=== PATIENT | female | born 1970 | race Caucasian/White ===

== ENCOUNTER → 2016-12-22 | Outpatient (CLI) | payer BC ==
[~2016-12-22] MED LIST: ATV/1 PO; BUPR-79 PO; BUSP15TA70 PO; CYAN100T6 PO; DOCU1TAB6 PO; FOLI1TAB7 PO; LAMO100T16 PO; MAGN250T3 PO; MULT-506 PO; NORE-37 PO; POTASSIUM PO; ZOLP10TA PO
== END | disposition home or self-care (01) ==
LOC: C.PATHSPEC 14:01
PROVIDERS: ATTEND Dermatology
DX: D23.5 Other benign neoplasm of skin of trunk (principal); D22.39 Melanocytic nevi of other parts of face; L72.9 Follicular cyst of the skin and subcutaneous tissue, unspecified

== ENCOUNTER → 2017-03-06 | Outpatient (CLI) | payer BC ==
--- NOTE | 2017-03-06 16:28 | MAMMOGRAPHY REPORT ---
BILATERAL DIGITAL SCREENING MAMMOGRAM TOMOSYNTHESIS WITH CAD: 03/06/2017 CLINICAL HISTORY: Routine screening. Patient has no complaints. TECHNIQUE: Breast tomosynthesis in addition to standard 2D mammography was performed. Current study was also evaluated with a Computer Aided Detection (CAD) system. COMPARISON: Comparison is made to exams dated: 12/16/2015 mammogram, 11/07/2014 mammogram, 06/13/2013 m ammogram, 06/13/2013 ultrasound, and 06/07/2013 mammogram - [facility]. BREAST COMPOSITION: There are scattered areas of fibroglandular density in both breasts. FINDINGS: No new suspicious mass, architectural distortion or cluster of microcalcifications is see n. IMPRESSION: ACR BI-RADS CATEGORY 1: NEGATIVE There is no mammographic evidence of malignancy. A 1 year screening mammogram is recommended. The p atient will receive written notification of the results. Approximately 10% of breast cancers are not detected with mammography. A negative mammographic repor t should not delay biopsy if a clinically suggestive mass is present. Vickie Chang M.D. ay/:03/06/2017 16:06:29 Molder Operator: Kamilah MCDONOUGHR, M, [facility] letter sent: Normal 1/2 BI-RADS Code: ACR BI-RADS Category 1: Negative
== END | disposition home or self-care (01) ==
LOC: C.MAMM 13:24
PROVIDERS: ATTEND Obstetrics & Gynecology
DX: Z12.31 Encounter for screening mammogram for malignant neoplasm of breast (principal)

== ENCOUNTER → 2017-04-27 | Outpatient (CLI) | payer BC | END | disposition home or self-care (01) | LOC: C.PAPS 10:00 | PROVIDERS: ATTEND Obstetrics & Gynecology | DX: Z01.419 Encounter for gynecological examination (general) (routine) without abnormal findings (principal) ==

== ENCOUNTER → 2017-06-01 | Outpatient (CLI) | payer BC ==
[2017-06-01 17:14] LABS: URINE APPEARANCE CLEAR (CLEAR); URINE BILIRUBIN NEG (NEG); URINE COLOR YELLOW; URINE NITRITE NEG (NEG); URINE PH 6.5 (4.5-7.5); URINE SPECIFIC GRAVITY 1.022 (1.000-1.030); UROBILINOGEN NEG (NEG); ZZUR CULT IF INDIC CLEAN CATCH NO
[2017-06-01 17:16] LABS: MANUAL MICROSCOPIC REQUIRED? NO; REVIEW REQ? NO
== END | disposition home or self-care (01) ==
LOC: C.LAB1850 15:30
PROVIDERS: ATTEND Internal Medicine
DX: R31.9 Hematuria, unspecified (principal)

== ENCOUNTER → 2017-08-21 | Outpatient (CLI) | payer BC ==
[2017-08-21 12:42] LABS: THYROID STIMULATING HORMONE 1.7 uIu/ml (0.300-4.500)
== END | disposition home or self-care (01) ==
LOC: C.LAB1850 10:26
PROVIDERS: ATTEND Internal Medicine
DX: E04.2 Nontoxic multinodular goiter (principal)

== ENCOUNTER → 2017-09-25 | Outpatient (CLI) | payer BC ==
--- NOTE | 2017-09-25 13:58 | DIAGNOSTIC IMAGING REPORT ---
CHEST 2 VIEWS ROUTINE CLINICAL HISTORY: ACUTE UPPER RESPIRATORY INFECTION dyspnea COMPARISON STUDY: No previous studies for comparison. FINDINGS: The bones soft tissues and hemidiaphragms are normal. The cardiomediastinal silhouette is normal. The lungs are clear. The pulmonary vasculature is normal. IMPRESSION: Negative chest. The above report was generated using voice recognition software. It may contain grammatical, syntax or spelling errors. Electronically signed by: Vivek Zendejas M.D. 09/25/2017 1:57 PM Dictated Date/Time: 09/25/2017 1:56 PM
== END | disposition home or self-care (01) ==
LOC: C.RAD1850 13:43
PROVIDERS: ATTEND Internal Medicine
DX: J06.9 Acute upper respiratory infection, unspecified (principal)

== ENCOUNTER 2022-07-15 19:11 | Inpatient (IN) ==
[2022-07-15 19:52] LABS: Basophils # (auto) 0.06 K/uL (0-0.2); Basophils % (auto) 0.4 %; Eosinophils # (auto) 0.03 K/uL (0-0.50); Eosinophils % (auto) 0.2 %; Hematocrit (blood only) 30.7 % (34.1-44.9); Hemoglobin 9.2 g/dl (12.0-16.0); Immature Granulocytes # (auto) 0.15 K/uL (0.00-0.02); Lymphocytes # (auto) 0.88 K/uL (1.2-3.4); Lymphocytes % (auto) 5.7 %; Mean Corpuscular Hemoglobin 24.5 pg (25.0-34.0); Mean Corpuscular Volume 81.6 fL (80.0-100.0); Monocytes # (auto) 0.62 K/uL (0.24-0.82); Neutrophils # (auto) 13.74 K/uL (1.4-6.5); Neutrophils % (auto) 88.7 %; Platelet Count 780 K/uL (130-400); RDW Coefficient of Variation 14.6 % (11.5-14.5); RDW Standard Deviation 42.7 fL (36.4-46.3); Red Blood Count 3.76 M/uL (3.93-5.22); White Blood Count 15.48 K/ul (4.8-10.8)
[2022-07-15] MEDS ORDERED: ONDANSETRON INJ 2 MG/ML 2 ML VIAL IV STA (19:55)
[2022-07-15] MEDS ORDERED: MoRPHine SULFATE 10 MG/ML CARP/VIAL IV STA (19:55)
--- NOTE | 2022-07-15 20:01 | Emergency Department Note ---
Impression & Plan Left sided abdominal pain, Anemia, Liver hematoma, Colon cancer metastasized to liver, Abdominal distension, S/P colonoscopy, S/P endoscopy ED Provider Note NAME: PRIYA MNOZON AGE: 51 SEX: F : 1970 ARRIVES VIA: Walk-In INFORMANT: [Patient] ED PROVIDER(S): [Brayden Rojas MD] CHIEF COMPLAINT: Abdominal pain HISTORY OF PRESENT ILLNESS: The patient is a 51-year-old female who presents to the ER with left upper quadrant abdominal pain. The patient had an endoscopy and colonoscopy today by Dr. Oquendo. They were looking for cancer. They did find a suspicious area in the colon. The patient's left upper quadrant abdominal pain has markedly increased since the procedure and she is rating the pain as severe. She was told to come here for pain control if necessary. There has been no fever, no vomiting, no diarrhea, she is passing gas since the colonoscopy. Her abdomen is distended but she states that has been the case because of her liver disease. REVIEW OF SYSTEMS: See HPI for pertinent positives and negatives. A total of ten systems were reviewed and were otherwise negative. PMHx/PSHx: See Below SOCIAL HISTORY: See Below. PHYSICAL EXAM: GENERAL: Patient is in significant distress from pain. HEENT: No acute trauma, normocephalic atraumatic, mucous membranes moist, no nasal congestion, no scleral icterus. NECK: No stridor, no adenopathy, no meningismus, trachea is midline. LUNGS: Clear to auscultation bilaterally, no wheeze, no rhonchi, breath sounds equal. HEART: Mildly tachycardic, regular rhythm, no murmurs. ABDOMEN: Firm, distended, markedly tender in the left upper quadrant and left midabdomen. EXTREMITIES: No cyanosis, full range of motion of all the joints without pain or difficulty, no signs for acute trauma. NEUROLOGIC: Oriented x 3, no acute motor or sensory deficits, no focal weakness. SKIN: No rash, no jaundice, no diaphoresis. Pale. DIFFERENTIAL DIAGNOSIS: Appendicitis, ovarian cyst, bowel perforation, ovarian torsion, ectopic , TOA, PID, diverticulitis, UTI, obstruction, mesenteric ischemia, aortic pathology, inflammatory bowel disease, renal colic, PUD, pancreatitis, biliary pathology, hernia, volvulus, constipation, as well as other pathologies. EMERGENCY DEPARTMENT COURSE/PROCEDURES: Critical Care Note: I have personally spent 52 minutes of critical care time in the direct management of this patient. This includes bedside care, interpretation of diagnostic studies, and testing, discussion with consultants, patient, and family members, and other required patient management activities. This 52 minutes is in excess of all separately billable procedures. MEDICAL DECISION MAKING: There is a moderate leukocytosis, this could be consistent with infection or just her pain. Hemoglobin returned low at around 9, this was about a one-point drop for her. A repeat hemoglobin performed a few hours later showed a drop of another point to around 8. Platelet count was high at 780. Creatinine was mildly elevated at 1.37, no electrolyte abnormality in need of emergent correction. Alk phos was elevated, the remaining liver enzymes were unremarkable. Lipase was not elevated making pancreatitis unlikely. Chest film did not show free air or pneumonia. Abdominal and pelvis CT showed a liver hematoma with extension into the mesentery. No active extravasation was noted. No bowel obstruction. The patient received IV morphine for pain, IV Zofran for nausea. The findings on CT explain the patient's discomfort. I did speak with GI, Dr. Sanchez. There was no GI intervention warranted but he did suggest potential transfer for IR intervention and cauterization/coiling. I spoke with surgery here at our hospital, they felt the patient could stay at this facility, they did not feel the need for emergent transfer or for IR intervention this evening. The patient was much more comfortable after being medicated. She has an adequate blood pressure, she sitting up in bed and doing well. The patient was consented for blood, the paperwork was completed and signed. A type and cross was ordered. The patient is aware of her findings, she understands the reason for the hospital stay, she understands she may require transfer if she were to worsen. She understands that she will require blood if she worsens. The on-call hospitalist has been consulted and did accept the patient. Past Med/Surg History Medical History Abdominal pain Anemia reason for upcoming EGD Bipolar disorder Borderline high cholesterol Cervical radiculopathy Dysmenorrhea Dysplastic nevus Ectopic hx GERD (gastroesophageal reflux disease) History of COVID-19 March 22, 2022 > home test and at [place] test site in parking gargage. > tired, cough, fever > all resolved IBS (irritable bowel syndrome) Liver masses Palpitations resolved per pt Surgical History H/O laparoscopy Ovarian pregnacy H/O oral surgery tooth extraction- wisdom History of colonoscopy History of dilatation and curettage S/P abdominoplasty S/P fine needle aspiration pt unaware S/P LASIK surgery S/P skin biopsy Nevus- Benign Family History Grandmother (Maternal) Alzheimer disease Stroke Mother Hypothyroidism Obesity Diabetes S/P removal of parathyroid gland Grandmother (Paternal) Diabetes Family/Other Breast cancer Sister Diabetes Pre-diabetes Uncle Stroke Myocardial infarction Dementia Denies family history of Ovarian cancer Colorectal cancer Social History Smoking Status: Never smoker Tobacco Type: Cigarettes Age Started Using Tobacco: 14; Age Quit Using Tobacco: 44; packs per day: 1; Years Smoked: 15; Second Hand Exposure: No; Hx Alcohol Use: Yes Alcohol type: wine Alcohol Intake Frequency: 4 or More x per/Week Alcohol Intake Frequency Comment: Socially Hx Substance Use: No Preferred Language: Peruvian Communication Ability: Effective Visual Impairment: No Limitations Hearing Ability: Normal Form Worker Required: No Beliefs That Will Affect Care: None marital status: Current Living Situation: Spouse Current Living Situation Comment: home current occupational status: employed Feels Safe at Home: Yes Childhood Exposure to Second-Hand Smoke: Yes Dental Care, Regularly: Yes Physical Activity Frequency: 3-4 Times per Week Seatbelt Use: always Sunscreen Use: Yes Assistive Devices: None Allergies Allergies Allergy/AdvReac Type Severity Reaction Status Date / Time Sulfa (Sulfonamide Allergy Severe BREATHING Verified 07/15/22 11:22 Antibiotics) DIFFICULTIES adhesive Allergy Unknown SKIN RASH Verified 07/15/22 11:22 Home Meds Home Medications Medication Instructions Recorded Confirmed multivitamin 1 tab PO QAM 08/28/19 07/15/22 drospirenone 3 mg-ethinyl 1 tab PO QAM 07/07/22 07/15/22 estradiol 0.02 mg tablet (KELVIN (28)) fluticasone propionate 50 1 sprays intranasal BID PRN 07/07/22 07/15/22 mcg/actuation nasal Congestion spray,suspension lamotrigine 150 mg tablet 150 mg PO QAM 07/07/22 07/15/22 lorazepam 0.5 mg tablet 0.5 mg PO HS 07/07/22 07/15/22 bupropion HCl 200 mg tablet,12 hr 200 mg PO QAM 07/15/22 07/15/22 sustained-release Previous Rx's Medication Instructions Recorded buspirone 15 mg tablet 15 mg PO BID #180 tabs 11/11/20 zolpidem 5 mg tablet 5 mg PO HS PRN sleep #20 tabs 09/20/21 ondansetron 4 mg disintegrating 4 mg PO Q8H PRN nausea and 06/29/22 tablet vomiting #30 tabs dicyclomine 10 mg capsule 10 mg PO TID PRN abdominal pain 07/05/22 #90 caps Results & Data (ED) Vital Signs Vital Signs - 24 hr 07/15/22 19:22 07/15/22 19:58 07/15/22 19:58 Temperature 36 C L Temperature Source Temporal Artery Scan Pulse Rate 98 H 89 Pulse Rate [Apical] 92 H Pulse Rhythm Regular Pulse Rhythm [Apical] Regular Pulse Strength [Apical] Normal Respiratory Rate 18 24 24 Respiratory Effort / Characteristics Non-Labored Spontaneous Non-Labored Spontaneous Respiratory Depth Normal Normal Respiratory Pattern Regular Blood Pressure 114/81 Blood Pressure [Right Arm] 132/80 Blood Pressure Mean 92 Blood Pressure Mean [Right Arm] 97 Blood Pressure Position [Right Arm] Sitting Pulse Oximetry 97 97 97 Oxygen Delivery Method Room Air Room Air Room Air Sepsis Recent Fever Within 48 Hours No Sepsis New/Unexplained Change in Mental Status No Sepsis Action Taken by Nursing No Action Required 07/15/22 22:00 Temperature Temperature Source Pulse Rate Pulse Rate [Apical] 80 Pulse Rhythm Pulse Rhythm [Apical] Pulse Strength [Apical] Respiratory Rate 29 H Respiratory Effort / Characteristics Non-Labored Spontaneous Respiratory Depth Normal Respiratory Pattern Blood Pressure Blood Pressure [Right Arm] 125/88 Blood Pressure Mean Blood Pressure Mean [Right Arm] 100 Blood Pressure Position [Right Arm] Pulse Oximetry 96 Oxygen Delivery Method Room Air Sepsis Recent Fever Within 48 Hours Sepsis New/Unexplained Change in Mental Status Sepsis Action Taken by Fdc Medications Current Medication List: was personally reviewed by me Laboratory Data Attestation: I reviewed the patient's lab results. Result diagrams: 07/15/22 21:47 07/15/22 19:40 Lab Results 07/15/22 07/15/22 07/15/22 Range/Units 19:40 19:40 19:40 WBC 15.48 H (4.8-10.8) K/ul RBC 3.76 L (3.93-5.22) M/uL Hgb 9.2 L (12.0-16.0) g/dl Hct 30.7 L (34.1-44.9) % MCV 81.6 (80.0-100.0) fL MCH 24.5 L (25.0-34.0) pg MCHC 30.0 L (32.0-36.0) g/dL RDW Std Deviation 42.7 (36.4-46.3) fL RDW Coeff of Kenyon 14.6 H (11.5-14.5) % Plt Count 780 H (130-400) K/uL MPV 9.0 L (9.4-12.3) fL Immature Gran % (Auto) 1.0 % Neut % (Auto) 88.7 % Lymph % (Auto) 5.7 % Barnwell % (Auto) 4.0 % Eos % (Auto) 0.2 % Baso % (Auto) 0.4 % Neut # (Auto) 13.74 H (1.4-6.5) K/uL Lymph # (Auto) 0.88 L (1.2-3.4) K/uL Barnwell # (Auto) 0.62 (0.24-0.82) K/uL Eos # (Auto) 0.03 (0-0.50) K/uL Baso # (Auto) 0.06 (0-0.2) K/uL Immature Gran # (Auto) 0.15 H (0.00-0.02) K/uL Sodium 135 L (136-145) mmol/L Potassium 4.5 (3.5-5.1) mmol/L Chloride 102 (98-107) mmol/L Carbon Dioxide 21 (21-32) mmol/L Anion Gap 12 H (3-11) BUN 11 (6-23) mg/dl Creatinine 1.37 H (0.6-1.2) mg/dl Est Cr Clr Drug Dosing Not Reportable Est GFR ( Amer) 52.4 ml/min Est GFR (Non-Af Amer) 45.2 ml/min BUN/Creatinine Ratio 8.0 L (10-20) Glucose 127 H (70-99(Fasting)) mg/dl Calcium 9.7 (8.5-10.1) mg/dl Magnesium 1.8 (1.7-2.4) mg/dl Total Bilirubin 0.5 (0.2-1.0) mg/dl AST 21 (13-39) U/L ALT 23 (7-52) U/L Alkaline Phosphatase 542 H (34-104) U/L Total Protein 7.6 (6.0-8.3) gm/dl Albumin 3.8 (3.4-5.0) gm/dl Globulin 3.8 (2.5-4.0) gm/dl Albumin/Globulin Ratio 1.0 (0.9-2) Lipase 4 L (11-82) U/L Crossmatch 07/15/22 07/15/22 Range/Units 21:47 21:47 WBC (4.8-10.8) K/ul RBC (3.93-5.22) M/uL Hgb 8.4 L (12.0-16.0) g/dl Hct (34.1-44.9) % MCV (80.0-100.0) fL MCH (25.0-34.0) pg MCHC (32.0-36.0) g/dL RDW Std Deviation (36.4-46.3) fL RDW Coeff of Kenyon (11.5-14.5) % Plt Count (130-400) K/uL MPV (9.4-12.3) fL Immature Gran % (Auto) % Neut % (Auto) % Lymph % (Auto) % Barnwell % (Auto) % Eos % (Auto) % Baso % (Auto) % Neut # (Auto) (1.4-6.5) K/uL Lymph # (Auto) (1.2-3.4) K/uL Barnwell # (Auto) (0.24-0.82) K/uL Eos # (Auto) (0-0.50) K/uL Baso # (Auto) (0-0.2) K/uL Immature Gran # (Auto) (0.00-0.02) K/uL Sodium (136-145) mmol/L Potassium (3.5-5.1) mmol/L Chloride (98-107) mmol/L Carbon Dioxide (21-32) mmol/L Anion Gap (3-11) BUN (6-23) mg/dl Creatinine (0.6-1.2) mg/dl Est Cr Clr Drug Dosing Est GFR ( Amer) ml/min Est GFR (Non-Af Amer) ml/min BUN/Creatinine Ratio (10-20) Glucose (70-99(Fasting)) mg/dl Calcium (8.5-10.1) mg/dl Magnesium (1.7-2.4) mg/dl Total Bilirubin (0.2-1.0) mg/dl AST (13-39) U/L ALT (7-52) U/L Alkaline Phosphatase (34-104) U/L Total Protein (6.0-8.3) gm/dl Albumin (3.4-5.0) gm/dl Globulin (2.5-4.0) gm/dl Albumin/Globulin Ratio (0.9-2) Lipase (11-82) U/L Crossmatch See Detail Administered Medications Morphine Sulfate (Morphine Sulfate 4 Mg/Ml 1 Ml Carp\Vial) 4 mg IV Q30M PRN PRN Reason: Pain Stop: 07/29/22 19:54 Last Admin: 07/15/22 21:52 Dose: 4 mg Documented By: GILDA Discontinued Medications Ioversol (Optiray 300 100ml) 91 ml IV ONCE ONE Stop: 07/15/22 20:35 Last Admin: 07/15/22 20:35 Dose: 91 ml Documented By: MIHIR Morphine Sulfate (Morphine Sulfate 10 Mg/Ml Carp/Vial) 6 mg IV NOW STA Stop: 07/15/22 19:56 Last Admin: 07/15/22 20:17 Dose: 6 mg Documented By: GILDA Ondansetron HCl (Ondansetron Inj 2 Mg/Ml 2 Ml Vial) 4 mg IV NOW STA Stop: 07/15/22 19:56 Last Admin: 07/15/22 20:17 Dose: 4 mg Documented By: GILDA Imaging Data Radiologist's Impression: Abdomen/Pelvis CT 07/15/22 19:[address] WITH IV CONTRAST CT DOSE: 488.56 mGy.cm HISTORY: Acute upper abdominal pain in a patient with metastatic disease. Cecal mass described on the colonoscopy study of same day tumor/abdominal pain/colonoscopy today TECHNIQUE: Multiaxial CT images of the abdomen and pelvis were performed following the IV administration of 91 cc of Optiray, A dose lowering technique was utilized adhering to the principles of ALARA. COMPARISON STUDY: CT abdomen and pelvis 07/01/2022 FINDINGS: Multifocal pulmonary metastasis redemonstrated measuring up to 2.4 cm within the left lower lobe. Mild subsegmental bibasilar atelectasis. No pneumatosis or pneumoperitoneum. Unremarkable spleen, pancreas and adrenal glands. Contracted gallbladder. Numerous masses of the liver redemonstrated with largest mass/conglomerate masses of the left hepatic lobe measuring up to approximately 16.6 cm. The left hepatic lobe mass was recently biopsied on 07/12/2022. There is acute subcapsular hemorrhage measuring up to 8.3 cm on image 227 which extends into the extracapsular space with hematoma inferior to the left hepatic lobe measuring up to 6.3 cm on image 255. Hemorrhage is also noted layering along the stomach with small to moderate amount of hemorrhage extending into the pelvis. No definite active extravasation identified. There is narrowing of the portal, splenic and superior mesenteric veins without thrombus identified. Unremarkable kidneys. No hydronephrosis. Unremarkable urinary bladder, uterus and adnexa. Aorta and IVC are unremarkable. Bones of the right lower quadrant mesentery redemonstrated measuring up to 2.8 x 1.9 cm. Colonic diverticulosis. No CT evidence of acute appendicitis. No small bowel obstruction. Heterogeneous mucosal mass of the cecum measures up to approximately 3 cm. Unremarkable soft tissues. There is no acute fracture or destructive bone lesion identified. Indeterminate ill-defined subcentimeter sclerotic focus of the right iliac bone on image 296. Mild lumbar levoscoliosis. IMPRESSION: 1. 3.0 cm focus of soft tissue thickening involving the cecum likely correlates with the mucosal mass seen and biopsied on colonoscopy of same day. 2. Hepatic and pulmonary metastatic disease are again noted. 3. The dominant left hepatic lobe mass was recently biopsied on 07/12/2022. There is acute subcapsular hematoma involving the left hepatic lobe measuring up to approximately 8 cm with hemorrhage extension into the mesentery and pelvis with small to moderate amount of hemoperitoneum. 4. Mesenteric lymphadenopathy of the right lower quadrant mesentery redemonstra angel. 5. Additional findings as above. ACT 112: Negative or not required by law. The above report was generated using voice recognition software. It may contain grammatical, syntax or spelling errors. Electronically signed by: Min Ledbetter M.D. 07/15/2022 9:08 PM Chest X-Ray 07/15/22 19:55 XR chest 1V portable HISTORY: 51 years-old Female abd pain . Acute chest and abdominal pain COMPARISON: Chest CT 07/12/2002 TECHNIQUE: Portable AP view of the chest FINDINGS: Cardiomediastinal and hilar silhouettes are unchanged. No pneumothorax, pleural effusion or overt pulmonary edema. Numerous bilateral pulmonary nodules are redemonstrated measuring up to 2.5 cm within the left lower lobe. Degenerative changes of the shoulders and spine with sigmoidal thoracolumbar scoliosis. IMPRESSION: 1. No acute process. 2. Multifocal pulmonary metastatic disease redemonstrated. ACT 112: Negative or not required by law. The above report was generated using voice recognition software. It may contain grammatical, syntax or spelling errors. Electronically signed by: Min Ledbetter M.D. 07/15/2022 8:23 PM Discharge Plan Visit Data Chief Complaint: Abdominal Pain Stated Complaint: ABDOMINAL PAIN ED Provider: Brayden Rojas Discharge Problem: Left sided abdominal pain, Anemia, Liver hematoma, Colon cancer metastasized to liver, Abdominal distension, S/P colonoscopy, S/P endoscopy Patient Disposition: Admitted As Inpatient Condition: Serious Forms Stand Alone Forms: [facility] [employer] Prescriptions Prescriptions: No Action zolpidem 5 mg tablet 5 mg PO HS PRN (Reason: sleep) Qty: 20 0RF Rx Instructions: max 20 tablets per month ondansetron 4 mg tablet,disintegrating 4 mg PO Q8H PRN (Reason: nausea and vomiting) Qty: 30 0RF dicyclomine 10 mg capsule 10 mg PO TID PRN (Reason: abdominal pain) Qty: 90 2RF multivitamin tablet 1 tab PO QAM buspirone 15 mg tablet 15 mg PO BID Qty: 180 3RF Rx Instructions: may take an additional tablet in afternoon if needed lamotrigine 150 mg tablet 150 mg PO QAM lorazepam 0.5 mg tablet 0.5 mg PO HS fluticasone propionate 50 mcg/actuation spray,suspension 1 sprays INTNAS BID PRN (Reason: Congestion) drospirenone-ethinyl estradiol [KELVIN (28)] 3-0.02 mg tablet 1 tab PO QAM bupropion HCl 200 mg tablet sustained-release 12 hr 200 mg PO QAM Referrals Referrals: Gloria Molina MD [Primary Care Provider] -
[2022-07-15 20:12] LABS: Alanine Aminotransferase 23 U/L (7-52); Albumin Level 3.8 gm/dl (3.4-5.0); Alkaline Phosphatase 542 U/L (34-104); Anion Gap 12 (3-11); Aspartate Aminotransferase 21 U/L (13-39); Bilirubin,Total 0.5 mg/dl (0.2-1.0); Blood Urea Nitrogen 11 mg/dl (6-23); Calcium 9.7 mg/dl (8.5-10.1); Carbon Dioxide 21 mmol/L (21-32); Chloride 102 mmol/L (98-107); Est GFR (African American) 52.4 ml/min; Est GFR (Non-African American) 45.2 ml/min; Globulin 3.8 gm/dl (2.5-4.0); Glucose 127 mg/dl (70-99(Fasting)); Lipase 4 U/L (11-82); Potassium 4.5 mmol/L (3.5-5.1); Sodium 135 mmol/L (136-145); Total Protein 7.6 gm/dl (6.0-8.3)
--- NOTE | 2022-07-15 20:24 | XRay Report ---
XR chest 1V portable HISTORY: 51 years-old Female abd pain . Acute chest and abdominal pain COMPARISON: Chest CT 07/12/2002 TECHNIQUE: Portable AP view of the chest FINDINGS: Cardiomediastinal and hilar silhouettes are unchanged. No pneumothorax, pleural effusion or overt pul monary edema. Numerous bilateral pulmonary nodules are redemonstrated measuring up to 2.5 cm within t he left lower lobe. Degenerative changes of the shoulders and spine with sigmoidal thoracolumbar scol iosis. IMPRESSION: 1. No acute process. 2. Multifocal pulmonary metastatic disease redemonstrated. ACT 112: Negative or not required by law. The above report was generated using voice recognition software. It may contain grammatical, syntax o r spelling errors. Electronically signed by: Min Ledbetter M.D. 07/15/2022 8:23 PM
[2022-07-15] MEDS ORDERED: OPTIRAY 300 100mL IV ONE (20:34)
--- NOTE | 2022-07-15 21:10 | CT Scan Report ---
ABDOMEN AND PELVIS CT WITH IV CONTRAST CT DOSE: 488.56 mGy.cm HISTORY: Acute upper abdominal pain in a patient with metastatic disease. Cecal mass described on the colonoscopy study of same day tumor/abdominal pain/colonoscopy today TECHNIQUE: Multiaxial CT images of the abdomen and pelvis were performed following the IV administrat ion of 91 cc of Optiray, A dose lowering technique was utilized adhering to the principles of ALARA. COMPARISON STUDY: CT abdomen and pelvis 07/01/2022 FINDINGS: Multifocal pulmonary metastasis redemonstrated measuring up to 2.4 cm within the left lower lobe. Mild subsegmental bibasilar atelectasis. No pneumatosis or pneumoperitoneum. Unremarkable sple en, pancreas and adrenal glands. Contracted gallbladder. Numerous masses of the liver redemonstrated with largest mass/conglomerate masses of the left hepatic lobe measuring up to approximately 16.6 cm. The left hepatic lobe mass was recently biopsied on 07/12/2022. There is acute subcapsular hemorrhage measuring up to 8.3 cm on image 227 which extends into the extracapsular space with hematoma inferio r to the left hepatic lobe measuring up to 6.3 cm on image 255. Hemorrhage is also noted layering luis miguel ng the stomach with small to moderate amount of hemorrhage extending into the pelvis. No definite act tresa extravasation identified. There is narrowing of the portal, splenic and superior mesenteric veins without thrombus identified. Unremarkable kidneys. No hydronephrosis. Unremarkable urinary bladder, uterus and adnexa. Aorta and I VC are unremarkable. Bones of the right lower quadrant mesentery redemonstrated measuring up to 2.8 x 1.9 cm. Colonic diverticulosis. No CT evidence of acute appendicitis. No small bowel obstruction. He terogeneous mucosal mass of the cecum measures up to approximately 3 cm. Unremarkable soft tissues. T here is no acute fracture or destructive bone lesion identified. Indeterminate ill-defined subcentime ter sclerotic focus of the right iliac bone on image 296. Mild lumbar levoscoliosis. IMPRESSION: 1. 3.0 cm focus of soft tissue thickening involving the cecum likely correlates with the mucosal mass seen and biopsied on colonoscopy of same day. 2. Hepatic and pulmonary metastatic disease are again noted. 3. The dominant left hepatic lobe mass was recently biopsied on 07/12/2022. There is acute subcapsular hematoma involving the left hepatic lobe measuring up to approximately 8 cm with hemorrhage extensio n into the mesentery and pelvis with small to moderate amount of hemoperitoneum. 4. Mesenteric lymphadenopathy of the right lower quadrant mesentery redemonstrated. 5. Additional findings as above. ACT 112: Negative or not required by law. The above report was generated using voice recognition software. It may contain grammatical, syntax o r spelling errors. Electronically signed by: Min Ledbetter M.D. 07/15/2022 9:08 PM
[2022-07-15] MEDS ORDERED: SODIUM CHLORIDE 0.9% 250 ML IV PRN (21:39)
--- NOTE | 2022-07-15 21:48 | Surgery Consultation ---
Date of Consultation July 15, 2022 Assessment & Plan (1) Subcapsular hematoma of liver: I discussed with the treating emergency room physician. I suspect the patient's abdominal pain is likely due to peritoneal irritation from her subcapsular hematoma of her liver. We therefore recommend the following: At the present time the patient is noted to be normotensive without tachycardia. She is only had a 1 g drop of her hemoglobin from her most recent one taken approximately 2 weeks ago. Recommend following hemoglobin and hematocrits every 4-6 hours Recommend obtaining a type and cross for 2 units of packed red blood cells in the event her transfusion is required Provide analgesics Provide antiemetics Clinical deterioration is noted reimaging of her abdomen can be entertained or the patient can be transferred to a tertiary facility where interventional radiology and the capability to embolize any bleeding areas can be performed I discussed the above with my attending physician Dr. Sal who is in agreement with these recommendations Supervising Physician Co-Signing Physician Notes Unlikely this is ongoing bleeding watch the patient for 24 hours or so to see if hemoglobin stabilizes History of Present Illness Reason for Consultation: Subcapsular hematoma of the liver History of Present Illness This is a 51-year-old female with an underlying history of metastatic colon cancer. Patient notes that 3 days ago the patient underwent an ultrasound- guided biopsy of her liver. She noted that she did have some abdominal pain following this procedure but it was initially tolerable. She further reports that she underwent an EGD as well as a colonoscopy earlier today. These records were reviewed and her EGD showed no significant abnormalities. She was noted to have a nonobstructive mass of her cecum noted on the colonoscopy. Upon return home from this procedure the patient noted worsening abdominal pain. She notes the pain is greatest in the left upper quadrant with some radiation to her left shoulder. She denies any nausea or vomiting. She does not report any fevers, shakes, chills. No lightheadedness or dizziness is noted. Patient notes that she does not take any anticoagulants or antiplatelet medications. Patient notes that she has had abdominal surgeries in the form of a abdominoplasty as well as a evacuation of an ectopic . Concerning the patient's history of colon cancer she says she is scheduled to see an oncologist at [facility] next week. Since arrival to the hospital the patient has had labs and imaging which I independent reviewed. Patient has had a chest x-ray that showed no acute process. Multiple pulmonary nodules suspicious for metastatic disease were noted. Patient did have a CT scan of her abdomen and pelvis. Patient was noted to have a 3 cm focus in the cecum correlating to mass noted on colonoscopy today. Hepatic and pulmonary metastatic disease was noted. Patient was noted to have a subcapsular hematoma involving the left hepatic lobe which measured approximately 8 cm. There is hemorrhage that extended into the mesentery and pelvis with a small to moderate amount of hemoperitoneum. There is no definite active extravasation noted on the study. Labs include a CBC her white blood cell count was 15.8. Hemoglobin and hematocrit were 9.2 and 30.7. It is noteworthy to mention the patient had a most recent hemoglobin on 07/01/2022 which was 10.2. Patient's platelet count was 780,000. Chemistry profile showed sodium was 135 with a potassium of 4.5. BUN and creatinine were 11 and 1.3. At the time of my interview the patient was resting in bed. She did note some pain greatest in the left upper quadrant of her abdomen but she was in no distress. Allergies Allergy/AdvReac Type Severity Reaction Status Date / Time Sulfa (Sulfonamide Allergy Severe BREATHING Verified 07/15/22 11:22 Antibiotics) DIFFICULTIES adhesive Allergy Unknown SKIN RASH Verified 07/15/22 11:22 Home Medications Medication Instructions Recorded Confirmed Type multivitamin 1 tab PO QAM 08/28/19 07/15/22 History buspirone 15 mg tablet 15 mg PO BID #180 tabs 11/11/20 07/15/22 Rx zolpidem 5 mg tablet 5 mg PO HS PRN sleep #20 tabs 09/20/21 07/15/22 Rx ondansetron 4 mg disintegrating 4 mg PO Q8H PRN nausea and 06/29/22 07/15/22 Rx tablet vomiting #30 tabs dicyclomine 10 mg capsule 10 mg PO TID PRN abdominal pain 07/05/22 07/15/22 Rx #90 caps drospirenone 3 mg-ethinyl 1 tab PO QAM 07/07/22 07/15/22 History estradiol 0.02 mg tablet (KELVIN (28)) fluticasone propionate 50 1 sprays intranasal BID PRN 07/07/22 07/15/22 History mcg/actuation nasal Congestion spray,suspension lamotrigine 150 mg tablet 150 mg PO QAM 07/07/22 07/15/22 History lorazepam 0.5 mg tablet 0.5 mg PO HS 07/07/22 07/15/22 History bupropion HCl 200 mg tablet,12 hr 200 mg PO QAM 07/15/22 07/15/22 History sustained-release Patient History Medical History Abdominal pain Anemia reason for upcoming EGD Bipolar disorder Borderline high cholesterol Cervical radiculopathy Dysmenorrhea Dysplastic nevus Ectopic hx GERD (gastroesophageal reflux disease) History of COVID-March 22, 2022 > home test and at [place] test site in parking gargage. > tired, cough, fever > all resolved IBS (irritable bowel syndrome) Liver masses Palpitations resolved per pt Surgical History H/O laparoscopy Ovarian pregnacy H/O oral surgery tooth extraction- wisdom History of colonoscopy History of dilatation and curettage S/P abdominoplasty S/P fine needle aspiration pt unaware S/P LASIK surgery S/P skin biopsy Nevus- Benign Family History Grandmother (Maternal) Alzheimer disease Stroke Mother Hypothyroidism Obesity Diabetes S/P removal of parathyroid gland Grandmother (Paternal) Diabetes Family/Other Breast cancer Sister Diabetes Pre-diabetes Uncle Stroke Myocardial infarction Dementia Denies family history of Ovarian cancer Colorectal cancer Social History (Updated 07/15/22 @ 23:09 by Marcus Mi MD) Smoking Status: Former smoker Tobacco Type: Cigarettes Age Started Using Tobacco: 14; Age Quit Using Tobacco: 44; packs per day: 1; Years Smoked: 15; Cigarettes Per Day: 1 pack; Smoking End Date: age 44; Second Hand Exposure: Yes; Do You Dip or Chew Tobacco: No; Hx Alcohol Use: Yes Alcohol type: wine Alcohol Intake Frequency: 4 or More x per/Week Alcohol Intake Frequency Comment: Socially Hx Substance Use: No Preferred Language: Maltese Communication Ability: Effective Visual Impairment: No Limitations Hearing Ability: Normal Make Up Operator Helper Required: No Beliefs That Will Affect Care: None marital status: Current Living Situation: Spouse Current Living Situation Comment: home current occupational status: employed Other Information That Helps Us Care for You: No Feels Safe at Home: Yes Safety Concerns: Feels Safe At This Time Childhood Exposure to Second-Hand Smoke: Yes Dental Care, Regularly: Yes Physical Activity Frequency: 3-4 Times per Week Seatbelt Use: always Sunscreen Use: Yes Assistive Devices: None Review of Systems Constitutional: no fever and no chills Eyes: no eye pain Ear, Nose, Mouth, Throat: no ear pain Respiratory: no cough and no dyspnea Cardiovascular: no chest pain Gastrointestinal: + abdominal pain; no nausea and no vomiting Genitourinary: no dysuria Musculoskeletal: no back pain Integumentary: no rash Neurologic: no localized weakness Physical Exam Constitutional: WD/WN, vitals as above Eyes: no conjunctival abnormality ENMT: Ears: no external ear abnormality Mouth: no oropharynx abnormality Neck: trachea midline Respiratory: normal respiratory effort; no respiratory distress and no labored breathing Cardiovascular: Rate/Rhythm: regular rate and regular rhythm Vessels: dorsalis pedis pulses present and radial pulses present Gastrointestinal (Abdomen): Abdomen is nonrigid. There is minimal distention noted. The patient was not noted to have significant pain with palpation in the left upper quadrant of her abdomen with even light palpation. No ecchymosis of the abdominal wall was noted Musculoskeletal: No calf tenderness Skin: no rashes Neurologic: moves all extremities Psychiatric: A+Ox3, euthymic affect Results & Data ([facility]) Vital Signs (Past 12 Hours) Vital Signs Temp Pulse Pulse Resp BP BP Pulse Ox 07/15/22 19:58 89 24 97 07/15/22 19:58 92 H 24 132/80 97 07/15/22 19:22 36 C L 98 H 18 114/81 97 O2 Del Method 07/15/22 19:58 Room Air 07/15/22 19:58 Room Air 07/15/22 19:22 Room Air PG Care Time/CCT Total # of Minutes Spent Total Time Spent with Patient: Total time spent is greater than 50% in coordination of care (as documented) at patient's floor/unit and/or counseling patient: Coding Level of Care Code 67150 Inpt Consult Level 5 Diagnoses Subcapsular hematoma of liver K76.89
[2022-07-15] MEDS: MoRPHine SULFATE 4 MG/ML 1 ML CARP\\VIAL IV PRN ×2 (21:52→23:09)
--- NOTE | 2022-07-15 22:55 | History & Physical Report ---
Date of Service July 15, 2022 Assessment & Plan (1) Subcapsular hematoma of liver: Plan: 51-year-old female with past medical history of bipolar 2, anxiety and possible metastatic cecalcancer. - gen surg following; recommends trend H/H q4h - maintenance fluids - leukocytosis to 15.48 and elevated procal 3.97 w/o known source. procal may be partly from mets, but would this would not fully explain the degree of elevation - CT abd w/o obvious infectious source. cxr w/o acute process. UA deferred w/ absence of urinary symptoms - subcapsular hematoma itself could be risk of infection: monitor labs, vitals, and clinical status closely; if worsening, consider IV Zosyn. (2) Cecal neoplasm: Plan: - liver and lung lesions on ct abd 07/01/22 suggestive of mets. 07/15/22 colonoscopy w/ cecal mass. biopsies pending (3) Bipolar 2 disorder: Plan: - continue home regimen Plan NPO. maintenance fluids SCDs med surg full code History of Present Illness Chief Complaint: left upper quadrant abdominal pain Primary Care Provider: Gloria Molina MD 51-year-old female with past medical history of bipolar 2, anxiety and possible metastatic cecal cancer. She had outpatient egd and colonoscopy today performed for abnormal CT abd. She was found to have subcapsular hematoma. She reports LUQ cramp/tightness, intermittent. Exacerbated by movement. Bowel movements have been regular. Current LUQ pain is 7/10 LUQ, after the morphine. + left shoulder pain. ED course: IV morphine and zofran. RR 29x1. Temp 36.0C HR was 90s. Other VSS. WBC 15.48. Hb 9.2, 8.4 this admission. was 10.2 two weeks ago. Cr 1.37, baseline 1.0. cxr: Multifocal pulmonary metastatic disease redemonstrated. Allergies Allergy/AdvReac Type Severity Reaction Status Date / Time Sulfa (Sulfonamide Allergy Severe BREATHING Verified 07/15/22 11:22 Antibiotics) DIFFICULTIES adhesive Allergy Unknown SKIN RASH Verified 07/15/22 11:22 Home Medications Medication Instructions Recorded Confirmed Type multivitamin 1 tab PO QAM 08/28/19 07/15/22 History buspirone 15 mg tablet 15 mg PO BID #180 tabs 11/11/20 07/15/22 Rx zolpidem 5 mg tablet 5 mg PO HS PRN sleep #20 tabs 09/20/21 07/15/22 Rx ondansetron 4 mg disintegrating 4 mg PO Q8H PRN nausea and 06/29/22 07/15/22 Rx tablet vomiting #30 tabs dicyclomine 10 mg capsule 10 mg PO TID PRN abdominal pain 07/05/22 07/15/22 Rx #90 caps drospirenone 3 mg-ethinyl 1 tab PO QAM 07/07/22 07/15/22 History estradiol 0.02 mg tablet (KELVIN (28)) fluticasone propionate 50 1 sprays intranasal BID PRN 07/07/22 07/15/22 History mcg/actuation nasal Congestion spray,suspension lamotrigine 150 mg tablet 150 mg PO QAM 07/07/22 07/15/22 History lorazepam 0.5 mg tablet 0.5 mg PO HS 07/07/22 07/15/22 History bupropion HCl 200 mg tablet,12 hr 200 mg PO QAM 07/15/22 07/15/22 History sustained-release Past Med/Surg History Medical History Abdominal pain Anemia reason for upcoming EGD Bipolar disorder Borderline high cholesterol Cervical radiculopathy Dysmenorrhea Dysplastic nevus Ectopic hx GERD (gastroesophageal reflux disease) History of COVID-March 22, 2022 > home test and at [place] test site in parking gargage. > tired, cough, fever > all resolved IBS (irritable bowel syndrome) Liver masses Palpitations resolved per pt Surgical History H/O laparoscopy Ovarian pregnacy H/O oral surgery tooth extraction- wisdom History of colonoscopy History of dilatation and curettage S/P abdominoplasty S/P fine needle aspiration pt unaware S/P LASIK surgery S/P skin biopsy Nevus- Benign Family History Grandmother (Maternal) Alzheimer disease Stroke Mother Hypothyroidism Obesity Diabetes S/P removal of parathyroid gland Grandmother (Paternal) Diabetes Family/Other Breast cancer Sister Diabetes Pre-diabetes Uncle Stroke Myocardial infarction Dementia Denies family history of Ovarian cancer Colorectal cancer Social History (Updated 07/15/22 @ 23:09 by Marcus Mi MD) Smoking Status: Former smoker Tobacco Type: Cigarettes Age Started Using Tobacco: 14; Age Quit Using Tobacco: 44; packs per day: 1; Years Smoked: 15; Cigarettes Per Day: 1 pack; Smoking End Date: age 44; Second Hand Exposure: Yes; Do You Dip or Chew Tobacco: No; Hx Alcohol Use: Yes Alcohol type: wine Alcohol Intake Frequency: 4 or More x per/Week Alcohol Intake Frequency Comment: Socially Hx Substance Use: No Preferred Language: Pashto Communication Ability: Effective Visual Impairment: No Limitations Hearing Ability: Normal Catering Sales Manager Required: No Beliefs That Will Affect Care: None marital status: Current Living Situation: Spouse Current Living Situation Comment: home current occupational status: employed Other Information That Helps Us Care for You: No Feels Safe at Home: Yes Safety Concerns: Feels Safe At This Time Childhood Exposure to Second-Hand Smoke: Yes Dental Care, Regularly: Yes Physical Activity Frequency: 3-4 Times per Week Seatbelt Use: always Sunscreen Use: Yes Assistive Devices: None Review of Systems Review of Systems: All systems reviewed & are unremarkable except as noted in HPI & below Physical Exam Physical Exam: General: Grossly A&O. NAD. Cooperative. HEENT: Atraumatic, normocephalic. EOMI. Oropharynx normal. Pulm: CTAB. -wheezes, -rales, -rhonchi. No respiratory distress. Cardiac: RRR, -mrg. Radial pulses intact and symmetrical. Abdominal: TTP to light palpation at LUQ, less at other areas of abd nondistended, soft. Integ: Warm, dry, intact. Msk: Moving all extrem. Results & Data Results & Data ([facility]) Vital Signs (Past 12 Hours) Vital Signs Temp Pulse Pulse Resp BP BP Pulse Ox 07/15/22 22:00 80 29 H 125/88 96 07/15/22 19:58 89 24 97 07/15/22 19:58 92 H 24 132/80 97 07/15/22 19:22 36 C L 98 H 18 114/81 97 O2 Del Method 07/15/22 22:00 Room Air 07/15/22 19:58 Room Air 07/15/22 19:58 Room Air 07/15/22 19:22 Room Air Laboratory Results Cardiac Enzymes 07/15/22 Range/Units 19:40 AST 21 (13-39) U/L CBC 07/15/22 07/15/22 Range/Units 19:40 21:47 WBC 15.48 H (4.8-10.8) K/ul RBC 3.76 L (3.93-5.22) M/uL Hgb 9.2 L 8.4 L (12.0-16.0) g/dl Hct 30.7 L (34.1-44.9) % Plt Count 780 H (130-400) K/uL Neut # (Auto) 13.74 H (1.4-6.5) K/uL Lymph # (Auto) 0.88 L (1.2-3.4) K/uL [place] # (Auto) 0.62 (0.24-0.82) K/uL Eos # (Auto) 0.03 (0-0.50) K/uL Baso # (Auto) 0.06 (0-0.2) K/uL Comprehensive Metabolic Panel 07/15/22 Range/Units 19:40 Sodium 135 L (136-145) mmol/L Potassium 4.5 (3.5-5.1) mmol/L Chloride 102 (98-107) mmol/L Carbon Dioxide 21 (21-32) mmol/L BUN 11 (6-23) mg/dl Creatinine 1.37 H (0.6-1.2) mg/dl Glucose 127 H (70-99(Fasting)) mg/dl Calcium 9.7 (8.5-10.1) mg/dl AST 21 (13-39) U/L ALT 23 (7-52) U/L Alkaline Phosphatase 542 H (34-104) U/L Total Protein 7.6 (6.0-8.3) gm/dl Albumin 3.8 (3.4-5.0) gm/dl Intake and Output 07/15/22 07/15/22 07/15/22 06:59 14:59 22:59 Other: Weight 74.843 kg Weight Measurement Method Built in [facility] Patient Weight 07/16/22 06:59 Weight 74.843 kg Diagnostic Findings Abdomen/Pelvis CT 07/15/22 19:[address] WITH IV CONTRAST CT DOSE: 488.56 mGy.cm HISTORY: Acute upper abdominal pain in a patient with metastatic disease. Cecal mass described on the colonoscopy study of same day tumor/abdominal pain/colonoscopy today TECHNIQUE: Multiaxial CT images of the abdomen and pelvis were performed following the IV administration of 91 cc of Optiray, A dose lowering technique was utilized adhering to the principles of ALARA. COMPARISON STUDY: CT abdomen and pelvis 07/01/2022 FINDINGS: Multifocal pulmonary metastasis redemonstrated measuring up to 2.4 cm within the left lower lobe. Mild subsegmental bibasilar atelectasis. No pneumatosis or pneumoperitoneum. Unremarkable spleen, pancreas and adrenal glands. Contracted gallbladder. Numerous masses of the liver redemonstrated with largest mass/conglomerate masses of the left hepatic lobe measuring up to approximately 16.6 cm. The left hepatic lobe mass was recently biopsied on 07/12/2022. There is acute subcapsular hemorrhage measuring up to 8.3 cm on image 227 which extends into the extracapsular space with hematoma inferior to the left hepatic lobe measuring up to 6.3 cm on image 255. Hemorrhage is also noted layering along the stomach with small to moderate amount of hemorrhage extending into the pelvis. No definite active extravasation identified. There is narrowing of the portal, splenic and superior mesenteric veins without thrombus identifi ed. Unremarkable kidneys. No hydronephrosis. Unremarkable urinary bladder, uterus and adnexa. Aorta and IVC are unremarkable. Bones of the right lower quadrant mesentery redemonstrated measuring up to 2.8 x 1.9 cm. Colonic diverticulosis. No CT evidence of acute appendicitis. No small bowel obstruction. Heterogeneous mucosal mass of the cecum measures up to approximately 3 cm. Unremarkable soft tissues. There is no acute fracture or destructive bone lesion identified. Indeterminate ill-defined subcentimeter sclerotic focus of the right iliac bone on image 296. Mild lumbar levoscoliosis. IMPRESSION: 1. 3.0 cm focus of soft tissue thickening involving the cecum likely correlates with the mucosal mass seen and biopsied on colonoscopy of same day. 2. Hepatic and pulmonary metastatic disease are again noted. 3. The dominant left hepatic lobe mass was recently biopsied on 07/12/2022. There is acute subcapsular hematoma involving the left hepatic lobe measuring up to approximately 8 cm with hemorrhage extension into the mesentery and pelvis with small to moderate amount of hemoperitoneum. 4. Mesenteric lymphadenopathy of the right lower quadrant mesentery redemonstrated. 5. Additional findings as above. ACT 112: Negative or not required by law. The above report was generated using voice recognition software. It may contain grammatical, syntax or spelling errors. Electronically signed by: Min Ledbetter M.D. 07/15/2022 9:08 PM Chest X-Ray 07/15/22 19:55 XR chest 1V portable HISTORY: 51 years-old Female abd pain . Acute chest and abdominal pain COMPARISON: Chest CT 07/12/2002 TECHNIQUE: Portable AP view of the chest FINDINGS: Cardiomediastinal and hilar silhouettes are unchanged. No pneumothorax, pleural effusion or overt pulmonary edema. Numerous bilateral pulmonary nodules are redemonstrated measuring up to 2.5 cm within the left lower lobe. Degenerative changes of the shoulders and spine with sigmoidal thoracolumbar scoliosis. IMPRESSION: 1. No acute process. 2. Multifocal pulmonary metastatic disease redemonstrated. ACT 112: Negative or not required by law. The above report was generated using voice recognition software. It may contain grammatical, syntax or spelling errors. Electronically signed by: Min Ledbetter M.D. 07/15/2022 8:23 PM Code Status & VTE Plan Code Status full VTE Prophylaxis Plan VTE Prophylaxis will be ordered: Yes Supervising Physician Co-Signing Physician Notes Attending addendum: I have physically seen this patient, have supervised the medical residents activities, and agree with the H&P unless as otherwise noted. Assessment and Plan: Subcapsular hematoma of liver- Noted to be a plus centimeters in size Admit to monitored bed to monitor for any hemodynamic compromise Low threshold to begin antibiotics H&H every 4 hours Maintenance IV fluids General surgery aware and to follow No active signs of bleeding at this time Cecal neoplasm-undergoing work-up at this time Metastatic liver and lung lesions on CT Biopsies pending from recent colonoscopy on 07/15/2022 CT without signs of perforation Remaining orders and notations as noted Resident Activity Tracking Resident Involvement: Resident Care Provided Care Provided: Adult [facility] Medicine
[2022-07-16] MEDS ORDERED: busPIRone 15 MG TAB PO STA (00:23)
[2022-07-16 00:52] LABS: Hematocrit (blood only) 27.9 % (34.1-44.9); Hemoglobin 8.5 g/dl (12.0-16.0)
[2022-07-16] MEDS ORDERED: ACETAMINOPHEN 1000 MG/100 ML IV IV PRN (01:26)
[2022-07-16] MEDS: HYDROmorphone INJ 0.5 MG/0.5 ML SYR IV PRN ×5 (01:52→13:20)
--- NOTE | 2022-07-16 05:25 | Surgery Progress Note ---
Date of Service July 16, 2022 Assessment & Plan (1) Liver hematoma: Plan: The patient has been admitted on the hospitalist service: CT scan of the abdomen at time of mission showed a subcapsular hematoma of her liver drain about 8 cm. This is the suspected cause of patient's abdominal pain. There is no active extravasation of contrast noted on patient's CT scan Patient has remained hemodynamically stable (normotensive, no tachycardia noted) Continue to follow serial hemoglobin and hematocrits: The patient has had approximately 1 g drop in her hemoglobin since admission we will continue to follow this Continue analgesics Additional recommendations be forthcoming based on serial labs and her clinical status Admission and Anticipated Discharge Date Admission Date: July 15, 2022 Supervising Physician Co-Signing Physician Notes Hemoglobin last 24 hours is within fairly stable at this point the patient can be restarted on some liquids and I would recommend that the patient be kept in the hospital another 24 hours to ensure the stability of her hemoglobin Subjective Patient is currently resting comfortably in bed. She notes that her abdominal pain is slightly improved but is still present particularly with any movement or palpation of her abdomen. She denies any chest pain. No lightheadedness or dizziness. Physical Exam Gastrointestinal (Abdomen): Patient's abdomen is noted to be slightly distended but nonrigid. There is no ecchymosis on the abdominal wall. The patient continues to have pain with palpation in her upper abdomen in the epigastric area and left upper quadrant. Results & Data ([facility]) Vital Signs (Past 12 Hours) Vital Signs Temp Pulse Pulse Pulse Resp BP BP 07/16/22 01:15 07/16/22 01:15 37.1 C 85 16 137/84 07/16/22 00:10 83 18 145/95 H 07/15/22 22:00 80 29 H 125/88 07/15/22 19:58 89 24 07/15/22 19:58 92 H 24 132/80 07/15/22 19:22 36 C L 98 H 18 114/81 Pulse Ox O2 Del Method 07/16/22 01:15 Room Air 07/16/22 01:15 94 Room Air 07/16/22 00:10 94 Room Air 07/15/22 22:00 96 Room Air 07/15/22 19:58 97 Room Air 07/15/22 19:58 97 Room Air 07/15/22 19:22 97 Room Air PG Care Time/CCT Total # of Minutes Spent Total Time Spent with Patient: Total time spent is greater than 50% in coordination of care (as documented) at patient's floor/unit and/or counseling patient: Coding Level of Care Code 78225 Subseq Hosp Care Lvl 1 Diagnoses Liver hematoma S36.112A Encounter type: initial encounter (1) Liver hematoma Encounter type: initial encounter Qualified Code(s): S36.112A - Contusion of liver, initial encounter
[2022-07-16 07:00] LABS: Appearance Urine Clear (Clear); Bacteria Urine Automated 1+ (Negative); Bilirubin Urine Negative (Negative); Blood Urine Trace (Negative); Color Urine Yellow; Epithelial Cell Urine Auto >30 /lpf (0-5); Glucose Urine UA Negative (Negative); Ketones Urine Trace (Negative); Leukocyte Esterase Urine Negative (Negative); Nitrite Urine Negative (Negative); Protein Urine 2+ (Negative); Specific Gravity Urine > 1.045 (1.000-1.030); Urobilinogen Urine Negative (Negative); pH Urine 5.5 (4.5-7.5)
[2022-07-16 07:31] LABS: RBC Urine Automated 0-4 /hpf (0-4)
[2022-07-16 08:09] LABS: Basophils # (auto) 0.04 K/uL (0-0.2); Basophils % (auto) 0.3 %; Eosinophils # (auto) 0.14 K/uL (0-0.50); Eosinophils % (auto) 1.1 %; Hemoglobin 8.3 g/dl (12.0-16.0); Immature Granulocytes # (auto) 0.09 K/uL (0.00-0.02); Immature Granulocytes % (auto) 0.7 %; Lymphocytes # (auto) 1.63 K/uL (1.2-3.4); Lymphocytes % (auto) 12.3 %; Mean Corpuscular Hemoglobin 24.9 pg (25.0-34.0); Mean Corpuscular Hgb Conc 30.7 g/dL (32.0-36.0); Mean Corpuscular Volume 80.8 fL (80.0-100.0); Mean Platelet Volume 8.9 fL (9.4-12.3); Monocytes # (auto) 1.31 K/uL (0.24-0.82); Monocytes % (auto) 9.9 %; Neutrophils # (auto) 10.07 K/uL (1.4-6.5); Neutrophils % (auto) 75.7 %; Platelet Count 620 K/uL (130-400); RDW Coefficient of Variation 14.6 % (11.5-14.5); RDW Standard Deviation 42.5 fL (36.4-46.3); Red Blood Count 3.34 M/uL (3.93-5.22); White Blood Count 13.28 K/ul (4.8-10.8)
[2022-07-16] MEDS: lamoTRIgine 25 MG TAB PO SCH (08:09)
[2022-07-16] MEDS: busPIRone 15 MG TAB PO SCH ×2 (08:09→20:38)
[2022-07-16] MEDS: lamoTRIgine 100 MG TAB PO SCH (08:09)
[2022-07-16] MEDS: buPROPion SR 100 MG TABCR PO SCH (08:09)
[2022-07-16 08:34] LABS: Albumin Level 3.4 gm/dl (3.4-5.0); BUN Creatinine Ratio 10.1 (10-20); Bilirubin,Total 0.4 mg/dl (0.2-1.0); Calcium 9.4 mg/dl (8.5-10.1); Creatinine Clr Calc Pharmacy 55.9 ml/min; Est GFR (African American) 55.9 ml/min; Est GFR (Non-African American) 48.2 ml/min; Globulin 3.5 gm/dl (2.5-4.0); Magnesium 1.9 mg/dl (1.7-2.4); Potassium 4.3 mmol/L (3.5-5.1); Total Protein 6.9 gm/dl (6.0-8.3)
[2022-07-16] MEDS: LACTATED RINGER'S 1,000 ML IV SCH ×2 (10:13→22:15)
[2022-07-16] MEDS: KETOROLAC TROMETHAMINE 15 MG/ML VIAL IV PRN ×3 (11:12→23:02)
[2022-07-16] MEDS: ACETAMINOPHEN 325 MG TAB PO SCH ×2 (13:19→20:38)
--- NOTE | 2022-07-16 15:57 | Hospitalist Progress Note ---
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 -Hemodynamically stable. Does have a mild degree of acute blood loss anemia from the hematoma, but no indications for transfusion. Mild leukocytosisbut suspect this is reactive, she has no other signs or symptoms of infection. Increased pain control, serial exams, serial hemoglobin. Home once pain is controlled, presuming ongoing hemodynamic stability from the hematoma. (2) Cecal neoplasm: Plan: - liver and lung lesions on ct abd 07/01/22 suggestive of mets. 07/15/22 colonoscopy w/ cecal mass. biopsy of liver shows adenocarcinoma, cecal biopsy pending. Outpatient oncology follow-up. (3) Bipolar 2 disorder: Plan: - continue home regimen Plan NPO. maintenance fluids SCDs med surg, anticipation of home full code Admission and Anticipated Discharge Date Admission Date: July 15, 2022 Subjective pain still not adequately controlled. notes that when she's sitting/not at all moving she's doing OK - but really any movement causes pain. L upper abdomen - notes near biopsy site. otherwise no complaints no new complaints ROS otherwise negative except for as above Review of Systems Review of Systems: All systems reviewed & are unremarkable except as noted in HPI & below Physical Exam Physical Exam: gen aaox3 pleasant fatigued appearing nad heent nc at mmm breathing unlabored no accessory muscles good effort abd soft mild distention fairly significant epigastric LUQ tenderness but no guarding no rebound Results & Data Results & Data ([facility]) Vital Signs (Past 12 Hours) Vital Signs Temp Pulse Resp BP Pulse Ox O2 Del Method 07/16/22 07:35 98.6 F 91 H 18 122/80 95 Room Air PG Care Time/CCT Total # of Minutes Spent Total Time Spent with Patient: Total time spent is greater than 50% in coordination of care (as documented) at patient's floor/unit and/or counseling patient: Coding Level of Care Code 36798 Subseq Hosp Care Lvl 3 Diagnoses Liver hematoma S36.112A Encounter type: initial encounter (1) Liver hematoma Encounter type: initial encounter Qualified Code(s): S36.112A - Contusion of liver, initial encounter
[2022-07-16] MEDS: oxyCODONE HCL IR 5 MG TAB (IMMEDIATE RELEASE) PO PRN (18:54)
--- NOTE | 2022-07-17 00:17 | Billing Data ---
Date of Service July 17, 2022 Coding Level of Care Code 87595 Initial Inpt Care Lvl 3
[2022-07-17] MEDS: oxyCODONE HCL IR 5 MG TAB (IMMEDIATE RELEASE) PO PRN ×2 (05:04→08:54)
--- NOTE | 2022-07-17 05:21 | Surgery Progress Note ---
Date of Service July 17, 2022 Assessment & Plan (1) Liver hematoma: Plan: The patient has been admitted on the hospitalist service: CT scan of the abdomen at time of admission showed a subcapsular hematoma of her liver drain about 8 cm without active contrast extravasation this is the suspected cause of patient's abdominal pain. 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 She notes her abdominal pain has improved since admission. She denies any nausea or vomiting. No lightheadedne ss or dizziness is noted. Physical Exam Gastrointestinal (Abdomen): Abdomen appears more soft and slightly less distended than what was noted on previous exams. Patient continues to have pain with palpation in the epigastric and left upper quadrants but has appeared to decrease since prior exams. Results & Data ([facility]) Vital Signs (Past 12 Hours) Vital Signs Temp Pulse Resp BP Pulse Ox O2 Del Method 07/16/22 23:22 37.3 C 87 17 122/80 93 Room Air PG Care Time/CCT Total # of Minutes Spent Total Time Spent with Patient: Total time spent is greater than 50% in coordination of care (as documented) at patient's floor/unit and/or counseling patient: Coding Level of Care Code 40209 Subseq Hosp Care Lvl 1 Diagnoses Liver hematoma S36.112A Encounter type: initial encounter (1) Liver hematoma Encounter type: initial encounter Qualified Code(s): S36.112A - Contusion of liver, initial encounter
[2022-07-17] MEDS: KETOROLAC TROMETHAMINE 15 MG/ML VIAL IV PRN ×2 (07:29→13:02)
[2022-07-17 07:47] LABS: Basophils # (auto) 0.05 K/uL (0-0.2); Basophils % (auto) 0.4 %; Eosinophils # (auto) 0.29 K/uL (0-0.50); Eosinophils % (auto) 2.1 %; Hematocrit (blood only) 25.9 % (34.1-44.9); Hemoglobin 8.1 g/dl (12.0-16.0); Immature Granulocytes # (auto) 0.12 K/uL (0.00-0.02); Immature Granulocytes % (auto) 0.9 %; Lymphocytes # (auto) 1.39 K/uL (1.2-3.4); Lymphocytes % (auto) 10.1 %; Mean Corpuscular Hemoglobin 24.6 pg (25.0-34.0); Mean Corpuscular Hgb Conc 31.3 g/dL (32.0-36.0); Mean Corpuscular Volume 78.7 fL (80.0-100.0); Monocytes # (auto) 1.32 K/uL (0.24-0.82); Monocytes % (auto) 9.6 %; Neutrophils # (auto) 10.55 K/uL (1.4-6.5); Neutrophils % (auto) 76.9 %; Platelet Count 692 K/uL (130-400); RDW Coefficient of Variation 14.6 % (11.5-14.5); RDW Standard Deviation 41.9 fL (36.4-46.3); Red Blood Count 3.29 M/uL (3.93-5.22); White Blood Count 13.72 K/ul (4.8-10.8)
[2022-07-17 08:14] LABS: BUN Creatinine Ratio 9.6 (10-20); Calcium 9.2 mg/dl (8.5-10.1); Creatinine Clr Calc Pharmacy 69.3 ml/min; Est GFR (African American) 72.6 ml/min; Est GFR (Non-African American) 62.6 ml/min
[2022-07-17] MEDS: lamoTRIgine 25 MG TAB PO SCH (08:49)
[2022-07-17] MEDS: busPIRone 15 MG TAB PO SCH (08:50)
[2022-07-17] MEDS: buPROPion SR 100 MG TABCR PO SCH (08:50)
[2022-07-17] MEDS: lamoTRIgine 100 MG TAB PO SCH (08:50)
[2022-07-17] MEDS: ACETAMINOPHEN 325 MG TAB PO SCH ×2 (08:53→13:03)
--- NOTE | 2022-07-17 19:12 | Discharge Summary ---
Date of Service July 17, 2022 Admission HPI Per Admitting Provider 51-year-old female with past medical history of bipolar 2, anxiety and possible metastatic cecal cancer. She had outpatient egd and colonoscopy today performed for abnormal CT abd. She was found to have subcapsular hematoma. She reports LUQ cramp/tightness, intermittent. Exacerbated by movement. Bowel movements have been regular. Current LUQ pain is 7/10 LUQ, after the morphine. + left shoulder pain. ED course: IV morphine and zofran. RR 29x1. Temp 36.0C HR was 90s. Other VSS. WBC 15.48. Hb 9.2, 8.4 this admission. was 10.2 two weeks ago. Cr 1.37, baseline 1.0. cxr: Multifocal pulmonary metastatic disease redemonstrated. Principal Diagnosis Abdominal pain due to liver capsule hematoma, as well as likely due to a degree to diffuse metastatic deposits Discharge Exam In general she is awake alert oriented pleasant no distress. HEENT normocephalic atraumatic mucous membranes moist. Breathing unlabored no accessory muscle use good effort. Skin shows no rashes no pallor or icterus. Abdomen is soft she has mild to maybe moderate epigastric and left upper abdominal tendernesssimilar to may be slightly better than yesterday no guarding rebound rigidity. No peritoneal signs. Neuro no focal deficits. Discharge Data Allergies Allergy/AdvReac Type Severity Reaction Status Date / Time Sulfa (Sulfonamide Allergy Severe BREATHING Verified 07/15/22 11:22 Antibiotics) DIFFICULTIES adhesive Allergy Unknown SKIN RASH Verified 07/15/22 11:22 Consultations 07/15/22 21:47 ED Decision to Admit Stat 07/16/22 03:19 Consult General Surgery Routine Ordered Studies 07/15/22 19:26 CT abd pelvis IV con only Stat Hospital Course (1) Subcapsular hematoma of liver: 51-year-old female with past medical history of bipolar 2, anxiety and possible metastatic cecal cancer. -Overall has been very stable. Did have a degree of acute blood loss anemiabut now has leveled out. No indications for transfusion. Pain is under better control. Safe/stable for home. See discharge instructions, CBC Monday. (2) Cecal neoplasm: - liver and lung lesions on ct abd 07/01/22 suggestive of mets. 07/15/22 colonoscopy w/ cecal mass. Adenocarcinoma on liver biopsy, cecal pendinghas oncology follow-up Monday. (3) Bipolar 2 disorder: - continue home regimen Plan Stable for home. Sees pain management tomorrow, oncology Monday. CBC Monday. Total Time Total Time Spent Total Time Spent (In Minutes): Less than 30 Discharge Plan Discharge Items Patient Disposition: Home - Self-Care Reason For Visit: SUBCAPSULAR HEMATOMA Discharge Diagnosis: Liver hematomastable Condition on Discharge: Serious Activity: Resume your previous activity Non-emergency contact: Primary Care Provider and Oncologist Call non-emergency contact if: you have any medication questions, your symptoms worsen and your temperature is above 101 Follow-up/Referrals: Gloria Molina MD [Primary Care Provider] - Diet: Regular Addtl Attending Provider Instructions: Liver hematoma -Fortunately this is now a stable issue. Occasionally after liver biopsy, someone can have bleeding around the biopsy sitethis is what happened. While your blood counts are a little bit lower than they were, things have stabilized in a very safe range. Given that there is no sign of ongoing/active bleeding, really everything appears safe to get you home. I would expect the pain from the hematoma to slowly improve over the next few days to a week, and I would ask that you have lab work checked (CBC) when you follow-up with oncology on Monday -Certainly if there is any worsening of pain or anything new/"out of left field" such as fevers or nausea/vomitingI would definitely want you seen right away. Those are all exceedingly unlikely to happen, though. Metastatic cancer -As we discussed, the spots in your liver probably will continue to cause some degree of ongoing discomfortwhich is why the plan for pain control really should be more ongoing. -Definitely keep to follow-up with pain management tomorrow, in the meantime we will utilize the following: Tylenol 650 mg 3 times a dayon a routine/schedule (take a dose in the morning, dose midday, dose at bedtime.) This will allow for a good baseline of pain control. If you reach a point where you are really not having any pain, then obviously you can stop; but this will be our foundation Ibuprofen 400 mg up to every 6 hours as needed for "breakthrough pain"given that he responded nicely to 10 mg of Toradol, 400 mg of ibuprofen will be reasonably similar. As we discussed, anti-inflammatories do carry more side effect riskmost especially stomach ulcers, but also impact on blood vessels particularly if somebody is dehydrated. To that end, while it is perfectly okay to take the ibuprofen for the short but foreseeable future, I would definitely try to have days where you do not take any anti-inflammatories, and if you get to a point where you have any struggles with nausea/vomiting/dehydration, I would definitely not be taking ibuprofen that Oxycodone 5 mg up to every 8 hours as needed for pain that does not respond to either of the above. Narcotics can cause constipation, and grogginess. When taken on a regular basis they can also cause a degree of physical dependencyto that and definitely use these sparingly (as we discussedthe main role for this would be if you are having a good bit of pain but no other worrisome symptoms and are trying to see if you can just get the pain under control to avoid needing to come to the ER, or for pain that happens at bedtimegiven that your brain will not be distracted by other things) You have the oncology follow-up on Mondayas noted above, have them repeat lab work on Monday. Also as we discussed, when someone is going through a cancer journey it is often better to continue to see your family doc about once a month in addition to the oncologist. That is because while the oncologist will be the "quarterback" of all things cancer, seeing your family doc routinely will help in making sure that you are doing okay with pain, nausea, nutrition, depressionall the common things people go through when they are going through cancer journey. As we discussed nutritionally, one of the most common reasons I see people get into trouble when they are going through cancer treatment is getting malnourished. It is fairly common because the side effect of a lot of cancer treatments does include nausea, vomiting, etc. I would definitely recommend starting to track your nutritional intake. The easiest way to do this would be to download an jaime (such as lose it, [employer] fitness pal, virocyt Eddie, etc.) but use it "backwards"the jaime is designed to help you track calories to come in at lower than what your target would be, but the point would be to use the jaime to make sure you never go to bed at night without having met or exceeded your goal of calories. As we discussed, definitely in a perfect world eating a plant- based diet with lean sources of protein such as fish also seems to be fairly helpful as somebody is going through cancer/treatment, but what I have seen is its more important to meet the calorie goals at allwhat I mean by that is if you are calorie target is about [id number] christiano/day, it is going to be better to get to 1800 with boost and ice cream then it is to get to 800 with fish and broccoli. Pending Studies at Discharge: No Stand-Alone Forms: My [facility] [employer], Opioid Pain Management, Smoking Cessation Medications and DC Order Prescriptions: New acetaminophen 650 mg tablet extended release 650 mg PO TID Qty: 90 0RF ibuprofen 400 mg tablet 400 mg PO Q6H PRN (Reason: pain) Qty: 30 0RF oxycodone 5 mg tablet 5 mg PO Q8H PRN (Reason: pain, severe) Qty: 10 0RF Continued zolpidem 5 mg tablet 5 mg PO HS PRN (Reason: sleep) Qty: 20 0RF Rx Instructions: max 20 tablets per month ondansetron 4 mg tablet,disintegrating 4 mg PO Q8H PRN (Reason: nausea and vomiting) Qty: 30 0RF dicyclomine 10 mg capsule 10 mg PO TID PRN (Reason: abdominal pain) Qty: 90 2RF multivitamin tablet 1 tab PO QAM buspirone 15 mg tablet 15 mg PO BID Qty: 180 3RF Rx Instructions: may take an additional tablet in afternoon if needed lamotrigine 150 mg tablet 150 mg PO QAM lorazepam 0.5 mg tablet 0.5 mg PO HS fluticasone propionate 50 mcg/actuation spray,suspension 1 sprays INTNAS BID PRN (Reason: Congestion) drospirenone-ethinyl estradiol [KELVIN (28)] 3-0.02 mg tablet 1 tab PO QAM bupropion HCl 200 mg tablet sustained-release 12 hr 200 mg PO QAM Discharge Orders: Discharge Order (Routine); Ordered 07/17/22 Ordered By: Austin Woods Admission Data Admit Date/Time: 07/15/22 23:42 Attending Provider: Austin Woods Admit Provider: Marcus Mi Primary Care Provider: Gloria Molina Other Providers: Lee Hernandez ; Rich Sal Other Interventions: Discharge Summary Assessment (RN) Last Done: 07/17/22 11:54 Coding Level of Care Code D/C DAY MANAGEMENT <30 MINS Diagnoses Subcapsular hematoma of liver K76.89 Cecal neoplasm D49.0 Bipolar 2 disorder F31.81
--- NOTE | 2022-07-26 05:35 | Coding Query ---
CODING QUERY To promote full compliance with coding requirements relating to patient care, provider participation is requested in all cases of salon stylist uncertainty. Please assist us with the question(s) below: Coding Question(s): Pt admitted with Liver hematoma . Please document, if known or suspected, the etiology of the hematoma. Pt with suspected cecal cancer and metastasis to liver. Thanks for your help! Sidney Moore [facility] Physician's Response(s): post procedural related to biopsy - a not unexpected potential complication of the necessary biopsy procedure. thanks Principal Diagnosis: "that condition established after study, to be chiefly responsible for occasioning the admission of the patient to the hospital for care." Co-Existing Principal Diagnosis: "when two or more diagnoses equally meet the criteria for principal diagnosis as determined by the circumstances of admission, diagnostic work up, and/or therapy provided, and the Alphabetic Index, Tabular List, or another coding guideline does not provide sequencing direction, any one of the diagnoses may be sequenced first." "When the physician has documented what appears to be a current diagnosis in the body of the record, but has not included the diagnosis in the final diagnostic statement, the physician should be asked whether the diagnosis should be added." (Source Coding [facility] 2 QTR90. p3-4) SIRISHA
== END 2022-07-17 13:33 | disposition home or self-care (01) | DRG 920 ==
LOC: ED 19:11 → SUATTDRO 23:42 → 3N 23:42
DX: C18.0 Malignant neoplasm of cecum; F31.9 Bipolar disorder, unspecified; K21.9 Gastro-esophageal reflux disease without esophagitis; Z88.2 Allergy status to sulfonamides; Y83.8 Other surgical procedures as the cause of abnormal reaction of the patient, or of later complication, without mention of misadventure at the time of the procedure; C78.7 Secondary malignant neoplasm of liver and intrahepatic bile duct; K76.89 Other specified diseases of liver; K91.870 Postprocedural hematoma of a digestive system organ or structure following a digestive system procedure; D62 Acute posthemorrhagic anemia; Y92.019 Unspecified place in single-family (private) house as the place of occurrence of the external cause; Z83.3 Family history of diabetes mellitus; Z86.16 Personal history of COVID-19; C78.00 Secondary malignant neoplasm of unspecified lung

== ENCOUNTER 2022-07-21 10:18 | Inpatient (IN) ==
[2022-07-21] MEDS ORDERED: HYDROmorphone INJ 1 MG/ML SYRINGE IV STA ×3 (10:50→15:10)
--- NOTE | 2022-07-21 10:56 | Emergency Department Note ---
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 Recently complicated by liver hematoma following liver biopsy. Patient has been hospitalized for several days and then discharged for the last few. Dealing with anemia issues as well and hemoglobin was roughly 7 a few days ago as an outpatient. She arrives due to wo rsening abdominal pain, fevers, severe weakness. On exam patient is severely uncomfortable appearing she is diffuse abdominal tenderness palpation and she is quite ill-appearing. Septic work-up initiated she was given some fluids however not hypotensive nor significantly tachycardic so held off on 30/kg and with a normal further hydration held given good renal function and she is already on the anemic side. Hemoglobin returned at 7-1/2. No indication for emergent transfusion. CT was obtained which reveals no worsening of the subcapsular hematoma nor any clear evidence of abscess formation though of course is difficult to see with the amount of cancer throughout her abdomen. Given the e levated white count, elevated procalcitonin, reported fevers and tachycardia especially with her hospitalizations and known cancer in the abdomen I did give her a dose of Zosyn empirically. That said she is not definitively septic at this time. The hospitalists were called given she is having continued pain requiring 3 rounds of IV Dilaudid while here in the outpatient narcotic prescriptions just are not helping with her pain. Prior Medical Record and Triage/Nursing Notes reviewed by Me Additional history obtained from chart Differentials:Appendicitis,sepsis, perforation, intrabdominal bleed, diverticulitis, UTI, obstruction, mesenteric ischemia, aortic pathology, inflammatory bowel disease, renal colic, PUD, pancreatitis, biliary pathology, hernia, volvulus, constipation, as well as other pathologies. Vital Signs: reviewed and remarkable for no significant abnormalities Interventions: Dilaudid 1 g IV x3, Zofran 4 mg IV, normal saline bolus 1 L IV, Zosyn 4.5 g IV Labs:Reviewed and remarkable for elevated wbc & procalcitonin Imaging:Imaging of the abdomen pelvis with IV contrast reveals diffuse metastatic disease with improvement in per radiologists Consults:Dr Tj LEDEZMA Hospitalist Plan: Disposition:Hospitalization. Condition: Fair History of Present Illness:52-year-old female arrives for evaluation of abdominal pain. 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 She recently was hospitalized for liver hematoma following biopsy. She notes gradually worsening abdominal pain and over the last 24 hours she is now having fevers. She notes no appetite. She is severely short of breath and exhausted with any exertion. She notes known anemia no previous transfusions but had a hemoglobin of 7 just 2 days ago. Falls, trauma, injuries. Denies any chest pain, syncope, headache, neck pain, neck stiffness, back pain, urinary/bowel symptoms, leg swelling, calf pain or other concerning signs or symptoms. She is using Oxy 10 mg 3 times a day with only minimal improvement. Exertion and movement make worse rest and sitting still makes better. ROS: See above HPI for pertinent positives & negatives. A total of 10 systems reviewed and were otherwise negative. Past Medical History:See Below Past Surgical History:See Below Family History:See Below Social History:See Below Home Medications:See Below Allergies:See Below Vitals:Blood Pressure: 139/87, Pulse 105, RR 16, T 36.5C, O2 95% on RA Physical Exam: GENERAL: Patient is ill/unwell/pale appearing and in moderate distress. EYES: No scleral icterus, unremarkable pupils. Pale conjunctiva ENT: Mucous membranes moist, no nasal congestion. NECK: No masses appreciated, nomeningismus, trachea is midline. RESPIRATORY: No dyspnea. Clear to auscultation and equal bilaterally. No wheeze, no rhonchi. CARDIOVASCULAR: Regular rate and rhythm.No murmurs, rubs, gallops appreciated. GASTROINTESTINAL: Abdomen with diffuse upper abdominal tenderness to palpation and mild lower abdominal tenderness palpation. Positive bowel sounds. No bruising noted. BACK: No midline tenderness, no CVA tenderness EXTREMITIES: Normal motion all extremities, no cyanosis, no edema. NEUROLOGIC: Alert and oriented, no acute motor or sensory deficits, no focal weakness, cranial nerves grossly intact. SKIN: No rash, no jaundice, no diaphoresis. Pale mildly jaundiced. PSYCH: Appropriate GCS: 15 ED Course: Times/Reassessments: Waxing & waning pain improves with IV narcotics. Agreeable to hospitalization Kiran Reynolds MD Past Med/Surg History Medical History (Updated 07/21/22 @ 16:27 by Kiran Reynolds MD) Abdominal pain Anemia reason for upcoming EGD Bipolar disorder Borderline high cholesterol Cervical radiculopathy Dysmenorrhea Dysplastic nevus Ectopic hx GERD (gastroesophageal reflux disease) History of COVID-March 22, 2022 > home test and at [place] test site in parking gargage. > tired, cough, fever > all resolved IBS (irritable bowel syndrome) Liver masses Low hemoglobin Palpitations resolved per pt Surgical History H/O laparoscopy Ovarian pregnacy H/O oral surgery tooth extraction- wisdom History of colonoscopy History of dilatation and curettage S/P abdominoplasty S/P fine needle aspiration pt unaware S/P LASIK surgery S/P skin biopsy Nevus- Benign Family History Grandmother (Maternal) Alzheimer disease Stroke Mother Hypothyroidism Obesity Diabetes S/P removal of parathyroid gland Grandmother (Paternal) Diabetes Family/Other Breast cancer Sister Diabetes Pre-diabetes Uncle Stroke Myocardial infarction Dementia Denies family history of Ovarian cancer Colorectal cancer Social History Smoking Status: Former smoker Tobacco Type: Cigarettes Age Started Using Tobacco: 14; Age Quit Using Tobacco: 44; packs per day: 1; Years Smoked: 15; Cigarettes Per Day: 1 pack; Second Hand Exposure: Yes; Hx Alcohol Use: Yes Alcohol type: wine Alcohol Intake Frequency: 4 or More x per/Week Alcohol Intake Frequency Comment: Socially Hx Substance Use: No Preferred Language: Lao Communication Ability: Effective Visual Impairment: No Limitations Hearing Ability: Normal 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 Required: No Beliefs That Will Affect Care: None marital status: Current Living Situation: Spouse Current Living Situation Comment: home current occupational status: employed 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 [employer] Feels Safe at Home: Yes Childhood Exposure to Second-Hand Smoke: Yes Dental Care, Regularly: Yes Physical Activity Frequency: 3-4 Times per Week Seatbelt Use: always Sunscreen Use: Yes Assistive Devices: None Allergies Allergies Allergy/AdvReac Type Severity Reaction Status Date / Time Sulfa (Sulfonamide Allergy Severe BREATHING Verified 07/18/22 13:46 Antibiotics) DIFFICULTIES adhesive Allergy Unknown SKIN RASH Verified 07/18/22 13:46 Home Meds Home Medications Medication Instructions Recorded Confirmed multivitamin 1 tab PO QAM 08/28/19 07/18/22 drospirenone 3 mg-ethinyl 1 tab PO QAM 07/07/22 07/18/22 estradiol 0.02 mg tablet (KELVIN (28)) fluticasone propionate 50 1 sprays intranasal BID PRN 07/07/22 07/18/22 mcg/actuation nasal Congestion spray,suspension lamotrigine 150 mg tablet 150 mg PO QAM 07/07/22 07/18/22 lorazepam 0.5 mg tablet 0.5 mg PO HS 07/07/22 07/18/22 bupropion HCl 200 mg tablet,12 hr 200 mg PO QAM 07/15/22 07/18/22 sustained-release Previous Rx's Medication Instructions Recorded zolpidem 5 mg tablet 5 mg PO HS PRN sleep #20 tabs 09/20/21 ondansetron 4 mg disintegrating 4 mg PO Q8H PRN nausea and 06/29/22 tablet vomiting #30 tabs acetaminophen 650 mg 650 mg PO TID #90 tabs 07/17/22 tablet,extended release ibuprofen 400 mg tablet 400 mg PO Q6H PRN pain #30 tabs 07/17/22 oxycodone 10 mg tablet 10 mg PO Q6H PRN pain #60 tabs 07/18/22 Results & Data (ED) Vital Signs Vital Signs - 24 hr 07/21/22 10:24 07/21/22 11:03 07/21/22 11:37 Temperature 36.5 C Temperature Source Temporal Artery Scan Pulse Rate 105 H 96 H Pulse Rate [Apical] Respiratory Rate 16 20 Respiratory Effort / Characteristics Non-Labored Respiratory Depth Normal Blood Pressure 139/87 Blood Pressure [Right Arm] Blood Pressure Mean 104 Blood Pressure Mean [Right Arm] Blood Pressure Position Sitting Pulse Oximetry 95 95 Oxygen Delivery Method Room Air Room Air Sepsis Recent Fever Within 48 Hours Yes Sepsis New/Unexplained Change in Mental Status No Sepsis Action Taken by Nursing No Action Required 07/21/22 12:00 07/21/22 12:30 07/21/22 13:00 Temperature Temperature Source Pulse Rate 102 H 96 H 95 H Pulse Rate [Apical] Respiratory Rate 25 H 27 H 23 Respiratory Effort / Characteristics Respiratory Depth Blood Pressure Blood Pressure [Right Arm] Blood Pressure Mean Blood Pressure Mean [Right Arm] Blood Pressure Position Pulse Oximetry Oxygen Delivery Method Sepsis Recent Fever Within 48 Hours Sepsis New/Unexplained Change in Mental Status Sepsis Action Taken by Nursing 07/21/22 13:30 07/21/22 13:37 07/21/22 13:37 Temperature Temperature Source Pulse Rate 90 104 H Pulse Rate [Apical] Respiratory Rate 27 H 26 H Respiratory Effort / Characteristics Respiratory Depth Blood Pressure 119/75 Blood Pressure [Right Arm] Blood Pressure Mean 89 Blood Pressure Mean [Right Arm] Blood Pressure Position Pulse Oximetry 98 Oxygen Delivery Method Sepsis Recent Fever Within 48 Hours Sepsis New/Unexplained Change in Mental Status Sepsis Action Taken by Nursing 07/21/22 15:18 07/21/22 16:40 Temperature Temperature Source Pulse Rate Pulse Rate [Apical] 88 101 H Respiratory Rate 18 18 Respiratory Effort / Characteristics Non-Labored Non-Labored Respiratory Depth Normal Normal Blood Pressure Blood Pressure [Right Arm] 133/80 142/87 H Blood Pressure Mean Blood Pressure Mean [Right Arm] 97 105 Blood Pressure Position Pulse Oximetry 97 96 Oxygen Delivery Method Room Air Room Air Sepsis Recent Fever Within 48 Hours Sepsis New/Unexplained Change in Mental Status Sepsis Action Taken by Nursing Laboratory Data Result diagrams: 07/21/22 11:05 07/21/22 11:05 Lab Results 07/21/22 07/21/22 07/21/22 Range/Units 11:05 11:05 11:05 WBC 14.06 H (4.8-10.8) K/ul RBC 3.00 L (3.93-5.22) M/uL Hgb 7.5 L (12.0-16.0) g/dl Hct 23.6 L (34.1-44.9) % MCV 78.7 L (80.0-100.0) fL MCH 25.0 (25.0-34.0) pg MCHC 31.8 L (32.0-36.0) g/dL RDW Std Deviation 41.4 (36.4-46.3) fL RDW Coeff of [place] 14.6 H (11.5-14.5) % Plt Count 724 H (130-400) K/uL MPV 8.8 L (9.4-12.3) fL Immature Gran % (Auto) 0.7 % Neut % (Auto) 78.7 % Lymph % (Auto) 8.5 % [place] % (Auto) 10.1 % Eos % (Auto) 1.6 % Baso % (Auto) 0.4 % Neut # (Auto) 11.06 H (1.4-6.5) K/uL Lymph # (Auto) 1.20 (1.2-3.4) K/uL [place] # (Auto) 1.42 H (0.24-0.82) K/uL Eos # (Auto) 0.23 (0-0.50) K/uL Baso # (Auto) 0.05 (0-0.2) K/uL Immature Gran # (Auto) 0.10 H (0.00-0.02) K/uL RBC Morphology Unremarkable Sodium 134 L (136-145) mmol/L Potassium 3.7 (3.5-5.1) mmol/L Chloride 99 (98-107) mmol/L Carbon Dioxide 25 (21-32) mmol/L Anion Gap 10 (3-11) BUN 10 (6-23) mg/dl Creatinine 0.72 (0.6-1.2) mg/dl Est Cr Clr Drug Dosing Not Reportable Est GFR ( Amer) 113.2 ml/min Est GFR (Non-Af Amer) 97.7 ml/min BUN/Creatinine Ratio 13.9 (10-20) Glucose 97 (70-99(Fasting)) mg/dl Lactate 1.1 (0.4-2.0) mmol/L Calcium 9.4 (8.5-10.1) mg/dl Magnesium 1.5 L (1.7-2.4) mg/dl Total Bilirubin 0.8 (0.2-1.0) mg/dl Direct Bilirubin 0.4 H (0-0.2) mg/dl AST 25 (13-39) U/L ALT 17 (7-52) U/L Alkaline Phosphatase 527 H (34-104) U/L Troponin I High Sens 10.1 (0-14) pg/ml Total Protein 7.0 (6.0-8.3) gm/dl Albumin 3.3 L (3.4-5.0) gm/dl Procalcitonin (0-0.5) ng/ml Urine Color Urine Appearance (Clear) Urine pH (4.5-7.5) Ur Specific [place] (1.000-1.030) Urine Protein (Negative) Urine Glucose (UA) (Negative) Urine Ketones (Negative) Urine Blood (Negative) Urine Nitrite (Negative) Urine Bilirubin (Negative) Urine Urobilinogen (Negative) Ur Leukocyte Esterase (Negative) Urine WBC (Auto) (0-5) /hpf Urine RBC (Auto) (0-4) /hpf U Hyaline Cast (Auto) (0-5) /lpf U Epithel Cells (Auto) (0-5) /lpf Urine Bacteria (Auto) (Negative) SARS-CoV-2, RNA, NAAT (NEGATIVE) 07/21/22 07/21/22 07/21/22 Range/Units 11:05 13:40 15:23 WBC (4.8-10.8) K/ul RBC (3.93-5.22) M/uL Hgb (12.0-16.0) g/dl Hct (34.1-44.9) % MCV (80.0-100.0) fL MCH (25.0-34.0) pg MCHC (32.0-36.0) g/dL RDW Std Deviation (36.4-46.3) fL RDW Coeff of [place] (11.5-14.5) % Plt Count (130-400) K/uL MPV (9.4-12.3) fL Immature Gran % (Auto) % Neut % (Auto) % Lymph % (Auto) % [place] % (Auto) % Eos % (Auto) % Baso % (Auto) % Neut # (Auto) (1.4-6.5) K/uL Lymph # (Auto) (1.2-3.4) K/uL [place] # (Auto) (0.24-0.82) K/uL Eos # (Auto) (0-0.50) K/uL Baso # (Auto) (0-0.2) K/uL Immature Gran # (Auto) (0.00-0.02) K/uL RBC Morphology Sodium (136-145) mmol/L Potassium (3.5-5.1) mmol/L Chloride (98-107) mmol/L Carbon Dioxide (21-32) mmol/L Anion Gap (3-11) BUN (6-23) mg/dl Creatinine (0.6-1.2) mg/dl Est Cr Clr Drug Dosing Est GFR ( Amer) ml/min Est GFR (Non-Af Amer) ml/min BUN/Creatinine Ratio (10-20) Glucose (70-99(Fasting)) mg/dl Lactate (0.4-2.0) mmol/L Calcium (8.5-10.1) mg/dl Magnesium (1.7-2.4) mg/dl Total Bilirubin (0.2-1.0) mg/dl Direct Bilirubin (0-0.2) mg/dl AST (13-39) U/L ALT (7-52) U/L Alkaline Phosphatase (34-104) U/L Troponin I High Sens (0-14) pg/ml Total Protein (6.0-8.3) gm/dl Albumin (3.4-5.0) gm/dl Procalcitonin 1.59 H (0-0.5) ng/ml Urine Color Yellow Urine Appearance Clear (Clear) Urine pH 6.5 (4.5-7.5) Ur Specific [place] > 1.045 H (1.000-1.030) Urine Protein Negative (Negative) Urine Glucose (UA) Negative (Negative) Urine Ketones Negative (Negative) Urine Blood 2+ H (Negative) Urine Nitrite Negative (Negative) Urine Bilirubin Negative (Negative) Urine Urobilinogen Negative (Negative) Ur Leukocyte Esterase Negative (Negative) Urine WBC (Auto) 1-5 (0-5) /hpf Urine RBC (Auto) 10-30 H (0-4) /hpf U Hyaline Cast (Auto) 0 (0-5) /lpf U Epithel Cells (Auto) >30 H (0-5) /lpf Urine Bacteria (Auto) Negative (Negative) SARS-CoV-2, RNA, NAAT NEGATIVE (NEGATIVE) Administered Medications Discontinued Medications Hydromorphone HCl (Hydromorphone Inj 1 Mg/Ml Syringe) 1 mg IV NOW STA Stop: 07/21/22 10:51 Last Admin: 07/21/22 11:22 Dose: 1 mg Documented By: OL Hydromorphone HCl (Hydromorphone Inj 1 Mg/Ml Syringe) 1 mg IV NOW STA Stop: 07/21/22 12:57 Last Admin: 07/21/22 13:02 Dose: 1 mg Documented By: OAM Hydromorphone HCl (Hydromorphone Inj 1 Mg/Ml Syringe) 1 mg IV NOW STA Stop: 07/21/22 15:11 Last Admin: 07/21/22 15:22 Dose: 1 mg Documented By: JUDITH Sodium Chloride (Nss 1000ml) 1,000 mls @ 999 mls/hr IV .Q1H1M STEPHIE Stop: 07/21/22 12:00 Last Infusion: 07/21/22 14:31 Dose: 0 mls/hr Documented By: Admin: 07/21/22 11:22 Dose: 999 mls/hr Documented By: PAU Piperacillin Sod/Tazobactam Sod (Zosyn) 4.5 gm in 120 mls @ 240 mls/hr IV NOW ONE Stop: 07/21/22 12:28 Last Infusion: 07/21/22 14:07 Dose: 0 mls/hr Documented By: Admin: 07/21/22 13:37 Dose: 240 mls/hr Documented By: PRAMOD Ioversol (Optiray 350 100ml) 85 ml IV ONCE ONE Stop: 07/21/22 12:51 Last Admin: 07/21/22 12:50 Dose: 85 ml Documented By: JOVANNY Imaging Data Radiologist's Impression: Chest X-Ray 07/21/22 10:51 XR chest 1V portable CLINICAL HISTORY: Sepsis. COMPARISON STUDY: Chest CT July 12, 2022. Chest radiograph July 15, 2022. FINDINGS: Numerous pulmonary nodules are again noted. There is no pneumothorax or pleural effusion. Linear left basilar opacity favors atelectasis. Linear right suprahilar opacity favors atelectasis. No consolidation to suggest pneumonia. There is no evidence for pulmonary edema. IMPRESSION: 1. No acute cardiopulmonary findings. 2. Redemonstration of pulmonary metastases. 3. Linear left basilar opacity suggestive of atelectasis. ACT 112: Negative or not required by law. Electronically signed by: Randall Da Silva M.D. 07/21/2022 11:22 AM Abdomen/Pelvis CT 07/21/22 11:25 CT OF THE ABDOMEN AND PELVIS WITH CONTRAST CLINICAL HISTORY: Worsening abdominal pain and fever. Known liver hematoma. COMPARISON STUDY: CT of the abdomen and pelvis July 15, 2022. TECHNIQUE: Following IV administration of 85 mL of Optiray, axial images of the abdomen and pelvis were obtained from the lung bases to the proximal femurs. Images were reviewed in the axial, sagittal, and coronal planes. IV contrast was administered without complication. Automated exposure control was utilized for the study. A dose lowering technique was utilized adhering to the principles of ALARA. CT DOSE: 1216.31 mGycm FINDINGS: Multiple metastases within the lower lungs are noted. No pneumatosis, free air or portal venous gas is present. Extensive hepatic metastases are again noted. The previously described subcapsular hematoma along the inferior aspect the lateral segment of the liver is similar in size to CT of July 15, 2022. This measures 8.1 cm in transverse dimension. Associated hemorrhage along the anterior aspect of the stomach is unchanged. A small amount of hemorrhage along the right hepatic lobe has slightly increased. Hemoperitoneum within the pelvis is present. The amount of hemorrhage within the pelvis has slightly decreased although the attenuation has mildly increased. The spleen, adrenal glands, kidneys and pancreas are unremarkable. There is no evidence for a bowel obstruction. The known cecal mass is not well depicted on this exam. Enlarged ileocolic lymph nodes are again noted. Index node measures 2.7 x 1.8 cm. No suspicious osseous lesions are noted. Major vasculature is patent. IMPRESSION: 1. No change in size of the subcapsular hematoma along the lateral segment of the liver since CT of July 15, 2022. Slight decrease in amount of pelvic hemoperitoneum. Overall, no evidence for significant interval bleed. 2. Redemonstration of hepatic, pulmonary and romain metastases. Known cecal mass not well depicted on this exam. 3. No bowel obstruction. ACT 112: Negative or not required by law. Electronically signed by: Randall Da Silva M.D. 07/21/2022 1:38 PM Discharge Plan Visit Data Chief Complaint: Abdominal Pain Stated Complaint: PAIN WHERE BIOPSY WAS TAKEN GETTING WORSE-FEVER ED Provider: Kiran Reynolds Discharge Problem: Cancer related pain, Intractable abdominal pain Discharge Instructions Interventions: ED Discharge Assessment Last Done: 07/21/22 16:41 Forms Stand Alone Forms: My go[employer] Prescriptions Prescriptions: No Action zolpidem 5 mg tablet 5 mg PO HS PRN (Reason: sleep) Qty: 20 0RF Rx Instructions: max 20 tablets per month ondansetron 4 mg tablet,disintegrating 4 mg PO Q8H PRN (Reason: nausea and vomiting) Qty: 30 0RF oxycodone 10 mg tablet 10 mg PO Q6H PRN (Reason: pain) Qty: 60 0RF multivitamin tablet 1 tab PO QAM lamotrigine 150 mg tablet 150 mg PO QAM lorazepam 0.5 mg tablet 0.5 mg PO HS fluticasone propionate 50 mcg/actuation spray,suspension 1 sprays INTNAS BID PRN (Reason: Congestion) drospirenone-ethinyl estradiol [KELVIN (28)] 3-0.02 mg tablet 1 tab PO QAM bupropion HCl 200 mg tablet sustained-release 12 hr 200 mg PO QAM acetaminophen 650 mg tablet extended release 650 mg PO TID Qty: 90 0RF ibuprofen 400 mg tablet 400 mg PO Q6H PRN (Reason: pain) Qty: 30 0RF Referrals Referrals: Gloria Molina MD [Primary Care Provider] -
[2022-07-21] MEDS ORDERED: SODIUM CHLORIDE 0.9% 1000ML 1,000 ML IV SCH (11:00)
[2022-07-21 11:21] LABS: Basophils # (auto) 0.05 K/uL (0-0.2); Basophils % (auto) 0.4 %; Eosinophils # (auto) 0.23 K/uL (0-0.50); Eosinophils % (auto) 1.6 %; Hematocrit (blood only) 23.6 % (34.1-44.9); Hemoglobin 7.5 g/dl (12.0-16.0); Immature Granulocytes % (auto) 0.7 %; Lymphocytes % (auto) 8.5 %; Mean Corpuscular Hgb Conc 31.8 g/dL (32.0-36.0); Mean Corpuscular Volume 78.7 fL (80.0-100.0); Mean Platelet Volume 8.8 fL (9.4-12.3); Monocytes # (auto) 1.42 K/uL (0.24-0.82); Monocytes % (auto) 10.1 %; Neutrophils # (auto) 11.06 K/uL (1.4-6.5); Neutrophils % (auto) 78.7 %; Platelet Count 724 K/uL (130-400); RDW Coefficient of Variation 14.6 % (11.5-14.5); RDW Standard Deviation 41.4 fL (36.4-46.3); White Blood Count 14.06 K/ul (4.8-10.8)
--- NOTE | 2022-07-21 11:24 | XRay Report ---
XR chest 1V portable CLINICAL HISTORY: Sepsis. COMPARISON STUDY: Chest CT July 12, 2022. Chest radiograph July 15, 2022. FINDINGS: Numerous pulmonary nodules are again noted. There is no pneumothorax or pleural effusion. L inear left basilar opacity favors atelectasis. Linear right suprahilar opacity favors atelectasis. No consolidation to suggest pneumonia. There is no evidence for pulmonary edema. IMPRESSION: 1. No acute cardiopulmonary findings. 2. Redemonstration of pulmonary metastases. 3. Linear left basilar opacity suggestive of atelectasis. ACT 112: Negative or not required by law. Electronically signed by: Randall Da Silva M.D. 07/21/2022 11:22 AM
[2022-07-21 11:42] LABS: RBC Morphology Unremarkable
[2022-07-21 11:45] LABS: Troponin I High Sensitivity 10.1 pg/ml (0-14)
[2022-07-21 11:48] LABS: Alanine Aminotransferase 17 U/L (7-52); Albumin Level 3.3 gm/dl (3.4-5.0); Alkaline Phosphatase 527 U/L (34-104); Anion Gap 10 (3-11); Aspartate Aminotransferase 25 U/L (13-39); BUN Creatinine Ratio 13.9 (10-20); Bilirubin Direct 0.4 mg/dl (0-0.2); Bilirubin,Total 0.8 mg/dl (0.2-1.0); Blood Urea Nitrogen 10 mg/dl (6-23); Calcium 9.4 mg/dl (8.5-10.1); Carbon Dioxide 25 mmol/L (21-32); Chloride 99 mmol/L (98-107); Est GFR (African American) 113.2 ml/min; Est GFR (Non-African American) 97.7 ml/min; Glucose 97 mg/dl (70-99(Fasting)); Magnesium 1.5 mg/dl (1.7-2.4); Potassium 3.7 mmol/L (3.5-5.1); Sodium 134 mmol/L (136-145)
[2022-07-21] MEDS ORDERED: PIPERACILLIN/TAZOBACTAM 4.5 GM/120 ML BAG IV ONE (11:59)
[2022-07-21] MEDS ORDERED: OPTIRAY 350 100ml IV ONE (12:50)
--- NOTE | 2022-07-21 13:40 | CT Scan Report ---
CT OF THE ABDOMEN AND PELVIS WITH CONTRAST CLINICAL HISTORY: Worsening abdominal pain and fever. Known liver hematoma. COMPARISON STUDY: CT of the abdomen and pelvis July 15, 2022. TECHNIQUE: Following IV administration of 85 mL of Optiray, axial images of the abdomen and pelvis we re obtained from the lung bases to the proximal femurs. Images were reviewed in the axial, sagittal, and coronal planes. IV contrast was administered without complication. Automated exposure control wa s utilized for the study. A dose lowering technique was utilized adhering to the principles of ALARA . CT DOSE: 1216.31 mGycm FINDINGS: Multiple metastases within the lower lungs are noted. No pneumatosis, free air or portal ve nous gas is present. Extensive hepatic metastases are again noted. The previously described subcapsul ar hematoma along the inferior aspect the lateral segment of the liver is similar in size to CT of Se ptember 2021. This measures 8.1 cm in transverse dimension. Associated hemorrhage along the anter ior aspect of the stomach is unchanged. A small amount of hemorrhage along the right hepatic lobe has slightly increased. Hemoperitoneum within the pelvis is present. The amount of hemorrhage within the pelvis has slightly decreased although the attenuation has mildly increased. The spleen, adrenal gla nds, kidneys and pancreas are unremarkable. There is no evidence for a bowel obstruction. The known c ecal mass is not well depicted on this exam. Enlarged ileocolic lymph nodes are again noted. Index no de measures 2.7 x 1.8 cm. No suspicious osseous lesions are noted. Major vasculature is patent. IMPRESSION: 1. No change in size of the subcapsular hematoma along the lateral segment of the liver [facility]. Slight decrease in amount of pelvic hemoperitoneum. Overall, no evidence for signi ficant interval bleed. 2. Redemonstration of hepatic, pulmonary and romain metastases. Known cecal mass not well depicted on this exam. 3. No bowel obstruction. ACT 112: Negative or not required by law. Electronically signed by: Randall Da Silva M.D. 07/21/2022 1:38 PM
--- NOTE | 2022-07-21 15:02 | History & Physical Report ---
Date of Service July 21, 2022 Assessment & Plan (1) Fever: Plan: -Admit to medicine -Patient is currently afebrile, hemodynamically stable, and stable on room air -At this time the etiology of the patient's fevers is unknown, it could possibly be infectious or related to her current cancer, however, the leukocytosis, left shift, and elevated procalcitonin are suggestive of a possible infectious source -chest xray is without consolidation, UA negative, would think an abdominal source would be most likely at this time, will continue zosyn for now, blood cultures obtained by the ED -Am CBC, CMP, and mag (2) Anemia: Plan: -Hgb noted to be 7.5 today, down from 8.1 on 07/17/22 -Likely the result of acute blood loss anemia from her recent subcapsular hematoma from liver biopsy -Currently hemodynamically stable -CT showing stable subcapsular hematoma with slightly improved hemoperitoneum -Blood consent obtained at time of admission and will order H&H now -Continue to monitor H&H overnight and transfuse as needed for Hgb less than 7 (3) Colon cancer metastasized to liver: Plan: -Diagnosed on last admission -Saw [facility] oncology who recommended she seek care closer to home, patient states that [facility] GI team is working to coordinate care, will consult oncology to try and make the transition smoother -Will consult pain management to reevaluate the patient as they saw her shortly after discharge but the current pain regimen has not been effective (4) Abdominal pain: Plan: -Likely multifactorial at this time due to current cancer, liver mets, subcapsular hematoma and constipation -Will continue with her 10 mg Oxy ER q6h prn and will add IV dilaudid q6h prn for breakthrough pain -Pain management consult placed -Will start patient on clears and advance diet as able (5) Subcapsular hematoma of liver: Plan: -Currently stable on CT today, continue to monitor (6) Hypomagnesemia: Plan: -Likely from poor oral intake, noted to be 1.5 today -Will give 1 g IV now then monitor AM mag levels (7) Depression: Plan: -STACKER Bupropion (8) Bipolar 2 disorder: Plan: -STACKER lamictal (9) Constipation: Plan: -Last bowel movement was prior to her colonoscopy on 07/15 -Likely multifactorial including cecal mass, current narcotic treatment, and poor oral intake -No sign of bowel obstruction on CT today -Tried miralax daily the past two days without resolution -Will start with daily miralax, colace BID, and senna -Monitor for successful bowel movements Plan The patient was discussed with Dr. 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 Per chart review, the patient was recently admitted to [facility] from 07/15/22-07/17/22 for the above mentioned acute blood loss anemia from her liver biopsy on 07/15/22. Previous CT results were concerning for a primary liver mass with mets to the liver and lung, which were confirmed to be adenocarcinoma. She was monitored while admitted and her Hgb remained stable prior to discharge home. She was discharged with referral appointments to both oncology and pain management, of which she attended both. Per the Pain management note, she was prescribed 10 mg Oxycodone q6h prn for pain. In the ED the patient was found to be afebrile, hemodynamically stable, stable on room air, and tachycardic. Labs were remarkable for leukocytosis of 14.06 with a left shift of 11.06, hgb of 7.5 (down from 8.1 as of 07/17/22), procal of 1.59, sodium of 134, mag of 1.5, direct bilil of 0.4, alk phos of 527. Chest xray showed stable lung mets, and no other acute cardiopulmonary findings. CT of the abdomen and pelvis with contrast showed a stable subcapsular hematoma with slight improvement in her previous hemoperitoneum, no bowel obstruction, and stable cecal mass with mets to the liver and lungs. In the ED the patient was given zosyn, and 3 mg IV dilaudid. At the time of the exam the patient was resting comfortably in bed in no acute distress with her sitting bedside. They say that since her discharge on 07/18/22 she continues to have uncontrolled pain/abdominal discomfort, bloating, poor oral intake, and constipation. Her last bowel movement was prior to her colonoscopy on 07/15/22. Her fevers have been daily, happened most frequently at night but have now also started to occur during the day; her highest temp was 101 at home. She has mainly been using tylenol for her fevers as her pain management provider advised her to avoid NSAIDs for now with her recent hematoma. Her abdominal pain is in the same place it has always been, mainly in the LUQ and it is severely exacerbated with movement. She saw [facility] oncology on Monday and they advised her to see treatment closer to home as she is not a candidate for any therapy trials. She was started on oxycodone 10 mg ER q6h prn for pain by pain management but she and her thought it was supposed to be q8h prn and have been taking it q8h without significant pain relief. She is not eating much due to feelings of bloating but has been able to drink liquids consistently. She denies any chest pain, SOB, dysuria, hematuria, diarrhea, melena, and bloody bowel movements. Allergies Allergy/AdvReac Type Severity Reaction Status Date / Time Sulfa (Sulfonamide Allergy Severe BREATHING Verified 07/28/22 10:21 Antibiotics) DIFFICULTIES adhesive Allergy Unknown SKIN RASH Verified 07/28/22 10:21 Home Medications Medication Instructions Recorded Confirmed Type multivitamin 1 tab PO QAM 08/28/19 07/28/22 History zolpidem 5 mg tablet 5 mg PO HS PRN sleep #20 tabs 09/20/21 07/28/22 Rx ondansetron 4 mg disintegrating 4 mg PO Q8H PRN nausea and 06/29/22 07/28/22 Rx tablet vomiting #30 tabs fluticasone propionate 50 1 sprays intranasal BID PRN 07/07/22 07/28/22 History mcg/actuation nasal Congestion spray,suspension lamotrigine 150 mg tablet 150 mg PO QAM 07/07/22 07/28/22 History lorazepam 0.5 mg tablet 0.5 mg PO HS 07/07/22 07/28/22 History bupropion HCl 200 mg tablet,12 hr 200 mg PO QAM 07/15/22 07/28/22 History sustained-release acetaminophen 650 mg 650 mg PO TID PRN pain or temp>38 07/27/22 07/28/22 Rx tablet,extended release degrees #90 tabs cyclobenzaprine 10 mg tablet 10 mg PO TID PRN muscle pain/spasm 07/27/22 07/28/22 Rx #20 tabs doxycycline hyclate 100 mg capsule 100 mg PO BID 7 days #14 caps 07/27/22 07/28/22 Rx furosemide 20 mg tablet (Lasix) 20 mg PO QAM PRN edema of legs #20 07/27/22 07/28/22 Rx tabs oxycodone 10 mg tablet,crush 10 mg PO BID 30 days #60 tabs 07/27/22 07/28/22 Rx resistant,extended release 12 hr (OxyContin) oxycodone 15 mg tablet 15 mg PO Q6H PRN pain #30 tabs 07/27/22 07/28/22 Rx potassium chloride 10 mEq 10 meq PO DAILY PRN for when you 07/27/22 07/28/22 Rx tablet,extended release take furosemide diuretic #20 tabs sodium chloride 1 gram tablet 1 g PO DAILY #30 tabs 07/27/22 07/28/22 Rx Past Med/Surg History Medical History (Updated 07/28/22 @ 19:58 by Gloria Molina MD) Anemia reason for upcoming EGD Bipolar disorder Borderline high cholesterol Cervical radiculopathy Dysmenorrhea Dysplastic nevus Ectopic hx GERD (gastroesophageal reflux disease) History of COVID-March 22, 2022 > home test and at [place] test site in parking gargage. > tired, cough, fever > all resolved IBS (irritable bowel syndrome) Liver masses Low hemoglobin Palpitations resolved per pt Surgical History H/O laparoscopy Ovarian pregnacy H/O oral surgery tooth extraction- wisdom History of colonoscopy History of dilatation and curettage S/P abdominoplasty S/P fine needle aspiration pt unaware S/P LASIK surgery S/P skin biopsy Nevus- Benign Family History Grandmother (Maternal) Alzheimer disease Stroke Mother Hypothyroidism Obesity Diabetes S/P removal of parathyroid gland Grandmother (Paternal) Diabetes Family/Other Breast cancer Sister Diabetes Pre-diabetes Uncle Stroke Myocardial infarction Dementia Denies family history of Ovarian cancer Colorectal cancer Social History Smoking Status: Former smoker Tobacco Type: Cigarettes Age Started Using Tobacco: 14; Age Quit Using Tobacco: 44; packs per day: 1; Years Smoked: 15; Cigarettes Per Day: 1 pack; Second Hand Exposure: Yes; Hx Alcohol Use: Yes Alcohol type: wine Alcohol Intake Frequency: 4 or More x per/Week Alcohol Intake Frequency Comment: Socially Hx Substance Use: No Preferred Language: [place] Communication Ability: Effective Visual Impairment: No Limitations Hearing Ability: Normal Forgeman Helper Required: No Beliefs That Will Affect Care: None marital status: Current Living Situation: Spouse Current Living Situation Comment: home current occupational status: employed 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 All systems have been reviewed and are otherwise negative. Physical Exam Physical Exam: Physical Exam: General: In no acute distress, stated age, non-toxic appearing HEENT: Normocephalic, atraumatic, no scleral icterus, pupils around round, symmetrical, and reactive to light, moist mucus membranes, trachea midline, no t hyromegaly Chest/Pulm: No respiratory distress, symmetrical chest expansion, clear breath sounds throughout Cardiac: tachycardic rate, regular rhythm, no murmurs noted Abdomen: distended, no bruising noted, hypoactive bowel sounds, soft, tender to palpation in the LUQ Musculoskeletal: Symmetrical and without signs of acute trauma, upper and lower extremities with full ROM, no atrophy, spasticity, or flaccidity Extremities: Radial, dorsalis pedis, and posterior tibial pulses are intact and symmetrical, no edema noted in the BL LE's Skin: Warm, dry, no rashes , lesions, or scars noted Neuro: Alert and oriented to person, place, month, year, and president, no focal defects, CN II-XII tested and intact, finger to nose test negative, no tremors noted Psych: No acute distress, calm and cooperative during the exam Results & Data Results & Data ([facility]) Vital Signs (Past 12 Hours) Vital Signs Temp Pulse Resp BP Pulse Ox O2 Del Method 07/21/22 13:37 119/75 98 07/21/22 13:37 104 H 26 H 07/21/22 13:30 90 27 H 07/21/22 13:00 95 H 23 07/21/22 12:30 96 H 27 H 07/21/22 12:00 102 H 25 H 07/21/22 11:37 96 H 20 07/21/22 11:03 95 Room Air 07/21/22 10:24 36.5 C 105 H 16 139/87 95 Room Air Laboratory Results Abnormal lab results 07/21/22 07/21/22 07/21/22 Range/Units 11:05 11:05 11:05 WBC 14.06 H (4.8-10.8) K/ul RBC 3.00 L (3.93-5.22) M/uL Hgb 7.5 L (12.0-16.0) g/dl Hct 23.6 L (34.1-44.9) % MCV 78.7 L (80.0-100.0) fL MCHC 31.8 L (32.0-36.0) g/dL RDW Coeff of [place] 14.6 H (11.5-14.5) % Plt Count 724 H (130-400) K/uL MPV 8.8 L (9.4-12.3) fL Neut # (Auto) 11.06 H (1.4-6.5) K/uL [place] # (Auto) 1.42 H (0.24-0.82) K/uL Immature Gran # (Auto) 0.10 H (0.00-0.02) K/uL Sodium 134 L (136-145) mmol/L Magnesium 1.5 L (1.7-2.4) mg/dl Direct Bilirubin 0.4 H (0-0.2) mg/dl Alkaline Phosphatase 527 H (34-104) U/L Albumin 3.3 L (3.4-5.0) gm/dl Procalcitonin 1.59 H (0-0.5) ng/ml Diagnostic Findings Chest X-Ray 07/21/22 10:51 XR chest 1V portable CLINICAL HISTORY: Sepsis. COMPARISON STUDY: Chest CT July 12, 2022. Chest radiograph July 15, 2022. FINDINGS: Numerous pulmonary nodules are again noted. There is no pneumothorax or pleural effusion. Linear left basilar opacity favors atelectasis. Linear right suprahilar opacity favors atelectasis. No consolidation to suggest pneumonia. There is no evidence for pulmonary edema. IMPRESSION: 1. No acute cardiopulmonary findings. 2. Redemonstration of pulmonary metastases. 3. Linear left basilar opacity suggestive of atelectasis. ACT 112: Negative or not required by law. Electronically signed by: Randall DaS ilva M.D. 07/21/2022 11:22 AM Abdomen/Pelvis CT 07/21/22 11:25 CT OF THE ABDOMEN AND PELVIS WITH CONTRAST CLINICAL HISTORY: Worsening abdominal pain and fever. Known liver hematoma. COMPARISON STUDY: CT of the abdomen and pelvis July 15, 2022. TECHNIQUE: Following IV administration of 85 mL of Optiray, axial images of the abdomen and pelvis were obtained from the lung bases to the proximal femurs. Images were reviewed in the axial, sagittal, and coronal planes. IV contrast was administered without complication. Automated exposure control was utilized for the study. A dose lowering technique was utilized adhering to the principles of ALARA. CT DOSE: 1216.31 mGycm FINDINGS: Multiple metastases within the lower lungs are noted. No pneumatosis, free air or portal venous gas is present. Extensive hepatic metastases are again noted. The previously described subcapsular hematoma along the inferior aspect the lateral segment of the liver is similar in size to CT of July 15, 2022. This measures 8.1 cm in transverse dimension. Associated hemorrhage along the anterior aspect of the stomach is unchanged. A small amount of hemorrhage along the right hepatic lobe has slightly increased. Hemoperitoneum within the pelvis is present. The amount of hemorrhage within the pelvis has slightly decreased although the attenuation has mildly increased. The spleen, adrenal glands, kidneys and pancreas are unremarkable. There is no evidence for a bowel obstruction. The known cecal mass is not well depicted on this exam. Enlarged ileocolic lymph nodes are again noted. Index node measures 2.7 x 1.8 cm. No suspicious osseous lesions are noted. Major vasculature is patent. IMPRESSION: 1. No change in size of the subcapsular hematoma along the lateral segment of the liver since CT of July 15, 2022. Slight decrease in amount of pelvic hemoperitoneum. Overall, no evidence for significant interval bleed. 2. Redemonstration of hepatic, pulmonary and romain metastases. Known cecal mass not well depicted on this exam. 3. No bowel obstruction. ACT 112: Negative or not required by law. Electronically signed by: Randall Da Silva M.D. 07/21/2022 1:38 PM ECG Additional Comments: Poor data quality, interpretation may be adversely affected Sinus tachycardia Otherwise normal ECG When compared with ECG of 01-JUL-2022 11:46, No significant change was found Code Status & VTE Plan Code Status Full code VTE Prophylaxis Plan VTE Prophylaxis will be ordered: Yes Supervising Physician Co-Signing Physician Notes Patient seen and examined at bedside. During face to face encounter obtained a history and physical examination. I reviewed above note and agree with it. Plan of care discussed with patient and APC Peno. admit patient with fever of unknown origin. continue zosyn. PG Care Time/CCT Total # of Minutes Spent Total Time Spent with Patient: Total time spent is greater than 50% in coordination of care (as documented) at patient's floor/unit and/or counseling patient: C[place] [address] Initial Inpt Care Lvl 3 Patient Type Established Medical Decision Making High Complexity Diagnoses Fever R50.9 Anemia D64.9 Anemia type: unspecified type Colon cancer metastasized to liver C18.9; C78.7 Abdominal pain R10.9 Abdominal location: unspecified location Subcapsular hematoma of liver K76.89 Hypomagnesemia E83.42 Depression F32.9 Bipolar 2 disorder F31.81 Constipation K59.00 (1) Anemia Anemia type: unspecified type Qualified Code(s): D64.9 - Anemia, unspecified (2) Abdominal pain Abdominal location: unspecified location Qualified Code(s): R10.9 - Unspecified abdominal pain
[2022-07-21 15:58] LABS: Appearance Urine Clear (Clear); Bacteria Urine Automated Negative (Negative); Bilirubin Urine Negative (Negative); Blood Urine 2+ (Negative); Cast Urine Automated 0 /lpf (0-5); Color Urine Yellow; Epithelial Cell Urine Auto >30 /lpf (0-5); Glucose Urine UA Negative (Negative); Ketones Urine Negative (Negative); Leukocyte Esterase Urine Negative (Negative); Nitrite Urine Negative (Negative); Protein Urine Negative (Negative); Specific Gravity Urine > 1.045 (1.000-1.030); Urobilinogen Urine Negative (Negative); pH Urine 6.5 (4.5-7.5)
--- NOTE | 2022-07-21 16:04 | Electrocardiogram Report ---
Test Reason : Blood Pressure : / mmHG Vent. Rate : 102 BPM Atrial Rate : 102 BPM P-R Int : 134 ms QRS Dur : 082 ms QT Int : 346 ms P-R-T Axes : 045 001 021 degrees QTc Int : 450 ms Poor data quality, interpretation may be adversely affected Sinus tachycardia Otherwise normal ECG When compared with ECG of 01-JUL-2022 11:46, HR has increased by 16 bpm Otherwise no significant change Confirmed by Be Duvall ([id number]) on 07/21/2022 4:03:59 PM Referred By: REFERRED SELF Confirmed By:Be Duvall
[2022-07-21] MEDS ORDERED: MAGNESIUM SULFATE / D5W 1 GM/100 ML BAG IV ONE (17:23)
[2022-07-21] MEDS ORDERED: ZOLPIDEM TARTRATE 5 MG TAB PO PRN (17:23)
[2022-07-21] MEDS ORDERED: FLUTICASONE PROPIONATE NA SPR 16 GM BTL PRN (17:23)
[2022-07-21] MEDS: HYDROmorphone INJ 0.5 MG/0.5 ML SYR IV PRN (17:58)
[2022-07-21 18:05] LABS: Hematocrit (blood only) 24.1 % (34.1-44.9); Hemoglobin 7.6 g/dl (12.0-16.0)
[2022-07-21] MEDS: DOCUSATE SODIUM 100 MG CAP PO SCH ×2 (18:06→19:57)
[2022-07-21] MEDS: POLYETHYLENE (MIRALAX) 17 GM PACK PO SCH (18:06)
[2022-07-21] MEDS: PIPERACILLIN/TAZOBACTAM 3.375 GM in DEXTROSE 5% 100 ML IV SCH (18:17)
[2022-07-21] MEDS: SENNA 8.6 MG TAB PO SCH (18:44)
[2022-07-21] MEDS: oxyCODONE HCL IR 5 MG TAB (IMMEDIATE RELEASE) PO PRN (19:55)
[2022-07-21] MEDS: ACETAMINOPHEN 325 MG TAB PO PRN (19:57)
[2022-07-21 23:00] LABS: Hematocrit (blood only) 21.9 % (34.1-44.9)
[2022-07-22] MEDS: HYDROmorphone INJ 0.5 MG/0.5 ML SYR IV PRN ×4 (00:21→19:59)
[2022-07-22] MEDS: PIPERACILLIN/TAZOBACTAM 3.375 GM in DEXTROSE 5% 100 ML IV SCH ×3 (03:28→19:59)
[2022-07-22] MEDS: oxyCODONE HCL IR 5 MG TAB (IMMEDIATE RELEASE) PO PRN ×4 (03:31→23:34)
[2022-07-22 06:41] LABS: Hematocrit (blood only) 23.1 % (34.1-44.9); Hemoglobin 7.3 g/dl (12.0-16.0); Mean Corpuscular Hemoglobin 24.9 pg (25.0-34.0); Mean Corpuscular Hgb Conc 31.6 g/dL (32.0-36.0); Mean Corpuscular Volume 78.8 fL (80.0-100.0); Platelet Count 752 K/uL (130-400); RDW Coefficient of Variation 14.5 % (11.5-14.5); RDW Standard Deviation 41.8 fL (36.4-46.3); Red Blood Count 2.93 M/uL (3.93-5.22); White Blood Count 13.64 K/ul (4.8-10.8)
[2022-07-22 07:03] LABS: Albumin Globulin Ratio 0.9 (0.9-2); Albumin Level 3.2 gm/dl (3.4-5.0); BUN Creatinine Ratio 10.8 (10-20); Calcium 9.3 mg/dl (8.5-10.1); Creatinine Clr Calc Pharmacy 87.5 ml/min; Est GFR (African American) 95.3 ml/min; Est GFR (Non-African American) 82.2 ml/min; Globulin 3.7 gm/dl (2.5-4.0); Potassium 3.9 mmol/L (3.5-5.1); Total Protein 6.9 gm/dl (6.0-8.3)
[2022-07-22] MEDS: POLYETHYLENE (MIRALAX) 17 GM PACK PO SCH (07:42)
[2022-07-22] MEDS: DOCUSATE SODIUM 100 MG CAP PO SCH ×2 (07:42→20:00)
[2022-07-22] MEDS: lamoTRIgine 100 MG TAB PO SCH (07:43)
[2022-07-22] MEDS: SENNA 8.6 MG TAB PO SCH (07:44)
[2022-07-22] MEDS: buPROPion SR 100 MG TABCR PO SCH (07:44)
[2022-07-22] MEDS: MULTIVITAMIN TAB PO SCH (07:44)
--- NOTE | 2022-07-22 09:09 | Pain Management Consultation ---
Date of Consultation July 22, 2022 Assessment & Plan (1) Cancer related pain: (2) Intractable abdominal pain: Plan 1. I have increased the Oxycodone to 15mg x 4 hours PRN pain. 2. Continue IV Dilaudid PRN breakthrough pain. 3. I have added Flexeril as she does describe an intermittent cramping spasming sensation in the left upper abdomen. 4. Relistor ordered if bowel regimen of Miralax, Colace, and Senna are not effective. 5. If Oxycodone is not effective towards diminishing pain, consider the addition of OxyContin. Thank you for the consultation. Please contact with any questions or concerns. History of Present Illness Attending Physician: Margie Grijalva MD History of Present Illness Mrs. Gonzalez is a 52 year old female with adenocarcinoma and metastasis to the liver, bowel, and lungs. She has been admitted for increased abdominal pain. The pain is the worst in the left upper abdomen. Patient describes a waxing and waning spasming sensation. There has been abdominal bloating the past 2 days. She has not had a bowel movement in 1 week. She was seen in the office on 07/18/22 and placed on Oxycodone 10mg x 6 hours which was effective for about 2 days. When the spasming and bloating started the medication was no longer effective. She was febrile yesterday. Patient has been taking MiraLAX last 3 days. Colace and senna have been added. No bowel movement yet. No nausea, vomiting, flank pain. Case discussed with Dr. Beatrice Garnett Allergies Allergy/AdvReac Type Severity Reaction Status Date / Time Sulfa (Sulfonamide Allergy Severe BREATHING Verified 07/18/22 13:46 Antibiotics) DIFFICULTIES adhesive Allergy Unknown SKIN RASH Verified 07/18/22 13:46 Home Medications Medication Instructions Recorded Confirmed Type multivitamin 1 tab PO QAM 08/28/19 07/18/22 History zolpidem 5 mg tablet 5 mg PO HS PRN sleep #20 tabs 09/20/21 07/18/22 Rx ondansetron 4 mg disintegrating 4 mg PO Q8H PRN nausea and 06/29/22 07/18/22 Rx tablet vomiting #30 tabs drospirenone 3 mg-ethinyl 1 tab PO QAM 07/07/22 07/18/22 History estradiol 0.02 mg tablet (KELVIN (28)) fluticasone propionate 50 1 sprays intranasal BID PRN 07/07/22 07/18/22 History mcg/actuation nasal Congestion spray,suspension lamotrigine 150 mg tablet 150 mg PO QAM 07/07/22 07/18/22 History lorazepam 0.5 mg tablet 0.5 mg PO HS 07/07/22 07/18/22 History bupropion HCl 200 mg tablet,12 hr 200 mg PO QAM 07/15/22 07/18/22 History sustained-release acetaminophen 650 mg 650 mg PO TID #90 tabs 07/17/22 07/18/22 Rx tablet,extended release ibuprofen 400 mg tablet 400 mg PO Q6H PRN pain #30 tabs 07/17/22 07/18/22 Rx oxycodone 10 mg tablet 10 mg PO Q6H PRN pain #60 tabs 07/18/22 07/18/22 Rx Patient History Medical History Abdominal pain Anemia reason for upcoming EGD Bipolar disorder Borderline high cholesterol Cervical radiculopathy Dysmenorrhea Dysplastic nevus Ectopic hx GERD (gastroesophageal reflux disease) History of COVID-March 22, 2022 > home test and at [place] test site in parking gargage. > tired, cough, fever > all resolved IBS (irritable bowel syndrome) Liver masses Low hemoglobin Palpitations resolved per pt Surgical History H/O laparoscopy Ovarian pregnacy H/O oral surgery tooth extraction- wisdom History of colonoscopy History of dilatation and curettage S/P abdominoplasty S/P fine needle aspiration pt unaware S/P LASIK surgery S/P skin biopsy Nevus- Benign Family History Grandmother (Maternal) Alzheimer disease Stroke Mother Hypothyroidism Obesity Diabetes S/P removal of parathyroid gland Grandmother (Paternal) Diabetes Family/Other Breast cancer Sister Diabetes Pre-diabetes Uncle Stroke Myocardial infarction Dementia Denies family history of Ovarian cancer Colorectal cancer Social History Smoking Status: Former smoker Tobacco Type: Cigarettes Age Started Using Tobacco: 14; Age Quit Using Tobacco: 44; packs per day: 1; Years Smoked: 15; Cigarettes Per Day: 1 pack; Second Hand Exposure: Yes; Hx Alcohol Use: Yes Alcohol type: wine Alcohol Intake Frequency: 4 or More x per/Week Alcohol Intake Frequency Comment: Socially Hx Substance Use: No Preferred Language: [place] Citizen Communication Ability: Effective Visual Impairment: No Limitations Hearing Ability: Normal Sweeper Cleaner Industrial Required: No Beliefs That Will Affect Care: None marital status: Current Living Situation: Spouse Current Living Situation Comment: home current occupational status: employed 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 HEAD/FACE: Normocephalic and atraumatic. EYES: No drainage or conjunctival injection. ENT: Nose without bleeding or discharge. Oral mucosa moist. NECK: Full ROM without apparent pain. No swelling or masses noted. RESPIRATORY: Patient with unlabored breathing. No signs of respiratory distress. CHEST/AXILLA: Chest movement symmetrical. No deformities noted. ABDOMEN/GI: Abdomen is distended. Mild tenderness throughout and the worst in the left upper abdomen. No peritoneal signs or guarding. BACK: Moves without difficulty SKIN: [place], warm and dry. No rash noted. MS/EXTREMITY: No swelling, no deformities. Moving extremities appropriately. NEURO: Alert and appears oriented. Speech is fluent. Cranial Nerves are grossly intact. PSYCH: Alert, pleasant, affect is calm
[2022-07-22] MEDS: CYCLOBENZAPRINE HCL 10 MG TAB PO PRN (09:37)
[2022-07-22] MEDS: METHYLNALTREXONE BROMIDE 12 MG/0.6 ML VIAL SQ SCH (10:19)
--- NOTE | 2022-07-22 10:43 | Hospitalist Progress Note ---
Date of Service July 22, 2022 Assessment & Plan (1) Fever: Plan: Patient admitted with fever and pain in the setting of post liver biopsy for concern of metastatic cancer. -Pat TMax overnight 38.2 - Noted with small amount of attenuation in the pelvic region - known hemoperitneum which is likely causing her discomfort as well as liver capsule hematoma - At this time with continued fevers raises suspcion of hidden or brewing abscess/infection likely where her hematoma/blood is - Continue with Zosyn and repeat imaging likely within next 48 hours unless clinically worsens - if continues to have fevers while on abx repeat imaging earlier with surgical consultation - blood cultures remain with NGTD (2) Abdominal pain: Plan: -Likely multifactorial at this time due to current cancer, liver mets, subcapsular hematoma and constipation - as above multifactorial -Will continue with her 10 mg Oxy ER q6h prn and will add IV dilaudid q6h prn for breakthrough pain -Pain management consult placed -Will start patient on clears and advance diet as able - Appreciate pain management consultation - follow effectiveness of increase oxy/flexeril dosing (3) Anemia: Plan: Microcytic with thrombocytosis- likley chronic iron deficiency aggrevated by acute blood loss Hgb noted to be 7.6-7.0- 7.3 currently - Will start Venofer 300mg IV now and send iron studies -Currently hemodynamically stable -CT showing stable subcapsular hematoma with slightly improved hemoperitoneum -Blood consent obtained at time of admission -Continue to monitor H&H overnight and transfuse as needed for Hgb less than 7 (4) Colon cancer metastasized to liver: Plan: -Diagnosed recently -Saw [facility] oncology who recommended she seek care closer to home, patient states that [facility] GI team is working to coordinate care, will consult oncology to try and make the transition smoother -Will consult pain management to reevaluate the patient as they saw her shortly after discharge but the current pain regimen has not been effective (5) Subcapsular hematoma of liver: Plan: -Currently stable on CT today, continue to monitor (6) Hypomagnesemia: Plan: -Likely from poor oral intake, noted to be 1.5 today -Will give 1 g IV now then monitor AM mag levels (7) Depression: 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 (8) Bipolar 2 disorder: 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 She is following with hematology and oncology as outpatient. Patient was also admitted for anemia following biopsy. Her WBC count are downtrending but remain elevated, Tmax over 24 hours was 38.2, cultures are with NGTD. Imaging consistent with previous without worsening of hematoma subcapsular liver, known hemoperitoneum and interpreted as decreasing in size but with increase in the attenuation. She was admitted and placed on abx (zosyn) and pain consult for her pain. Clinically tender on right and lower abdomen. She reports continued fevers at home which, mostly occur at night. Review of Systems Review of Systems: REVIEW OF SYSTEMS: Constitutional: (+) fever, sweats or chills Eyes: No diplopia, no worsening or blurred vision ENT: normal hearing, no trouble swallowing Respiratory: No cough, sputum, dyspnea at rest or on exertion Cardiovascular: No chest pain, tightness or palpitations Abdomen: (+) pain, nausea, vomiting, diarrhea or constipation Musculoskeletal: (+) back pain right and left along paraspinous, No joint pain, calf pain, swelling Neurologic: No weakness, numbness/tingling, or balance problems Psychiatric: No anxiety or depression Skin: No rash or itch Physical Exam Physical Exam: Physical Exam: General: In no acute distress, non-toxic appearing HEENT: Normocephalic, atraumatic, no scleral icterus, symmetrical, and reactive to light, moist mucus membranes, trachea midline, no thyromegaly Chest/Pulm: No respiratory distress, symmetrical chest expansion, clear breath sounds throughout Cardiac: tachycardic rate, regular rhythm, no murmurs noted Abdomen: distended, no bruising noted, hypoactive bowel sounds, soft, tender to palpation in the LUQ and left lower quad Musculoskeletal: Symmetrical and without signs of acute trauma, upper and lower extremities with full ROM, no atrophy, spasticity, or flaccidity Extremities: Radial, dorsalis pedis, and posterior tibial pulses are intact and symmetrical, no edema noted in the BL LE's Skin: Warm, dry, no rashes , lesions, or scars noted Neuro: Alert and oriented to person, place, month, year, and president, no focal defects, CN II-XII tested and intact, finger to nose test negative, no tremors noted Psych: No acute distress, calm and cooperative during the exam Results & Data Results & Data ([facility]) Vital Signs (Past 12 Hours) Vital Signs Temp Pulse Pulse Resp BP Pulse Ox O2 Del Method 07/22/22 08:00 37.3 C 100 H 18 110/73 92 Room Air 07/22/22 07:13 92 H 07/22/22 03:20 37.1 C 96 H 18 109/76 95 Room Air 07/21/22 23:07 37.1 C 91 H 18 113/74 94 Room Air Laboratory Results Abnormal lab results 07/21/22 07/21/22 07/21/22 Range/Units 15:23 17:46 22:24 WBC (4.8-10.8) K/ul RBC (3.93-5.22) M/uL Hgb 7.6 L 7.0 L (12.0-16.0) g/dl Hct 24.1 L 21.9 L (34.1-44.9) % MCV (80.0-100.0) fL MCH (25.0-34.0) pg MCHC (32.0-36.0) g/dL Plt Count (130-400) K/uL MPV (9.4-12.3) fL Sodium (136-145) mmol/L Chloride (98-107) mmol/L Glucose (70-99(Fasting)) mg/dl Alkaline Phosphatase (34-104) U/L Albumin (3.4-5.0) gm/dl Ur Specific [place] > 1.045 H (1.000-1.030) Urine Blood 2+ H (Negative) Urine RBC (Auto) 10-30 H (0-4) /hpf U Epithel Cells (Auto) >30 H (0-5) /lpf 07/22/22 07/22/22 Range/Units 05:44 05:44 WBC 13.64 H (4.8-10.8) K/ul RBC 2.93 L (3.93-5.22) M/uL Hgb 7.3 L (12.0-16.0) g/dl Hct 23.1 L (34.1-44.9) % MCV 78.8 L (80.0-100.0) fL MCH 24.9 L (25.0-34.0) pg MCHC 31.6 L (32.0-36.0) g/dL Plt Count 752 H (130-400) K/uL MPV 9.0 L (9.4-12.3) fL Sodium 132 L (136-145) mmol/L Chloride 97 L (98-107) mmol/L Glucose 101 H (70-99(Fasting)) mg/dl Alkaline Phosphatase 608 H (34-104) U/L Albumin 3.2 L (3.4-5.0) gm/dl Ur Specific [place] (1.000-1.030) Urine Blood (Negative) Urine RBC (Auto) (0-4) /hpf U Epithel Cells (Auto) (0-5) /lpf Diagnostic Findings Chest X-Ray 07/21/22 10:51 XR chest 1V portable CLINICAL HISTORY: Sepsis. COMPARISON STUDY: Chest CT July 12, 2022. Chest radiograph July 15, 2022. FINDINGS: Numerous pulmonary nodules are again noted. There is no pneumothorax or pleural effusion. Linear left basilar opacity favors atelectasis. Linear right suprahilar opacity favors atelectasis. No consolidation to suggest pneumonia. There is no evidence for pulmonary edema. IMPRESSION: 1. No acute cardiopulmonary findings. 2. Redemonstration of pulmonary metastases. 3. Linear left basilar opacity suggestive of atelectasis. ACT 112: Negative or not required by law. Electronically signed by: Randall Da Silva M.D. 07/21/2022 11:22 AM Abdomen/Pelvis CT 07/21/22 11:25 CT OF THE ABDOMEN AND PELVIS WITH CONTRAST CLINICAL HISTORY: Worsening abdominal pain and fever. Known liver hematoma. COMPARISON STUDY: CT of the abdomen and pelvis July 15, 2022. TECHNIQUE: Following IV administration of 85 mL of Optiray, axial images of the abdomen and pelvis were obtained from the lung bases to the proximal femurs. Images were reviewed in the axial, sagittal, and coronal planes. IV contrast was administered without complication. Automated exposure control was utilized for the study. A dose lowering technique was utilized adhering to the principles of ALARA. CT DOSE: 1216.31 mGycm FINDINGS: Multiple metastases within the lower lungs are noted. No pneumatosis, free air or portal venous gas is present. Extensive hepatic metastases are again noted. The previously described subcapsular hematoma along the inferior aspect the lateral segment of the liver is similar in size to CT of July 15, 2022. This measures 8.1 cm in transverse dimension. Associated hemorrhage along the anterior aspect of the stomach is unchanged. A small amount of hemorrhage along the right hepatic lobe has slightly increased. Hemoperitoneum within the pelvis is present. The amount of hemorrhage within the pelvis has slightly decreased although the attenuation has mildly increased. The spleen, adrenal glands, kidneys and pancreas are unremarkable. There is no evidence for a bowel obstruction. The known cecal mass is not well depicted on this exam. Enlarged ileocolic lymph nodes are again noted. Index node measures 2.7 x 1.8 cm. No suspicious osseous lesions are noted. Major vasculature is patent. IMPRESSION: 1. No change in size of the subcapsular hematoma along the lateral segment of the liver since CT of July 15, 2022. Slight decrease in amount of pelvic hemoperitoneum. Overall, no evidence for significant interval bleed. 2. Redemonstration of hepatic, pulmonary and romain metastases. Known cecal mass not well depicted on this exam. 3. No bowel obstruction. ACT 112: Negative or not required by law. Electronically signed by: Randall Da Silva M.D. 07/21/2022 1:38 PM Medications Administered Acetaminophen (Acetaminophen 325 Mg Tab) 650 mg PO Q4H PRN PRN Reason: pain/fever Stop: 08/20/22 17:22 Last Admin: 07/21/22 19:57 Dose: 650 mg Documented By: RAHEEL Bupropion HCl (Bupropion Sr 100 Mg Tabcr) 200 mg PO QAM [facility] Stop: 08/21/22 08:59 Last Admin: 07/22/22 07:44 Dose: 200 mg Documented By: LESA Cyclobenzaprine HCl (Cyclobenzaprine Hcl 10 Mg Tab) 10 mg PO TID PRN PRN Reason: Muscle Spasm Stop: 08/21/22 13:59 Last Admin: 07/22/22 09:37 Dose: 10 mg Documented By: LESA Docusate Sodium (Docusate Sodium 100 Mg Cap) 100 mg PO BID [facility] Stop: 08/20/22 17:22 Last Admin: 07/22/22 07:42 Dose: 100 mg Documented By: Admin: 07/21/22 19:57 Dose: 100 mg Documented By: Admin: 07/21/22 18:06 Dose: 100 mg Documented By: LESA Hydromorphone HCl (Hydromorphone Inj 0.5 Mg/0.5 Ml Syr) 0.5 mg IV Q6H PRN PRN Reason: breakthrough pain Stop: 08/04/22 17:22 Last Admin: 07/22/22 06:46 Dose: 0.5 mg Documented By: Admin: 07/22/22 00:21 Dose: 0.5 mg Documented By: Admin: 07/21/22 17:58 Dose: 0.5 mg Documented By: LESA Piperacillin Sod/Tazobactam (Sod 3.375 gm/ Dextrose) 115 mls @ 28.75 mls/hr IV Q8H [facility]; Protocol Stop: 07/23/22 18:59 Last Admin: 07/22/22 10:19 Dose: 28.8 mls/hr Documented By: Infusion: 07/22/22 07:41 Dose: 0 mls/hr Documented By: Admin: 07/22/22 03:28 Dose: 28.8 mls/hr Documented By: Infusion: 07/21/22 22:25 Dose: 0 mls/hr Documented By: Admin: 07/21/22 18:17 Dose: 28.8 mls/hr Documented By: LESA Lamotrigine (Lamotrigine 100 Mg Tab) 150 [facility] [place] Stop: 08/21/22 08:59 Last Admin: 07/22/22 07:43 Dose: 150 mg Documented By: LESA Methylnaltrexone [place] (Methylnaltrexone [place] 12 Mg/0.6 Ml Vial) 12 mg SQ Q2D@0900 STEPHIE Stop: 08/21/22 09:29 Last Admin: 07/22/22 10:19 Dose: 12 mg Documented By: LESA Multivitamins (Multivitamin Tab) 1 tab PO QAM STEPHIE Stop: 08/21/22 08:59 Last Admin: 07/22/22 07:44 Dose: 1 tab Documented By: LESA Oxycodone HCl (Oxycodone Hcl Ir 5 Mg Tab (Immediate Release)) 15 mg PO Q4 PRN PRN Reason: Pain Stop: 08/04/22 17:54 Last Admin: 07/22/22 09:37 Dose: 15 mg Documented By: LESA Polyethylene Glycol (Polyethylene (Miralax) 17 Gm Pack) 17 gm PO DAILY STEPHIE Stop: 08/20/22 17:22 Last Admin: 07/22/22 07:42 Dose: 17 gm Documented By: Admin: 07/21/22 18:06 Dose: 17 gm Documented By: LESA Sennosides (Senna 8.6 Mg Tab) 8.6 mg PO QAM [facility] Stop: 08/20/22 17:22 Last Admin: 07/22/22 07:44 Dose: 8.6 mg Documented By: Admin: 07/21/22 18:44 Dose: 8.6 mg Documented By: LESA Discontinued Medications Hydromorphone HCl (Hydromorphone Inj 1 Mg/Ml Syringe) 1 mg IV NOW STA Stop: 07/21/22 10:51 Last Admin: 07/21/22 11:22 Dose: 1 mg Documented By: OL Hydromorphone HCl (Hydromorphone Inj 1 Mg/Ml Syringe) 1 mg IV NOW STA Stop: 07/21/22 12:57 Last Admin: 07/21/22 13:02 Dose: 1 mg Documented By: GIUSEPPEM Hydromorphone HCl (Hydromorphone Inj 1 Mg/Ml Syringe) 1 mg IV NOW STA Stop: 07/21/22 15:11 Last Admin: 07/21/22 15:22 Dose: 1 mg Documented By: SM Sodium Chloride (Nss 1000ml) 1,000 mls @ 999 mls/hr IV .Q1H1M STEPHIE Stop: 07/21/22 12:00 Last Infusion: 07/21/22 14:31 Dose: 0 mls/hr Documented By: Admin: 07/21/22 11:22 Dose: 999 mls/hr Documented By: PAU Piperacillin Sod/Tazobactam Sod (Zosyn) 4.5 gm in 120 mls @ 240 mls/hr IV NOW ONE Stop: 07/21/22 12:28 Last Infusion: 07/21/22 14:07 Dose: 0 mls/hr Documented By: Admin: 07/21/22 13:37 Dose: 240 mls/hr Documented By: PRAMOD Magnesium Sulfate/Dextrose (Magnesium Sulfate / D5w) 1 gm in 100 mls @ 50 mls/hr IV ONE ONE Stop: 07/21/22 19:22 Last Infusion: 07/21/22 20:40 Dose: 0 mls/hr Documented By: Admin: 07/21/22 17:59 Dose: 50 mls/hr Documented By: LEAS Ioversol (Optiray 350 100ml) 85 ml IV ONCE ONE Stop: 07/21/22 12:51 Last Admin: 07/21/22 12:50 Dose: 85 ml Documented By: JOVANNY Oxycodone HCl (Oxycodone Hcl Ir 5 Mg Tab (Immediate Release)) 10 mg PO Q6 PRN PRN Reason: Pain Stop: 08/04/22 17:54 Last Admin: 07/22/22 03:31 Dose: 10 mg Documented By: Admin: 07/21/22 19:55 Dose: 10 mg Documented By: RAHEEL PG Care Time/CCT Total # of Minutes Spent Total Time Spent with Patient: Total time spent is greater than 50% in coordination of care (as documented) at patient's floor/unit and/or counseling patient: Coding Level of Care Code 99696 Subseq Hosp Care Lvl 3 Diagnoses Fever R50.9 Abdominal pain R10.9 Abdominal location: unspecified location Anemia D64.9 Anemia type: unspecified type Colon cancer metastasized to liver C18.9; C78.7 Subcapsular hematoma of liver K76.89 Hypomagnesemia E83.42 Depression F32.9 Bipolar 2 disorder F31.81 Constipation K59.00 Thrombocytosis D75.839 (1) Anemia Anemia type: unspecified type Qualified Code(s): D64.9 - Anemia, unspecified (2) Abdominal pain Abdominal location: unspecified location Qualified Code(s): R10.9 - Unspecified abdominal pain
[2022-07-22] MEDS ORDERED: IRON SUCROSE 300 MG in SODIUM CHLORIDE 0.9% 250 ML IV ONE (18:00)
[2022-07-22] MEDS: ACETAMINOPHEN 325 MG TAB PO PRN (19:59)
[2022-07-23] MEDS: PIPERACILLIN/TAZOBACTAM 3.375 GM in DEXTROSE 5% 100 ML IV SCH ×2 (02:53→11:03)
[2022-07-23] MEDS: HYDROmorphone INJ 0.5 MG/0.5 ML SYR IV PRN ×3 (06:15→19:31)
[2022-07-23 07:40] LABS: Hematocrit (blood only) 22.1 % (34.1-44.9); Hemoglobin 7.2 g/dl (12.0-16.0); Mean Corpuscular Hemoglobin 25.3 pg (25.0-34.0); Mean Corpuscular Hgb Conc 32.6 g/dL (32.0-36.0); Mean Corpuscular Volume 77.5 fL (80.0-100.0); Mean Platelet Volume 8.7 fL (9.4-12.3); Nucleated RBC # (auto) 0.03 K/uL (0-0); Nucleated RBC % (auto) 0.2 %; Platelet Count 700 K/uL (130-400); RDW Coefficient of Variation 14.6 % (11.5-14.5); RDW Standard Deviation 41.1 fL (36.4-46.3); Red Blood Count 2.85 M/uL (3.93-5.22); White Blood Count 12.37 K/ul (4.8-10.8)
[2022-07-23] MEDS: buPROPion SR 100 MG TABCR PO SCH (08:01)
[2022-07-23] MEDS: DOCUSATE SODIUM 100 MG CAP PO SCH ×2 (08:01→20:04)
[2022-07-23] MEDS: MULTIVITAMIN TAB PO SCH (08:02)
[2022-07-23] MEDS: lamoTRIgine 100 MG TAB PO SCH (08:02)
[2022-07-23] MEDS: SENNA 8.6 MG TAB PO SCH (08:02)
[2022-07-23 08:04] LABS: Albumin Globulin Ratio 0.9 (0.9-2); Albumin Level 3.1 gm/dl (3.4-5.0); BUN Creatinine Ratio 11.3 (10-20); Bilirubin,Total 0.9 mg/dl (0.2-1.0); Creatinine Clr Calc Pharmacy 90.7 ml/min; Est GFR (African American) 99.6 ml/min; Globulin 3.6 gm/dl (2.5-4.0); Magnesium 1.9 mg/dl (1.7-2.4); Potassium 3.7 mmol/L (3.5-5.1); Total Protein 6.7 gm/dl (6.0-8.3)
[2022-07-23 08:06] LABS: Iron 83 mcg/dl (35-150); Total Iron Binding Cap Calc 216 mcg/dl (250-450); Transferrin (FE) Percent Satur 38 % (15-50); Unsaturated Iron Binding Cap 133 mcg/dl (155-355)
[2022-07-23] MEDS: POLYETHYLENE (MIRALAX) 17 GM PACK PO SCH (08:08)
[2022-07-23] MEDS ORDERED: IRON SUCROSE 300 MG in SODIUM CHLORIDE 0.9% 250 ML IV ONE (08:30)
[2022-07-23 08:56] LABS: Ferritin 413.8 ng/ml (8-388)
[2022-07-23] MEDS: oxyCODONE HCL IR 5 MG TAB (IMMEDIATE RELEASE) PO PRN ×3 (09:16→21:55)
--- NOTE | 2022-07-23 10:48 | Hospitalist Progress Note ---
Date of Service July 23, 2022 Assessment & Plan (1) Fever: Plan: Patient admitted with fever and pain in the setting of post liver biopsy for concern of metastatic cancer. -Pat TMax overnight 38.2 - Noted with small amount of attenuation in the pelvic region - known hemoperitneum which is likely causing her discomfort as well as liver capsule hematoma - At this time with continued fevers raises suspcion of hidden or brewing abscess/infection likely where her hematoma/blood is - Continue with Zosyn and repeat imaging likely within next 48 hours unless clinically worsens - if continues to have fevers while on abx repeat imaging earlier with surgical consultation - blood cultures remain with NGTD 07/23- Tmax 37.7 with downtrending WBC, HR, and NLR. Continue with Zosyn. BC remain with NGTD. Follow up imaging tomorrow to evaluate intrabdominal hemat omas and pelvic fluid. (2) Abdominal pain: Plan: -Likely multifactorial at this time due to current cancer, liver mets, subcapsular hematoma and constipation - as above multifactorial -Will continue with her 10 mg Oxy ER q6h prn and will add IV Dilaudid q6h prn for breakthrough pain -Pain management consult placed -Will start patient on clears and advance diet as able - Appreciate pain management consultation - follow effectiveness of increase oxy/flexeril dosing 07/23 improved following BM. Continue- appreciate pain management consultation (3) Constipation: Plan: -Last bowel movement was prior to her colonoscopy on 07/15 -Likely multifactorial including cecal mass, current narcotic treatment, and poor oral intake -No sign of bowel obstruction on CT today -Tried miralax daily the past two days without resolution -Will start with daily miralax, colace BID, and senna - relistor added follow -Monitor for successful bowel movements 07/23- improved with BM starting- she reports 2 soft stools yesterday (4) Anemia: Plan: Microcytic with thrombocytosis- likley chronic iron deficiency aggrevated by acute blood loss Hgb noted to be 7.6-7.0- 7.3 currently - Will start Venofer 300mg IV now and send iron studies -Currently hemodynamically stable -CT showing stable subcapsular hematoma with slightly improved hemoperitoneum -Blood consent obtained at time of admission -Continue to monitor H&H overnight and transfuse as needed for Hgb less than 7 07/23 - 1 dose venofer given 07/22- dose again today with 300mg IV Platelet count decrease to 700 HGB 7.3 - Iron level 83, TIBC 216, Unsat TIBC 133, Ferritin 413. (5) Thrombocytosis: Plan: Chronic this year marioley in the setting of cancer and associated with iron deficiency anemia - follow with iron supplementation - heme onc to follow as well. 07/23 slight downtrend following as above (6) Colon cancer metastasized to liver: Plan: -Diagnosed recently -Saw [facility] oncology who recommended she seek care closer to home, patient states that [facility] team is working to coordinate care, will consult oncology to try and make the transition smoother -Will consult pain management to reevaluate the patient as they saw her shortly after discharge but the current pain regimen has not been effective (7) Subcapsular hematoma of liver: Plan: -Currently stable on CT today, continue to monitor (8) Hypomagnesemia: Plan: -Likely from poor oral intake, noted to be 1.5 today -Will give 1 g IV now then monitor AM mag levels 07/23- mag 1.9 stable, should continue to increase with dietary intake. 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 She is following with hematology and oncology as outpatient. Patient was also admitted for anemia following biopsy. Her WBC count are downtrending but remain elevated, Tmax over 24 hours was 37.7, cultures are with NGTD, with downtrend in WBC and NLR. Pain controlled and following relistor yesterday bowel movements starting. If continued improvment re-image tomorrow for evaluation of fluid collection/infection eval. Review of Systems Review of Systems: REVIEW OF SYSTEMS: Constitutional: (+) fever, sweats or chills Eyes: No diplopia, no worsening or blurred vision ENT: normal hearing, no trouble swallowing Respiratory: No cough, sputum, dyspnea at rest or on exertion Cardiovascular: No chest pain, tightness or palpitations Abdomen: (+) pain- improved constipation, NO nausea, vomiting, diarrhea Musculoskeletal: (+) back pain right and left along paraspinous- improved, No joint pain, calf pain, swelling Neurologic: No weakness, numbness/tingling, or balance problems Psychiatric: No anxiety or depression Skin: No rash or itch Physical Exam Physical Exam: Physical Exam: General: In no acute distress, non-toxic appearing HEENT: Normocephalic, atraumatic, no scleral icterus, symmetrical, and reactive to light, moist mucus membranes, trachea midline, no thyromegaly Chest/Pulm: No respiratory distress, symmetrical chest expansion, clear breath sounds throughout Cardiac: tachycardic rate, regular rhythm, no murmurs noted Abdomen: distended, no bruising noted, hypoactive bowel sounds, soft, tender to palpation in the LUQ and left lower quad however improved markedly from yesterday Musculoskeletal: Symmetrical and without signs of acute trauma, upper and lower extremities with full ROM, no atrophy, spasticity, or flaccidity Extremities: Radial, dorsalis pedis, and posterior tibial pulses are intact and symmetrical, no edema noted in the BL LE's Skin: Warm, dry, no rashes , lesions, or scars noted Neuro: Alert and oriented to person, place, month, year, and president, no focal defects Psych: No acute distress, calm and cooperative during the exam Results & Data Results & Data ([facility]) Vital Signs (Past 12 Hours) Vital Signs Temp Pulse Pulse Resp BP Pulse Ox O2 Del Method 07/23/22 07:42 99 H 07/23/22 07:38 37.7 C H 83 16 107/71 100 Room Air 07/23/22 03:27 37.2 C 95 H 18 105/70 92 Room Air 07/22/22 23:01 37.1 C 96 H 18 98/67 L 92 Room Air Laboratory Results Abnormal lab results 07/23/22 07/23/22 07/23/22 Range/Units 07:06 07:06 07:06 WBC 12.37 H (4.8-10.8) K/ul RBC 2.85 L (3.93-5.22) M/uL Hgb 7.2 L (12.0-16.0) g/dl Hct 22.1 L (34.1-44.9) % MCV 77.5 L (80.0-100.0) fL RDW Coeff of [place] 14.6 H (11.5-14.5) % Plt Count 700 H (130-400) K/uL MPV 8.7 L (9.4-12.3) fL Absolute Nucleated RBC 0.03 H (0-0) K/uL Sodium 132 L (136-145) mmol/L Chloride 97 L (98-107) mmol/L Glucose 105 H (70-99(Fasting)) mg/dl TIBC 216 L (250-450) mcg/dl Unsaturated IBC 133 L (155-355) mcg/dl Ferritin 413.8 H (8-388) ng/ml Alkaline Phosphatase 556 H (34-104) U/L Albumin 3.1 L (3.4-5.0) gm/dl Medications Administered Acetaminophen (Acetaminophen 325 Mg Tab) 650 mg PO Q4H PRN PRN Reason: pain/fever Stop: 08/20/22 17:22 Last Admin: 07/22/22 19:59 Dose: 650 mg Documented By: Admin: 07/21/22 19:57 Dose: 650 mg Documented By: RAHEEL Bupropion HCl (Bupropion Sr 100 Mg Tabcr) 200 [facility] [place] Stop: 08/21/22 08:59 Last Admin: 07/23/22 08:01 Dose: 200 mg Documented By: Admin: 07/22/22 07:44 Dose: 200 mg Documented By: LESA Cyclobenzaprine HCl (Cyclobenzaprine Hcl 10 Mg Tab) 10 mg PO TID PRN PRN Reason: Muscle Spasm Stop: 08/21/22 13:59 Last Admin: 07/22/22 09:37 Dose: 10 mg Documented By: LESA Docusate Sodium (Docusate Sodium 100 Mg Cap) 100 mg PO BID [facility] Stop: 08/20/22 17:22 Last Admin: 07/23/22 08:01 Dose: 100 mg Documented By: Admin: 07/22/22 20:00 Dose: 100 mg Documented By: Admin: 07/22/22 07:42 Dose: 100 mg Documented By: Admin: 07/21/22 19:57 Dose: 100 mg Documented By: Admin: 07/21/22 18:06 Dose: 100 mg Documented By: LESA Hydromorphone HCl (Hydromorphone Inj 0.5 Mg/0.5 Ml Syr) 0.5 mg IV Q6H PRN PRN Reason: breakthrough pain Stop: 08/04/22 17:22 Last Admin: 07/23/22 06:15 Dose: 0.5 mg Documented By: Admin: 07/22/22 19:59 Dose: 0.5 mg Documented By: Admin: 07/22/22 14:14 Dose: 0.5 mg Documented By: Admin: 07/22/22 06:46 Dose: 0.5 mg Documented By: Admin: 07/22/22 00:21 Dose: 0.5 mg Documented By: Admin: 07/21/22 17:58 Dose: 0.5 mg Documented By: LESA Piperacillin Sod/Tazobactam (Sod 3.375 gm/ Dextrose) 115 mls @ 28.75 mls/hr IV Q8H STEPHIE; Protocol Stop: 07/23/22 18:59 Last Infusion: 07/23/22 08:01 Dose: 0 mls/hr Documented By: Admin: 07/23/22 02:53 Dose: 28.8 mls/hr Documented By: Infusion: 07/22/22 23:59 Dose: 0 mls/hr Documented By: Admin: 07/22/22 19:59 Dose: 28.8 mls/hr Documented By: Infusion: 07/22/22 14:13 Dose: 0 mls/hr Documented By: Admin: 07/22/22 10:19 Dose: 28.8 mls/hr Documented By: Infusion: 07/22/22 07:41 Dose: 0 mls/hr Documented By: Admin: 07/22/22 03:28 Dose: 28.8 mls/hr Documented By: Infusion: 07/21/22 22:25 Dose: 0 mls/hr Documented By: Admin: 07/21/22 18:17 Dose: 28.8 mls/hr Documented By: LESA Lamotrigine (Lamotrigine 100 Mg Tab) 150 mg PO [facility] [place] Stop: 08/21/22 08:59 Last Admin: 07/23/22 08:02 Dose: 150 mg Documented By: Admin: 07/22/22 07:43 Dose: 150 mg Documented By: LESA Methylnaltrexone Arnett (Methylnaltrexone Arnett 12 Mg/0.6 Ml Vial) 12 mg SQ Q2D@0900 STEPHIE Stop: 08/21/22 09:29 Last Admin: 07/22/22 10:19 Dose: 12 mg Documented By: LESA Multivitamins (Multivitamin Tab) 1 tab PO QAM STEPHIE Stop: 08/21/22 08:59 Last Admin: 07/23/22 08:02 Dose: 1 tab Documented By: Admin: 07/22/22 07:44 Dose: 1 tab Documented By: LESA Oxycodone HCl (Oxycodone Hcl Ir 5 Mg Tab (Immediate Release)) 15 mg PO Q4 PRN PRN Reason: Pain Stop: 08/04/22 17:54 Last Admin: 07/23/22 09:16 Dose: 15 mg Documented By: Admin: 07/22/22 23:34 Dose: 15 mg Documented By: Admin: 07/22/22 15:33 Dose: 15 mg Documented By: Admin: 07/22/22 09:37 Dose: 15 mg Documented By: LESA Polyethylene Glycol (Polyethylene (Miralax) 17 Gm Pack) 17 gm PO DAILY STEPHIE Stop: 08/20/22 17:22 Last Admin: 07/23/22 08:08 Dose: 17 gm Documented By: Admin: 07/22/22 07:42 Dose: 17 gm Documented By: Admin: 07/21/22 18:06 Dose: 17 gm Documented By: LESA Sennosides (Senna 8.6 Mg Tab) 8.6 mg PO QAM STEPHIE Stop: 08/20/22 17:22 Last Admin: 07/23/22 08:02 Dose: 8.6 mg Documented By: Admin: 07/22/22 07:44 Dose: 8.6 mg Documented By: Admin: 07/21/22 18:44 Dose: 8.6 mg Documented By: LESA Discontinued Medications Hydromorphone HCl (Hydromorphone Inj 1 Mg/Ml Syringe) 1 mg IV NOW STA Stop: 07/21/22 10:51 Last Admin: 07/21/22 11:22 Dose: 1 mg Documented By: OL Hydromorphone HCl (Hydromorphone Inj 1 Mg/Ml Syringe) 1 mg IV NOW STA Stop: 07/21/22 12:57 Last Admin: 07/21/22 13:02 Dose: 1 mg Documented By: OAJanett Hydromorphone HCl (Hydromorphone Inj 1 Mg/Ml Syringe) 1 mg IV NOW STA Stop: 07/21/22 15:11 Last Admin: 07/21/22 15:22 Dose: 1 mg Documented By: JUDITH Sodium Chloride (Nss 1000ml) 1,000 mls @ 999 mls/hr IV .Q1H1M STEPHIE Stop: 07/21/22 12:00 Last Infusion: 07/21/22 14:31 Dose: 0 mls/hr Documented By: Admin: 07/21/22 11:22 Dose: 999 mls/hr Documented By: PAU Piperacillin Sod/Tazobactam Sod (Zosyn) 4.5 gm in 120 mls @ 240 mls/hr IV NOW ONE Stop: 07/21/22 12:28 Last Infusion: 07/21/22 14:07 Dose: 0 mls/hr Documented By: Admin: 07/21/22 13:37 Dose: 240 mls/hr Documented By: PRAMOD Magnesium Sulfate/Dextrose (Magnesium Sulfate / D5w) 1 gm in 100 mls @ 50 mls/hr IV ONE ONE Stop: 07/21/22 19:22 Last Infusion: 07/21/22 20:40 Dose: 0 mls/hr Documented By: Admin: 07/21/22 17:59 Dose: 50 mls/hr Documented By: LESA Iron Sucrose 300 mg/ Sodium (Chloride) 265 mls @ 176.667 mls/hr IV TODAY@1800 ONE Stop: 07/22/22 19:29 Last Infusion: 07/22/22 19:53 Dose: 0 mls/hr Documented By: Admin: 07/22/22 18:03 Dose: 176.7 mls/hr Documented By: MARK Iron Sucrose 300 mg/ Sodium (Chloride) 265 mls @ 176.667 mls/hr IV 0830 ONE Stop: 07/23/22 09:59 Last Admin: 07/23/22 08:50 Dose: 176.7 mls/hr Documented By: FRANCHESKA Ioversol (Optiray 350 100ml) 85 ml IV ONCE ONE Stop: 07/21/22 12:51 Last Admin: 07/21/22 12:50 Dose: 85 ml Documented By: JOVANNY Oxycodone HCl (Oxycodone Hcl Ir 5 Mg Tab (Immediate Release)) 10 mg PO Q6 PRN PRN Reason: Pain Stop: 08/04/22 17:54 Last Admin: 07/22/22 03:31 Dose: 10 mg Documented By: Admin: 07/21/22 19:55 Dose: 10 mg Documented By: RAHEEL PG Care Time/CCT Total # of Minutes Spent Total Time Spent with Patient: Total time spent is greater than 50% in coordination of care (as documented) at patient's floor/unit and/or counseling patient: Coding Level of Care Code 97859 Subseq Hosp Care Lvl 3 Diagnoses Fever R50.9 Abdominal pain R10.9 Abdominal location: unspecified location Constipation K59.00 Anemia D64.9 Anemia type: unspecified type Thrombocytosis D75.839 Colon cancer metastasized to liver C18.9; C78.7 Subcapsular hematoma of liver K76.89 Hypomagnesemia E83.42 Depression F32.9 Bipolar 2 disorder F31.81 (1) Anemia Anemia type: unspecified type Qualified Code(s): D64.9 - Anemia, unspecified (2) Abdominal pain Abdominal location: unspecified location Qualified Code(s): R10.9 - Unspecified abdominal pain
[2022-07-23] MEDS ORDERED: PANTOprazole 40 MG in SYRINGE 0 ML IV ONE (14:30)
[2022-07-23] MEDS: ACETAMINOPHEN 325 MG TAB PO PRN (20:04)
[2022-07-24] MEDS: oxyCODONE HCL IR 5 MG TAB (IMMEDIATE RELEASE) PO PRN ×4 (04:23→21:40)
[2022-07-24] MEDS: HYDROmorphone INJ 0.5 MG/0.5 ML SYR IV PRN ×3 (06:59→19:15)
[2022-07-24 07:03] LABS: Hemoglobin 7.1 g/dl (12.0-16.0); Mean Corpuscular Hemoglobin 24.1 pg (25.0-34.0); Mean Corpuscular Hgb Conc 30.9 g/dL (32.0-36.0); Mean Corpuscular Volume 78.2 fL (80.0-100.0); Mean Platelet Volume 8.6 fL (9.4-12.3); Nucleated RBC # (auto) 0.03 K/uL (0-0); Nucleated RBC % (auto) 0.2 %; Platelet Count 697 K/uL (130-400); RDW Coefficient of Variation 14.8 % (11.5-14.5); RDW Standard Deviation 41.2 fL (36.4-46.3); Red Blood Count 2.94 M/uL (3.93-5.22); White Blood Count 16.54 K/ul (4.8-10.8)
[2022-07-24] MEDS ORDERED: PIPERACILLIN/TAZOBACTAM 3.375 GM in DEXTROSE 5% 100 ML IV ONE (07:30)
[2022-07-24] MEDS ORDERED: IRON SUCROSE 300 MG in SODIUM CHLORIDE 0.9% 250 ML IV ONE (07:30)
[2022-07-24 07:34] LABS: Albumin Level 3.1 gm/dl (3.4-5.0); Bilirubin,Total 0.8 mg/dl (0.2-1.0); Calcium 9.2 mg/dl (8.5-10.1); Magnesium 1.8 mg/dl (1.7-2.4); Potassium 3.9 mmol/L (3.5-5.1)
[2022-07-24 07:40] LABS: Albumin Globulin Ratio 0.9 (0.9-2); BUN Creatinine Ratio 9.6 (10-20); Creatinine Clr Calc Pharmacy 87.5 ml/min; Est GFR (African American) 95.3 ml/min; Est GFR (Non-African American) 82.2 ml/min; Globulin 3.6 gm/dl (2.5-4.0); Total Protein 6.7 gm/dl (6.0-8.3)
[2022-07-24] MEDS: DOCUSATE SODIUM 100 MG CAP PO SCH ×2 (09:03→20:11)
[2022-07-24] MEDS: lamoTRIgine 100 MG TAB PO SCH (09:03)
[2022-07-24] MEDS: SENNA 8.6 MG TAB PO SCH (09:03)
[2022-07-24] MEDS: buPROPion SR 100 MG TABCR PO SCH (09:03)
[2022-07-24] MEDS ORDERED: VANCOMYCIN CONSULT ACTIVE PRN ×2 (09:04)
[2022-07-24] MEDS: PANTOprazole 40 MG TAB PO SCH (09:05)
[2022-07-24] MEDS: MULTIVITAMIN TAB PO SCH (09:05)
[2022-07-24] MEDS ORDERED: VANCOMYCIN HCL 1,500 MG in SODIUM CHLORIDE 0.9% 500 ML IV ONE (09:30)
[2022-07-24] MEDS ORDERED: OPTIRAY 350 100ml IV ONE (10:14)
[2022-07-24] MEDS: POLYETHYLENE (MIRALAX) 17 GM PACK PO SCH (10:40)
--- NOTE | 2022-07-24 10:45 | Pharmacy Report ---
Pharmacy PK ABX Note - Date of Service July 24, 2022 - Assessment and Plan Assessment 52 year old F receiving Vancomycin and Zosyn for treatment of possible intra- abdominal infection. * H/o recently diagnoses lung adenocarcinoma with liver mets. Present febrile and with leukocytosis and elevated procalcitonin. * Blood cultures are negative. 24 hr Tmax [place] 38.8 [place] [id number] [address]. Procal improved slightly to 1.18. * Has been on Zosyn since 07/21/22 but with continued fevers, vanc added today. Plan Vancomycin * Loading dose: 1500 mg IV x 1 * Maintenance dose: 1000 mg IV every 12 hours * Regimen is predicted to achieve target AUC/ZINA of 400-600 mg/L.hr * Trough level ordered for: 07/26/22 Pharmacy will continue to follow and will adjust dose/frequency as necessary. Thank you. Pharmacy has transitioned to AUC monitoring for vancomycin. AUC/ZINA is the preferred PK/PD target and is associated with decreased risk of nephrotoxicity compared to traditional trough targets.
[2022-07-24] MEDS: METHYLNALTREXONE BROMIDE 12 MG/0.6 ML VIAL SQ SCH (11:03)
[2022-07-24] MEDS ORDERED: POLYETHYLENE (MIRALAX) 17 GM PACK PO PRN (11:54)
[2022-07-24] MEDS ORDERED: SENNA 8.6 MG TAB PO PRN (11:55)
--- NOTE | 2022-07-24 13:51 | Hospitalist Progress Note ---
Date of Service July 24, 2022 Assessment & Plan (1) Fever: Plan: Patient admitted with fever and pain in the setting of post liver biopsy for concern of metastatic cancer. -Pat TMax overnight 38.2 - Noted with small amount of attenuation in the pelvic region with admission CT AP 07/21 - known hemoperitoneum which is likely causing her discomfort as well as liver capsule hematoma - At this time with continued fevers raises suspicion of hidden or brewing absce ss/infection likely where her hematoma/blood is- CT scan imaging performed to re-evaluate following 72 hours on abx therapy - current options are continued abx therapy for longer course and re-image as no abscess currently identified - Drainage of fluid collection which would require transfer to tertiary care center if this is cause of her fevers - - Surgical Consultation following CT AP- she was previously evaluated by [facility] and for consistency will consult in AM unless emergent need- final read on CT A/P pending - Continue to search for other sources - repeat COVID and BioFire test 07/24, not hypoxic or on supplemental oxygen - CXR Pa/Lat- previous with atelectasis - ICS abx as below - Continue with Zosyn (07/21) addition of Vancomycin (07/24); doxycyline (07/24) - blood cultures 07/21 remain with NGTD- - blood cultures sent 07/24 - COVID/BIofire- sent 07/24- all negative - PA and Lateral CXR- 07/24 - UA- 07/24- negative - tick borne labs- and tick peripheral smear as well as parasite smear- Lyme IGG/IGM negative 07/01/; initial anaplasmo and babesia (negative) (2) Abdominal pain: Plan: -Likely multifactorial at this time due to current cancer, liver mets, subcapsular hematoma and constipation - as above multifactorial -Will continue with her 10 mg Oxy ER q6h prn and will add IV Dilaudid q6h prn for breakthrough pain -Pain management consult placed -Will start patient on clears and advance diet as able - Appreciate pain management consultation - follow effectiveness of increase oxy/flexeril dosing- this has improved her pain and discomfort - she did require overnight dose of dialudid which she states may have worked to well as she was doing much more movemnt overnight and may have over did it. (3) Constipation: Plan: -Last bowel movement was prior to her colonoscopy on 07/15 -Likely multifactorial including cecal mass, current narcotic treatment, and poor oral intake -No sign of bowel obstruction on CT today -Tried miralax daily the past two days without resolution -Will start with daily miralax, colace BID, and senna - relistor added follow - these placed to PRN on 07/24 - Large soft BMs on 07/23 in the evening (4) Metastatic adenocarcinoma: Plan: Metastatic Adenocarcinoma with cecum biopsy showing moderately differentiated adenocarcinoma- biopsies 07/12 liver 07/15 colon - She originally seen [facility] oncology and was reportedly not a candidate for any trials so seek oncological care closer to her location - Oncology consultation was placed on admission - awaiting consultation (5) Colon cancer metastasized to liver: Plan: As above (6) Thrombocytosis: Plan: Chronic this year likley in the setting of cancer and associated with iron deficiency anemia - follow with iron supplementation - heme onc to follow as well. - improving following iron infusions (7) Anemia: Plan: Microcytic with thrombocytosis- likely chronic iron deficiency aggravated by acute blood loss Hgb noted to be 7.6-7.0- 7.3 currently - Will start Venofer 300mg IV now and send iron studies -Currently hemodynamically stable -CT showing stable subcapsular hematoma with slightly improved hemoperitoneum -Blood consent obtained at time of admission -Continue to monitor H&H overnight and transfuse as needed for Hgb less than 7 - 3 doses Venofer given from 07/22-07/24 - HGB decrease on 07/24 will provide 1 unit PRBC - Iron level 83, TIBC 216, Unsat TIBC 133, Ferritin 413 (this was obtained following 1 dose of Venofer- so likely effected). - Continue to hold chemoprophylaxis upon re-imaging of abd/pelvis and drop in HGB level She is without elevated bilirubin and her LFTs are normal so very unlikely that she is hemolyzing, workup as above. Transfuse 1unit PRBC and follow (8) Subcapsular hematoma of liver: Plan: -Currently stable on CT today, continue to monitor - continue to hold vte chemoprophy (9) Hypomagnesemia: Plan: -Likely from poor oral intake, noted to be 1.5 today -Will give 1 g IV now then monitor AM mag levels - mag 1.9- 1.8 stable, should continue to increase with dietary intake. 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 She is following with hematology and oncology as outpatient. Patient was also admitted for anemia following biopsy. Patient previously improving on Zosyn with no fevers in 24 hours as well as downtrending WBC/biomarkers. Missed dose of abx secondary to auto-time out for empiric therapy. During that time she had fever with Tmax 38.8, and her WBC increased to 16 as well as CRP. PCT remains downtrending. CT scan repeated this morning as well as re-culture of blood, urine, and will COVID test the patient. Will broaden out coverage with Vancomycin. Await results of CT scan for evaluation of fluid collections and hematomas. She has had improvement in her constipation with 3 bowel movements yesterday and wanted to hold on the relistor today as well as her other stool softener. Awaiting Oncology consultation in regards to her metastatic disease. RBC downtrend this morning, following iron infusions, will provide 1u PRBC overnight for anemia. Review of Systems Review of Systems: REVIEW OF SYSTEMS: Constitutional: (+) fever, sweats or chills Eyes: No diplopia, no worsening or blurred vision ENT: normal hearing, no trouble swallowing Respiratory: (+) upper chest congestion this morning No cough, sputum, dyspnea at rest or on exertion Cardiovascular: No chest pain, tightness or palpitations Abdomen: (+) pain- improved constipation, NO nausea, vomiting, diarrhea Musculoskeletal: (+) back pain right and left along paraspinous- improved, No joint pain, calf pain, swelling Neurologic: No weakness, numbness/tingling, or balance problems Psychiatric: No anxiety or depression Skin: No rash or itch Physical Exam Physical Exam: Physical Exam: General: In no acute distress, non-toxic appearing HEENT: Normocephalic, atraumatic, no scleral icterus, symmetrical, and reactive to light, moist mucus membranes, trachea midline, no thyromegaly Chest/Pulm: No respiratory distress, symmetrical chest expansion, clear breath sounds throughout, decreased in bases- use ICS Cardiac: tachycardic rate, regular rhythm, no murmurs noted Abdomen: distended, no bruising noted, hypoactive bowel sounds, soft, tender to palpation in the LUQ and left lower quad, no suprapubic tenderness or CVA tenderness Musculoskeletal: Symmetrical and without signs of acute trauma, upper and lower extremities with full ROM, no atrophy, spasticity, or flaccidity Extremities: Radial, dorsalis pedis, and posterior tibial pulses are intact and symmetrical, no edema noted in the BL LE's Skin: Warm, dry, no rashes , lesions, or scars noted Neuro: Alert and oriented to person, place, month, year, and president, no focal defects Psych: No acute distress, calm and cooperative during the exam Results & Data Results & Data ([facility]) Vital Signs (Past 12 Hours) Vital Signs Temp Pulse Pulse Resp BP Pulse Ox O2 Del Method 07/24/22 11:24 37.6 C H 95 H 20 111/74 95 Room Air 07/24/22 07:26 37.3 C 99 H 20 108/71 94 Room Air 07/24/22 07:09 101 H 07/24/22 03:02 36.8 C 90 18 111/74 93 Room Air Laboratory Results Abnormal lab results 07/24/22 07/24/22 07/24/22 Range/Units 06:41 06:41 08:14 WBC 16.54 H (4.8-10.8) K/ul RBC 2.94 L (3.93-5.22) M/uL Hgb 7.1 L (12.0-16.0) g/dl Hct 23.0 L (34.1-44.9) % MCV 78.2 L (80.0-100.0) fL MCH 24.1 L (25.0-34.0) pg MCHC 30.9 L (32.0-36.0) g/dL RDW Coeff of Kenyon 14.8 H (11.5-14.5) % Plt Count 697 H (130-400) K/uL MPV 8.6 L (9.4-12.3) fL Absolute Nucleated RBC 0.03 H (0-0) K/uL Sodium 131 L (136-145) mmol/L Chloride 97 L (98-107) mmol/L BUN/Creatinine Ratio 9.6 L (10-20) Glucose 104 H (70-99(Fasting)) mg/dl Alkaline Phosphatase 547 H (34-104) U/L C-Reactive Protein (0-0.5) mg/dl Albumin 3.1 L (3.4-5.0) gm/dl Procalcitonin 1.18 H (0-0.5) ng/ml 07/24/22 Range/Units 08:14 WBC (4.8-10.8) K/ul RBC (3.93-5.22) M/uL Hgb (12.0-16.0) g/dl Hct (34.1-44.9) % MCV (80.0-100.0) fL MCH (25.0-34.0) pg MCHC (32.0-36.0) g/dL RDW Coeff of Kenyon (11.5-14.5) % Plt Count (130-400) K/uL MPV (9.4-12.3) fL Absolute Nucleated RBC (0-0) K/uL Sodium (136-145) mmol/L Chloride (98-107) mmol/L BUN/Creatinine Ratio (10-20) Glucose (70-99(Fasting)) mg/dl Alkaline Phosphatase (34-104) U/L C-Reactive Protein 25.74 H (0-0.5) mg/dl Albumin (3.4-5.0) gm/dl Procalcitonin (0-0.5) ng/ml Diagnostic Findings Abdomen/Pelvis CT 07/24/22 06:00 CT SCAN OF THE ABDOMEN AND PELVIS WITH IV CONTRAST CLINICAL HISTORY: Follow-up pelvic fluid collection. Known liver hematoma. Metastatic disease. COMPARISON STUDY: Prior abdominal CT scans, most recently dated 07/21/2022. TECHNIQUE: Following the IV administration of 86 cc of Optiray 350, CT scan of the abdomen and pelvis is performed from the lung bases to the proximal femora. Images are reviewed in the axial, sagittal, and coronal planes. IV contrast was administered without complication. A dose lowering technique was utilized adhering to the principles of ALARA. CT DOSE: 545.82 mGy.cm FINDINGS: Lung bases: The heart is normal in size and without pericardial effusion. Multifocal pulmonary metastatic disease has not appreciably changed from previous. The largest lesion is seen at the left lung base on image #58 and measures 3 cm. There is dependent segmental atelectasis. No airspace consolidation typical for pneumonia or pleural effusion is identified. Liver: The contrast-enhanced liver is enlarged, measuring 28 cm in length. There is mild biliary ductal dilatation in the right lobe severe to mass lesions or hepatic metastases. The remaining intrahepatic bile ducts are normal in caliber. The hepatic veins and portal veins are patent. A right lobe portal venous branches markedly narrowed by hepatic metastatic disease. Large hepatic metastatic lesions are unchanged. Subcapsular hematoma along the inferior aspect of the left lobe is similar to previous. This measures approximately 8 cm in transverse diameter. There is no evidence of active extravasation. Gallbladder: The gallbladder is contracted and appears mildly thick walled. Spleen: Normal in size and attenuation. Pancreas: Unremarkable. Adrenal glands: Unremarkable. Kidneys: The contrast enhanced kidneys are normal in size and without hydronephrosis. The kidneys enhance symmetrically. Abdominal vasculature: The abdominal aorta is normal in course and caliber. Bowel: There is no bowel obstruction. Moderate fecal retention is seen throughout the colon. The patient's's reported history of a cecal lesion is not well visualized on this examination. The appendix is normal as visualized. Peritoneum: Complex free fluid in the pelvis is consistent with hemoperitoneum. This has modestly decreased in volume as compared to 07/21/2022. No intraperitoneal free air is identified. Trace fluid is seen along the posterior aspect of the right lobe on image 15. Lymphadenopathy: Enlarged mesenteric nodes in the right lower quadrant are similar to previous. A cash application representative node on image #329 measures 2.8 x 1.9 cm. Pelvic viscera: The bladder, uterus, and adnexa are normal as visualized. Skeletal structures: No lytic or blastic lesions are seen. Sclerotic change is noted in the sacroiliac joints. IMPRESSION: 1. A small subcapsular hemorrhage along the left hepatic lobe has not significant changed as compared to 07/21/2022. No active extravasation is seen. 2. A small volume of hemoperitoneum is again seen in the pelvis. This has modestly decreased from 07/21/2022. 3. Again seen is extensive pulmonary and hepatic metastatic disease, as well as metastatic romain disease in the right lower quadrant. 4. The patient's cecal mass is not well visualized. 5. Additional findings as above. ACT 112: Negative or not required by law. Electronically signed by: Brayden Brown M.D. 07/24/2022 5:22 PM Chest X-Ray 07/24/22 14:56 TWO VIEW CHEST CLINICAL HISTORY: Fever. Leukocytosis. FINDINGS: PA and lateral chest radiographs are compared to study dated 07/21/2022 and correlated with chest CT dated 07/12/2022. The cardiomediastinal silhouette is unremarkable. Again seen is evidence of multifocal pulmonary metastatic disease. There is bibasilar atelectasis. No airspace consolidation typical for pneumonia or pleural effusion is identified. There is no pneumothorax. The bony thorax appears intact. IMPRESSION: 1. No acute cardiopulmonary abnormality. 2. Multifocal pulmonary metastatic disease is again noted. ACT 112: Negative or not required by law. Electronically signed by: Brayden Brown M.D. 07/24/2022 5:20 PM Medications Administered Acetaminophen (Acetaminophen 325 Mg Tab) 650 mg PO Q4H PRN PRN Reason: pain/fever Stop: 08/20/22 17:22 Last Admin: 07/23/22 20:04 Dose: 650 mg Documented By: Admin: 07/22/22 19:59 Dose: 650 mg Documented By: Admin: 07/21/22 19:57 Dose: 650 mg Documented By: RAHEEL Bupropion HCl (Bupropion Sr 100 Mg Tabcr) 200 mg PO QAM STEPHIE Stop: 08/21/22 08:59 Last Admin: 07/24/22 09:03 Dose: 200 mg Documented By: Admin: 07/23/22 08:01 Dose: 200 mg Documented By: Admin: 07/22/22 07:44 Dose: 200 mg Documented By: LESA Cyclobenzaprine HCl (Cyclobenzaprine Hcl 10 Mg Tab) 10 mg PO TID PRN PRN Reason: Muscle Spasm Stop: 08/21/22 13:59 Last Admin: 07/22/22 09:37 Dose: 10 mg Documented By: LESA Docusate Sodium (Docusate Sodium 100 Mg Cap) 100 mg PO BID STEPHIE Stop: 08/20/22 17:22 Last Admin: 07/24/22 09:03 Dose: 100 mg Documented By: Admin: 07/23/22 20:04 Dose: 100 mg Documented By: Admin: 07/23/22 08:01 Dose: 100 mg Documented By: Admin: 07/22/22 20:00 Dose: 100 mg Documented By: Admin: 07/22/22 07:42 Dose: 100 mg Documented By: Admin: 07/21/22 19:57 Dose: 100 mg Documented By: Admin: 07/21/22 18:06 Dose: 100 mg Documented By: LESA Hydromorphone HCl (Hydromorphone Inj 0.5 Mg/0.5 Ml Syr) 0.5 mg IV Q6H PRN PRN Reason: breakthrough pain Stop: 08/04/22 17:22 Last Admin: 07/24/22 13:15 Dose: 0.5 mg Documented By: Admin: 07/24/22 06:59 Dose: 0.5 mg Documented By: Admin: 07/23/22 19:31 Dose: 0.5 mg Documented By: Admin: 07/23/22 12:23 Dose: 0.5 mg Documented By: Admin: 07/23/22 06:15 Dose: 0.5 mg Documented By: Admin: 07/22/22 19:59 Dose: 0.5 mg Documented By: Admin: 07/22/22 14:14 Dose: 0.5 mg Documented By: Admin: 07/22/22 06:46 Dose: 0.5 mg Documented By: Admin: 07/22/22 00:21 Dose: 0.5 mg Documented By: Admin: 07/21/22 17:58 Dose: 0.5 mg Documented By: LESA Lamotrigine (Lamotrigine 100 Mg Tab) 150 mg PO QAM STEPHIE Stop: 08/21/22 08:59 Last Admin: 07/24/22 09:03 Dose: 150 mg Documented By: Admin: 07/23/22 08:02 Dose: 150 mg Documented By: Admin: 07/22/22 07:43 Dose: 150 mg Documented By: LESA Methylnaltrexone [place] (Methylnaltrexone [place] 12 Mg/0.6 Ml Vial) 12 mg SQ Q2D@0900 [facility] Stop: 08/21/22 09:29 Last Admin: 07/24/22 11:03 Dose: Not Given Documented By: Admin: 07/22/22 10:19 Dose: 12 mg Documented By: LESA Multivitamins (Multivitamin Tab) [facility] [place] Stop: 08/21/22 08:59 Last Admin: 07/24/22 09:05 Dose: 1 tab Documented By: Admin: 07/23/22 08:02 Dose: 1 tab Documented By: Admin: 07/22/22 07:44 Dose: 1 tab Documented By: LESA Oxycodone HCl (Oxycodone Hcl Ir 5 Mg Tab (Immediate Release)) 15 mg PO Q4 PRN PRN Reason: Pain Stop: 08/04/22 17:54 Last Admin: 07/24/22 11:00 Dose: 15 mg Documented By: Admin: 07/24/22 04:23 Dose: 15 mg Documented By: Admin: 07/23/22 21:55 Dose: 15 mg Documented By: Admin: 07/23/22 14:55 Dose: 15 mg Documented By: Admin: 07/23/22 09:16 Dose: 15 mg Documented By: Admin: 07/22/22 23:34 Dose: 15 mg Documented By: Admin: 07/22/22 15:33 Dose: 15 mg Documented By: Admin: 07/22/22 09:37 Dose: 15 mg Documented By: LESA Pantoprazole Sodium (Pantoprazole 40 Mg Tab) 40 [facility] [place] Stop: 08/23/22 08:59 Last Admin: 07/24/22 09:05 Dose: 40 mg Documented By: DEZ PG Care Time/CCT Total # of Minutes Spent Total Time Spent with Patient: Total time spent is greater than 50% in coordination of care (as documented) at patient's floor/unit and/or counseling patient: Coding Level of Care Code 19359 Subseq Hosp Care Lvl 3 Diagnoses Fever R50.9 Abdominal pain R10.9 Abdominal location: unspecified location Constipation K59.00 Metastatic adenocarcinoma C79.9 Colon cancer metastasized to liver C18.9; C78.7 Thrombocytosis D75.839 Anemia D64.9 Anemia type: unspecified type Subcapsular hematoma of liver K76.89 Hypomagnesemia E83.42 Depression F32.9 Bipolar 2 disorder F31.81 (1) Anemia Anemia type: unspecified type Qualified Code(s): D64.9 - Anemia, unspecified (2) Abdominal pain Abdominal location: unspecified location Qualified Code(s): R10.9 - Unspecified abdominal pain
[2022-07-24] MEDS: PIPERACILLIN/TAZOBACTAM 3.375 GM in DEXTROSE 5% 100 ML IV SCH ×2 (14:49→21:39)
[2022-07-24] MEDS ORDERED: SODIUM CHLORIDE 0.9% 250 ML IV PRN (15:09)
[2022-07-24 16:05] LABS: Appearance Urine Clear (Clear); Bacteria Urine Automated Negative (Negative); Bilirubin Urine Negative (Negative); Blood Urine 2+ (Negative); Cast Urine Automated 0 /lpf (0-5); Color Urine Yellow; Epithelial Cell Urine Auto >30 /lpf (0-5); Glucose Urine UA Negative (Negative); Ketones Urine Negative (Negative); Leukocyte Esterase Urine Negative (Negative); Nitrite Urine Negative (Negative); Protein Urine Trace (Negative); Specific Gravity Urine 1.037 (1.000-1.030); Urobilinogen Urine Negative (Negative); pH Urine 6.5 (4.5-7.5)
[2022-07-24] MEDS: DOXYCYCLINE HYCLATE 100 MG in DEXTROSE 5% 100 ML IV SCH (16:25)
[2022-07-24 16:42] LABS: Lyme Ab IgG w/WB Rflx Negative (Negative); Lyme Ab IgM w/WB Rflx Negative (Negative)
[2022-07-24 16:46] LABS: Adenovirus PCR Not Detected (NotDetected); Bordetella parapertussis PCR Not Detected (NotDetected); Bordetella pertussis PCR Not Detected (NotDetected); Chlamydia pneumoniae PCR Not Detected (NotDetected); Coronavirus 229E PCR Not Detected (NotDetected); Coronavirus CoV-2 (COVID19)PCR Not Detected (NotDetected); Coronavirus HKU1 PCR Not Detected (NotDetected); Coronavirus NL63 PCR Not Detected (NotDetected); Coronavirus OC43PCR Not Detected (NotDetected); Human Metapneumovirus PCR Not Detected (NotDetected); Influenza A PCR Not Detected (NotDetected); Influenza B PCR Not Detected (NotDetected); Mycoplasma pneumoniae PCR Not Detected (NotDetected); Parainfluenza Virus 1 PCR Not Detected (NotDetected); Parainfluenza Virus 2 PCR Not Detected (NotDetected); Parainfluenza Virus 3 PCR Not Detected (NotDetected); Parainfluenza Virus 4 PCR Not Detected (NotDetected); Respiratory Syncytial VirusPCR Not Detected (NotDetected); Rhinovirus/Enterovirus PCR Not Detected (NotDetected)
[2022-07-24] MEDS: ACETAMINOPHEN 325 MG TAB PO PRN (17:10)
--- NOTE | 2022-07-24 17:21 | XRay Report ---
TWO VIEW CHEST CLINICAL HISTORY: Fever. Leukocytosis. FINDINGS: PA and lateral chest radiographs are compared to study dated 07/21/2022 and correlated with chest CT dated 07/12/2022. The cardiomediastinal silhouette is unremarkable. Again seen is evidence of multifocal pulmonary metastatic disease. There is bibasilar atelectasis. No airspace consolidation t ypical for pneumonia or pleural effusion is identified. There is no pneumothorax. The bony thorax jaime ears intact. IMPRESSION: 1. No acute cardiopulmonary abnormality. 2. Multifocal pulmonary metastatic disease is again noted. ACT 112: Negative or not required by law. Electronically signed by: Brayden Brown M.D. 07/24/2022 5:20 PM
--- NOTE | 2022-07-24 17:23 | CT Scan Report ---
CT SCAN OF THE ABDOMEN AND PELVIS WITH IV CONTRAST CLINICAL HISTORY: Follow-up pelvic fluid collection. Known liver hematoma. Metastatic disease. COMPARISON STUDY: Prior abdominal CT scans, most recently dated 07/21/2022. TECHNIQUE: Following the IV administration of 86 cc of Optiray 350, CT scan of the abdomen and pelvi s is performed from the lung bases to the proximal femora. Images are reviewed in the axial, sagittal , and coronal planes. IV contrast was administered without complication. A dose lowering technique wa s utilized adhering to the principles of ALARA. CT DOSE: 545.82 mGy.cm FINDINGS: Lung bases: The heart is normal in size and without pericardial effusion. Multifocal pulmonary metast atic disease has not appreciably changed from previous. The largest lesion is seen at the left lung b ase on image #58 and measures 3 cm. There is dependent segmental atelectasis. No airspace consolidati on typical for pneumonia or pleural effusion is identified. Liver: The contrast-enhanced liver is enlarged, measuring 28 cm in length. There is mild biliary duct al dilatation in the right lobe severe to mass lesions or hepatic metastases. The remaining intrahepa tic bile ducts are normal in caliber. The hepatic veins and portal veins are patent. A right lobe por bryan venous branches markedly narrowed by hepatic metastatic disease. Large hepatic metastatic lesions are unchanged. Subcapsular hematoma along the inferior aspect of the left lobe is similar to previou s. This measures approximately 8 cm in transverse diameter. There is no evidence of active extravasat ion. Gallbladder: The gallbladder is contracted and appears mildly thick walled. Spleen: Normal in size and attenuation. Pancreas: Unremarkable. Adrenal glands: Unremarkable. Kidneys: The contrast enhanced kidneys are normal in size and without hydronephrosis. The kidneys enh ance symmetrically. Abdominal vasculature: The abdominal aorta is normal in course and caliber. Bowel: There is no bowel obstruction. Moderate fecal retention is seen throughout the colon. The joao ent's's reported history of a cecal lesion is not well visualized on this examination. The appendix i s normal as visualized. Peritoneum: Complex free fluid in the pelvis is consistent with hemoperitoneum. This has modestly dec reased in volume as compared to 07/21/2022. No intraperitoneal free air is identified. Trace fluid is seen along the posterior aspect of the right lobe on image 15. Lymphadenopathy: Enlarged mesenteric nodes in the right lower quadrant are similar to previous. A rep resentative node on image #329 measures 2.8 x 1.9 cm. Pelvic viscera: The bladder, uterus, and adnexa are normal as visualized. Skeletal structures: No lytic or blastic lesions are seen. Sclerotic change is noted in the sacroilia c joints. IMPRESSION: 1. A small subcapsular hemorrhage along the left hepatic lobe has not significant changed as compared to 07/21/2022. No active extravasation is seen. 2. A small volume of hemoperitoneum is again seen in the pelvis. This has modestly decreased from 07/01. 3. Again seen is extensive pulmonary and hepatic metastatic disease, as well as metastatic romain dise ase in the right lower quadrant. 4. The patient's cecal mass is not well visualized. 5. Additional findings as above. ACT 112: Negative or not required by law. Electronically signed by: Brayden Brown M.D. 07/24/2022 5:22 PM
[2022-07-24] MEDS ORDERED: IBUPROFEN 600 MG TAB PO STA (17:49)
[2022-07-25] MEDS: VANCOMYCIN HCL 1,000 MG in SODIUM CHLORIDE 0.9% 250 ML IV SCH ×2 (00:06→12:20)
[2022-07-25] MEDS: oxyCODONE HCL IR 5 MG TAB (IMMEDIATE RELEASE) PO PRN ×4 (04:03→23:03)
[2022-07-25] MEDS: DOXYCYCLINE HYCLATE 100 MG in DEXTROSE 5% 100 ML IV SCH ×2 (04:04→15:02)
[2022-07-25] MEDS: PIPERACILLIN/TAZOBACTAM 3.375 GM in DEXTROSE 5% 100 ML IV SCH ×3 (05:02→21:34)
[2022-07-25 06:23] LABS: Basophils # (auto) 0.05 K/uL (0-0.2); Basophils % (auto) 0.4 %; Eosinophils # (auto) 0.49 K/uL (0-0.50); Eosinophils % (auto) 3.8 %; Hematocrit (blood only) 23.6 % (34.1-44.9); Hemoglobin 7.4 g/dl (12.0-16.0); Immature Granulocytes # (auto) 0.54 K/uL (0.00-0.02); Immature Granulocytes % (auto) 4.2 %; Lymphocytes # (auto) 1.15 K/uL (1.2-3.4); Lymphocytes % (auto) 8.9 %; Mean Corpuscular Hemoglobin 25.3 pg (25.0-34.0); Mean Corpuscular Hgb Conc 31.4 g/dL (32.0-36.0); Mean Corpuscular Volume 80.8 fL (80.0-100.0); Mean Platelet Volume 8.7 fL (9.4-12.3); Neutrophils # (auto) 9.45 K/uL (1.4-6.5); Neutrophils % (auto) 72.7 %; Nucleated RBC # (auto) 0.02 K/uL (0-0); Nucleated RBC % (auto) 0.2 %; Platelet Count 620 K/uL (130-400); RDW Coefficient of Variation 15.4 % (11.5-14.5); RDW Standard Deviation 43.8 fL (36.4-46.3); Red Blood Count 2.92 M/uL (3.93-5.22); White Blood Count 12.98 K/ul (4.8-10.8)
[2022-07-25 06:53] LABS: Polychromasia 1+
[2022-07-25] MEDS: HYDROmorphone INJ 0.5 MG/0.5 ML SYR IV PRN ×4 (07:35→21:30)
[2022-07-25] MEDS: DOCUSATE SODIUM 100 MG CAP PO SCH ×2 (07:36→21:40)
[2022-07-25] MEDS: MULTIVITAMIN TAB PO SCH (07:36)
[2022-07-25] MEDS: PANTOprazole 40 MG TAB PO SCH (07:36)
[2022-07-25] MEDS: lamoTRIgine 100 MG TAB PO SCH (07:36)
[2022-07-25] MEDS: buPROPion SR 100 MG TABCR PO SCH (07:37)
[2022-07-25 07:43] LABS: BUN Creatinine Ratio 10.6 (10-20); Calcium 8.9 mg/dl (8.5-10.1); Creatinine Clr Calc Pharmacy 85.4 ml/min; Est GFR (African American) 92.6 ml/min; Est GFR (Non-African American) 79.9 ml/min; Magnesium 1.9 mg/dl (1.7-2.4); Potassium 3.5 mmol/L (3.5-5.1)
[2022-07-25] MEDS ORDERED: SODIUM CHLORIDE 0.9% 250 ML IV PRN (07:47)
[2022-07-25 09:34] LABS: Carcinoembryonic Antigen 471.6 ng/ml (0-2.5)
[2022-07-25] MEDS: ACETAMINOPHEN 325 MG TAB PO PRN ×2 (11:05→18:00)
--- NOTE | 2022-07-25 14:54 | Hospitalist Progress Note ---
Date of Service July 25, 2022 Assessment & Plan (1) Fever: Plan: Patient admitted with fever and pain in the setting of recent liver biopsy and newly diagnosed metastatic adenocarcinoma of the colon with mets to the liver and lungs Was recently admitted for subcapsular liver hematoma and discharged to home on 07/17 CT abdomen/pelvis on 07/21 shows again multiple metastases in lower lungs and liver with no change in size of subcapsular hematoma along the lateral segment of the liver since previous CT on 07/15. There remains pelvic hemoperitoneum but it is decreased in size from previous and no new bleeding. Patient continued to spike fevers daily despite being on IV Zosyn and broad antibiotic coverage was broadened on 07/24 to add on vancomycin and doxycycline Repeat CT abdomen/pelvis on 07/24 again no evidence of infection and hematoma decreased in size, no pelvic abscesses or diverticulitis noted Blood cultures from 07/16, 07/21, and 07/24 all remain no growth to date Urine cultures only with Gardnerella like bacilli which does not need to be treated Parasite smear negative Anaplasmosis and babesiosis smear is negative and respective DNA PCR's are pending Lyme titer negative Initial COVID-19 negative and repeat Tasqe viral respiratory panel on 07/24 is negative Chest x-ray PA/lateral again with atelectasis and pulmonary mets but no evidence of pneumonia No cellulitis Continues to spike fevers despite broad-spectrum coverage for the last 24 hours- continue triple antibiotic therapy but if cultures remain negative and still having fevers, suspect fevers are secondary to hematoma itself from inflammation or from the widely metastatic cancer as per my discussion with oncology. -Continue Zosyn, vancomycin, doxycycline for now, but consider de-escalating if cultures remain negative -Continue to follow cultures -Check acute hepatitis panel as well -Follow CBC, CMP in the morning (2) Abdominal pain: Plan: -Likely multifactorial at this time due to liver mets, subcapsular hematoma and constipation -Constipation is now much improved with addition of laxatives -Still requiring 2-3 doses of IV Dilaudid per day and 5-6 doses of immediate release oxycodone -Appreciate pain management consultation earlier in the stay-they are willing to manage opioids as an outpatient or else unsure oncology could as well -Start OxyContin 10 Mg p.o. twice daily -continue oxycodone IR 10 Mg p.o. every 6 hours as needed breakthrough pain, have IV Dilaudid available for now for severe breakthrough pain not responding to oxycodone -Continue bowel regimen for prevention of opioid-induced constipation -Likely pain will improve with time as hematoma resolves as well as with treatment of cancer and shrinkage of liver mets (3) Constipation: Plan: -At the time of admission, her last bowel movement was prior to her colonoscopy on 07/15 -Likely multifactorial including cecal mass although not noted to be obstructing on colonoscopy, opioid therapy, and poor oral intake -No sign of bowel obstruction on CT abdomen/pelvis -Tried miralax daily the past two days without resolution -Was given 1 dose of Relistor, continued on daily miralax, colace BID, and senna-started having regular bowel movements on 07/23 -Discontinue Relistor -Continue docusate 100 Mg p.o. twice daily, MiraLAX as needed, senna as needed (4) Metastatic adenocarcinoma: Plan: Metastatic Adenocarcinoma of the colon with mets to the lungs and liver CEA elevated at 471 Significantly elevated alkaline phosphatase, but total bilirubin, AST, ALT all normal With cecum biopsy showing moderately differentiated adenocarcinoma- biopsies 07/12 liver 07/15 colon - She originally seen [facility] oncology and was reportedly not a candidate for any trials so seek oncological care closer to her location - Oncology consultation today is appreciated -Consult surgery for port placement later this week after infection ruled out as above-tentatively planned for Friday 07/27 -Plan to start FOLFOX treatment with oncology as soon as possible after discharge -Stage IV, palliative treatment discussed with patient (5) Colon cancer metastasized to liver: Plan: As above (6) Thrombocytosis: Plan: Chronic this year annabel in the setting of cancer and associated with iron deficiency anemia -Improving down to 620 iron supplementation and PRBC transfusion Follow CBC (7) Anemia: Plan: Microcytic with thrombocytosis- likely chronic iron deficiency aggravated by acute on chronic blood loss from subcapsular liver hematoma in the setting of colon cancer Hemoglobin down to 7.0 and received 1 unit PRBCs on 07/24 Hemoglobin up minimally to 7.[address] abdomen/pelvis does not show enlargement of hematoma or pelvic hemoperitoneum -Iron studies were drawn 1 day after receiving IV Venofer not not likely accurate. B12 and folate normal -Give 1 more unit of PRBCs on 07/25 -Completed 3 doses of Venofer 300 Mg IV -She is without elevated bilirubin therefore unlikely to be having hemolysis -Follow CBC in the morning (8) Subcapsular hematoma of liver: Plan: -Currently stable to improved on CT (9) Hypomagnesemia: Plan: -Likely from poor oral intake, now normalized after repletion (10) Depression: Plan: - Continue Bupropion, Lamictal (11) Bipolar 2 disorder: Plan: As above Plan DVT prophylaxis-SCDs, avoid anticoagulation due to recent intra-abdominal bleeding Need to ensure patient has stopped taking her home control pills Dispo-continued stay, hopeful for discharged home in the next couple of days after infection ruled out, Port-A-Cath placement, and pain controlled without the use of IV opioids. Oncology is on board and will expedite outpatient chemotherapy initiation. Admission and Anticipated Discharge Date Admission Date: July 21, 2022 Subjective Pt continues to have significant pain in LUQ of abdomen, worse with eating larger portions and with lying flat. Improved with oxycodone and still requiring 2-3 doses per day of IV dilaudid Is moving bowels regularly and is loose, no blood. No CP, SOB. Has a mild cough that sh thinks is from allergies. Continues to spike fevers daily. Reports was spiking fevers frequently before cancer was even diagnosed. Dr. Smith of Oncology came in the room as I was seeing pt and reviewed her case, prognosis, and treatment plan. Pt feels much relief finally knowing the treatment plan. Tele with NSR, ST rates 80-100s Review of Systems Review of Systems: All systems reviewed & are unremarkable except as noted in HPI & below mild headaches, has mild leg swelling, no calf pain, no trouble with urinating No nausea/vomiting Physical Exam Constitutional: WD/WN, vitals as above Eyes: PERRL, conjunctivae normal, anicteric sclerae ENMT: external ear and nose normal, oropharynx normal Neck: trachea midline, no thyromegaly Respiratory: normal respiratory effort, lungs clear to auscultation Cardiovascular: Rate/Rhythm: regular rate and regular rhythm Heart Sounds: no murmur Extremities: + edema (trace pitting edema) Chest (Breasts): Chest: normal inspection of chest Gastrointestinal (Abdomen): Inspection/Auscultation: abdomen normal to inspection and normal bowel sounds Percussion/Palpation: + abdomen tender (in LUQ and RUQ no guarding or rebound), abdomen soft, + hepatomegaly and + abdominal mass; no hernia Musculoskeletal: Extremities: extremities normal to inspection; no cyanosis and no clubbing Skin: no rashes, warm and dry Neurologic: moves all extremities and awake; no focal motor deficits Psychiatric: A+Ox3, euthymic affect Results & Data Results & Data ([facility]) Vital Signs (Past 12 Hours) Vital Signs Temp Pulse Pulse Resp BP BP Pulse Ox 07/25/22 11:29 37.9 C H 94 H 16 118/77 96 07/25/22 09:32 37.2 C 104 H 18 119/79 94 07/25/22 08:30 07/25/22 09:37 118/78 07/25/22 09:30 36.9 C 96 H 18 97 07/25/22 09:00 37.2 C 93 H 18 120/79 97 07/25/22 08:46 36.9 C 105 H 16 113/73 94 07/25/22 08:28 37 C 91 H 18 109/73 97 07/25/22 08:22 36.9 C 98 H 16 110/69 96 07/25/22 03:33 36.5 C 78 18 99/66 L 92 O2 Del Method 07/25/22 11:29 Room Air 07/25/22 09:32 07/25/22 08:30 Room Air 07/25/22 09:37 07/25/22 09:30 07/25/22 09:00 07/25/22 08:46 07/25/22 08:28 07/25/22 08:22 Room Air 07/25/22 03:33 Room Air Laboratory Results 07/25/22 07/25/22 07/25/22 Range/Units 08:26 05:46 05:46 WBC 12.98 H (4.8-10.8) K/ul RBC 2.92 L (3.93-5.22) M/uL Hgb 7.4 L (12.0-16.0) g/dl Hct 23.6 L (34.1-44.9) % MCV 80.8 (80.0-100.0) fL MCH 25.3 (25.0-34.0) pg MCHC 31.4 L (32.0-36.0) g/dL RDW Std Deviation 43.8 (36.4-46.3) fL RDW Coeff of [place]yon 15.4 H (11.5-14.5) % Plt Count 620 H (130-400) K/uL MPV 8.7 L (9.4-12.3) fL Immature Gran % (Auto) 4.2 % Neut % (Auto) 72.7 % Lymph % (Auto) 8.9 % [place] % (Auto) 10.0 % Eos % (Auto) 3.8 % Baso % (Auto) 0.4 % Neut # (Auto) 9.45 H (1.4-6.5) K/uL Lymph # (Auto) 1.15 L (1.2-3.4) K/uL [place] # (Auto) 1.30 H (0.24-0.82) K/uL Eos # (Auto) 0.49 (0-0.50) K/uL Baso # (Auto) 0.05 (0-0.2) K/uL Immature Gran # (Auto) 0.54 H (0.00-0.02) K/uL Absolute Nucleated RBC 0.02 H (0-0) K/uL Nucleated RBC % (auto) 0.2 % Polychromasia 1+ Sodium (136-145) mmol/L Potassium (3.5-5.1) mmol/L Chloride (98-107) mmol/L Carbon Dioxide (21-32) mmol/L Anion Gap (3-11) BUN (6-23) mg/dl Creatinine (0.6-1.2) mg/dl Est Cr Clr Drug Dosing ml/min Est GFR ( Amer) ml/min Est GFR (Non-Af Amer) ml/min BUN/Creatinine Ratio (10-20) Glucose (70-99(Fasting)) mg/dl Calcium (8.5-10.1) mg/dl Magnesium (1.7-2.4) mg/dl Carcinoembryonic Ag 471.6 H (0-2.5) ng/ml Vitamin B12 598 (180-914) pg/ml Folate 14.00 (>5.38) ng/ml Urine Color Urine Appearance (Clear) Urine pH (4.5-7.5) Ur Specific [place] (1.000-1.030) Urine Protein (Negative) Urine Glucose (UA) (Negative) Urine Ketones (Negative) Urine Blood (Negative) Urine Nitrite (Negative) Urine Bilirubin (Negative) Urine Urobilinogen (Negative) Ur Leukocyte Esterase (Negative) Urine WBC (Auto) (0-5) /hpf Urine RBC (Auto) (0-4) /hpf U Hyaline Cast (Auto) (0-5) /lpf U Epithel Cells (Auto) (0-5) /lpf Urine Bacteria (Auto) (Negative) Nasal Screen MRSA (PCR) (Negative) Adenovirus (PCR) (NotDetected) Anaplasma Smear A. phagocytophilum DNA Babesia Smear Babesia microti DNA PCR B. pertussis DNA (PCR) (NotDetected) B.parapertussis DNA PCR (NotDetected) Lyme Disease IgG Ab (Negative) Lyme Disease IgM Ab (Negative) C. pneumoniae DNA (PCR) (NotDetected) Coronavirus OC43 (PCR) (NotDetected) Coronavirus HKU1 (PCR) (NotDetected) Coronavirus 229E (PCR) (NotDetected) SARS-CoV-2 (PCR) (NotDetected) Coronavirus NL63 (PCR) (NotDetected) Hepatitis A IgM Ab Pending Hep Bs Antigen Pending Hep Bs Ag Confirmation Pending Hep B Core IgM Ab Pending Hepatitis C Ab (EIA) Pending Hep C Ab Signal/Cutoff Pending Human Metapneumovir PCR (NotDetected) Influenza Type A (PCR) (NotDetected) Influenza Type B (PCR) (NotDetected) M. pneumoniae (PCR) (NotDetected) Parainfluenza 1 (PCR) (NotDetected) Parainfluenza 2 (PCR) (NotDetected) Parainfluenza 3 (PCR) (NotDetected) Parainfluenza 4 (PCR) (NotDetected) RSV (PCR) (NotDetected) Entero/Rhino (PCR) (NotDetected) Blood Type Antibody Screen Crossmatch 07/25/22 07/24/22 07/24/22 Range/Units 05:46 15:46 15:45 WBC (4.8-10.8) K/ul RBC (3.93-5.22) M/uL Hgb (12.0-16.0) g/dl Hct (34.1-44.9) % MCV (80.0-100.0) fL MCH (25.0-34.0) pg MCHC (32.0-36.0) g/dL RDW Std Deviation (36.4-46.3) fL RDW Coeff of [place]yon (11.5-14.5) % Plt Count (130-400) K/uL MPV (9.4-12.3) fL Immature Gran % (Auto) % Neut % (Auto) % Lymph % (Auto) % [place] % (Auto) % Eos % (Auto) % Baso % (Auto) % Neut # (Auto) (1.4-6.5) K/uL Lymph # (Auto) (1.2-3.4) K/uL [place] # (Auto) (0.24-0.82) K/uL Eos # (Auto) (0-0.50) K/uL Baso # (Auto) (0-0.2) K/uL Immature Gran # (Auto) (0.00-0.02) K/uL Absolute Nucleated RBC (0-0) K/uL Nucleated RBC % (auto) % Polychromasia Sodium 136 (136-145) mmol/L Potassium 3.5 (3.5-5.1) mmol/L Chloride 101 (98-107) mmol/L Carbon Dioxide 26 (21-32) mmol/L Anion Gap 9 (3-11) BUN 9 (6-23) mg/dl Creatinine 0.85 (0.6-1.2) mg/dl Est Cr Clr Drug Dosing 85.4 ml/min Est GFR ( Amer) 92.6 ml/min Est GFR (Non-Af Amer) 79.9 ml/min BUN/Creatinine Ratio 10.6 (10-20) Glucose 111 H (70-99(Fasting)) mg/dl Calcium 8.9 (8.5-10.1) mg/dl Magnesium 1.9 (1.7-2.4) mg/dl Carcinoembryonic Ag (0-2.5) ng/ml Vitamin B12 (180-914) pg/ml Folate (>5.38) ng/ml Urine Color Yellow Urine Appearance Clear (Clear) Urine pH 6.5 (4.5-7.5) Ur Specific [place] 1.037 H (1.000-1.030) Urine Protein Trace H (Negative) Urine Glucose (UA) Negative (Negative) Urine Ketones Negative (Negative) Urine Blood 2+ H (Negative) Urine Nitrite Negative (Negative) Urine Bilirubin Negative (Negative) Urine Urobilinogen Negative (Negative) Ur Leukocyte Esterase Negative (Negative) Urine WBC (Auto) 1-5 (0-5) /hpf Urine RBC (Auto) 5-10 H (0-4) /hpf U Hyaline Cast (Auto) 0 (0-5) /lpf U Epithel Cells (Auto) >30 H (0-5) /lpf Urine Bacteria (Auto) Negative (Negative) Nasal Screen MRSA (PCR) Negative (Negative) Adenovirus (PCR) (NotDetected) Anaplasma Smear A. phagocytophilum DNA Babesia Smear Babesia microti DNA PCR B. pertussis DNA (PCR) (NotDetected) B.parapertussis DNA PCR (NotDetected) Lyme Disease IgG Ab (Negative) Lyme Disease IgM Ab (Negative) C. pneumoniae DNA (PCR) (NotDetected) Coronavirus OC43 (PCR) (NotDetected) Coronavirus HKU1 (PCR) (NotDetected) Coronavirus 229E (PCR) (NotDetected) SARS-CoV-2 (PCR) (NotDetected) Coronavirus NL63 (PCR) (NotDetected) Hepatitis A IgM Ab Hep Bs Antigen Hep Bs Ag Confirmation Hep B Core IgM Ab Hepatitis C Ab (EIA) Hep C Ab Signal/Cutoff Human Metapneumovir PCR (NotDetected) Influenza Type A (PCR) (NotDetected) Influenza Type B (PCR) (NotDetected) M. pneumoniae (PCR) (NotDetected) Parainfluenza 1 (PCR) (NotDetected) Parainfluenza 2 (PCR) (NotDetected) Parainfluenza 3 (PCR) (NotDetected) Parainfluenza 4 (PCR) (NotDetected) RSV (PCR) (NotDetected) Entero/Rhino (PCR) (NotDetected) Blood Type Antibody Screen Crossmatch 07/24/22 07/24/22 07/24/22 Range/Units 15:31 15:31 15:31 WBC (4.8-10.8) K/ul RBC (3.93-5.22) M/uL Hgb (12.0-16.0) g/dl Hct (34.1-44.9) % MCV (80.0-100.0) fL MCH (25.0-34.0) pg MCHC (32.0-36.0) g/dL RDW Std Deviation (36.4-46.3) fL RDW Coeff of [place] (11.5-14.5) % Plt Count (130-400) K/uL MPV (9.4-12.3) fL Immature Gran % (Auto) % Neut % (Auto) % Lymph % (Auto) % [place] % (Auto) % Eos % (Auto) % Baso % (Auto) % Neut # (Auto) (1.4-6.5) K/uL Lymph # (Auto) (1.2-3.4) K/uL [place] # (Auto) (0.24-0.82) K/uL Eos # (Auto) (0-0.50) K/uL Baso # (Auto) (0-0.2) K/uL Immature Gran # (Auto) (0.00-0.02) K/uL Absolute Nucleated RBC (0-0) K/uL Nucleated RBC % (auto) % Polychromasia Sodium (136-145) mmol/L Potassium (3.5-5.1) mmol/L Chloride (98-107) mmol/L Carbon Dioxide (21-32) mmol/L Anion Gap (3-11) BUN (6-23) mg/dl Creatinine (0.6-1.2) mg/dl Est Cr Clr Drug Dosing ml/min Est GFR ( Amer) ml/min Est GFR (Non-Af Amer) ml/min BUN/Creatinine Ratio (10-20) Glucose (70-99(Fasting)) mg/dl Calcium (8.5-10.1) mg/dl Magnesium (1.7-2.4) mg/dl Carcinoembryonic Ag (0-2.5) ng/ml Vitamin B12 (180-914) pg/ml Folate (>5.38) ng/ml Urine Color Urine Appearance (Clear) Urine pH (4.5-7.5) Ur Specific [place] (1.000-1.030) Urine Protein (Negative) Urine Glucose (UA) (Negative) Urine Ketones (Negative) Urine Blood (Negative) Urine Nitrite (Negative) Urine Bilirubin (Negative) Urine Urobilinogen (Negative) Ur Leukocyte Esterase (Negative) Urine WBC (Auto) (0-5) /hpf Urine RBC (Auto) (0-4) /hpf U Hyaline Cast (Auto) (0-5) /lpf U Epithel Cells (Auto) (0-5) /lpf Urine Bacteria (Auto) (Negative) Nasal Screen MRSA (PCR) (Negative) Adenovirus (PCR) (NotDetected) Anaplasma Smear A. phagocytophilum DNA Pending Babesia Smear Babesia microti DNA PCR Pending B. pertussis DNA (PCR) (NotDetected) B.parapertussis DNA PCR (NotDetected) Lyme Disease IgG Ab Negative (Negative) Lyme Disease IgM Ab Negative (Negative) C. pneumoniae DNA (PCR) (NotDetected) Coronavirus OC43 (PCR) (NotDetected) Coronavirus HKU1 (PCR) (NotDetected) Coronavirus 229E (PCR) (NotDetected) SARS-CoV-2 (PCR) (NotDetected) Coronavirus NL63 (PCR) (NotDetected) Hepatitis A IgM Ab Hep Bs Antigen Hep Bs Ag Confirmation Hep B Core IgM Ab Hepatitis C Ab (EIA) Hep C Ab Signal/Cutoff Human Metapneumovir PCR (NotDetected) Influenza Type A (PCR) (NotDetected) Influenza Type B (PCR) (NotDetected) M. pneumoniae (PCR) (NotDetected) Parainfluenza 1 (PCR) (NotDetected) Parainfluenza 2 (PCR) (NotDetected) Parainfluenza 3 (PCR) (NotDetected) Parainfluenza 4 (PCR) (NotDetected) RSV (PCR) (NotDetected) Entero/Rhino (PCR) (NotDetected) Blood Type Antibody Screen Crossmatch 07/24/22 07/24/22 07/24/22 Range/Units 15:31 15:31 14:35 WBC (4.8-10.8) K/ul RBC (3.93-5.22) M/uL Hgb (12.0-16.0) g/dl Hct (34.1-44.9) % MCV (80.0-100.0) fL MCH (25.0-34.0) pg MCHC (32.0-36.0) g/dL RDW Std Deviation (36.4-46.3) fL RDW Coeff of [place] (11.5-14.5) % Plt Count (130-400) K/uL MPV (9.4-12.3) fL Immature Gran % (Auto) % Neut % (Auto) % Lymph % (Auto) % [place] % (Auto) % Eos % (Auto) % Baso % (Auto) % Neut # (Auto) (1.4-6.5) K/uL Lymph # (Auto) (1.2-3.4) K/uL [place] # (Auto) (0.24-0.82) K/uL Eos # (Auto) (0-0.50) K/uL Baso # (Auto) (0-0.2) K/uL Immature Gran # (Auto) (0.00-0.02) K/uL Absolute Nucleated RBC (0-0) K/uL Nucleated RBC % (auto) % Polychromasia Sodium (136-145) mmol/L Potassium (3.5-5.1) mmol/L Chloride (98-107) mmol/L Carbon Dioxide (21-32) mmol/L Anion Gap (3-11) BUN (6-23) mg/dl Creatinine (0.6-1.2) mg/dl Est Cr Clr Drug Dosing ml/min Est GFR ( Amer) ml/min Est GFR (Non-Af Amer) ml/min BUN/Creatinine Ratio (10-20) Glucose (70-99(Fasting)) mg/dl Calcium (8.5-10.1) mg/dl Magnesium (1.7-2.4) mg/dl Carcinoembryonic Ag (0-2.5) ng/ml Vitamin B12 (180-914) pg/ml Folate (>5.38) ng/ml Urine Color Urine Appearance (Clear) Urine pH (4.5-7.5) Ur Specific [place] (1.000-1.030) Urine Protein (Negative) Urine Glucose (UA) (Negative) Urine Ketones (Negative) Urine Blood (Negative) Urine Nitrite (Negative) Urine Bilirubin (Negative) Urine Urobilinogen (Negative) Ur Leukocyte Esterase (Negative) Urine WBC (Auto) (0-5) /hpf Urine RBC (Auto) (0-4) /hpf U Hyaline Cast (Auto) (0-5) /lpf U Epithel Cells (Auto) (0-5) /lpf Urine Bacteria (Auto) (Negative) Nasal Screen MRSA (PCR) (Negative) Adenovirus (PCR) Not Detected (NotDetected) Anaplasma Smear See Comment A. phagocytophilum DNA Babesia Smear See Comment Babesia microti DNA PCR B. pertussis DNA (PCR) Not Detected (NotDetected) B.parapertussis DNA PCR Not Detected (NotDetected) Lyme Disease IgG Ab (Negative) Lyme Disease IgM Ab (Negative) C. pneumoniae DNA (PCR) Not Detected (NotDetected) Coronavirus OC43 (PCR) Not Detected (NotDetected) Coronavirus HKU1 (PCR) Not Detected (NotDetected) Coronavirus 229E (PCR) Not Detected (NotDetected) SARS-CoV-2 (PCR) Not Detected (NotDetected) Coronavirus NL63 (PCR) Not Detected (NotDetected) Hepatitis A IgM Ab Hep Bs Antigen Hep Bs Ag Confirmation Hep B Core IgM Ab Hepatitis C Ab (EIA) Hep C Ab Signal/Cutoff Human Metapneumovir PCR Not Detected (NotDetected) Influenza Type A (PCR) Not Detected (NotDetected) Influenza Type B (PCR) Not Detected (NotDetected) M. pneumoniae (PCR) Not Detected (NotDetected) Parainfluenza 1 (PCR) Not Detected (NotDetected) Parainfluenza 2 (PCR) Not Detected (NotDetected) Parainfluenza 3 (PCR) Not Detected (NotDetected) Parainfluenza 4 (PCR) Not Detected (NotDetected) RSV (PCR) Not Detected (NotDetected) Entero/Rhino (PCR) Not Detected (NotDetected) Blood Type O Positive Antibody Screen NEGATIVE Crossmatch See Detail PG Care Time/CCT Total # of Minutes Spent Total Time Spent with Patient: Total time spent is greater than 50% in coordination of care (as documented) at patient's floor/unit and/or counseling patient: Coding Level of Care Code 63225 Subseq Hosp Care Lvl 3 Diagnoses Fever R50.9 Abdominal pain R10.9 Abdominal location: unspecified location Constipation K59.00 Metastatic adenocarcinoma C79.9 Colon cancer metastasized to liver C18.9; C78.7 Thrombocytosis D75.839 Anemia D64.9 Anemia type: unspecified type Subcapsular hematoma of liver K76.89 Hypomagnesemia E83.42 Depression F32.9 Bipolar 2 disorder F31.81 (1) Anemia Anemia type: unspecified type Qualified Code(s): D64.9 - Anemia, unspecified (2) Abdominal pain Abdominal location: unspecified location Qualified Code(s): R10.9 - Unspecified abdominal pain
[2022-07-25] MEDS: oxyCODONE HCL 10 MG TABCR (OxyCONTIN) PO SCH (15:02)
[2022-07-26] MEDS: VANCOMYCIN HCL 1,000 MG in SODIUM CHLORIDE 0.9% 250 ML IV SCH ×2 (00:02→12:17)
--- NOTE | 2022-07-26 02:47 | Consultation Report ---
DATE OF SERVICE: 07/25/2022. REASON FOR CONSULTATION: Metastatic colon cancer. HISTORY OF PRESENT ILLNESS: Ms. Gonzalez is a pleasant 52-year-old female who was recently diagnosed with widely metastatic adenocarcinoma of the colon. She indicates that she developed diarrhea after returning from a trip in March 2022. Symptoms however, persisted and she subsequently developed abdominal pain, fever and chills, constipation, and loss of appetite, for which she presented to the ED on 07/01/2022. CT abdomen revealed large hepatic lesions, lower lung predominant pulmonary nodules, right lower mesenteric lymph nodes concerning for malignancy. She was then discharged from the ED to follow up with GI. On 07/12/2022, she underwent FNA of liver mass, which revealed metastatic adenocarcinoma. Colonoscopy on 07/15/2022 revealed infiltrative, large, nonobstructing mass in the cecum, which was biopsied. Pathology from cecal mass revealed metastatic adenocarcinoma. She was readmitted to [facility] on 07/21/2022 with fever and abdominal pain. Imaging studies obtained during admission including CT abdomen and pelvis on 07/21/2022 revealed no change in subcapsular hematoma around the lateral segment of the liver since CT from 07/15/2022, slight decrease in amount of pelvic hemoperitoneum. Since admission, she has undergone infectious workup, which has been negative. Is currently on broad-spectrum antibiotics for possible infection. Has also received 3 doses of IV Venofer for iron deficiency. PAST MEDICAL HISTORY: 1. GERD. 2. IBS. 3. Metastatic adenocarcinoma of the cecum. PAST SURGICAL HISTORY: 1. D and C. 2. LASIK surgery. 3. Laparoscopy for ovarian . 4. Abdominoplasty. HOME MEDICATIONS: 1. Multivitamin daily. 2. Ambien. 3. Zofran as needed. 4. Fluticasone inhaler. 5. Lamotrigine. 6. Lorazepam. 7. Bupropion. 8. Oxycodone. FAMILY HISTORY: Significant for breast cancer/bladder cancer in distant relatives. SOCIAL HISTORY: Former smoker. Quit smoking about 8 years ago. Prior to this, had about [id number] history of smoking. Drinks alcohol occasionally. Denies illicit drug use. REVIEW OF SYSTEMS: Essentially negative except for abdominal discomfort, occasional abdominal pain and fever. PHYSICAL EXAMINATION: VITAL SIGNS: Blood pressure 126/84, heart rate 101, respiratory rate 18, temperature 37.2, oxygen saturation 93% on room air. EYES: Without conjunctival erythema or icterus. RESPIRATORY: Lung sounds clear are bilaterally. CARDIOVASCULAR: Tachycardic. No murmurs or gallops heard. GASTROINTESTINAL: Abdomen was soft with normal bowel sounds. LYMPHATIC SYSTEM: No palpable peripheral lymphadenopathy. EXTREMITIES: Mild pitting edema in left lower extremity. LABORATORY DATA: CBC from 07/25/2022, white cell count of 12.98, hemoglobin 7.4, hematocrit 23.6 with MCV of 80.8 and platelet count of 620,000. Chemistry significant for sodium of 136, potassium 3.5, chloride 101, bicarbonate 26. CEA of 471. B12 of 598 and folate of 14. ASSESSMENT AND PLAN: 1. Metastatic adenocarcinoma of the cecum. 2. Lung metastasis. 3. Extensive liver metastasis. 4. Lymph node metastasis. 5. Persistent fevers, possibly due to malignancy versus hematoma. A very pleasant 52-year-old female recently diagnosed with metastatic colon cancer. She presented with persistent fever, for which she has undergone workup, which has been essentially negative with negative blood cultures and imaging studies. Suspect that her fevers are possibly due to underlying malignancy versus subcapsular hematoma. More likely due to malignancy, as the patient indicates that she has had persistent fever even prior to biopsy. Discussed my thoughts with her. I explained to her that she unfortunately has stage IV colon cancer for which goals of treatment will be to prolong life, improve symptoms and improve quality of life. Given extensive disease, she will need to start treatment as soon as possible. Discussed treatment options with her including FOLFOX with or without monoclonal antibody based on molecular testing. If she cannot have MediPort placed, will treat with CAPOX . Will obtain [facility] molecular testing on tumor sample as soon as possible to assess for JAGDISH/BRAF mutations. I plan to see her in oncology clinic upon discharge from hospital to start systemic therapy as soon as possible. The patient was given the opportunity to ask questions, which she indicated were answered to her satisfaction. Job ID: [id number] [facility]
[2022-07-26] MEDS: oxyCODONE HCL IR 5 MG TAB (IMMEDIATE RELEASE) PO PRN ×5 (02:58→22:02)
[2022-07-26] MEDS: DOXYCYCLINE HYCLATE 100 MG in DEXTROSE 5% 100 ML IV SCH ×2 (03:51→16:10)
[2022-07-26] MEDS: PIPERACILLIN/TAZOBACTAM 3.375 GM in DEXTROSE 5% 100 ML IV SCH ×2 (06:17→13:47)
[2022-07-26] MEDS: HYDROmorphone INJ 0.5 MG/0.5 ML SYR IV PRN ×2 (06:21→15:11)
[2022-07-26 06:50] LABS: Basophils # (auto) 0.06 K/uL (0-0.2); Basophils % (auto) 0.4 %; Eosinophils # (auto) 0.48 K/uL (0-0.50); Eosinophils % (auto) 3.4 %; Hematocrit (blood only) 27.5 % (34.1-44.9); Hemoglobin 8.8 g/dl (12.0-16.0); Immature Granulocytes # (auto) 0.39 K/uL (0.00-0.02); Immature Granulocytes % (auto) 2.8 %; Lymphocytes # (auto) 1.08 K/uL (1.2-3.4); Lymphocytes % (auto) 7.7 %; Mean Corpuscular Hemoglobin 26.1 pg (25.0-34.0); Mean Corpuscular Volume 81.6 fL (80.0-100.0); Mean Platelet Volume 8.5 fL (9.4-12.3); Monocytes # (auto) 1.33 K/uL (0.24-0.82); Monocytes % (auto) 9.5 %; Neutrophils # (auto) 10.65 K/uL (1.4-6.5); Neutrophils % (auto) 76.2 %; Platelet Count 634 K/uL (130-400); RDW Coefficient of Variation 16.1 % (11.5-14.5); RDW Standard Deviation 45.1 fL (36.4-46.3); Red Blood Count 3.37 M/uL (3.93-5.22); White Blood Count 13.99 K/ul (4.8-10.8)
[2022-07-26 07:23] LABS: Albumin Level 3.1 gm/dl (3.4-5.0); BUN Creatinine Ratio 10.7 (10-20); Bilirubin Direct 1.1 mg/dl (0-0.2); Bilirubin,Total 1.7 mg/dl (0.2-1.0); Calcium 8.7 mg/dl (8.5-10.1); Creatinine Clr Calc Pharmacy 97.9 ml/min; Est GFR (African American) 107.7 ml/min; Est GFR (Non-African American) 92.9 ml/min; Magnesium 1.8 mg/dl (1.7-2.4); Potassium 3.5 mmol/L (3.5-5.1); Total Protein 6.5 gm/dl (6.0-8.3)
[2022-07-26] MEDS: oxyCODONE HCL 10 MG TABCR (OxyCONTIN) PO SCH ×2 (08:13→20:19)
[2022-07-26] MEDS: DOCUSATE SODIUM 100 MG CAP PO SCH ×2 (08:14→20:19)
[2022-07-26] MEDS: lamoTRIgine 100 MG TAB PO SCH (08:15)
[2022-07-26] MEDS: MULTIVITAMIN TAB PO SCH (08:15)
[2022-07-26] MEDS: buPROPion SR 100 MG TABCR PO SCH (08:16)
[2022-07-26] MEDS: PANTOprazole 40 MG TAB PO SCH (08:16)
[2022-07-26] MEDS ORDERED: VANCOMYCIN LEVEL ONE (11:30)
--- NOTE | 2022-07-26 11:45 | Ultrasound Report ---
BILATERAL LOWER EXTREMITY VENOUS DOPPLER CLINICAL HISTORY: persistent fever, stage 4 cancer; eval DVT COMPARISON STUDY: No previous studies for comparison. TECHNIQUE: Sonography of the deep venous system of the bilateral lower extremities was performed. Co mpression and augmentation were evaluated. FINDINGS: The bilateral common femoral, superficial femoral and popliteal veins were compressible. A ugmentation was normal. Flow was shown within the deep calf vessels. IMPRESSION: No evidence of deep venous thrombus within the bilateral lower extremities. ACT 112: Negative or not required by law. Electronically signed by: Randall Da Silva M.D. 07/26/2022 11:44 AM
--- NOTE | 2022-07-26 13:27 | Surgery Consultation ---
Date of Consultation July 26, 2022 Assessment & Plan (1) Metastatic adenocarcinoma: Plan 52-year-old woman presents with metastatic colon adenocarcinoma. She requires port placement for chemotherapy administration. She has been having ongoing fevers of unknown origin, however multiple blood cultures and all scans have been negative. I discussed with her the risks and benefits of port placement. All her questions were answered, and she is agreeable to proceed. We will take her to the operating room tomorrow for access port placement. She will be n.p.o. past midnight tonight for surgery tomorrow. History of Present Illness Reason for Consultation: Need for access port placement for chemotherapy administration Requesting Physician: Jose Manuel Sotelo Attending Physician: Jose Manuel Sotelo History of Present Illness 52-year-old woman presents to the hospital with metastatic colon cancer. This was diagnosed within the past month. She developed diarrhea after her trip in April along with fevers and chills. This continued. She was then noted to have anemia. Colonoscopy demonstrated large mass in her cecum. CT scan with liver and lung metastases. She just underwent needle biopsy of her liver lesion which led to a subcapsular hematoma, for which she is admitted to the hospital now. She denies fevers and chills. She denies any other complaints. Prior to this she was healthy. Allergies Allergy/AdvReac Type Severity Reaction Status Date / Time Sulfa (Sulfonamide Allergy Severe BREATHING Verified 07/18/22 13:46 Antibiotics) DIFFICULTIES adhesive Allergy Unknown SKIN RASH Verified 07/18/22 13:46 Home Medications Medication Instructions Recorded Confirmed Type multivitamin 1 tab PO QAM 08/28/19 07/18/22 History zolpidem 5 mg tablet 5 mg PO HS PRN sleep #20 tabs 09/20/21 07/18/22 Rx ondansetron 4 mg disintegrating 4 mg PO Q8H PRN nausea and 06/29/22 07/18/22 Rx tablet vomiting #30 tabs drospirenone 3 mg-ethinyl 1 tab PO QAM 07/07/22 07/18/22 History estradiol 0.02 mg tablet (KELVIN (28)) fluticasone propionate 50 1 sprays intranasal BID PRN 07/07/22 07/18/22 History mcg/actuation nasal Congestion spray,suspension lamotrigine 150 mg tablet 150 mg PO QAM 07/07/22 07/18/22 History lorazepam 0.5 mg tablet 0.5 mg PO HS 07/07/22 07/18/22 History bupropion HCl 200 mg tablet,12 hr 200 mg PO QAM 07/15/22 07/18/22 History sustained-release acetaminophen 650 mg 650 mg PO TID #90 tabs 07/17/22 07/18/22 Rx tablet,extended release ibuprofen 400 mg tablet 400 mg PO Q6H PRN pain #30 tabs 07/17/22 07/18/22 Rx oxycodone 10 mg tablet 10 mg PO Q6H PRN pain #60 tabs 07/18/22 07/18/22 Rx Patient History Medical History Abdominal pain Anemia reason for upcoming EGD Bipolar disorder Borderline high cholesterol Cervical radiculopathy Dysmenorrhea Dysplastic nevus Ectopic hx GERD (gastroesophageal reflux disease) History of COVID-March 22, 2022 > home test and at [place] test site in parking gargage. > tired, cough, fever > all resolved IBS (irritable bowel syndrome) Liver masses Low hemoglobin Palpitations resolved per pt Surgical History H/O laparoscopy Ovarian pregnacy H/O oral surgery tooth extraction- wisdom History of colonoscopy History of dilatation and curettage S/P abdominoplasty S/P fine needle aspiration pt unaware S/P LASIK surgery S/P skin biopsy Nevus- Benign Family History Grandmother (Maternal) Alzheimer disease Stroke Mother Hypothyroidism Obesity Diabetes S/P removal of parathyroid gland Grandmother (Paternal) Diabetes Family/Other Breast cancer Sister Diabetes Pre-diabetes Uncle Stroke Myocardial infarction Dementia Denies family history of Ovarian cancer Colorectal cancer Social History Smoking Status: Former smoker Tobacco Type: Cigarettes Age Started Using Tobacco: 14; Age Quit Using Tobacco: 44; packs per day: 1; Years Smoked: 15; Cigarettes Per Day: 1 pack; Second Hand Exposure: Yes; Hx Alcohol Use: Yes Alcohol type: wine Alcohol Intake Frequency: 4 or More x per/Week Alcohol Intake Frequency Comment: Socially Hx Substance Use: No Preferred Language: Georgian Communication Ability: Effective Visual Impairment: No Limitations Hearing Ability: Normal Business Development Representative Required: No Beliefs That Will Affect Care: None marital status: Current Living Situation: Spouse Current Living Situation Comment: home current occupational status: employed 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 Other Information That Helps Us Care for You: No Feels Safe at Home: Yes Safety Concerns: Feels Safe At This Time Childhood Exposure to Second-Hand Smoke: Yes Dental Care, Regularly: Yes Physical Activity Frequency: 3-4 Times per Week Seatbelt Use: always Sunscreen Use: Yes Assistive Devices: None Review of Systems Review of Systems: All systems reviewed & are unremarkable except as noted in HPI & below Physical Exam Constitutional: WD/WN, vitals as above Neck: trachea midline, no thyromegaly Respiratory: normal respiratory effort, lungs clear to auscultation Cardiovascular: RRR, no murmur, no edema Gastrointestinal (Abdomen): Inspection/Auscultation: abdomen normal to inspection and + abdomen distended (Mild to moderate) Percussion/Palpation: abdomen soft; abdomen nontender Skin: no rashes, warm and dry Psychiatric: A+Ox3, euthymic affect Results & Data ([facility]) Vital Signs (Past 12 Hours) Vital Signs Temp Pulse Resp BP Pulse Ox O2 Del Method 07/26/22 11:19 36.9 C 93 H 18 110/72 97 Room Air 07/26/22 09:39 Room Air 07/26/22 07:29 36.9 C 93 H 16 113/74 96 Room Air 07/26/22 03:19 36.8 C 94 H 16 110/73 91 Room Air Laboratory Results 07/26/22 07/26/22 07/26/22 Range/Units 11:18 10:45 10:45 WBC (4.8-10.8) K/ul RBC (3.93-5.22) M/uL Hgb (12.0-16.0) g/dl Hct (34.1-44.9) % MCV (80.0-100.0) fL MCH (25.0-34.0) pg MCHC (32.0-36.0) g/dL RDW Std Deviation (36.4-46.3) fL RDW Coeff of Kenyon (11.5-14.5) % Plt Count (130-400) K/uL MPV (9.4-12.3) fL Immature Gran % (Auto) % Neut % (Auto) % Lymph % (Auto) % [place] % (Auto) % Eos % (Auto) % Baso % (Auto) % Neut # (Auto) (1.4-6.5) K/uL Lymph # (Auto) (1.2-3.4) K/uL [place] # (Auto) (0.24-0.82) K/uL Eos # (Auto) (0-0.50) K/uL Baso # (Auto) (0-0.2) K/uL Immature Gran # (Auto) (0.00-0.02) K/uL Sodium (136-145) mmol/L Potassium (3.5-5.1) mmol/L Chloride (98-107) mmol/L Carbon Dioxide (21-32) mmol/L Anion Gap (3-11) BUN (6-23) mg/dl Creatinine (0.6-1.2) mg/dl Est Cr Clr Drug Dosing ml/min Est GFR ( Amer) ml/min Est GFR (Non-Af Amer) ml/min BUN/Creatinine Ratio (10-20) Glucose (70-99(Fasting)) mg/dl Calcium (8.5-10.1) mg/dl Magnesium (1.7-2.4) mg/dl Total Bilirubin (0.2-1.0) mg/dl Direct Bilirubin (0-0.2) mg/dl AST (13-39) U/L ALT (7-52) U/L Alkaline Phosphatase (34-104) U/L Total Protein (6.0-8.3) gm/dl Albumin (3.4-5.0) gm/dl Urine Osmolality 430 L (500-800) mOsm/kg Ur Random Sodium 104 mmol/L Vancomycin Trough 6.5 L (10-20) mcg/ml 07/26/22 07/26/22 Range/Units 06:11 06:11 WBC 13.99 H (4.8-10.8) K/ul RBC 3.37 L (3.93-5.22) M/uL Hgb 8.8 L (12.0-16.0) g/dl Hct 27.5 L (34.1-44.9) % MCV 81.6 (80.0-100.0) fL MCH 26.1 (25.0-34.0) pg MCHC 32.0 (32.0-36.0) g/dL RDW Std Deviation 45.1 (36.4-46.3) fL RDW Coeff of [place]yon 16.1 H (11.5-14.5) % Plt Count 634 H (130-400) K/uL MPV 8.5 L (9.4-12.3) fL Immature Gran % (Auto) 2.8 % Neut % (Auto) 76.2 % Lymph % (Auto) 7.7 % [place] % (Auto) 9.5 % Eos % (Auto) 3.4 % Baso % (Auto) 0.4 % Neut # (Auto) 10.65 H (1.4-6.5) K/uL Lymph # (Auto) 1.08 L (1.2-3.4) K/uL [place] # (Auto) 1.33 H (0.24-0.82) K/uL Eos # (Auto) 0.48 (0-0.50) K/uL Baso # (Auto) 0.06 (0-0.2) K/uL Immature Gran # (Auto) 0.39 H (0.00-0.02) K/uL Sodium 132 L (136-145) mmol/L Potassium 3.5 (3.5-5.1) mmol/L Chloride 99 (98-107) mmol/L Carbon Dioxide 24 (21-32) mmol/L Anion Gap 9 (3-11) BUN 8 (6-23) mg/dl Creatinine 0.75 (0.6-1.2) mg/dl Est Cr Clr Drug Dosing 97.9 ml/min Est GFR ( Amer) 107.7 ml/min Est GFR (Non-Af Amer) 92.9 ml/min BUN/Creatinine Ratio 10.7 (10-20) Glucose 110 H (70-99(Fasting)) mg/dl Calcium 8.7 (8.5-10.1) mg/dl Magnesium 1.8 (1.7-2.4) mg/dl Total Bilirubin 1.7 H D (0.2-1.0) mg/dl Direct Bilirubin 1.1 H (0-0.2) mg/dl AST 26 (13-39) U/L ALT 20 (7-52) U/L Alkaline Phosphatase 583 H (34-104) U/L Total Protein 6.5 (6.0-8.3) gm/dl Albumin 3.1 L (3.4-5.0) gm/dl Urine Osmolality (500-800) mOsm/kg Ur Random Sodium mmol/L Vancomycin Trough (10-20) mcg/ml Diagnostic Findings [place] [phone] CT Scan Report Patient:PRIYA MONZON Admit Date:07/21/22 MR#:[id number] Address1:[address] [place] [address] Acct ID:[id number] Address2: Date:1970 [facility] Zip:[place] [address] Age:52 Location: Sex:F Room/Bed:[facility] Att Phy:Margie Grijalva MD Diagnosis:FEVER AND ABDOMINAL PAIN Ashlie Phy:Gloria Molina MD Service Date:07/24/22 Fam Phy: Interpreting Phy:Brayden Brown MDAdmit Phy:Haroldo Spencer M.D. Ordering Phy:Bhaskar Wolfe cc: ~ CT SCAN OF THE ABDOMEN AND PELVIS WITH IV CONTRAST CLINICAL HISTORY: Follow-up pelvic fluid collection. Known liver hematoma. Metastatic disease. COMPARISON STUDY: Prior abdominal CT scans, most recently dated 07/21/2022. TECHNIQUE: Following the IV administration of 86 cc of Optiray 350, CT scan of the abdomen and pelvis is performed from the lung bases to the proximal femora. Images are reviewed in the axial, sagittal, and coronal planes. IV contrast was administered without complication. A dose lowering technique was utilized adhering to the principles of ALARA. CT DOSE: 545.82 mGy.cm FINDINGS: Lung bases: The heart is normal in size and without pericardial effusion. Multifocal pulmonary metastatic disease has not appreciably changed from previous. The largest lesion is seen at the left lung base on image #58 and measures 3 cm. There is dependent segmental atelectasis. No airspace consolidation typical for pneumonia or pleural effusion is identified. Liver: The contrast-enhanced liver is enlarged, measuring 28 cm in length. There is mild biliary ductal dilatation in the right lobe severe to mass lesions or hepatic metastases. The remaining intrahepatic bile ducts are normal in caliber. The hepatic veins and portal veins are patent. A right lobe portal venous branches markedly narrowed by hepatic metastatic disease. Large hepatic metastatic lesions are unchanged. Subcapsular hematoma along the inferior aspect of the left lobe is similar to previous. This measures approximately 8 cm in transverse diameter. There is no evidence of active extravasation. Gallbladder: The gallbladder is contracted and appears mildly thick walled. Spleen: Normal in size and attenuation. Pancreas: Unremarkable. Adrenal glands: Unremarkable. Kidneys: The contrast enhanced kidneys are normal in size and without hydroneph rosis. The kidneys enhance symmetrically. Abdominal vasculature: The abdominal aorta is normal in course and caliber. Bowel: There is no bowel obstruction. Moderate fecal retention is seen throughou t the colon. The patient's's reported history of a cecal lesion is not well visualized on this examination. The appendix is normal as visualized. Peritoneum: Complex free fluid in the pelvis is consistent with hemoperitoneum. This has modestly decreased in volume as compared to 07/21/2022. No intraperitoneal free air is identified. Trace fluid is seen along the posterior aspect of the right lobe on image 15. Lymphadenopathy: Enlarged mesenteric nodes in the right lower quadrant are similar to previous. A membership sales representative node on image #329 measures 2.8 x 1.9 cm. Pelvic viscera: The bladder, uterus, and adnexa are normal as visualized. Skeletal structures: No lytic or blastic lesions are seen. Sclerotic change is noted in the sacroiliac joints. IMPRESSION: 1. A small subcapsular hemorrhage along the left hepatic lobe has not significant changed as compared to 07/21/2022. No active extravasation is seen. 2. A small volume of hemoperitoneum is again seen in the pelvis. This has modes tly decreased from 07/21/2022. 3. Again seen is extensive pulmonary and hepatic metastatic disease, as well as metastatic romain disease in the right lower quadrant. 4. The patient's cecal mass is not well visualized. 5. Additional findings as above
[2022-07-26 15:26] LABS: HBSAG NON-REACTIVE (NON-REACTIVE); Hepatitis A Antibody IgM NON-REACTIVE (NON-REACTIVE); Hepatitis B Core Antibody IgM NON-REACTIVE (NON-REACTIVE)
--- NOTE | 2022-07-26 17:36 | Anesthesiology Consultation ---
Date of Service July 26, 2022 Assessment & Plan Chart Review Chart Review: Acceptable Risk for Surgery and Patient NOT seen in Pre Admission Testing Consults Requested none ASA ASA4 Proposed Anesthesia Anesthesia Type: MAC History Surgery Operation Date: 07/27/22 07:30 Proposed Procedures p Mediport Placement - Larry Soto MD Height/Weight Height: 5 ft 7 in Weight: 80.4 kg Allergies Allergy/AdvReac Type Severity Reaction Status Date / Time Sulfa (Sulfonamide Allergy Severe BREATHING Verified 07/18/22 13:46 Antibiotics) DIFFICULTIES adhesive Allergy Unknown SKIN RASH Verified 07/18/22 13:46 Medications Home Medications Medication Instructions Recorded Confirmed Last Taken multivitamin 1 tab PO QAM 08/28/19 07/18/22 07/08/22 zolpidem 5 mg tablet 5 mg PO HS PRN sleep #20 tabs 09/20/21 07/18/22 07/14/22 ondansetron 4 mg disintegrating 4 mg PO Q8H PRN nausea and 06/29/22 07/18/22 Unknown tablet vomiting #30 tabs drospirenone 3 mg-ethinyl 1 tab PO QAM 07/07/22 07/18/22 07/15/22 07:00 estradiol 0.02 mg tablet (KELVIN (28)) fluticasone propionate 50 1 sprays intranasal BID PRN 07/07/22 07/18/22 Unknown mcg/actuation nasal Congestion spray,suspension lamotrigine 150 mg tablet 150 mg PO QAM 07/07/22 07/18/22 07/15/22 07:00 lorazepam 0.5 mg tablet 0.5 mg PO HS 07/07/22 07/18/22 07/14/22 bupropion HCl 200 mg tablet,12 hr 200 mg PO QAM 07/15/22 07/18/22 Unknown sustained-release acetaminophen 650 mg 650 mg PO TID #90 tabs 07/17/22 07/18/22 Unknown tablet,extended release ibuprofen 400 mg tablet 400 mg PO Q6H PRN pain #30 tabs 07/17/22 07/18/22 Unknown oxycodone 10 mg tablet 10 mg PO Q6H PRN pain #60 tabs 07/18/22 07/18/22 Unknown Active Medications Generic Name Dose Route Start Last Admin Trade Name Freq PRN Reason Stop Dose Admin Acetaminophen 650 mg 07/21/22 17:23 07/25/22 18:00 Acetaminophen 325 Mg Tab PO 08/20/22 17:22 650 mg Q4H PRN Administration pain/fever Bupropion HCl 200 mg 07/22/22 09:00 07/26/22 08:16 Bupropion Sr 100 Mg Tabcr PO 08/21/22 08:59 200 mg QAM STEPHIE Administration Cyclobenzaprine HCl 10 mg 07/22/22 09:10 07/22/22 09:37 Cyclobenzaprine Hcl 10 Mg Tab PO 08/21/22 13:59 10 mg TID PRN Administration Muscle Spasm Docusate Sodium 100 mg 07/21/22 17:23 07/26/22 08:14 Docusate Sodium 100 Mg Cap PO 08/20/22 17:22 100 mg BID STEPHIE Administration Hydromorphone HCl 0.5 mg 07/21/22 17:23 07/26/22 15:11 Hydromorphone Inj 0.5 Mg/0.5 Ml Syr IV 08/04/22 17:22 0.5 mg Q6H PRN Administration breakthrough pain Piperacillin Sod/Tazobactam 115 mls @ 28.75 mls/hr 07/24/22 14:00 07/26/22 13:47 Sod 3.375 gm/ Dextrose IV 08/03/22 07:29 28.8 mls/hr Q8H STEPHIE Administration Protocol Doxycycline Hyclate 100 mg/ 110 mls @ 50 mls/hr 07/24/22 16:00 07/26/22 16:10 Dextrose IV 08/03/22 15:59 50 mls/hr Q12H STEPHIE Administration Lamotrigine 150 mg 07/22/22 09:00 07/26/22 08:15 Lamotrigine 100 Mg Tab PO 08/21/22 08:59 150 mg QAM STEPHIE Administration Multivitamins 1 tab 07/22/22 09:00 07/26/22 08:15 Multivitamin Tab PO 08/21/22 08:59 1 tab QAM STEPHIE Administration Oxycodone HCl 15 mg 07/22/22 09:12 07/26/22 12:16 Oxycodone Hcl Ir 5 Mg Tab (Immediate Release) PO 08/04/22 17:54 15 mg Q4 PRN Administration Pain Oxycodone HCl 10 mg 07/25/22 15:00 07/26/22 08:13 Oxycodone Hcl 10 Mg Tabcr (Oxycontin) PO 08/08/22 14:59 10 mg BID STEPHIE Administration Pantoprazole Sodium 40 mg 07/24/22 09:00 07/26/22 08:16 Pantoprazole 40 Mg Tab PO 08/23/22 08:59 40 mg QAM STEPHIE Administration Polyethylene Glycol 17 gm 07/24/22 11:54 07/26/22 08:13 Polyethylene (Miralax) 17 Gm Pack PO 08/20/22 17:22 17 gm DAILY PRN Administration constipation Sennosides 8.6 mg 07/24/22 11:55 07/26/22 08:14 Senna 8.6 Mg Tab PO 08/20/22 17:22 8.6 mg QAM PRN Administration constipaton Past Medical History Medical History Abdominal pain Anemia reason for upcoming EGD Bipolar disorder Borderline high cholesterol Cervical radiculopathy Dysmenorrhea Dysplastic nevus Ectopic hx GERD (gastroesophageal reflux disease) History of COVID-March 22, 2022 > home test and at [place] test site in parking gargage. > tired, cough, fever > all resolved IBS (irritable bowel syndrome) Liver masses Low hemoglobin Palpitations resolved per pt Exercise / Class Metabolic Activity II 4-5 Yardwork/Stairs/Walk up hill Past Family History Family History Grandmother (Maternal) Alzheimer disease Stroke Mother Hypothyroidism Obesity Diabetes S/P removal of parathyroid gland Grandmother (Paternal) Diabetes Family/Other Breast cancer Sister Diabetes Pre-diabetes Uncle Stroke Myocardial infarction Dementia Denies family history of Ovarian cancer Colorectal cancer Past Surgical History Surgical History H/O laparoscopy Ovarian pregnacy H/O oral surgery tooth extraction- wisdom History of colonoscopy History of dilatation and curettage S/P abdominoplasty S/P fine needle aspiration pt unaware S/P LASIK surgery S/P skin biopsy Nevus- Benign Past Anesthesia History No Hx of Anesthesia Complications and No Family Hx of Anesthesia Complications History of PONV No Hx of PONV and No Hx of Motion Sickness Social History Smoking Status: Former smoker tobacco type: cigarettes Smoking cigarettes per day: 1 pack Hx Alcohol Use: Yes Alcohol type: wine alcohol intake frequency: 0-2 drinks per day Hx Substance Use: No substance use type: does not use Physical Exam Vital Signs Last Vital Signs Temp 36.6 C 07/26/22 15:35 Pulse 93 H 07/26/22 16:19 Resp 20 07/26/22 15:35 BP 116/76 07/26/22 15:35 Pulse Ox 96 07/26/22 15:35 O2 Del Method 07/26/22 15:35 Testing Laboratory Results 07/26/22 06:11 07/26/22 06:11 Urine Color Yellow 07/24/22 15:45 Urine Appearance Clear (Clear) 07/24/22 15:45 Urine pH 6.5 (4.5-7.5) 07/24/22 15:45 Ur Specific [place] 1.037 (1.000-1.030) H 07/24/22 15:45 Urine Protein Trace (Negative) H 07/24/22 15:45 Urine Glucose (UA) Negative (Negative) 07/24/22 15:45 Urine Ketones Negative (Negative) 07/24/22 15:45 Urine Nitrite Negative (Negative) 07/24/22 15:45 Ur Leukocyte Esterase Negative (Negative) 07/24/22 15:45 Urine WBC (Auto) 1-5 /hpf (0-5) 07/24/22 15:45 Urine RBC (Auto) 5-10 /hpf (0-4) H 07/24/22 15:45 U Hyaline Cast (Auto) 0 /lpf (0-5) 07/24/22 15:45 U Epithel Cells (Auto) >30 /lpf (0-5) H 07/24/22 15:45 Urine Bacteria (Auto) Negative (Negative) 07/24/22 15:45 Blood Type O Positive 07/24/22 15:31 Antibody Screen NEGATIVE 07/24/22 15:31 07/21/22 11:26 Aerobic Blood Culture - Final Blood No growth in Aerobic bottle after 5 days. Anaerobic Blood Culture - Final No growth in Anaerobic bottle after 5 days. 07/21/22 11:05 Aerobic Blood Culture - Final Blood No growth in Aerobic bottle after 5 days. Anaerobic Blood Culture - Final No growth in Anaerobic bottle after 5 days. 07/24/22 15:45 Urine Culture - Final Urine,Clean Catch No growth - less than 1,000 colonies/mL. 07/24/22 08:16 Aerobic Blood Culture - Preliminary Blood No growth in Aerobic bottle after 48 hours. Anaerobic Blood Culture - Preliminary No growth in Anaerobic bottle after 48 hours. 07/24/22 08:14 Aerobic Blood Culture - Preliminary Blood No growth in Aerobic bottle after 48 hours. Anaerobic Blood Culture - Preliminary No growth in Anaerobic bottle after 48 hours. 07/24/22 15:31 Blood Parasites Smear - Final Blood Electrocardiogram Date: 07/21/22 Findings: + ST @ (@ 102) Chest X-Ray Date: 07/24/22 Findings: + other multifocal pulmonary metastatic disease Echocardiogram Date: 05/17/21 EF: 55% LV Function: normal RWMA: + none Valvular Disease: + no significant valvular disease
[2022-07-26] MEDS: CYCLOBENZAPRINE HCL 10 MG TAB PO PRN (19:39)
[2022-07-26] MEDS ORDERED: VANCOMYCIN HCL 1,000 MG in SODIUM CHLORIDE 0.9% 250 ML IV SCH (20:00)
--- NOTE | 2022-07-26 20:41 | Hospitalist Progress Note ---
Date of Service July 26, 2022 Assessment & Plan (1) Fever: Plan: 2nd to cancer? Patient admitted with fever and pain in the setting of recent liver biopsy and newly diagnosed metastatic adenocarcinoma of the colon with mets to the liver and lungs. Was recently admitted for subcapsular liver hematoma and discharged to home on 07/17. Since earlier this month has had multiple CT abd/pelvis without infectious findings. Subcapsular liver hematoma (from liver biopsy) slowly improving. Hemoperitoneum - mild - also improving. Blood cultures from 07/16, 07/21, and 07/24 all negative. Urine cultures only with Gardnerella like bacteria only. Parasite smear negative. Anaplasmosis and babesiosis smears negative; DNA testing pending. Lyme titer negative. Initial COVID-19 negative and repeat biofire viral respiratory panel on 07/24 was negative. Acute hepatitis panel negative. I obtained venous duplex studies of legs today - both negative for DVT. Fever likely related to cancer. Stop zosyn. Stop vancomycin. Leave doxycycline until anaplasmosis DNA test returns. Can make doxy po starting in am. (2) Abdominal pain: Plan: 2nd to liver mets, subcapsular hematoma and constipation Cont OxyContin 10 Mg p.o. twice daily Continue oxycodone IR 15 Mg prn (3) Constipation: Plan: Opiate-induced along with the cancer itself of the colon. s/p Relistor, daily miralax, colace BID, and senna - started having regular bowel movements on 07/23. Cont on a bowel regimen. (4) Metastatic adenocarcinoma: Plan: Metastatic Adenocarcinoma of the colon with mets to the lungs and liver. CEA elevated at 471. Significantly elevated alkaline phosphatase and now total bilirubin mildly elevated. Transaminases wnl. She originally saw [facility] oncology in [place] and was reportedly not a candidate for any trials. Now to establish care with Dr Smith at [facility]. Plan to start FOLFOX treatment with oncology MYLA post-d/c. To have mediport placed tomorrow. 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 Admission and Anticipated Discharge Date Admission Date: July 21, 2022 Subjective patient w/o any new complaints abdominal pain is similar to previous still using IV dilaudid about 2x's/day for abd pain no vomiting eating ok no new infectious symptoms tele overnight with NSR Review of Systems Review of Systems: cv - no cp pulm - no dyspnea, no cough neuro - no headache GI - no nausea or emesis Physical Exam Physical Exam: gen - NAD, pleasant skin - pallor mouth - MMM neck - no JVD heart - RRR, s1 s2, no murmur lungs - CTA b/l abd - distended, BS+, tender upper quadrants ext - trace edema b/l, pulses 2+ b/l Results & Data Results & Data ([facility]) Vital Signs (Past 12 Hours) Vital Signs Temp Pulse Pulse Resp BP Pulse Ox O2 Del Method 07/26/22 19:05 37.2 C 101 H 20 124/80 96 Room Air 07/26/22 16:19 93 H 07/26/22 15:35 36.6 C 96 H 20 116/76 96 Room Air 07/26/22 14:50 36.6 C 96 H 18 116/76 96 Room Air 07/26/22 11:19 36.9 C 93 H 18 110/72 97 Room Air 07/26/22 09:39 Room Air Laboratory Results 07/26/22 07/26/22 07/26/22 Range/Units 11:18 10:45 10:45 WBC (4.8-10.8) K/ul RBC (3.93-5.22) M/uL Hgb (12.0-16.0) g/dl Hct (34.1-44.9) % MCV (80.0-100.0) fL MCH (25.0-34.0) pg MCHC (32.0-36.0) g/dL RDW Std Deviation (36.4-46.3) fL RDW Coeff of Kenyon (11.5-14.5) % Plt Count (130-400) K/uL MPV (9.4-12.3) fL Immature Gran % (Auto) % Neut % (Auto) % Lymph % (Auto) % [place] % (Auto) % Eos % (Auto) % Baso % (Auto) % Neut # (Auto) (1.4-6.5) K/uL Lymph # (Auto) (1.2-3.4) K/uL [place] # (Auto) (0.24-0.82) K/uL Eos # (Auto) (0-0.50) K/uL Baso # (Auto) (0-0.2) K/uL Immature Gran # (Auto) (0.00-0.02) K/uL Absolute Nucleated RBC (0-0) K/uL Nucleated RBC % (auto) % RBC Morphology Polychromasia Sodium (136-145) mmol/L Potassium (3.5-5.1) mmol/L Chloride (98-107) mmol/L Carbon Dioxide (21-32) mmol/L Anion Gap (3-11) BUN (6-23) mg/dl Creatinine (0.6-1.2) mg/dl Est Cr Clr Drug Dosing Est GFR ( Amer) ml/min Est GFR (Non-Af Amer) ml/min BUN/Creatinine Ratio (10-20) Glucose (70-99(Fasting)) mg/dl Lactate (0.4-2.0) mmol/L Calcium (8.5-10.1) mg/dl Magnesium (1.7-2.4) mg/dl Iron (35-150) mcg/dl TIBC (250-450) mcg/dl Unsaturated IBC (155-355) mcg/dl Transferrin % Sat (15-50) % Ferritin (8-388) ng/ml Total Bilirubin (0.2-1.0) mg/dl Direct Bilirubin (0-0.2) mg/dl AST (13-39) U/L ALT (7-52) U/L Alkaline Phosphatase (34-104) U/L Troponin I High Sens (0-14) pg/ml C-Reactive Protein (0-0.5) mg/dl Total Protein (6.0-8.3) gm/dl Albumin (3.4-5.0) gm/dl Globulin (2.5-4.0) gm/dl Albumin/Globulin Ratio (0.9-2) Carcinoembryonic Ag (0-2.5) ng/ml Vitamin B12 (180-914) pg/ml Folate (>5.38) ng/ml Procalcitonin (0-0.5) ng/ml Urine Color Urine Appearance (Clear) Urine pH (4.5-7.5) Ur Specific [place] (1.000-1.030) Urine Protein (Negative) Urine Glucose (UA) (Negative) Urine Ketones (Negative) Urine Blood (Negative) Urine Nitrite (Negative) Urine Bilirubin (Negative) Urine Urobilinogen (Negative) Ur Leukocyte Esterase (Negative) Urine WBC (Auto) (0-5) /hpf Urine RBC (Auto) (0-4) /hpf U Hyaline Cast (Auto) (0-5) /lpf U Epithel Cells (Auto) (0-5) /lpf Urine Bacteria (Auto) (Negative) Urine Osmolality 430 L (500-800) mOsm/kg Ur Random Sodium 104 mmol/L Nasal Screen MRSA (PCR) (Negative) Vancomycin Trough 6.5 L (10-20) mcg/ml Adenovirus (PCR) (NotDetected) Anaplasma Smear A. phagocytophilum DNA Babesia Smear Babesia microti DNA PCR B. pertussis DNA (PCR) (NotDetected) B.parapertussis DNA PCR (NotDetected) Lyme Disease IgG Ab (Negative) Lyme Disease IgM Ab (Negative) C. pneumoniae DNA (PCR) (NotDetected) Coronavirus OC43 (PCR) (NotDetected) Coronavirus HKU1 (PCR) (NotDetected) Coronavirus 229E (PCR) (NotDetected) SARS-CoV-2 (PCR) (NotDetected) Coronavirus NL63 (PCR) (NotDetected) Hepatitis A IgM Ab (NON-REACTIVE) Hep Bs Antigen (NON-REACTIVE) Hep Bs Ag Confirmation Hep B Core IgM Ab (NON-REACTIVE) Hepatitis C Ab (EIA) (NON-REACTIVE) Hep C Ab Signal/Cutoff (<1.00) Human Metapneumovir PCR (NotDetected) Influenza Type A (PCR) (NotDetected) Influenza Type B (PCR) (NotDetected) M. pneumoniae (PCR) (NotDetected) Parainfluenza 1 (PCR) (NotDetected) Parainfluenza 2 (PCR) (NotDetected) Parainfluenza 3 (PCR) (NotDetected) Parainfluenza 4 (PCR) (NotDetected) RSV (PCR) (NotDetected) Entero/Rhino (PCR) (NotDetected) SARS-CoV-2, RNA, NAAT (NEGATIVE) Blood Type Antibody Screen Crossmatch 07/26/22 07/26/22 07/25/22 Range/Units 06:11 06:11 08:26 WBC 13.99 H (4.8-10.8) K/ul RBC 3.37 L (3.93-5.22) M/uL Hgb 8.8 L (12.0-16.0) g/dl Hct 27.5 L (34.1-44.9) % MCV 81.6 (80.0-100.0) fL MCH 26.1 (25.0-34.0) pg MCHC 32.0 (32.0-36.0) g/dL RDW Std Deviation 45.1 (36.4-46.3) fL RDW Coeff of Kenyon 16.1 H (11.5-14.5) % Plt Count 634 H (130-400) K/uL MPV 8.5 L (9.4-12.3) fL Immature Gran % (Auto) 2.8 % Neut % (Auto) 76.2 % Lymph % (Auto) 7.7 % [place] % (Auto) 9.5 % Eos % (Auto) 3.4 % Baso % (Auto) 0.4 % Neut # (Auto) 10.65 H (1.4-6.5) K/uL Lymph # (Auto) 1.08 L (1.2-3.4) K/uL [place] # (Auto) 1.33 H (0.24-0.82) K/uL Eos # (Auto) 0.48 (0-0.50) K/uL Baso # (Auto) 0.06 (0-0.2) K/uL Immature Gran # (Auto) 0.39 H (0.00-0.02) K/uL Absolute Nucleated RBC (0-0) K/uL Nucleated RBC % (auto) % RBC Morphology Polychromasia Sodium 132 L (136-145) mmol/L Potassium 3.5 (3.5-5.1) mmol/L Chloride 99 (98-107) mmol/L Carbon Dioxide 24 (21-32) mmol/L Anion Gap 9 (3-11) BUN 8 (6-23) mg/dl Creatinine 0.75 (0.6-1.2) mg/dl Est Cr Clr Drug Dosing 97.9 Est GFR ( Amer) 107.7 ml/min Est GFR (Non-Af Amer) 92.9 ml/min BUN/Creatinine Ratio 10.7 (10-20) Glucose 110 H (70-99(Fasting)) mg/dl Lactate (0.4-2.0) mmol/L Calcium 8.7 (8.5-10.1) mg/dl Magnesium 1.8 (1.7-2.4) mg/dl Iron (35-150) mcg/dl TIBC (250-450) mcg/dl Unsaturated IBC (155-355) mcg/dl Transferrin % Sat (15-50) % Ferritin (8-388) ng/ml Total Bilirubin 1.7 H D (0.2-1.0) mg/dl Direct Bilirubin 1.1 H (0-0.2) mg/dl AST 26 (13-39) U/L ALT 20 (7-52) U/L Alkaline Phosphatase 583 H (34-104) U/L Troponin I High Sens (0-14) pg/ml C-Reactive Protein (0-0.5) mg/dl Total Protein 6.5 (6.0-8.3) gm/dl Albumin 3.1 L (3.4-5.0) gm/dl Globulin (2.5-4.0) gm/dl Albumin/Globulin Ratio (0.9-2) Carcinoembryonic Ag 471.6 H (0-2.5) ng/ml Vitamin B12 598 (180-914) pg/ml Folate 14.00 (>5.38) ng/ml Procalcitonin (0-0.5) ng/ml Urine Color Urine Appearance (Clear) Urine pH (4.5-7.5) Ur Specific [place] (1.000-1.030) Urine Protein (Negative) Urine Glucose (UA) (Negative) Urine Ketones (Negative) Urine Blood (Negative) Urine Nitrite (Negative) Urine Bilirubin (Negative) Urine Urobilinogen (Negative) Ur Leukocyte Esterase (Negative) Urine WBC (Auto) (0-5) /hpf Urine RBC (Auto) (0-4) /hpf U Hyaline Cast (Auto) (0-5) /lpf U Epithel Cells (Auto) (0-5) /lpf Urine Bacteria (Auto) (Negative) Urine Osmolality (500-800) mOsm/kg Ur Random Sodium mmol/L Nasal Screen MRSA (PCR) (Negative) Vancomycin Trough (10-20) mcg/ml Adenovirus (PCR) (NotDetected) Anaplasma Smear A. phagocytophilum DNA Babesia Smear Babesia microti DNA PCR B. pertussis DNA (PCR) (NotDetected) B.parapertussis DNA PCR (NotDetected) Lyme Disease IgG Ab (Negative) Lyme Disease IgM Ab (Negative) C. pneumoniae DNA (PCR) (NotDetected) Coronavirus OC43 (PCR) (NotDetected) Coronavirus HKU1 (PCR) (NotDetected) Coronavirus 229E (PCR) (NotDetected) SARS-CoV-2 (PCR) (NotDetected) Coronavirus NL63 (PCR) (NotDetected) Hepatitis A IgM Ab (NON-REACTIVE) Hep Bs Antigen (NON-REACTIVE) Hep Bs Ag Confirmation Hep B Core IgM Ab (NON-REACTIVE) Hepatitis C Ab (EIA) (NON-REACTIVE) Hep C Ab Signal/Cutoff (<1.00) Human Metapneumovir PCR (NotDetected) Influenza Type A (PCR) (NotDetected) Influenza Type B (PCR) (NotDetected) M. pneumoniae (PCR) (NotDetected) Parainfluenza 1 (PCR) (NotDetected) Parainfluenza 2 (PCR) (NotDetected) Parainfluenza 3 (PCR) (NotDetected) Parainfluenza 4 (PCR) (NotDetected) RSV (PCR) (NotDetected) Entero/Rhino (PCR) (NotDetected) SARS-CoV-2, RNA, NAAT (NEGATIVE) Blood Type Antibody Screen Crossmatch 07/25/22 07/25/22 07/25/22 Range/Units 05:46 05:46 05:46 WBC 12.98 H (4.8-10.8) K/ul RBC 2.92 L (3.93-5.22) M/uL Hgb 7.4 L (12.0-16.0) g/dl Hct 23.6 L (34.1-44.9) % MCV 80.8 (80.0-100.0) fL MCH 25.3 (25.0-34.0) pg MCHC 31.4 L (32.0-36.0) g/dL RDW Std Deviation 43.8 (36.4-46.3) fL RDW Coeff of Kenyon 15.4 H (11.5-14.5) % Plt Count 620 H (130-400) K/uL MPV 8.7 L (9.4-12.3) fL Immature Gran % (Auto) 4.2 % Neut % (Auto) 72.7 % Lymph % (Auto) 8.9 % [place] % (Auto) 10.0 % Eos % (Auto) 3.8 % Baso % (Auto) 0.4 % Neut # (Auto) 9.45 H (1.4-6.5) K/uL Lymph # (Auto) 1.15 L (1.2-3.4) K/uL [place] # (Auto) 1.30 H (0.24-0.82) K/uL Eos # (Auto) 0.49 (0-0.50) K/uL Baso # (Auto) 0.05 (0-0.2) K/uL Immature Gran # (Auto) 0.54 H (0.00-0.02) K/uL Absolute Nucleated RBC 0.02 H (0-0) K/uL Nucleated RBC % (auto) 0.2 % RBC Morphology Polychromasia 1+ Sodium 136 (136-145) mmol/L Potassium 3.5 (3.5-5.1) mmol/L Chloride 101 (98-107) mmol/L Carbon Dioxide 26 (21-32) mmol/L Anion Gap 9 (3-11) BUN 9 (6-23) mg/dl Creatinine 0.85 (0.6-1.2) mg/dl Est Cr Clr Drug Dosing 85.4 Est GFR ( Amer) 92.6 ml/min Est GFR (Non-Af Amer) 79.9 ml/min BUN/Creatinine Ratio 10.6 (10-20) Glucose 111 H (70-99(Fasting)) mg/dl Lactate (0.4-2.0) mmol/L Calcium 8.9 (8.5-10.1) mg/dl Magnesium 1.9 (1.7-2.4) mg/dl Iron (35-150) mcg/dl TIBC (250-450) mcg/dl Unsaturated IBC (155-355) mcg/dl Transferrin % Sat (15-50) % Ferritin (8-388) ng/ml Total Bilirubin (0.2-1.0) mg/dl Direct Bilirubin (0-0.2) mg/dl AST (13-39) U/L ALT (7-52) U/L Alkaline Phosphatase (34-104) U/L Troponin I High Sens (0-14) pg/ml C-Reactive Protein (0-0.5) mg/dl Total Protein (6.0-8.3) gm/dl Albumin (3.4-5.0) gm/dl Globulin (2.5-4.0) gm/dl Albumin/Globulin Ratio (0.9-2) Carcinoembryonic Ag (0-2.5) ng/ml Vitamin B12 (180-914) pg/ml Folate (>5.38) ng/ml Procalcitonin (0-0.5) ng/ml Urine Color Urine Appearance (Clear) Urine pH (4.5-7.5) Ur Specific [place] (1.000-1.030) Urine Protein (Negative) Urine Glucose (UA) (Negative) Urine Ketones (Negative) Urine Blood (Negative) Urine Nitrite (Negative) Urine Bilirubin (Negative) Urine Urobilinogen (Negative) Ur Leukocyte Esterase (Negative) Urine WBC (Auto) (0-5) /hpf Urine RBC (Auto) (0-4) /hpf U Hyaline Cast (Auto) (0-5) /lpf U Epithel Cells (Auto) (0-5) /lpf Urine Bacteria (Auto) (Negative) Urine Osmolality (500-800) mOsm/kg Ur Random Sodium mmol/L Nasal Screen MRSA (PCR) (Negative) Vancomycin Trough (10-20) mcg/ml Adenovirus (PCR) (NotDetected) Anaplasma Smear A. phagocytophilum DNA Babesia Smear Babesia microti DNA PCR B. pertussis DNA (PCR) (NotDetected) B.parapertussis DNA PCR (NotDetected) Lyme Disease IgG Ab (Negative) Lyme Disease IgM Ab (Negative) C. pneumoniae DNA (PCR) (NotDetected) Coronavirus OC43 (PCR) (NotDetected) Coronavirus HKU1 (PCR) (NotDetected) Coronavirus 229E (PCR) (NotDetected) SARS-CoV-2 (PCR) (NotDetected) Coronavirus NL63 (PCR) (NotDetected) Hepatitis A IgM Ab NON-REACTIVE (NON-REACTIVE) Hep Bs Antigen NON-REACTIVE (NON-REACTIVE) Hep Bs Ag Confirmation TNP Hep B Core IgM Ab NON-REACTIVE (NON-REACTIVE) Hepatitis C Ab (EIA) NON-REACTIVE (NON-REACTIVE) Hep C Ab Signal/Cutoff 0.02 (<1.00) Human Metapneumovir PCR (NotDetected) Influenza Type A (PCR) (NotDetected) Influenza Type B (PCR) (NotDetected) M. pneumoniae (PCR) (NotDetected) Parainfluenza 1 (PCR) (NotDetected) Parainfluenza 2 (PCR) (NotDetected) Parainfluenza 3 (PCR) (NotDetected) Parainfluenza 4 (PCR) (NotDetected) RSV (PCR) (NotDetected) Entero/Rhino (PCR) (NotDetected) SARS-CoV-2, RNA, NAAT (NEGATIVE) Blood Type Antibody Screen Crossmatch 07/24/22 07/24/22 07/24/22 Range/Units 15:46 15:45 15:31 WBC (4.8-10.8) K/ul RBC (3.93-5.22) M/uL Hgb (12.0-16.0) g/dl Hct (34.1-44.9) % MCV (80.0-100.0) fL MCH (25.0-34.0) pg MCHC (32.0-36.0) g/dL RDW Std Deviation (36.4-46.3) fL RDW Coeff of [place] (11.5-14.5) % Plt Count (130-400) K/uL MPV (9.4-12.3) fL Immature Gran % (Auto) % Neut % (Auto) % Lymph % (Auto) % [place] % (Auto) % Eos % (Auto) % Baso % (Auto) % Neut # (Auto) (1.4-6.5) K/uL Lymph # (Auto) (1.2-3.4) K/uL [place] # (Auto) (0.24-0.82) K/uL Eos # (Auto) (0-0.50) K/uL Baso # (Auto) (0-0.2) K/uL Immature Gran # (Auto) (0.00-0.02) K/uL Absolute Nucleated RBC (0-0) K/uL Nucleated RBC % (auto) % RBC Morphology Polychromasia Sodium (136-145) mmol/L Potassium (3.5-5.1) mmol/L Chloride (98-107) mmol/L Carbon Dioxide (21-32) mmol/L Anion Gap (3-11) BUN (6-23) mg/dl Creatinine (0.6-1.2) mg/dl Est Cr Clr Drug Dosing Est GFR ( Amer) ml/min Est GFR (Non-Af Amer) ml/min BUN/Creatinine Ratio (10-20) Glucose (70-99(Fasting)) mg/dl Lactate (0.4-2.0) mmol/L Calcium (8.5-10.1) mg/dl Magnesium (1.7-2.4) mg/dl Iron (35-150) mcg/dl TIBC (250-450) mcg/dl Unsaturated IBC (155-355) mcg/dl Transferrin % Sat (15-50) % Ferritin (8-388) ng/ml Total Bilirubin (0.2-1.0) mg/dl Direct Bilirubin (0-0.2) mg/dl AST (13-39) U/L ALT (7-52) U/L Alkaline Phosphatase (34-104) U/L Troponin I High Sens (0-14) pg/ml C-Reactive Protein (0-0.5) mg/dl Total Protein (6.0-8.3) gm/dl Albumin (3.4-5.0) gm/dl Globulin (2.5-4.0) gm/dl Albumin/Globulin Ratio (0.9-2) Carcinoembryonic Ag (0-2.5) ng/ml Vitamin B12 (180-914) pg/ml Folate (>5.38) ng/ml Procalcitonin (0-0.5) ng/ml Urine Color Yellow Urine Appearance Clear (Clear) Urine pH 6.5 (4.5-7.5) Ur Specific [place] 1.037 H (1.000-1.030) Urine Protein Trace H (Negative) Urine Glucose (UA) Negative (Negative) Urine Ketones Negative (Negative) Urine Blood 2+ H (Negative) Urine Nitrite Negative (Negative) Urine Bilirubin Negative (Negative) Urine Urobilinogen Negative (Negative) Ur Leukocyte Esterase Negative (Negative) Urine WBC (Auto) 1-5 (0-5) /hpf Urine RBC (Auto) 5-10 H (0-4) /hpf U Hyaline Cast (Auto) 0 (0-5) /lpf U Epithel Cells (Auto) >30 H (0-5) /lpf Urine Bacteria (Auto) Negative (Negative) Urine Osmolality (500-800) mOsm/kg Ur Random Sodium mmol/L Nasal Screen MRSA (PCR) Negative (Negative) Vancomycin Trough (10-20) mcg/ml Adenovirus (PCR) (NotDetected) Anaplasma Smear A. phagocytophilum DNA Babesia Smear Babesia microti DNA PCR Pending B. pertussis DNA (PCR) (NotDetected) B.parapertussis DNA PCR (NotDetected) Lyme Disease IgG Ab (Negative) Lyme Disease IgM Ab (Negative) C. pneumoniae DNA (PCR) (NotDetected) Coronavirus OC43 (PCR) (NotDetected) Coronavirus HKU1 (PCR) (NotDetected) Coronavirus 229E (PCR) (NotDetected) SARS-CoV-2 (PCR) (NotDetected) Coronavirus NL63 (PCR) (NotDetected) Hepatitis A IgM Ab (NON-REACTIVE) Hep Bs Antigen (NON-REACTIVE) Hep Bs Ag Confirmation Hep B Core IgM Ab (NON-REACTIVE) Hepatitis C Ab (EIA) (NON-REACTIVE) Hep C Ab Signal/Cutoff (<1.00) Human Metapneumovir PCR (NotDetected) Influenza Type A (PCR) (NotDetected) Influenza Type B (PCR) (NotDetected) M. pneumoniae (PCR) (NotDetected) Parainfluenza 1 (PCR) (NotDetected) Parainfluenza 2 (PCR) (NotDetected) Parainfluenza 3 (PCR) (NotDetected) Parainfluenza 4 (PCR) (NotDetected) RSV (PCR) (NotDetected) Entero/Rhino (PCR) (NotDetected) SARS-CoV-2, RNA, NAAT (NEGATIVE) Blood Type Antibody Screen Crossmatch 07/24/22 07/24/22 07/24/22 Range/Units 15:31 15:31 15:31 WBC (4.8-10.8) K/ul RBC (3.93-5.22) M/uL Hgb (12.0-16.0) g/dl Hct (34.1-44.9) % MCV (80.0-100.0) fL MCH (25.0-34.0) pg MCHC (32.0-36.0) g/dL RDW Std Deviation (36.4-46.3) fL RDW Coeff of [place] (11.5-14.5) % Plt Count (130-400) K/uL MPV (9.4-12.3) fL Immature Gran % (Auto) % Neut % (Auto) % Lymph % (Auto) % [place] % (Auto) % Eos % (Auto) % Baso % (Auto) % Neut # (Auto) (1.4-6.5) K/uL Lymph # (Auto) (1.2-3.4) K/uL [place] # (Auto) (0.24-0.82) K/uL Eos # (Auto) (0-0.50) K/uL Baso # (Auto) (0-0.2) K/uL Immature Gran # (Auto) (0.00-0.02) K/uL Absolute Nucleated RBC (0-0) K/uL Nucleated RBC % (auto) % RBC Morphology Polychromasia Sodium (136-145) mmol/L Potassium (3.5-5.1) mmol/L Chloride (98-107) mmol/L Carbon Dioxide (21-32) mmol/L Anion Gap (3-11) BUN (6-23) mg/dl Creatinine (0.6-1.2) mg/dl Est Cr Clr Drug Dosing Est GFR ( Amer) ml/min Est GFR (Non-Af Amer) ml/min BUN/Creatinine Ratio (10-20) Glucose (70-99(Fasting)) mg/dl Lactate (0.4-2.0) mmol/L Calcium (8.5-10.1) mg/dl Magnesium (1.7-2.4) mg/dl Iron (35-150) mcg/dl TIBC (250-450) mcg/dl Unsaturated IBC (155-355) mcg/dl Transferrin % Sat (15-50) % Ferritin (8-388) ng/ml Total Bilirubin (0.2-1.0) mg/dl Direct Bilirubin (0-0.2) mg/dl AST (13-39) U/L ALT (7-52) U/L Alkaline Phosphatase (34-104) U/L Troponin I High Sens (0-14) pg/ml C-Reactive Protein (0-0.5) mg/dl Total Protein (6.0-8.3) gm/dl Albumin (3.4-5.0) gm/dl Globulin (2.5-4.0) gm/dl Albumin/Globulin Ratio (0.9-2) Carcinoembryonic Ag (0-2.5) ng/ml Vitamin B12 (180-914) pg/ml Folate (>5.38) ng/ml Procalcitonin (0-0.5) ng/ml Urine Color Urine Appearance (Clear) Urine pH (4.5-7.5) Ur Specific [place] (1.000-1.030) Urine Protein (Negative) Urine Glucose (UA) (Negative) Urine Ketones (Negative) Urine Blood (Negative) Urine Nitrite (Negative) Urine Bilirubin (Negative) Urine Urobilinogen (Negative) Ur Leukocyte Esterase (Negative) Urine WBC (Auto) (0-5) /hpf Urine RBC (Auto) (0-4) /hpf U Hyaline Cast (Auto) (0-5) /lpf U Epithel Cells (Auto) (0-5) /lpf Urine Bacteria (Auto) (Negative) Urine Osmolality (500-800) mOsm/kg Ur Random Sodium mmol/L Nasal Screen MRSA (PCR) (Negative) Vancomycin Trough (10-20) mcg/ml Adenovirus (PCR) (NotDetected) Anaplasma Smear See Comment A. phagocytophilum DNA Pending Babesia Smear See Comment Babesia microti DNA PCR B. pertussis DNA (PCR) (NotDetected) B.parapertussis DNA PCR (NotDetected) Lyme Disease IgG Ab Negative (Negative) Lyme Disease IgM Ab Negative (Negative) C. pneumoniae DNA (PCR) (NotDetected) Coronavirus OC43 (PCR) (NotDetected) Coronavirus HKU1 (PCR) (NotDetected) Coronavirus 229E (PCR) (NotDetected) SARS-CoV-2 (PCR) (NotDetected) Coronavirus NL63 (PCR) (NotDetected) Hepatitis A IgM Ab (NON-REACTIVE) Hep Bs Antigen (NON-REACTIVE) Hep Bs Ag Confirmation Hep B Core IgM Ab (NON-REACTIVE) Hepatitis C Ab (EIA) (NON-REACTIVE) Hep C Ab Signal/Cutoff (<1.00) Human Metapneumovir PCR (NotDetected) Influenza Type A (PCR) (NotDetected) Influenza Type B (PCR) (NotDetected) M. pneumoniae (PCR) (NotDetected) Parainfluenza 1 (PCR) (NotDetected) Parainfluenza 2 (PCR) (NotDetected) Parainfluenza 3 (PCR) (NotDetected) Parainfluenza 4 (PCR) (NotDetected) RSV (PCR) (NotDetected) Entero/Rhino (PCR) (NotDetected) SARS-CoV-2, RNA, NAAT (NEGATIVE) Blood Type Antibody Screen Crossmatch 07/24/22 07/24/22 07/24/22 Range/Units 15:31 14:35 08:14 WBC (4.8-10.8) K/ul RBC (3.93-5.22) M/uL Hgb (12.0-16.0) g/dl Hct (34.1-44.9) % MCV (80.0-100.0) fL MCH (25.0-34.0) pg MCHC (32.0-36.0) g/dL RDW Std Deviation (36.4-46.3) fL RDW Coeff of [place] (11.5-14.5) % Plt Count (130-400) K/uL MPV (9.4-12.3) fL Immature Gran % (Auto) % Neut % (Auto) % Lymph % (Auto) % [place] % (Auto) % Eos % (Auto) % Baso % (Auto) % Neut # (Auto) (1.4-6.5) K/uL Lymph # (Auto) (1.2-3.4) K/uL [place] # (Auto) (0.24-0.82) K/uL Eos # (Auto) (0-0.50) K/uL Baso # (Auto) (0-0.2) K/uL Immature Gran # (Auto) (0.00-0.02) K/uL Absolute Nucleated RBC (0-0) K/uL Nucleated RBC % (auto) % RBC Morphology Polychromasia Sodium (136-145) mmol/L Potassium (3.5-5.1) mmol/L Chloride (98-107) mmol/L Carbon Dioxide (21-32) mmol/L Anion Gap (3-11) BUN (6-23) mg/dl Creatinine (0.6-1.2) mg/dl Est Cr Clr Drug Dosing Est GFR ( Amer) ml/min Est GFR (Non-Af Amer) ml/min BUN/Creatinine Ratio (10-20) Glucose (70-99(Fasting)) mg/dl Lactate (0.4-2.0) mmol/L Calcium (8.5-10.1) mg/dl Magnesium (1.7-2.4) mg/dl Iron (35-150) mcg/dl TIBC (250-450) mcg/dl Unsaturated IBC (155-355) mcg/dl Transferrin % Sat (15-50) % Ferritin (8-388) ng/ml Total Bilirubin (0.2-1.0) mg/dl Direct Bilirubin (0-0.2) mg/dl AST (13-39) U/L ALT (7-52) U/L Alkaline Phosphatase (34-104) U/L Troponin I High Sens (0-14) pg/ml C-Reactive Protein 25.74 H (0-0.5) mg/dl Total Protein (6.0-8.3) gm/dl Albumin (3.4-5.0) gm/dl Globulin (2.5-4.0) gm/dl Albumin/Globulin Ratio (0.9-2) Carcinoembryonic Ag (0-2.5) ng/ml Vitamin B12 (180-914) pg/ml Folate (>5.38) ng/ml Procalcitonin (0-0.5) ng/ml Urine Color Urine Appearance (Clear) Urine pH (4.5-7.5) Ur Specific [place] (1.000-1.030) Urine Protein (Negative) Urine Glucose (UA) (Negative) Urine Ketones (Negative) Urine Blood (Negative) Urine Nitrite (Negative) Urine Bilirubin (Negative) Urine Urobilinogen (Negative) Ur Leukocyte Esterase (Negative) Urine WBC (Auto) (0-5) /hpf Urine RBC (Auto) (0-4) /hpf U Hyaline Cast (Auto) (0-5) /lpf U Epithel Cells (Auto) (0-5) /lpf Urine Bacteria (Auto) (Negative) Urine Osmolality (500-800) mOsm/kg Ur Random Sodium mmol/L Nasal Screen MRSA (PCR) (Negative) Vancomycin Trough (10-20) mcg/ml Adenovirus (PCR) Not Detected (NotDetected) Anaplasma Smear A. phagocytophilum DNA Babesia Smear Babesia microti DNA PCR B. pertussis DNA (PCR) Not Detected (NotDetected) B.parapertussis DNA PCR Not Detected (NotDetected) Lyme Disease IgG Ab (Negative) Lyme Disease IgM Ab (Negative) C. pneumoniae DNA (PCR) Not Detected (NotDetected) Coronavirus OC43 (PCR) Not Detected (NotDetected) Coronavirus HKU1 (PCR) Not Detected (NotDetected) Coronavirus 229E (PCR) Not Detected (NotDetected) SARS-CoV-2 (PCR) Not Detected (NotDetected) Coronavirus NL63 (PCR) Not Detected (NotDetected) Hepatitis A IgM Ab (NON-REACTIVE) Hep Bs Antigen (NON-REACTIVE) Hep Bs Ag Confirmation Hep B Core IgM Ab (NON-REACTIVE) Hepatitis C Ab (EIA) (NON-REACTIVE) Hep C Ab Signal/Cutoff (<1.00) Human Metapneumovir PCR Not Detected (NotDetected) Influenza Type A (PCR) Not Detected (NotDetected) Influenza Type B (PCR) Not Detected (NotDetected) M. pneumoniae (PCR) Not Detected (NotDetected) Parainfluenza 1 (PCR) Not Detected (NotDetected) Parainfluenza 2 (PCR) Not Detected (NotDetected) Parainfluenza 3 (PCR) Not Detected (NotDetected) Parainfluenza 4 (PCR) Not Detected (NotDetected) RSV (PCR) Not Detected (NotDetected) Entero/Rhino (PCR) Not Detected (NotDetected) SARS-CoV-2, RNA, NAAT (NEGATIVE) Blood Type O Positive Antibody Screen NEGATIVE Crossmatch See Detail 07/24/22 07/24/22 07/24/22 Range/Units 08:14 06:41 06:41 WBC 16.54 H (4.8-10.8) K/ul RBC 2.94 L (3.93-5.22) M/uL Hgb 7.1 L (12.0-16.0) g/dl Hct 23.0 L (34.1-44.9) % MCV 78.2 L (80.0-100.0) fL MCH 24.1 L (25.0-34.0) pg MCHC 30.9 L (32.0-36.0) g/dL RDW Std Deviation 41.2 (36.4-46.3) fL RDW Coeff of [place] 14.8 H (11.5-14.5) % Plt Count 697 H (130-400) K/uL MPV 8.6 L (9.4-12.3) fL Immature Gran % (Auto) % Neut % (Auto) % Lymph % (Auto) % [place] % (Auto) % Eos % (Auto) % Baso % (Auto) % Neut # (Auto) (1.4-6.5) K/uL Lymph # (Auto) (1.2-3.4) K/uL [place] # (Auto) (0.24-0.82) K/uL Eos # (Auto) (0-0.50) K/uL Baso # (Auto) (0-0.2) K/uL Immature Gran # (Auto) (0.00-0.02) K/uL Absolute Nucleated RBC 0.03 H (0-0) K/uL Nucleated RBC % (auto) 0.2 % RBC Morphology Polychromasia Sodium 131 L (136-145) mmol/L Potassium 3.9 (3.5-5.1) mmol/L Chloride 97 L (98-107) mmol/L Carbon Dioxide 28 (21-32) mmol/L Anion Gap 6 (3-11) BUN 8 (6-23) mg/dl Creatinine 0.83 (0.6-1.2) mg/dl Est Cr Clr Drug Dosing 87.5 Est GFR ( Amer) 95.3 ml/min Est GFR (Non-Af Amer) 82.2 ml/min BUN/Creatinine Ratio 9.6 L (10-20) Glucose 104 H (70-99(Fasting)) mg/dl Lactate (0.4-2.0) mmol/L Calcium 9.2 (8.5-10.1) mg/dl Magnesium 1.8 (1.7-2.4) mg/dl Iron (35-150) mcg/dl TIBC (250-450) mcg/dl Unsaturated IBC (155-355) mcg/dl Transferrin % Sat (15-50) % Ferritin (8-388) ng/ml Total Bilirubin 0.8 (0.2-1.0) mg/dl Direct Bilirubin (0-0.2) mg/dl AST 28 (13-39) U/L ALT 20 (7-52) U/L Alkaline Phosphatase 547 H (34-104) U/L Troponin I High Sens (0-14) pg/ml C-Reactive Protein (0-0.5) mg/dl Total Protein 6.7 (6.0-8.3) gm/dl Albumin 3.1 L (3.4-5.0) gm/dl Globulin 3.6 (2.5-4.0) gm/dl Albumin/Globulin Ratio 0.9 (0.9-2) Carcinoembryonic Ag (0-2.5) ng/ml Vitamin B12 (180-914) pg/ml Folate (>5.38) ng/ml Procalcitonin 1.18 H (0-0.5) ng/ml Urine Color Urine Appearance (Clear) Urine pH (4.5-7.5) Ur Specific [place] (1.000-1.030) Urine Protein (Negative) Urine Glucose (UA) (Negative) Urine Ketones (Negative) Urine Blood (Negative) Urine Nitrite (Negative) Urine Bilirubin (Negative) Urine Urobilinogen (Negative) Ur Leukocyte Esterase (Negative) Urine WBC (Auto) (0-5) /hpf Urine RBC (Auto) (0-4) /hpf U Hyaline Cast (Auto) (0-5) /lpf U Epithel Cells (Auto) (0-5) /lpf Urine Bacteria (Auto) (Negative) Urine Osmolality (500-800) mOsm/kg Ur Random Sodium mmol/L Nasal Screen MRSA (PCR) (Negative) Vancomycin Trough (10-20) mcg/ml Adenovirus (PCR) (NotDetected) Anaplasma Smear A. phagocytophilum DNA Babesia Smear Babesia microti DNA PCR B. pertussis DNA (PCR) (NotDetected) B.parapertussis DNA PCR (NotDetected) Lyme Disease IgG Ab (Negative) Lyme Disease IgM Ab (Negative) C. pneumoniae DNA (PCR) (NotDetected) Coronavirus OC43 (PCR) (NotDetected) Coronavirus HKU1 (PCR) (NotDetected) Coronavirus 229E (PCR) (NotDetected) SARS-CoV-2 (PCR) (NotDetected) Coronavirus NL63 (PCR) (NotDetected) Hepatitis A IgM Ab (NON-REACTIVE) Hep Bs Antigen (NON-REACTIVE) Hep Bs Ag Confirmation Hep B Core IgM Ab (NON-REACTIVE) Hepatitis C Ab (EIA) (NON-REACTIVE) Hep C Ab Signal/Cutoff (<1.00) Human Metapneumovir PCR (NotDetected) Influenza Type A (PCR) (NotDetected) Influenza Type B (PCR) (NotDetected) M. pneumoniae (PCR) (NotDetected) Parainfluenza 1 (PCR) (NotDetected) Parainfluenza 2 (PCR) (NotDetected) Parainfluenza 3 (PCR) (NotDetected) Parainfluenza 4 (PCR) (NotDetected) RSV (PCR) (NotDetected) Entero/Rhino (PCR) (NotDetected) SARS-CoV-2, RNA, NAAT (NEGATIVE) Blood Type Antibody Screen Crossmatch 07/23/22 07/23/22 07/23/22 Range/Units 07:06 07:06 07:06 WBC 12.37 H (4.8-10.8) K/ul RBC 2.85 L (3.93-5.22) M/uL Hgb 7.2 L (12.0-16.0) g/dl Hct 22.1 L (34.1-44.9) % MCV 77.5 L (80.0-100.0) fL MCH 25.3 (25.0-34.0) pg MCHC 32.6 (32.0-36.0) g/dL RDW Std Deviation 41.1 (36.4-46.3) fL RDW Coeff of [place] 14.6 H (11.5-14.5) % Plt Count 700 H (130-400) K/uL MPV 8.7 L (9.4-12.3) fL Immature Gran % (Auto) % Neut % (Auto) % Lymph % (Auto) % [place] % (Auto) % Eos % (Auto) % Baso % (Auto) % Neut # (Auto) (1.4-6.5) K/uL Lymph # (Auto) (1.2-3.4) K/uL [place] # (Auto) (0.24-0.82) K/uL Eos # (Auto) (0-0.50) K/uL Baso # (Auto) (0-0.2) K/uL Immature Gran # (Auto) (0.00-0.02) K/uL Absolute Nucleated RBC 0.03 H (0-0) K/uL Nucleated RBC % (auto) 0.2 % RBC Morphology Polychromasia Sodium 132 L (136-145) mmol/L Potassium 3.7 (3.5-5.1) mmol/L Chloride 97 L (98-107) mmol/L Carbon Dioxide 26 (21-32) mmol/L Anion Gap 9 (3-11) BUN 9 (6-23) mg/dl Creatinine 0.80 (0.6-1.2) mg/dl Est Cr Clr Drug Dosing 90.7 Est GFR ( Amer) 99.6 ml/min Est GFR (Non-Af Amer) 86.0 ml/min BUN/Creatinine Ratio 11.3 (10-20) Glucose 105 H (70-99(Fasting)) mg/dl Lactate (0.4-2.0) mmol/L Calcium 9.0 (8.5-10.1) mg/dl Magnesium 1.9 (1.7-2.4) mg/dl Iron 83 (35-150) mcg/dl TIBC 216 L (250-450) mcg/dl Unsaturated IBC 133 L (155-355) mcg/dl Transferrin % Sat 38 (15-50) % Ferritin 413.8 H (8-388) ng/ml Total Bilirubin 0.9 (0.2-1.0) mg/dl Direct Bilirubin (0-0.2) mg/dl AST 26 (13-39) U/L ALT 20 (7-52) U/L Alkaline Phosphatase 556 H (34-104) U/L Troponin I High Sens (0-14) pg/ml C-Reactive Protein (0-0.5) mg/dl Total Protein 6.7 (6.0-8.3) gm/dl Albumin 3.1 L (3.4-5.0) gm/dl Globulin 3.6 (2.5-4.0) gm/dl Albumin/Globulin Ratio 0.9 (0.9-2) Carcinoembryonic Ag (0-2.5) ng/ml Vitamin B12 (180-914) pg/ml Folate (>5.38) ng/ml Procalcitonin (0-0.5) ng/ml Urine Color Urine Appearance (Clear) Urine pH (4.5-7.5) Ur Specific [place] (1.000-1.030) Urine Protein (Negative) Urine Glucose (UA) (Negative) Urine Ketones (Negative) Urine Blood (Negative) Urine Nitrite (Negative) Urine Bilirubin (Negative) Urine Urobilinogen (Negative) Ur Leukocyte Esterase (Negative) Urine WBC (Auto) (0-5) /hpf Urine RBC (Auto) (0-4) /hpf U Hyaline Cast (Auto) (0-5) /lpf U Epithel Cells (Auto) (0-5) /lpf Urine Bacteria (Auto) (Negative) Urine Osmolality (500-800) mOsm/kg Ur Random Sodium mmol/L Nasal Screen MRSA (PCR) (Negative) Vancomycin Trough (10-20) mcg/ml Adenovirus (PCR) (NotDetected) Anaplasma Smear A. phagocytophilum DNA Babesia Smear Babesia microti DNA PCR B. pertussis DNA (PCR) (NotDetected) B.parapertussis DNA PCR (NotDetected) Lyme Disease IgG Ab (Negative) Lyme Disease IgM Ab (Negative) C. pneumoniae DNA (PCR) (NotDetected) Coronavirus OC43 (PCR) (NotDetected) Coronavirus HKU1 (PCR) (NotDetected) Coronavirus 229E (PCR) (NotDetected) SARS-CoV-2 (PCR) (NotDetected) Coronavirus NL63 (PCR) (NotDetected) Hepatitis A IgM Ab (NON-REACTIVE) Hep Bs Antigen (NON-REACTIVE) Hep Bs Ag Confirmation Hep B Core IgM Ab (NON-REACTIVE) Hepatitis C Ab (EIA) (NON-REACTIVE) Hep C Ab Signal/Cutoff (<1.00) Human Metapneumovir PCR (NotDetected) Influenza Type A (PCR) (NotDetected) Influenza Type B (PCR) (NotDetected) M. pneumoniae (PCR) (NotDetected) Parainfluenza 1 (PCR) (NotDetected) Parainfluenza 2 (PCR) (NotDetected) Parainfluenza 3 (PCR) (NotDetected) Parainfluenza 4 (PCR) (NotDetected) RSV (PCR) (NotDetected) Entero/Rhino (PCR) (NotDetected) SARS-CoV-2, RNA, NAAT (NEGATIVE) Blood Type Antibody Screen Crossmatch 07/22/22 07/22/22 07/21/22 Range/Units 05:44 05:44 22:24 WBC 13.64 H (4.8-10.8) K/ul RBC 2.93 L (3.93-5.22) M/uL Hgb 7.3 L 7.0 L (12.0-16.0) g/dl Hct 23.1 L 21.9 L (34.1-44.9) % MCV 78.8 L (80.0-100.0) fL MCH 24.9 L (25.0-34.0) pg MCHC 31.6 L (32.0-36.0) g/dL RDW Std Deviation 41.8 (36.4-46.3) fL RDW Coeff of [place] 14.5 (11.5-14.5) % Plt Count 752 H (130-400) K/uL MPV 9.0 L (9.4-12.3) fL Immature Gran % (Auto) % Neut % (Auto) % Lymph % (Auto) % [place] % (Auto) % Eos % (Auto) % Baso % (Auto) % Neut # (Auto) (1.4-6.5) K/uL Lymph # (Auto) (1.2-3.4) K/uL [place] # (Auto) (0.24-0.82) K/uL Eos # (Auto) (0-0.50) K/uL Baso # (Auto) (0-0.2) K/uL Immature Gran # (Auto) (0.00-0.02) K/uL Absolute Nucleated RBC (0-0) K/uL Nucleated RBC % (auto) % RBC Morphology Polychromasia Sodium 132 L (136-145) mmol/L Potassium 3.9 (3.5-5.1) mmol/L Chloride 97 L (98-107) mmol/L Carbon Dioxide 26 (21-32) mmol/L Anion Gap 9 (3-11) BUN 9 (6-23) mg/dl Creatinine 0.83 (0.6-1.2) mg/dl Est Cr Clr Drug Dosing 87.5 Est GFR ( Amer) 95.3 ml/min Est GFR (Non-Af Amer) 82.2 ml/min BUN/Creatinine Ratio 10.8 (10-20) Glucose 101 H (70-99(Fasting)) mg/dl Lactate (0.4-2.0) mmol/L Calcium 9.3 (8.5-10.1) mg/dl Magnesium 2.0 (1.7-2.4) mg/dl Iron (35-150) mcg/dl TIBC (250-450) mcg/dl Unsaturated IBC (155-355) mcg/dl Transferrin % Sat (15-50) % Ferritin (8-388) ng/ml Total Bilirubin 1.0 (0.2-1.0) mg/dl Direct Bilirubin (0-0.2) mg/dl AST 27 (13-39) U/L ALT 20 (7-52) U/L Alkaline Phosphatase 608 H (34-104) U/L Troponin I High Sens (0-14) pg/ml C-Reactive Protein (0-0.5) mg/dl Total Protein 6.9 (6.0-8.3) gm/dl Albumin 3.2 L (3.4-5.0) gm/dl Globulin 3.7 (2.5-4.0) gm/dl Albumin/Globulin Ratio 0.9 (0.9-2) Carcinoembryonic Ag (0-2.5) ng/ml Vitamin B12 (180-914) pg/ml Folate (>5.38) ng/ml Procalcitonin (0-0.5) ng/ml Urine Color Urine Appearance (Clear) Urine pH (4.5-7.5) Ur Specific [place] (1.000-1.030) Urine Protein (Negative) Urine Glucose (UA) (Negative) Urine Ketones (Negative) Urine Blood (Negative) Urine Nitrite (Negative) Urine Bilirubin (Negative) Urine Urobilinogen (Negative) Ur Leukocyte Esterase (Negative) Urine WBC (Auto) (0-5) /hpf Urine RBC (Auto) (0-4) /hpf U Hyaline Cast (Auto) (0-5) /lpf U Epithel Cells (Auto) (0-5) /lpf Urine Bacteria (Auto) (Negative) Urine Osmolality (500-800) mOsm/kg Ur Random Sodium mmol/L Nasal Screen MRSA (PCR) (Negative) Vancomycin Trough (10-20) mcg/ml Adenovirus (PCR) (NotDetected) Anaplasma Smear A. phagocytophilum DNA Babesia Smear Babesia microti DNA PCR B. pertussis DNA (PCR) (NotDetected) B.parapertussis DNA PCR (NotDetected) Lyme Disease IgG Ab (Negative) Lyme Disease IgM Ab (Negative) C. pneumoniae DNA (PCR) (NotDetected) Coronavirus OC43 (PCR) (NotDetected) Coronavirus HKU1 (PCR) (NotDetected) Coronavirus 229E (PCR) (NotDetected) SARS-CoV-2 (PCR) (NotDetected) Coronavirus NL63 (PCR) (NotDetected) Hepatitis A IgM Ab (NON-REACTIVE) Hep Bs Antigen (NON-REACTIVE) Hep Bs Ag Confirmation Hep B Core IgM Ab (NON-REACTIVE) Hepatitis C Ab (EIA) (NON-REACTIVE) Hep C Ab Signal/Cutoff (<1.00) Human Metapneumovir PCR (NotDetected) Influenza Type A (PCR) (NotDetected) Influenza Type B (PCR) (NotDetected) M. pneumoniae (PCR) (NotDetected) Parainfluenza 1 (PCR) (NotDetected) Parainfluenza 2 (PCR) (NotDetected) Parainfluenza 3 (PCR) (NotDetected) Parainfluenza 4 (PCR) (NotDetected) RSV (PCR) (NotDetected) Entero/Rhino (PCR) (NotDetected) SARS-CoV-2, RNA, NAAT (NEGATIVE) Blood Type Antibody Screen Crossmatch 07/21/22 07/21/22 07/21/22 Range/Units 17:46 17:46 15:23 WBC (4.8-10.8) K/ul RBC (3.93-5.22) M/uL Hgb 7.6 L (12.0-16.0) g/dl Hct 24.1 L (34.1-44.9) % MCV (80.0-100.0) fL MCH (25.0-34.0) pg MCHC (32.0-36.0) g/dL RDW Std Deviation (36.4-46.3) fL RDW Coeff of [place] (11.5-14.5) % Plt Count (130-400) K/uL MPV (9.4-12.3) fL Immature Gran % (Auto) % Neut % (Auto) % Lymph % (Auto) % [place] % (Auto) % Eos % (Auto) % Baso % (Auto) % Neut # (Auto) (1.4-6.5) K/uL Lymph # (Auto) (1.2-3.4) K/uL [place] # (Auto) (0.24-0.82) K/uL Eos # (Auto) (0-0.50) K/uL Baso # (Auto) (0-0.2) K/uL Immature Gran # (Auto) (0.00-0.02) K/uL Absolute Nucleated RBC (0-0) K/uL Nucleated RBC % (auto) % RBC Morphology Polychromasia Sodium (136-145) mmol/L Potassium (3.5-5.1) mmol/L Chloride (98-107) mmol/L Carbon Dioxide (21-32) mmol/L Anion Gap (3-11) BUN (6-23) mg/dl Creatinine (0.6-1.2) mg/dl Est Cr Clr Drug Dosing Est GFR ( Amer) ml/min Est GFR (Non-Af Amer) ml/min BUN/Creatinine Ratio (10-20) Glucose (70-99(Fasting)) mg/dl Lactate (0.4-2.0) mmol/L Calcium (8.5-10.1) mg/dl Magnesium (1.7-2.4) mg/dl Iron (35-150) mcg/dl TIBC (250-450) mcg/dl Unsaturated IBC (155-355) mcg/dl Transferrin % Sat (15-50) % Ferritin (8-388) ng/ml Total Bilirubin (0.2-1.0) mg/dl Direct Bilirubin (0-0.2) mg/dl AST (13-39) U/L ALT (7-52) U/L Alkaline Phosphatase (34-104) U/L Troponin I High Sens (0-14) pg/ml C-Reactive Protein (0-0.5) mg/dl Total Protein (6.0-8.3) gm/dl Albumin (3.4-5.0) gm/dl Globulin (2.5-4.0) gm/dl Albumin/Globulin Ratio (0.9-2) Carcinoembryonic Ag (0-2.5) ng/ml Vitamin B12 (180-914) pg/ml Folate (>5.38) ng/ml Procalcitonin (0-0.5) ng/ml Urine Color Yellow Urine Appearance Clear (Clear) Urine pH 6.5 (4.5-7.5) Ur Specific [place] > 1.045 H (1.000-1.030) Urine Protein Negative (Negative) Urine Glucose (UA) Negative (Negative) Urine Ketones Negative (Negative) Urine Blood 2+ H (Negative) Urine Nitrite Negative (Negative) Urine Bilirubin Negative (Negative) Urine Urobilinogen Negative (Negative) Ur Leukocyte Esterase Negative (Negative) Urine WBC (Auto) 1-5 (0-5) /hpf Urine RBC (Auto) 10-30 H (0-4) /hpf U Hyaline Cast (Auto) 0 (0-5) /lpf U Epithel Cells (Auto) >30 H (0-5) /lpf Urine Bacteria (Auto) Negative (Negative) Urine Osmolality (500-800) mOsm/kg Ur Random Sodium mmol/L Nasal Screen MRSA (PCR) (Negative) Vancomycin Trough (10-20) mcg/ml Adenovirus (PCR) (NotDetected) Anaplasma Smear A. phagocytophilum DNA Babesia Smear Babesia microti DNA PCR B. pertussis DNA (PCR) (NotDetected) B.parapertussis DNA PCR (NotDetected) Lyme Disease IgG Ab (Negative) Lyme Disease IgM Ab (Negative) C. pneumoniae DNA (PCR) (NotDetected) Coronavirus OC43 (PCR) (NotDetected) Coronavirus HKU1 (PCR) (NotDetected) Coronavirus 229E (PCR) (NotDetected) SARS-CoV-2 (PCR) (NotDetected) Coronavirus NL63 (PCR) (NotDetected) Hepatitis A IgM Ab (NON-REACTIVE) Hep Bs Antigen (NON-REACTIVE) Hep Bs Ag Confirmation Hep B Core IgM Ab (NON-REACTIVE) Hepatitis C Ab (EIA) (NON-REACTIVE) Hep C Ab Signal/Cutoff (<1.00) Human Metapneumovir PCR (NotDetected) Influenza Type A (PCR) (NotDetected) Influenza Type B (PCR) (NotDetected) M. pneumoniae (PCR) (NotDetected) Parainfluenza 1 (PCR) (NotDetected) Parainfluenza 2 (PCR) (NotDetected) Parainfluenza 3 (PCR) (NotDetected) Parainfluenza 4 (PCR) (NotDetected) RSV (PCR) (NotDetected) Entero/Rhino (PCR) (NotDetected) SARS-CoV-2, RNA, NAAT (NEGATIVE) Blood Type O Positive Antibody Screen NEGATIVE Crossmatch 07/21/22 07/21/22 07/21/22 Range/Units 13:40 11:05 11:05 WBC (4.8-10.8) K/ul RBC (3.93-5.22) M/uL Hgb (12.0-16.0) g/dl Hct (34.1-44.9) % MCV (80.0-100.0) fL MCH (25.0-34.0) pg MCHC (32.0-36.0) g/dL RDW Std Deviation (36.4-46.3) fL RDW Coeff of [place] (11.5-14.5) % Plt Count (130-400) K/uL MPV (9.4-12.3) fL Immature Gran % (Auto) % Neut % (Auto) % Lymph % (Auto) % [place] % (Auto) % Eos % (Auto) % Baso % (Auto) % Neut # (Auto) (1.4-6.5) K/uL Lymph # (Auto) (1.2-3.4) K/uL [place] # (Auto) (0.24-0.82) K/uL Eos # (Auto) (0-0.50) K/uL Baso # (Auto) (0-0.2) K/uL Immature Gran # (Auto) (0.00-0.02) K/uL Absolute Nucleated RBC (0-0) K/uL Nucleated RBC % (auto) % RBC Morphology Polychromasia Sodium (136-145) mmol/L Potassium (3.5-5.1) mmol/L Chloride (98-107) mmol/L Carbon Dioxide (21-32) mmol/L Anion Gap (3-11) BUN (6-23) mg/dl Creatinine (0.6-1.2) mg/dl Est Cr Clr Drug Dosing Est GFR ( Amer) ml/min Est GFR (Non-Af Amer) ml/min BUN/Creatinine Ratio (10-20) Glucose (70-99(Fasting)) mg/dl Lactate 1.1 (0.4-2.0) mmol/L Calcium (8.5-10.1) mg/dl Magnesium (1.7-2.4) mg/dl Iron (35-150) mcg/dl TIBC (250-450) mcg/dl Unsaturated IBC (155-355) mcg/dl Transferrin % Sat (15-50) % Ferritin (8-388) ng/ml Total Bilirubin (0.2-1.0) mg/dl Direct Bilirubin (0-0.2) mg/dl AST (13-39) U/L ALT (7-52) U/L Alkaline Phosphatase (34-104) U/L Troponin I High Sens (0-14) pg/ml C-Reactive Protein (0-0.5) mg/dl Total Protein (6.0-8.3) gm/dl Albumin (3.4-5.0) gm/dl Globulin (2.5-4.0) gm/dl Albumin/Globulin Ratio (0.9-2) Carcinoembryonic Ag (0-2.5) ng/ml Vitamin B12 (180-914) pg/ml Folate (>5.38) ng/ml Procalcitonin 1.59 H (0-0.5) ng/ml Urine Color Urine Appearance (Clear) Urine pH (4.5-7.5) Ur Specific [place] (1.000-1.030) Urine Protein (Negative) Urine Glucose (UA) (Negative) Urine Ketones (Negative) Urine Blood (Negative) Urine Nitrite (Negative) Urine Bilirubin (Negative) Urine Urobilinogen (Negative) Ur Leukocyte Esterase (Negative) Urine WBC (Auto) (0-5) /hpf Urine RBC (Auto) (0-4) /hpf U Hyaline Cast (Auto) (0-5) /lpf U Epithel Cells (Auto) (0-5) /lpf Urine Bacteria (Auto) (Negative) Urine Osmolality (500-800) mOsm/kg Ur Random Sodium mmol/L Nasal Screen MRSA (PCR) (Negative) Vancomycin Trough (10-20) mcg/ml Adenovirus (PCR) (NotDetected) Anaplasma Smear A. phagocytophilum DNA Babesia Smear Babesia microti DNA PCR B. pertussis DNA (PCR) (NotDetected) B.parapertussis DNA PCR (NotDetected) Lyme Disease IgG Ab (Negative) Lyme Disease IgM Ab (Negative) C. pneumoniae DNA (PCR) (NotDetected) Coronavirus OC43 (PCR) (NotDetected) Coronavirus HKU1 (PCR) (NotDetected) Coronavirus 229E (PCR) (NotDetected) SARS-CoV-2 (PCR) (NotDetected) Coronavirus NL63 (PCR) (NotDetected) Hepatitis A IgM Ab (NON-REACTIVE) Hep Bs Antigen (NON-REACTIVE) Hep Bs Ag Confirmation Hep B Core IgM Ab (NON-REACTIVE) Hepatitis C Ab (EIA) (NON-REACTIVE) Hep C Ab Signal/Cutoff (<1.00) Human Metapneumovir PCR (NotDetected) Influenza Type A (PCR) (NotDetected) Influenza Type B (PCR) (NotDetected) M. pneumoniae (PCR) (NotDetected) Parainfluenza 1 (PCR) (NotDetected) Parainfluenza 2 (PCR) (NotDetected) Parainfluenza 3 (PCR) (NotDetected) Parainfluenza 4 (PCR) (NotDetected) RSV (PCR) (NotDetected) Entero/Rhino (PCR) (NotDetected) SARS-CoV-2, RNA, NAAT NEGATIVE (NEGATIVE) Blood Type Antibody Screen Crossmatch 07/21/22 07/21/22 Range/Units 11:05 11:05 WBC 14.06 H (4.8-10.8) K/ul RBC 3.00 L (3.93-5.22) M/uL Hgb 7.5 L (12.0-16.0) g/dl Hct 23.6 L (34.1-44.9) % MCV 78.7 L (80.0-100.0) fL MCH 25.0 (25.0-34.0) pg MCHC 31.8 L (32.0-36.0) g/dL RDW Std Deviation 41.4 (36.4-46.3) fL RDW Coeff of [place] 14.6 H (11.5-14.5) % Plt Count 724 H (130-400) K/uL MPV 8.8 L (9.4-12.3) fL Immature Gran % (Auto) 0.7 % Neut % (Auto) 78.7 % Lymph % (Auto) 8.5 % [place] % (Auto) 10.1 % Eos % (Auto) 1.6 % Baso % (Auto) 0.4 % Neut # (Auto) 11.06 H (1.4-6.5) K/uL Lymph # (Auto) 1.20 (1.2-3.4) K/uL [place] # (Auto) 1.42 H (0.24-0.82) K/uL Eos # (Auto) 0.23 (0-0.50) K/uL Baso # (Auto) 0.05 (0-0.2) K/uL Immature Gran # (Auto) 0.10 H (0.00-0.02) K/uL Absolute Nucleated RBC (0-0) K/uL Nucleated RBC % (auto) % RBC Morphology Unremarkable Polychromasia Sodium 134 L (136-145) mmol/L Potassium 3.7 (3.5-5.1) mmol/L Chloride 99 (98-107) mmol/L Carbon Dioxide 25 (21-32) mmol/L Anion Gap 10 (3-11) BUN 10 (6-23) mg/dl Creatinine 0.72 (0.6-1.2) mg/dl Est Cr Clr Drug Dosing Not Reportable Est GFR ( Amer) 113.2 ml/min Est GFR (Non-Af Amer) 97.7 ml/min BUN/Creatinine Ratio 13.9 (10-20) Glucose 97 (70-99(Fasting)) mg/dl Lactate (0.4-2.0) mmol/L Calcium 9.4 (8.5-10.1) mg/dl Magnesium 1.5 L (1.7-2.4) mg/dl Iron (35-150) mcg/dl TIBC (250-450) mcg/dl Unsaturated IBC (155-355) mcg/dl Transferrin % Sat (15-50) % Ferritin (8-388) ng/ml Total Bilirubin 0.8 (0.2-1.0) mg/dl Direct Bilirubin 0.4 H (0-0.2) mg/dl AST 25 (13-39) U/L ALT 17 (7-52) U/L Alkaline Phosphatase 527 H (34-104) U/L Troponin I High Sens 10.1 (0-14) pg/ml C-Reactive Protein (0-0.5) mg/dl Total Protein 7.0 (6.0-8.3) gm/dl Albumin 3.3 L (3.4-5.0) gm/dl Globulin (2.5-4.0) gm/dl Albumin/Globulin Ratio (0.9-2) Carcinoembryonic Ag (0-2.5) ng/ml Vitamin B12 (180-914) pg/ml Folate (>5.38) ng/ml Procalcitonin (0-0.5) ng/ml Urine Color Urine Appearance (Clear) Urine pH (4.5-7.5) Ur Specific [place] (1.000-1.030) Urine Protein (Negative) Urine Glucose (UA) (Negative) Urine Ketones (Negative) Urine Blood (Negative) Urine Nitrite (Negative) Urine Bilirubin (Negative) Urine Urobilinogen (Negative) Ur Leukocyte Esterase (Negative) Urine WBC (Auto) (0-5) /hpf Urine RBC (Auto) (0-4) /hpf U Hyaline Cast (Auto) (0-5) /lpf U Epithel Cells (Auto) (0-5) /lpf Urine Bacteria (Auto) (Negative) Urine Osmolality (500-800) mOsm/kg Ur Random Sodium mmol/L Nasal Screen MRSA (PCR) (Negative) Vancomycin Trough (10-20) mcg/ml Adenovirus (PCR) (NotDetected) Anaplasma Smear A. phagocytophilum DNA Babesia Smear Babesia microti DNA PCR B. pertussis DNA (PCR) (NotDetected) B.parapertussis DNA PCR (NotDetected) Lyme Disease IgG Ab (Negative) Lyme Disease IgM Ab (Negative) C. pneumoniae DNA (PCR) (NotDetected) Coronavirus OC43 (PCR) (NotDetected) Coronavirus HKU1 (PCR) (NotDetected) Coronavirus 229E (PCR) (NotDetected) SARS-CoV-2 (PCR) (NotDetected) Coronavirus NL63 (PCR) (NotDetected) Hepatitis A IgM Ab (NON-REACTIVE) Hep Bs Antigen (NON-REACTIVE) Hep Bs Ag Confirmation Hep B Core IgM Ab (NON-REACTIVE) Hepatitis C Ab (EIA) (NON-REACTIVE) Hep C Ab Signal/Cutoff (<1.00) Human Metapneumovir PCR (NotDetected) Influenza Type A (PCR) (NotDetected) Influenza Type B (PCR) (NotDetected) M. pneumoniae (PCR) (NotDetected) Parainfluenza 1 (PCR) (NotDetected) Parainfluenza 2 (PCR) (NotDetected) Parainfluenza 3 (PCR) (NotDetected) Parainfluenza 4 (PCR) (NotDetected) RSV (PCR) (NotDetected) Entero/Rhino (PCR) (NotDetected) SARS-CoV-2, RNA, NAAT (NEGATIVE) Blood Type Antibody Screen Crossmatch PG Care Time/CCT Total # of Minutes Spent Total Time Spent with Patient: Total time spent is greater than 50% in coordination of care (as documented) at patient's floor/unit and/or counseling patient: Coding Level of Care Code 43022 Subseq Hosp Care Lvl 2 Diagnoses Fever R50.9 Abdominal pain R10.9 Abdominal location: unspecified location Constipation K59.00 Metastatic adenocarcinoma C79.9 Colon cancer metastasized to liver C18.9; C78.7 Thrombocytosis D75.839 Anemia D64.9 Anemia type: unspecified type Subcapsular hematoma of liver K76.89 Hypomagnesemia E83.42 Depression F32.9 Bipolar 2 disorder F31.81 Hyponatremia E87.1 (1) Anemia Anemia type: unspecified type Qualified Code(s): D64.9 - Anemia, unspecified (2) Abdominal pain Abdominal location: unspecified location Qualified Code(s): R10.9 - Unspecified abdominal pain
[2022-07-27 06:53] LABS: Basophils # (auto) 0.05 K/uL (0-0.2); Basophils % (auto) 0.4 %; Eosinophils % (auto) 2.3 %; Hematocrit (blood only) 26.2 % (34.1-44.9); Hemoglobin 8.5 g/dl (12.0-16.0); Immature Granulocytes # (auto) 0.32 K/uL (0.00-0.02); Immature Granulocytes % (auto) 2.5 %; Lymphocytes # (auto) 1.18 K/uL (1.2-3.4); Lymphocytes % (auto) 9.2 %; Mean Corpuscular Hemoglobin 26.5 pg (25.0-34.0); Mean Corpuscular Hgb Conc 32.4 g/dL (32.0-36.0); Mean Corpuscular Volume 81.6 fL (80.0-100.0); Mean Platelet Volume 8.6 fL (9.4-12.3); Monocytes # (auto) 1.26 K/uL (0.24-0.82); Monocytes % (auto) 9.8 %; Neutrophils # (auto) 9.76 K/uL (1.4-6.5); Neutrophils % (auto) 75.8 %; Platelet Count 560 K/uL (130-400); RDW Coefficient of Variation 16.9 % (11.5-14.5); RDW Standard Deviation 46.7 fL (36.4-46.3); Red Blood Count 3.21 M/uL (3.93-5.22); White Blood Count 12.87 K/ul (4.8-10.8)
[2022-07-27] MEDS ORDERED: MIDAZOLAM HCL 1 MG/ML 2ML VIAL ONE (06:59)
[2022-07-27] MEDS ORDERED: ePHEDrine sulfate 50 MG/ML SYR ONE (06:59)
[2022-07-27] MEDS ORDERED: LIDOCAINE 2% MPF LOCAL 5 ML VIAL INFIL ONE (06:59)
[2022-07-27] MEDS ORDERED: fentaNYL citrate 100 MCG/2 ML VIAL ONE ×2 (06:59→07:49)
[2022-07-27] MEDS ORDERED: PROPOFOL IV EMULSION 10 MG/ML 20 ML VIAL IV ONE ×2 (06:59→08:24)
[2022-07-27] MEDS ORDERED: ONDANSETRON INJ 2 MG/ML 2 ML VIAL IV PRN (07:16)
[2022-07-27] MEDS ORDERED: KETOROLAC 30 MG/ML VIAL IV PRN (07:16)
[2022-07-27] MEDS ORDERED: ATROPINE SULFATE 0.1 MG/ML 10ML SYR IV PRN (07:16)
[2022-07-27] MEDS ORDERED: fentaNYL citrate 100 MCG/2 ML VIAL IV PRN (07:16)
[2022-07-27] MEDS ORDERED: HEPARIN 100 UNIT/ML 5ML FLUSH ONE (07:23)
[2022-07-27] MEDS ORDERED: LIDOCAINE 1%/EPINEPHRINE 1:100,000 50 ML VIAL ONE (07:23)
--- NOTE | 2022-07-27 07:23 | History & Physical Bridge Note ---
Date of Service July 27, 2022 History & Physical Bridge Note I have examined the patient, reviewed the History & Physical and in the interval since the performance of the History & Physical I have noted the following changes of clinical significance: no changes noted
[2022-07-27 07:54] LABS: Albumin Level 2.9 gm/dl (3.4-5.0); BUN Creatinine Ratio 11.9 (10-20); Bilirubin Direct 0.9 mg/dl (0-0.2); Bilirubin,Total 1.5 mg/dl (0.2-1.0); Calcium 8.8 mg/dl (8.5-10.1); Creatinine Clr Calc Pharmacy 109.8 ml/min; Est GFR (African American) 118.8 ml/min; Est GFR (Non-African American) 102.5 ml/min; Potassium 3.7 mmol/L (3.5-5.1); Total Protein 6.4 gm/dl (6.0-8.3)
[2022-07-27] MEDS ORDERED: ceFAZolin 330 MG/ML 1 GM VIAL ONE (07:59)
[2022-07-27] MEDS ORDERED: ceFAZolin 2000MG 2,000 MG/15 ML SYR IV ONE (08:13)
--- NOTE | 2022-07-27 08:23 | Post Operative Brief Note ---
Immediate Post Op Note v1 Date of Surgery July 27, 2022 Pre & Post Diagnosis Operation Date: 07/27/22 07:30 Pre-Op Diagnosis: Need for Long-Term Intravenous Access Post-Op Diagnosis: Need for Long-Term Intravenous Access I identified the patient and participated in the time-out.: Yes Procedure Operation Date: 07/27/22 07:30 Actual Procedures p Insertion Infusaport Left Subclavian(Left) - Larry Soto MD Surgeon Larry Soto MD Slag Expander VERONICA Burns assisted with tissue retraction, camera op, closure Estimated Blood Loss 2 Findings Consistent with Post-Op Diagnosis
--- NOTE | 2022-07-27 08:26 | Operative Report ---
Post Operative Report Pre & Post Diagnosis Operation Date: 07/27/22 07:30 Pre-Op Diagnosis: Need for Long-Term Intravenous Access Post-Op Diagnosis: Need for Long-Term Intravenous Access I identified the patient and participated in the time-out.: Yes Procedure Operation Date: 07/27/22 07:30 Actual Procedures p Insertion Infusaport Left Subclavian(Left) - Larry Soto MD Surgeon Larry Soto MD Billing Auditor VERONICA Burns assisted with tissue retraction, camera op, closure Estimated Blood Loss 2 Findings Consistent with Post-Op Diagnosis Port placed through left cephalic vein into subclavian vein. Placement confirmed with intraoperative fluoroscopy Specimens None Drains None Anesthesia Type MAC Complications No immediate complications Description of Procedure Patient was taken to the operating room, placed supine on the operating table. A timeout was performed, perioperative antibiotics were administered, SCD boots were placed. After adequate anesthesia and analgesia was obtained, the left chest was prepped and draped in the normal sterile fashion. Local anesthetic was injected into and around the area of the deltopectoral groove on the left side. Incision was made the deltopectoral groove and carried down to the deltopectoral groove fascia. The fascia was incised, and the cephalic vein was identified coursing through the deltopectoral groove. This was controlled proximally and ligated distally. A venotomy was performed, and the catheter was threaded down through the cephalic vein into the subclavian vein and subsequently into the superior vena cava. Positioning was confirmed with intraoperative fluoroscopy. The catheter was secured into the cephalic vein with a 3-0 silk tie. A pocket was created on the anterior chest wall. The catheter was cut to size and was placed onto the hub of the port. The port was then secured to the chest wall with 2-0 Prolene suture in 3 locations. The port flushed and withdrew easily and was flushed with heparinized saline. Again intraoperative fluoroscopy was used to confirm placement. Subcutaneous tissue overlying the port was excised with Bovie electrocautery. Subcutaneous tissue was closed with 3-0 Vicryl. The skin was closed with running 4-0 Monocryl subcuticular stitch. Dermabond was applied. She tolerated the procedure without complication, transferred in stable condition to the PACU. All instrument, needle, and sponge counts were correct at the end of the case. My catering assistant was necessary throughout the procedure for tissue retraction, possible camera operation, and closure of the wounds. I understand that section 1842(b)(7)(D) of the Social Security act generally prohibits Medicare physician fee schedule payment for the services of assistants at surgery in teaching hospitals when qualified residents are available to furnish such services. I certify that the services for which payment is claimed were medically necessary and that no qualified resident was available to perform the services. I further understand that these services are subject to postpayment review by the Medicare carrier. I attest to the content of the Intraoperative Record and any orders documented therein. Any exceptions are noted below.
[2022-07-27] MEDS ORDERED: DOXYCYCLINE HYCLATE 100 MG CAP PO SCH (09:00)
--- NOTE | 2022-07-27 09:19 | Anesthesiology Progress Note ---
Date of Service July 27, 2022 Anesthesia Post Procedure Vital Signs Vital Signs: Temp Pulse Pulse Pulse Resp BP Pulse Ox 07/27/22 09:05 92 H 21 117/72 94 07/27/22 08:55 98 H 21 120/80 92 07/27/22 08:45 94 H 22 117/68 96 07/27/22 08:39 36.4 C L 94 H 16 103/69 95 07/27/22 07:15 37.3 C 95 H 22 105/76 93 07/27/22 07:03 94 H 07/27/22 03:12 37.4 C 82 18 104/70 92 07/26/22 22:15 99 H 07/26/22 22:58 37.3 C 100 H 20 116/76 92 07/26/22 19:05 37.2 C 101 H 20 124/80 96 07/26/22 16:19 93 H 07/26/22 15:35 36.6 C 96 H 20 116/76 96 07/26/22 14:50 36.6 C 96 H 18 116/76 96 07/26/22 11:19 36.9 C 93 H 18 110/72 97 07/26/22 09:39 O2 Del Method O2 Flow Rate 07/27/22 09:05 Nasal Cannula 2 07/27/22 08:55 Nasal Cannula 2 07/27/22 08:45 Oxymask 6 07/27/22 08:39 Oxymask 6 07/27/22 07:15 Room Air 07/27/22 07:03 07/27/22 03:12 07/26/22 22:15 07/26/22 22:58 Room Air 07/26/22 19:05 Room Air 07/26/22 16:19 07/26/22 15:35 Room Air 07/26/22 14:50 Room Air 07/26/22 11:19 Room Air 07/26/22 09:39 Room Air Pain Intensity Right Upper Abdomen: Pain Intensity: 7 Transfer of Care Handoff Completed per policy Notes Mental Status: alert / awake / arousable Patient Amnestic to Procedure: Yes Nausea / Vomiting: adequately controlled Pain: adequately controlled Airway Patency, RR, SpO2: stable & adequate BP & HR: stable & adequate Hydration State: stable & adequate Anesthetic Complications: no major complications apparent
[2022-07-27] MEDS: MULTIVITAMIN TAB PO SCH (09:28)
[2022-07-27] MEDS: lamoTRIgine 100 MG TAB PO SCH (09:28)
[2022-07-27] MEDS: buPROPion SR 100 MG TABCR PO SCH (09:29)
[2022-07-27] MEDS: PANTOprazole 40 MG TAB PO SCH (09:29)
[2022-07-27] MEDS: DOCUSATE SODIUM 100 MG CAP PO SCH (09:30)
[2022-07-27] MEDS: oxyCODONE HCL IR 5 MG TAB (IMMEDIATE RELEASE) PO PRN ×2 (09:31→13:41)
[2022-07-27] MEDS: oxyCODONE HCL 10 MG TABCR (OxyCONTIN) PO SCH (09:31)
--- NOTE | 2022-07-27 09:46 | XRay Report ---
XR chest 1V portable CLINICAL HISTORY: S/P Mediport insertion. TECHNIQUE: Single frontal radiograph of the chest was obtained. Comparison: Comparison is made to chest radiograph 07/24/[address] abdomen pelvis 07/24/2022 FINDINGS: Port catheter is seen with the tip in the lower SVC. The cardiomediastinal silhouette is normal. Prom inence and cephalization of the vasculature is seen. A few nodular densities are seen compatible with known metastatic disease. No evidence of pleural effusion or pneumothorax. IMPRESSION: Lungs are underinflated but there is no evidence of airspace disease. There is mild pulmonary vascula r congestion. Multiple pulmonary metastases are again seen. ACT 112: Negative or not required by law. Electronically signed by: Galdino Snow M.D. 07/27/2022 9:43 AM
[2022-07-27] MEDS ORDERED: SODIUM CHLORIDE 1 GM TABLET PO SCH (10:15)
--- NOTE | 2022-07-27 16:29 | Discharge Summary ---
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 Per chart review, the patient was recently admitted to [facility] from 07/15/22-07/17/22 for the above mentioned acute blood loss anemia from her liver biopsy on 07/15/[address] results were concerning for a primary liver mass with mets to the liver and lung, which were confirmed to be adenocarcinoma. She was monitored while admitted and her Hgb remained stable prior to discharge home. She was discharged with referral appointments to both oncology and pain management, of which she attended both. Per the Pain management note, she was prescribed 10 mg Oxycodone q6h prn for pain. In the ED the patient was found to be afebrile, hemodynamically stable, stable on room air, and tachycardic. Labs were remarkable for leukocytosis of 14.06 with a left shift of 11.06, hgb of 7.5 (down from 8.1 as of 07/17/22), procal of 1.59, sodium of 134, mag of 1.5, direct bilil of 0.4, alk phos of 527. Chest xray showed stable lung mets, and no other acute cardiopulmonary findings. CT of the abdomen and pelvis with contrast showed a stable subcapsular hematoma with slight improvement in her previous hemoperitoneum, no bowel obstruction, and stable cecal mass with mets to the liver and lungs. In the ED the patient was given zosyn, and 3 mg IV dilaudid. At the time of the exam the patient was resting comfortably in bed in no acute distress with her sitting bedside. They say that since her discharge on 07/18/22 she continues to have uncontrolled pain/abdominal discomfort, bloating, poor oral intake, and constipation. Her last bowel movement was prior to her colonoscopy on 07/15/22. Her fevers have been daily, happened most frequently at night but have now also started to occur during the day; her highest temp was 101 at home. She has mainly been using tylenol for her fevers as her pain management provider advised her to avoid NSAIDs for now with her recent hematoma. Her abdominal pain is in the same place it has always been, mainly in the LUQ and it is severely exacerbated with movement. She saw [facility] oncology on Monday and they advised her to see treatment closer to home as she is not a candidate for any therapy trials. She was started on oxycodone 10 mg ER q6h prn for pain by pain management but she and her thought it was supposed to be q8h prn and have been taking it q8h without significant pain relief. She is not eating much due to feelings of bloating but has been able to drink liquids consistently. She denies any chest pain, SOB, dysuria, hematuria, diarrhea, melena, and bloody bowel movements. Principal Diagnosis 1. fever - likely 2nd to cancer vs subcapsular hematoma 2. stage 4 colon cancer 3. abdominal pain - multifactorial Discharge Exam gen - NAD, pleasant skin - pallor mouth - MMM neck - no JVD heart - RRR, s1 s2, no murmur lungs - CTA b/l abd - distended, BS+, mildly tender upper quadrants, liver palpable ext - trace edema b/l, pulses 2+ b/l chest - dressing present over [facility] upper chest Discharge Data Allergies Allergy/AdvReac Type Severity Reaction Status Date / Time Sulfa (Sulfonamide Allergy Severe BREATHING Verified 07/29/22 10:44 Antibiotics) DIFFICULTIES adhesive Allergy Unknown SKIN RASH Verified 07/29/22 10:44 Consultations General surgery - Larry Soto MD Procedures Performed Operation Date: 07/27/22 07:30 Actual Procedures Insertion Infusaport Left Subclavian (Left) - Laryr Soto MD 1 unit PRBCs 3 IV venofer infusions Ordered Studies Chest X-Ray 07/21/22 10:51 XR chest 1V portable CLINICAL HISTORY: Sepsis. COMPARISON STUDY: Chest CT July 12, 2022. Chest radiograph July 15, 2022. FINDINGS: Numerous pulmonary nodules are again noted. There is no pneumothorax or pleural effusion. Linear left basilar opacity favors atelectasis. Linear right suprahilar opacity favors atelectasis. No consolidation to suggest pneumonia. There is no evidence for pulmonary edema. IMPRESSION: 1. No acute cardiopulmonary findings. 2. Redemonstration of pulmonary metastases. 3. Linear left basilar opacity suggestive of atelectasis. ACT 112: Negative or not required by law. Electronically signed by: Randall Da Silva M.D. 07/21/2022 11:22 AM Abdomen/Pelvis CT 07/21/22 11:25 CT OF THE ABDOMEN AND PELVIS WITH CONTRAST CLINICAL HISTORY: Worsening abdominal pain and fever. Known liver hematoma. COMPARISON STUDY: CT of the abdomen and pelvis July 15, 2022. TECHNIQUE: Following IV administration of 85 mL of Optiray, axial images of the abdomen and pelvis were obtained from the lung bases to the proximal femurs. Images were reviewed in the axial, sagittal, and coronal planes. IV contrast was administered without complication. Automated exposure control was utilized for the study. A dose lowering technique was utilized adhering to the principles of ALARA. CT DOSE: 1216.31 mGycm FINDINGS: Multiple metastases within the lower lungs are noted. No pneumatosis, free air or portal venous gas is present. Extensive hepatic metastases are again noted. The previously described subcapsular hematoma along the inferior aspect the lateral segment of the liver is similar in size to CT of July 15, 2022. This measures 8.1 cm in transverse dimension. Associated hemorrhage along the anterior aspect of the stomach is unchanged. A small amount of hemorrhage along the right hepatic lobe has slightly increased. Hemoperitoneum within the pelvis is present. The amount of hemorrhage within the pelvis has slightly decreased although the attenuation has mildly increased. The spleen, adrenal glands, kidneys and pancreas are unremarkable. There is no evidence for a bowel obst ruction. The known cecal mass is not well depicted on this exam. Enlarged ileocolic lymph nodes are again noted. Index node measures 2.7 x 1.8 cm. No suspicious osseous lesions are noted. Major vasculature is patent. IMPRESSION: 1. No change in size of the subcapsular hematoma along the lateral segment of the liver since CT of July 15, 2022. Slight decrease in amount of pelvic hemoperitoneum. Overall, no evidence for significant interval bleed. 2. Redemonstration of hepatic, pulmonary and romain metastases. Known cecal mass not well depicted on this exam. 3. No bowel obstruction. ACT 112: Negative or not required by law. Electronically signed by: Randall Da Silva M.D. 07/21/2022 1:38 PM Abdomen/Pelvis CT 07/24/22 06:00 CT SCAN OF THE ABDOMEN AND PELVIS WITH IV CONTRAST CLINICAL HISTORY: Follow-up pelvic fluid collection. Known liver hematoma. Metastatic disease. COMPARISON STUDY: Prior abdominal CT scans, most recently dated 07/21/2022. TECHNIQUE: Following the IV administration of 86 cc of Optiray 350, CT scan of the abdomen and pelvis is performed from the lung bases to the proximal femora. Images are reviewed in the axial, sagittal, and coronal planes. IV contrast was administered without complication. A dose lowering technique was utilized adhering to the principles of ALARA. CT DOSE: 545.82 mGy.cm FINDINGS: Lung bases: The heart is normal in size and without pericardial effusion. Multifocal pulmonary metastatic disease has not appreciably changed from previous. The largest lesion is seen at the left lung base on image #58 and measures 3 cm. There is dependent segmental atelectasis. No airspace consolidation typical for pneumonia or pleural effusion is identified. Liver: The contrast-enhanced liver is enlarged, measuring 28 cm in length. There is mild biliary ductal dilatation in the right lobe severe to mass lesions or hepatic metastases. The remaining intrahepatic bile ducts are normal in caliber. The hepatic veins and portal veins are patent. A right lobe portal venous branches markedly narrowed by hepatic metastatic disease. Large hepatic metastatic lesions are unchanged. Subcapsular hematoma along the inferior aspect of the left lobe is similar to previous. This measures approximately 8 cm in transverse diameter. There is no evidence of active extravasation. Gallbladder: The gallbladder is contracted and appears mildly thick walled. Spleen: Normal in size and attenuation. Pancreas: Unremarkable. Adrenal glands: Unremarkable. Kidneys: The contrast enhanced kidneys are normal in size and without hydronephrosis. The kidneys enhance symmetrically. Abdominal vasculature: The abdominal aorta is normal in course and caliber. Bowel: There is no bowel obstruction. Moderate fecal retention is seen throughout the colon. The patient's's reported history of a cecal lesion is not well visualized on this examination. The appendix is normal as visualized. Peritoneum: Complex free fluid in the pelvis is consistent with hemoperitoneum. This has modestly decreased in volume as compared to 07/21/2022. No intraperitoneal free air is identified. Trace fluid is seen along the posterior aspect of the right lobe on image 15. Lymphadenopathy: Enlarged mesenteric nodes in the right lower quadrant are similar to previous. A site safety representative node on image #329 measures 2.8 x 1.9 cm. Pelvic viscera: The bladder, uterus, and adnexa are normal as visualized. Skeletal structures: No lytic or blastic lesions are seen. Sclerotic change is noted in the sacroiliac joints. IMPRESSION: 1. A small subcapsular hemorrhage along the left hepatic lobe has not significant changed as compared to 07/21/2022. No active extravasation is seen. 2. A small volume of hemoperitoneum is again seen in the pelvis. This has modestly decreased from 07/21/2022. 3. Again seen is extensive pulmonary and hepatic metastatic disease, as well as metastatic romain disease in the right lower quadrant. 4. The patient's cecal mass is not well visualized. 5. Additional findings as above. ACT 112: Negative or not required by law. Electronically signed by: Brayden Brown M.D. 07/24/2022 5:22 PM Chest X-Ray 07/24/22 14:56 TWO VIEW CHEST CLINICAL HISTORY: Fever. Leukocytosis. FINDINGS: PA and lateral chest radiographs are compared to study dated 07/21/2022 and correlated with chest CT dated 07/12/2022. The cardiomediastinal silhouette is unremarkable. Again seen is evidence of multifocal pulmonary metastatic disease. There is bibasilar atelectasis. No airspace consolidation typical for pneumonia or pleural effusion is identified. There is no pneumothorax. The bony thorax appears intact. IMPRESSION: 1. No acute cardiopulmonary abnormality. 2. Multifocal pulmonary metastatic disease is again noted. ACT 112: Negative or not required by law. Electronically signed by: Brayden Brown M.D. 07/24/2022 5:20 PM Venous Doppler Study 07/26/22 07:44 BILATERAL LOWER EXTREMITY VENOUS DOPPLER CLINICAL HISTORY: persistent fever, stage 4 cancer; eval DVT COMPARISON STUDY: No previous studies for comparison. TECHNIQUE: Sonography of the deep venous system of the bilateral lower extremities was performed. Compression and augmentation were evaluated. FINDINGS: The bilateral common femoral, superficial femoral and popliteal veins were compressible. Augmentation was normal. Flow was shown within the deep calf vessels. IMPRESSION: No evidence of deep venous thrombus within the bilateral lower extremities. ACT 112: Negative or not required by law. Electronically signed by: Randall Da Silva M.D. 07/26/2022 11:44 AM Chest X-Ray 07/27/22 09:00 XR chest 1V portable CLINICAL HISTORY: S/P Mediport insertion. TECHNIQUE: Single frontal radiograph of the chest was obtained. Comparison: Comparison is made to chest radiograph 07/24/[address] abdomen pelvis 07/24/2022 FINDINGS: Port catheter is seen with the tip in the lower SVC. The cardiomediastinal silhouette is normal. Prominence and cephalization of the vasculature is seen. A few nodular densities are seen compatible with known metastatic disease. No evidence of pleural effusion or pneumothorax. IMPRESSION: Lungs are underinflated but there is no evidence of airspace disease. There is mild pulmonary vascular congestion. Multiple pulmonary metastases are again seen. ACT 112: Negative or not required by law. Electronically signed by: Galdino Snow M.D. 07/27/2022 9:43 AM Hospital Course (1) Fever: Suspected to be 2nd to cancer vs subcapsular hematoma. Extensive infectious work-up was negative. Patient admitted with fever and abdominal pain in the setting of recent liver biopsy and newly diagnosed metastatic adenocarcinoma of the colon with mets to the liver and lungs. Was recently admitted for subcapsular liver hematoma and discharged to home on 07/17/22. Since earlier this month has had multiple CT abd/pelvis without infectious findings. Subcapsular liver hematoma (from liver biopsy) slowly improving in size. Hemoperitoneum - mild - also improving. Blood cultures from 07/16, 07/21, and 07/24 all negative. Urine cultures only with Gardnerella like bacteria only. Parasite smear negative. Anaplasmosis and babesiosis smears negative; DNA testing pending. Lyme titer negative. Initial COVID-19 negative and repeat [employer] viral respiratory panel on 07/24/22 was fully negative. Acute hepatitis panel was negative. Venous duplex studies of legs negative for DVT. She never had symptoms or signs of meningitis. She received broad-spectrum IV antibiotic therapy while awaiting cultures. These were ultimately discontinued. At discharge, however, PO doxycycline was continued whlie awaiting Anaplasmosis DNA. The chances of having tick-borne illness, however, were very low. Last documented fever was 07/25/22. (2) Abdominal pain: 2nd to liver mets, subcapsular hematoma and constipation. She was started and continued on long-acting OxyContin 10 Mg BID. She will continue oxycodone IR 15 Mg q6h prn breakthrough pain. (3) Constipation: Opiate-induced along with the cancer itself of the colon causing change in bowel habits. s/p Relistor, daily miralax, colace BID, and senna - started having regular bowel movements on 07/23. Cont on a bowel regimen post-discharge. (4) Metastatic adenocarcinoma: Metastatic Adenocarcinoma of the colon with mets to the lungs and liver. CEA elevated at 471. Significantly elevated alkaline phosphatase and now total bilirubin mildly elevated. Transaminases wnl. She originally saw [facility] oncology in [place] and was reportedly not a candidate for any therapy via clinical trials. Now to establish care with Dr Paula Smith at [facility]. Plan to start FOLFOX treatment with oncology [facility] post-d/c. s/p Mediport placement during this hospital stay. (5) Colon cancer metastasized to liver: As above (6) Thrombocytosis: 2nd to iron deficiency anemia Range 500s to 700s during the stay (7) Anemia: chronic iron deficiency aggravated by acute on chronic blood loss from subcapsular liver hematoma in the setting of colon cancer s/p 1 unit PRBCs on 07/24/22 s/p 3 doses of Venofer 300 Mg IV discharge hemoglobin = 8.5 (8) Subcapsular hematoma of liver: Initially seen on CT a/p on 07/15/22. Likely 2nd to liver biopsy (performed 07/12/22). Radiographically her hematoma was stable to improved on most recent CT abd/pelvis on 07/24/22. 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 Also was asked to STOP her oral control pills due to high risk of VTE with concurrent cancer. Total Time Total Time Spent Total Time Spent (In Minutes): 45 Discharge Plan Discharge Items Patient Disposition: Home - Self-Care Reason For Visit: FEVER AND ABDOMINAL PAIN Discharge Diagnosis: 1. fever - suspected to be from the cancer itself vs liver hematoma - fevers improved. Tick-born disease testing pending. 2. abdominal pain - due to liver hematoma, constipation, and cancer. 3. colon cancer. 4. anemia. Activity: As commented below Activity Comment: light activities over the next few weeks as you start your cancer treatment Lifting: No more than 10 pounds Exercise/Sports: Wait until after follow-up appointment Driving/Machine Use: No driving due to use of narcotic pain killer medication Non-emergency contact: Primary Care Provider, Specialist and Oncologist Call non-emergency contact if: you have any medication questions Follow-up/Referrals: Larry Soto MD [Physician] - (please call Dr Soto's office with any questions or concerns regarding your port. A scheduled follow-up appointment is not needed, however, unless you encounter problems with the port. ) Doreen Geiger PA-C [Physician Drosophere Operator] - 08/05/22 9:15 am Gloria Molina MD [Primary Care Provider] - 07/28/22 10:20 am (Appt with Tanja LIN) Paula Smith MD [Physician] - (Dr Smith's office will be contacting you to schedule chemo teaching, etc. Please keep your previously scheduled appt with her on 08/09/22 but she is hoping to move this appointment up for you. ) Diet: Regular Addtl Attending Provider Instructions: Ms Gonzalez, Florin were hospitalized for fevers and abdominal pain. You underwent 2 CT scans of the abdomen during the stay. This showed a small hematoma of the liver (blood collection) likely due to your recent liver biopsy performed on 07/12/22. The hematoma was stable on the 2 CT scans (ie - the hematoma did not grow in size). The CTs also showed considerable constipation. Your abdominal pain is likely due to a combination of the hematoma, the liver being enlarged, constipation, and the cancer itself. An extensive work-up was undertaken to look for the cause of your fevers. We did not find COVID infection, bloodstream infection, Lyme disease, pneumonia, or other obvious causes of fever. It is possible that the fevers were due to your cancer or possibly even the hematoma. We cannot fully rule out tick-borne infection but it is unlikely. We also performed dopplers of the legs and we did not find DVT blood clots. The [facility] pain management team saw you in consult for your pain and they have recommended adjustments in your short-acting oxycodone as well as adding extended-release oxycontin twice daily. On 07/27/22 Dr Larry Soto placed an a-port in the left chest to be used for future chemotherapy. Recommendations - 1. for pain relief - both medications below are "narcotic" pain killers. * OXYCONTIN (extended-release) - 10mg twice daily every day * OXYCODONE (immediate-release, short-acting) - 15mg every 6 hours as needed for "breakthrough" pain * please note the difference in the 2 medications above and use them carefully & cautiously * both medications above can cause constipation and cause drowsiness * DO NOT DRINK ALCOHOL WHILE USING NARCOTIC PAIN KILLER MEDICATION * SINCE YOU WILL BE ON THE OXYCONTIN EXTENDED RELEASE EVERY DAY PLEASE DO NOT DRIVE A CAR AT THIS TIME; HAVE FAMILY & FRIENDS DRIVE YOU TO APPOINTMENTS, ETC 2. for constipation - you likely will need a combination of the following every day - * senokot 2 tabs once daily ([id number]) * miralax 17gm once daily ([id number]) * for "gas pain" / bloating you can use [id number] "GAS-X" as desired 3. for muscle pain/spasm - may use cyclobenzaprine 10mg every 8 hours as needed. Please avoid taking this muscle relaxer medication at the same time as the short-acting oxycodone. 4. doxycycline antibiotic twice daily x 7 days (take at least until the final tick-borne labs return - we will call you with those results 5. STOP YOUR CONTROL PILLS due to high risk of developing blood clots 6. STOP any ibuprofen/motrin/aspirin/naprosyn/alleve 7. for low sodium levels take -- sodium chloride 1 gram daily (this is a prescription); take your first dose tomorrow 8. if you experience any swelling of your feet/ankles you can use the following - * furosemide water pill - 20mg by mouth once daily NEEDED for swelling * if you take furosemide you will need to take a potassium supplement with it 9. Follow-up - see separate section Return to [facility] if - * you have persistent fevers over 100.5 degrees * you have ongoing, severe abdominal pain despite taking all of your normal pain medications * you have inability to have a bowel movement * you are short of breath * you have chest pains * you have pain, swelling, redness, etc in either leg * any other concerns It was our pleasure to care for you at [facility]! Dr Deepak Drew Show Card Writer Provider Instructions: SPECIAL CARE INSTRUCTIONS following port placement: * May shower in 24 hours. Let water run over area and pat dry. * Leave operative site dressing on for 3 days and then remove. * Call the surgeon's office with any questions or concerns - see Dr Soto's office information. (examples - excessive bleeding or pain from the port site, increased redness or drainage, etc). Pending Studies at Discharge: Yes Studies:: tick-born disease labs Stand-Alone Forms: My [facility] [employer], Smoking Cessation Medications and DC Order Prescriptions: New cyclobenzaprine 10 mg Tablet 10 mg PO TID PRN (Reason: muscle pain/spasm) Qty: 20 0RF sodium chloride 1 gram Tablet 1 g PO DAILY Qty: 30 1RF furosemide [Lasix] 20 mg tablet 20 mg PO QAM PRN (Reason: edema of legs) Qty: 20 0RF potassium chloride 10 mEq tablet extended release 10 meq PO DAILY PRN (Reason: for when you take furosemide diuretic) Qty: 20 0RF Continued zolpidem 5 mg tablet 5 mg PO HS PRN (Reason: sleep) Qty: 20 0RF Rx Instructions: max 20 tablets per month ondansetron 4 mg tablet,disintegrating 4 mg PO Q8H PRN (Reason: nausea and vomiting) Qty: 30 0RF multivitamin tablet 1 tab PO QAM lamotrigine 150 mg tablet 150 mg PO QAM lorazepam 0.5 mg tablet 0.5 mg PO HS fluticasone propionate 50 mcg/actuation spray,suspension 1 sprays INTNAS BID PRN (Reason: Congestion) bupropion HCl 200 mg tablet sustained-release 12 hr 200 mg PO QAM Changed acetaminophen 650 mg tablet extended release 650 mg PO TID PRN (Reason: pain or temp>38 degrees) Qty: 90 0RF Discontinued oxycodone 10 mg tablet 10 mg PO Q6H PRN (Reason: pain) Qty: 60 0RF drospirenone-ethinyl estradiol [KELVIN (28)] 3-0.02 mg tablet 1 tab PO QAM ibuprofen 400 mg tablet 400 mg PO Q6H PRN (Reason: pain) Qty: 30 0RF No Action oxycodone 15 mg tablet 15 mg PO Q4H PRN (Reason: pain) Qty: 60 0RF Rx Instructions: colon CA oxycodone [OxyContin] 30 mg tablet,oral only,ext.rel.12 hr 30 mg PO Q12H Qty: 30 0RF Rx Instructions: colon CA naloxone [Narcan] 4 mg/actuation spray,non-aerosol 4 mg intranasal Q2M PRN (Reason: opioid overdose) Qty: 2 2RF Rx Instructions: spray 1 dose into ONE nostril; alternate nostrils w each dose until help arrives Discharge Orders: Discharge Order (Routine); Ordered 07/27/22 Ordered By: Jose Manuel Sotelo Admission Data Admit Date/Time: 07/21/22 15:04 Attending Provider: Jose Manuel Sotelo Admit Provider: Haroldo Spencer Primary Care Provider: Gloria Molina Other Providers: Haroldo Spencer ; Liliya Almaraz ; Danny Hall ; Arcelia Bryant ; Bettina Vaca ; Pravin Dunn ; Akbar Lyon ; Paula Smith ; SiaNo Attending ; Pedro Thomas ; Beatrice Garnett ; Tony Valencia ; Doreen Geiger ; Rich Sal Other Interventions: Discharge Summary Assessment (RN) Last Done: 07/27/22 14:03 Coding Level of Care Code D/C DAY MANAGEMENT >30 MINS Diagnoses Fever R50.9 Abdominal pain R10.9 Abdominal location: unspecified location Constipation K59.00 Metastatic adenocarcinoma C79.9 Colon cancer metastasized to liver C18.9; C78.7 Thrombocytosis D75.839 Anemia D64.9 Anemia type: unspecified type Subcapsular hematoma of liver K76.89 Hyponatremia E87.1 Hypomagnesemia E83.42 Depression F32.9 Bipolar 2 disorder F31.81
[2022-07-27 19:30] LABS: Babesia microti DNA Not Detected (Not Detected)
== END 2022-07-27 17:12 | disposition home or self-care (01) | DRG 374 ==
LOC: ED 10:18 → 2N 15:04 → SUATTDRO 15:04 → 2N 16:41

== ENCOUNTER 2023-06-24 14:12 | Inpatient (IN) ==
[2023-06-24 14:58] LABS: Basophils % (auto) 0.6 %; Eosinophils # (auto) 0.01 K/uL (0.00-0.50); Eosinophils % (auto) 0.1 %; Hematocrit (blood only) 29.1 % (37.0-47.0); Hemoglobin 9.1 g/dl (12.0-16.0); Immature Granulocytes # (auto) 0.24 K/uL (0.01-0.20); Immature Granulocytes % (auto) 1.4 %; Lymphocytes # (auto) 1.56 K/uL (1.20-3.40); Lymphocytes % (auto) 9.4 %; Mean Corpuscular Hemoglobin 26.1 pg (25.0-34.0); Mean Corpuscular Hgb Conc 31.3 g/dL (32.0-36.0); Mean Corpuscular Volume 83.6 fL (80.0-100.0); Monocytes # (auto) 1.83 K/uL (0.11-0.59); Neutrophils # (auto) 12.85 K/uL (1.40-6.50); Neutrophils % (auto) 77.5 %; Nucleated RBC # (auto) 0.04 K/uL (0.00-0.12); Nucleated RBC % (auto) 0.2 %; Platelet Count 413 K/uL (130-400); RDW Coefficient of Variation 18.5 % (11.5-14.5); RDW Standard Deviation 54.7 fL (36.4-46.3); Red Blood Count 3.48 M/uL (4.20-5.40); White Blood Count 16.59 K/ul (4.8-10.8)
[2023-06-24 15:16] LABS: Anion Gap 9 (3-11); BUN Creatinine Ratio 22.2 (10-20); Blood Urea Nitrogen 16 mg/dl (6-23); Calcium 8.3 mg/dl (8.6-10.3); Carbon Dioxide 23 mmol/L (21-32); Chloride 104 mmol/L (98-107); Est GFR (African American) 113.2 ml/min; Est GFR (Non-African American) 97.7 ml/min; Glucose 101 mg/dl (70-99(Fasting)); Potassium 4.4 mmol/L (3.5-5.1); Sodium 136 mmol/L (136-145)
[2023-06-24 15:22] LABS: Troponin I High Sensitivity 22.7 pg/ml (0-14)
[2023-06-24 15:35] LABS: Alanine Aminotransferase 88 U/L (7-52); Albumin Globulin Ratio 0.7 (0.9-2); Albumin Level 2.7 gm/dl (3.4-5.0); Alkaline Phosphatase 1585 U/L (34-104); Aspartate Aminotransferase 139 U/L (13-39); Bilirubin,Total 7.4 mg/dl (0.2-1.0); Magnesium 2.2 mg/dl (1.7-2.4); Total Protein 6.7 gm/dl (6.0-8.3)
--- NOTE | 2023-06-24 15:35 | XRay Report ---
XR chest 1V not portable CLINICAL HISTORY: Weakness. Colon cancer. COMPARISON STUDY: Chest CT April 14, 2023. Chest radiograph July 27, 2022. FINDINGS: Left subclavian [id number] is in place. Lungs are mildly diminished. This is unchanged. Cardiomediastinal silhouette is stable. Innumerable pulmonary nodules have significantly progressed s becky chest CT of April 14, 2023. No consolidation is identified. IMPRESSION: Significant progression of extensive pulmonary metastases since chest CT April 14, 2023. ACT 112: Negative or not required by law. Electronically signed by: Randall Da Silva M.D. 06/24/2023 3:34 PM
[2023-06-24 15:36] LABS: INR 3.2 (0.9-1.1); Partial Thromboplastin Ratio 1.3; Partial Thromboplastin Time 36.8 Seconds (21.0-31.0); Prothrombin Time 32.1 Seconds (9.0-12.0)
[2023-06-24] MEDS ORDERED: ONDANSETRON INJ 2 MG/ML 2 ML VIAL IV STA ×2 (16:49→16:51)
[2023-06-24] MEDS ORDERED: SODIUM CHLORIDE 0.9% 1000ML 1,000 ML IV ONE (16:49)
[2023-06-24] MEDS ORDERED: MoRPHine SULFATE 4 MG/ML 1 ML CARP\\VIAL IV STA (16:51)
--- NOTE | 2023-06-24 17:01 | Emergency Department Note ---
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 The patient has a history of elevated ammonia. She was seen in our facility 2 nights ago for similar complaints but was able to be discharged home. The patient's significant other states that she has been declining ever since. They called the covering physician for their local oncologist and were referred to the emergency department for further evaluation. There were no reported falls or fevers. There is been no reported GI bleeding. ROS: See above HPI for pertinent positives & negatives. A total of 10 systems reviewed and were otherwise negative. PAST MEDICAL HISTORY: See Below PAST SURGICAL HISTORY: See Below FAMILY HISTORY: See Below SOCIAL HISTORY: See Below HOME MEDICATIONS: See Below ALLERGIES: See Below VITALS: See Below PHYSICAL EXAMINATION: GENERAL: The patient is awake and alert. She is slow to answer questions. EYES: The conjunctivae are icteric. The pupils are round and reactive. EARS, NOSE, MOUTH AND THROAT: The nose is without any evidence of any deformity. Mucous membranes are dry NECK: The neck is nontender and supple. RESPIRATORY: Normal respiratory effort is noted there is no evidence of wheezing rhonchi or rales CARDIOVASCULAR: Regular rate and rhythm noted there no murmurs rubs or gallops normal S1 normal S2. GASTROINTESTINAL: The abdomen was distended. There is diffuse tenderness to palpation. There is hepatomegaly to palpation. MUSCULOSKELETAL/EXTREMITIES: There is no evidence of gross deformity full range of motion is noted in the hips and shoulders. SKIN: Skin was jaundiced. There is pedal edema bilaterally. NEUROLOGIC: Patient is awake and oriented to person place but not time or situation. She does recognize her significant other. MEDICAL DECISION MAKING: The patient is a 52-year-old female who presented to the emergency department for altered mental status. The patient has a history of metastatic colon cancer. She has no metastatic disease to the liver. The patient was having increasing altered mental status and confusion. She was seen in our facility recently for similar complaints. She was doing better was able to be discharged home. The patient returns this evening with her significant other for ongoing symptoms. The patient was found to have metastatic disease to the brain which likely explains her presentation this evening. She was treated with IV steroids. I discussed the patient's laboratory and radiographic studies with her and her . She was treated with IV antiemetics. I discussed her condition with her primary oncologist locally. They did call the patient's oncologist in [place]. At this time they do not feel the patient requires emergent transfer. They did ask me to discuss the case with neurosurgery at [facility]. I discussed the case with neurosurgeon at [facility]. They do not feel that these lesions would be amenable to neurosurgery at this time. [facility] to evaluate the patient in the emergency department. Triage Nursing notes reviewed. Prior medical records reviewed Vital Signs: reviewed and remarkable for no significant abnormalities Differential diagnosis: Infection, hypoglycemia, electrolyte abnormalities, overdose, toxicologic, cardiac sources, intracerebral event, neurologic, trauma, as well as other pathologies. ER treatment provided: See below Diagnostics interpreted by me: ECG: EKG was obtained in the emergency department. My interpretation is normal sinus rhythm at 99 bpm. There was no ectopy. Low voltage was noted throughout. Poor R wave progression was noted. This was compared to a tracing from July 21, 2022. No changes were noted. Cardiac Monitoring: An order was placed for continuous cardiac monitoring. The monitor shows a rate of 88 bpm with sinus rhythm. Laboratory studies: As stated above and show below. Imaging studies: See below. Radiographic imaging was reviewed by myself Consultation(s): I discussed this case with Dr. Smith with who is the patient's primary local oncologist I discussed this case with Dr. Najera who is on-call for neurosurgery at [facility]. I discussed this case with Pravin who [facility] ED COURSE: Procedures: none Critical Care: I have personally spent greater than 35 minutes of critical care time in the direct management of this patient. This includes bedside care, interpretation of diagnostic studies, and testing, discussion with consultants, patient, and family members, and other required patient management activities. This 35 minutes is in excess of all separately billable procedures. Past Med/Surg History Medical History Anemia reason for upcoming EGD Bipolar 2 disorder Cancer related pain Cervical radiculopathy Colon cancer metastasized to liver Depression Dysmenorrhea Dysplastic nevus Ectopic hx GERD (gastroesophageal reflux disease) History of COVID-19 March 22, 2022 > home test and at [place] test site in parking gargage. > tired, cough, fever > all resolved Hypomagnesemia Hyponatremia IBS (irritable bowel syndrome) Metastatic adenocarcinoma Subcapsular hematoma of liver Thrombocytosis Surgical History H/O laparoscopy Ovarian pregnacy H/O oral surgery tooth extraction- wisdom History of colonoscopy History of dilatation and curettage S/P abdominoplasty S/P fine needle aspiration pt unaware S/P LASIK surgery S/P skin biopsy Nevus- Benign Family History Grandmother (Maternal) Alzheimer disease Stroke Mother Hypothyroidism Obesity Diabetes S/P removal of parathyroid gland Grandmother (Paternal) Diabetes Family/Other Breast cancer Sister Diabetes Pre-diabetes Uncle Stroke Myocardial infarction Dementia Aunt Breast cancer Denies family history of Ovarian cancer Colorectal cancer Social History Smoking Status: Former smoker Tobacco Type: Cigarettes Age Started Using Tobacco: 14; Age Quit Using Tobacco: 44; packs per day: 1; Cigarettes Per Day: 1 pack; Second Hand Exposure: Yes; Do You Dip or Chew Tobacco: No; Hx Alcohol Use: No Hx Substance Use: No Preferred Language: [place] Island[place] Communication Ability: Effective Visual Impairment: No Limitations Hearing Ability: Normal Freight Associate Required: No Beliefs That Will Affect Care: None marital status: Current Living Situation: Spouse Current Living Situation Comment: home current occupational status: employed 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 How many Children do You have: 1 Feels Safe at Home: Yes Childhood Exposure to Second-Hand Smoke: Yes Diet: regular Diet Comment: regular Dental Care, Regularly: Yes Seatbelt Use: always Sunscreen Use: Yes Assistive Devices: Glasses Allergies Allergies Allergy/AdvReac Type Severity Reaction Status Date / Time Sulfa (Sulfonamide Allergy Severe BREATHING Verified 06/14/23 11:50 Antibiotics) DIFFICULTIES adhesive Allergy Unknown SKIN RASH Verified 06/14/23 11:50 Home Meds Home Medications Medication Instructions Recorded Confirmed fluticasone propionate 50 1 sprays intranasal BID PRN 07/07/22 06/24/23 mcg/actuation nasal Congestion spray,suspension lamotrigine 150 mg tablet 150 mg PO QAM 07/07/22 06/24/23 docusate sodium 100 mg capsule 100 mg PO DAILY 09/08/22 06/24/23 (Stool Softener) acetaminophen 650 mg 500 mg PO Q6H PRN pain or temp>38 06/14/23 06/24/23 tablet,extended release degrees buspirone 15 mg tablet 15 mg PO BID 06/14/23 06/24/23 fexofenadine 180 mg tablet 180 mg PO DAILY 06/14/23 06/24/23 (Kate Allergy) lamotrigine 25 mg tablet 25 mg PO DAILY 06/14/23 06/24/23 ondansetron 4 mg disintegrating 8 mg PO Q8H PRN nausea and vomiting 06/14/23 06/24/23 tablet pantoprazole 40 mg tablet,delayed 40 mg PO DAILY 06/14/23 06/24/23 release pregabalin 150 mg capsule 150 mg PO TID 06/14/23 06/24/23 prochlorperazine maleate 10 mg 10 mg PO Q6H PRN Nausea And 06/14/23 06/24/23 tablet Vomiting sennosides 8.6 mg tablet (senna) 8.6 mg PO DAILY 06/14/23 06/24/23 lactulose 10 gram/15 mL (15 mL) 10 g PO BID 06/24/23 06/24/23 oral solution vitamin B complex 1 tab PO DAILY 06/24/23 06/24/23 Previous Rx's Medication Instructions Recorded naloxone 4 mg/actuation nasal 4 mg intranasal Q2M PRN opioid 11/03/22 spray (Narcan) overdose #2 ea fentanyl 50 mcg/hr transdermal 1 patch transdermal Q72H #10 ea 06/02/23 patch oxycodone 15 mg tablet 15 mg PO Q4H PRN pain #120 tabs 06/23/23 Results & Data (ED) Vital Signs Vital Signs - 24 hr 06/24/23 14:17 06/24/23 16:11 06/24/23 15:53 Temperature 36.4 C L Temperature Source Temporal Artery Scan Pulse Rate 91 H 93 H 93 H Pulse Rate from SpO2 Sensor Pulse Rhythm Regular Pulse Strength Normal Respiratory Rate 20 15 Respiratory Effort / Characteristics Non-Labored Spontaneous Respiratory Depth Normal Respiratory Pattern Regular Blood Pressure 108/75 Blood Pressure Mean 86 Blood Pressure Position Sitting Pulse Oximetry 92 Oxygen Delivery Method Room Air Sepsis Recent Fever Within 48 Hours No Sepsis New/Unexplained Change in Mental Status No Sepsis Action Taken by Nursing No Action Required Oxygen Flow Rate - Titration 06/24/23 16:00 06/24/23 16:00 06/24/23 16:30 Temperature Temperature Source Pulse Rate 92 H Pulse Rate from SpO2 Sensor Pulse Rhythm Pulse Strength Respiratory Rate 14 Respiratory Effort / Characteristics Respiratory Depth Respiratory Pattern Blood Pressure 103/73 108/74 Blood Pressure Mean 83 85 Blood Pressure Position Pulse Oximetry Oxygen Delivery Method Sepsis Recent Fever Within 48 Hours Sepsis New/Unexplained Change in Mental Status Sepsis Action Taken by Nursing Oxygen Flow Rate - Titration 06/24/23 16:30 06/24/23 17:00 06/24/23 17:00 Temperature Temperature Source Pulse Rate 90 92 H Pulse Rate from SpO2 Sensor Pulse Rhythm Pulse Strength Respiratory Rate 16 16 Respiratory Effort / Characteristics Respiratory Depth Respiratory Pattern Blood Pressure 106/69 Blood Pressure Mean 81 Blood Pressure Position Pulse Oximetry Oxygen Delivery Method Sepsis Recent Fever Within 48 Hours Sepsis New/Unexplained Change in Mental Status Sepsis Action Taken by Nursing Oxygen Flow Rate - Titration 06/24/23 17:31 06/24/23 17:31 06/24/23 18:00 Temperature Temperature Source Pulse Rate 90 Pulse Rate from SpO2 Sensor Pulse Rhythm Pulse Strength Respiratory Rate 16 Respiratory Effort / Characteristics Respiratory Depth Respiratory Pattern Blood Pressure 101/62 101/64 Blood Pressure Mean 75 76 Blood Pressure Position Pulse Oximetry Oxygen Delivery Method Sepsis Recent Fever Within 48 Hours Sepsis New/Unexplained Change in Mental Status Sepsis Action Taken by Nursing Oxygen Flow Rate - Titration 06/24/23 18:00 06/24/23 20:14 06/24/23 18:30 Temperature Temperature Source Pulse Rate 90 Pulse Rate from SpO2 Sensor 90 Pulse Rhythm Pulse Strength Respiratory Rate 16 Respiratory Effort / Characteristics Respiratory Depth Respiratory Pattern Blood Pressure 103/64 Blood Pressure Mean 77 Blood Pressure Position Pulse Oximetry 92 Oxygen Delivery Method Nasal Cannula Sepsis Recent Fever Within 48 Hours Sepsis New/Unexplained Change in Mental Status Sepsis Action Taken by Nursing Oxygen Flow Rate - Titration 3 06/24/23 18:30 06/24/23 19:00 06/24/23 19:00 Temperature Temperature Source Pulse Rate 89 90 Pulse Rate from SpO2 Sensor 89 90 Pulse Rhythm Pulse Strength Respiratory Rate 19 17 Respiratory Effort / Characteristics Respiratory Depth Respiratory Pattern Blood Pressure 103/64 Blood Pressure Mean 77 Blood Pressure Position Pulse Oximetry 87 L 90 Oxygen Delivery Method Sepsis Recent Fever Within 48 Hours Sepsis New/Unexplained Change in Mental Status Sepsis Action Taken by Nursing Oxygen Flow Rate - Titration 06/24/23 19:30 06/24/23 19:30 06/24/23 20:00 Temperature Temperature Source Pulse Rate 89 Pulse Rate from SpO2 Sensor 90 Pulse Rhythm Pulse Strength Respiratory Rate 19 Respiratory Effort / Characteristics Respiratory Depth Respiratory Pattern Blood Pressure 104/60 104/63 Blood Pressure Mean 74 76 Blood Pressure Position Pulse Oximetry 91 Oxygen Delivery Method Sepsis Recent Fever Within 48 Hours Sepsis New/Unexplained Change in Mental Status Sepsis Action Taken by Nursing Oxygen Flow Rate - Titration 06/24/23 20:00 06/24/23 20:30 06/24/23 20:30 Temperature Temperature Source Pulse Rate 91 H 87 Pulse Rate from SpO2 Sensor 94 H 89 Pulse Rhythm Pulse Strength Respiratory Rate 16 15 Respiratory Effort / Characteristics Respiratory Depth Respiratory Pattern Blood Pressure 108/62 Blood Pressure Mean 77 Blood Pressure Position Pulse Oximetry 91 93 Oxygen Delivery Method Sepsis Recent Fever Within 48 Hours Sepsis New/Unexplained Change in Mental Status Sepsis Action Taken by Nursing Oxygen Flow Rate - Titration Home Medications Current Medication List: was personally reviewed by me Laboratory Data Attestation: I reviewed the patient's lab results. 06/24/23 14:40 06/24/23 14:40 Lab Results 06/24/23 06/24/23 06/24/23 Range/Units 14:40 14:40 14:40 WBC 16.59 H (4.8-10.8) K/ul RBC 3.48 L (4.20-5.40) M/uL Hgb 9.1 L (12.0-16.0) g/dl Hct 29.1 L (37.0-47.0) % MCV 83.6 (80.0-100.0) fL MCH 26.1 (25.0-34.0) pg MCHC 31.3 L (32.0-36.0) g/dL RDW Std Deviation 54.7 H (36.4-46.3) fL RDW Coeff of Kenyon 18.5 H (11.5-14.5) % Plt Count 413 H (130-400) K/uL MPV 10.0 (9.4-12.4) fL Immature Gran % (Auto) 1.4 % Neut % (Auto) 77.5 % Lymph % (Auto) 9.4 % [place] % (Auto) 11.0 % Eos % (Auto) 0.1 % Baso % (Auto) 0.6 % Neut # (Auto) 12.85 H (1.40-6.50) K/uL Lymph # (Auto) 1.56 (1.20-3.40) K/uL [place] # (Auto) 1.83 H (0.11-0.59) K/uL Eos # (Auto) 0.01 (0.00-0.50) K/uL Baso # (Auto) 0.10 (0.00-0.20) K/uL Immature Gran # (Auto) 0.24 H (0.01-0.20) K/uL Absolute Nucleated RBC 0.04 (0.00-0.12) K/uL Nucleated RBC % (auto) 0.2 % PT 32.1 H (9.0-12.0) Seconds INR 3.2 H (0.9-1.1) APTT 36.8 H (21.0-31.0) Seconds PTT Ratio 1.3 Sodium 136 (136-145) mmol/L Potassium 4.4 (3.5-5.1) mmol/L Chloride 104 (98-107) mmol/L Carbon Dioxide 23 (21-32) mmol/L Anion Gap 9 (3-11) BUN 16 (6-23) mg/dl Creatinine 0.72 (0.6-1.2) mg/dl Est Cr Clr Drug Dosing Not Reportable Est GFR ( Amer) 113.2 ml/min Est GFR (Non-Af Amer) 97.7 ml/min BUN/Creatinine Ratio 22.2 H (10-20) Glucose 101 H (70-99(Fasting)) mg/dl Calcium 8.3 L (8.6-10.3) mg/dl Magnesium 2.2 (1.7-2.4) mg/dl Total Bilirubin 7.4 H (0.2-1.0) mg/dl Direct Bilirubin (0-0.2) mg/dl AST 139 H (13-39) U/L ALT 88 H (7-52) U/L Alkaline Phosphatase 1585 H (34-104) U/L Ammonia (18-72) umol/L Troponin I High Sens 22.7 H (0-14) pg/ml Total Protein 6.7 (6.0-8.3) gm/dl Albumin 2.7 L (3.4-5.0) gm/dl Globulin 4.0 (2.5-4.0) gm/dl Albumin/Globulin Ratio 0.7 L (0.9-2) Procalcitonin (0-0.5) ng/ml TSH (0.300-4.500) uIu/ml 06/24/23 06/24/23 06/24/23 Range/Units 14:40 14:40 14:40 WBC (4.8-10.8) K/ul RBC (4.20-5.40) M/uL Hgb (12.0-16.0) g/dl Hct (37.0-47.0) % MCV (80.0-100.0) fL MCH (25.0-34.0) pg MCHC (32.0-36.0) g/dL RDW Std Deviation (36.4-46.3) fL RDW Coeff of Kenyon (11.5-14.5) % Plt Count (130-400) K/uL MPV (9.4-12.4) fL Immature Gran % (Auto) % Neut % (Auto) % Lymph % (Auto) % [place] % (Auto) % Eos % (Auto) % Baso % (Auto) % Neut # (Auto) (1.40-6.50) K/uL Lymph # (Auto) (1.20-3.40) K/uL [place] # (Auto) (0.11-0.59) K/uL Eos # (Auto) (0.00-0.50) K/uL Baso # (Auto) (0.00-0.20) K/uL Immature Gran # (Auto) (0.01-0.20) K/uL Absolute Nucleated RBC (0.00-0.12) K/uL Nucleated RBC % (auto) % PT (9.0-12.0) Seconds INR (0.9-1.1) APTT (21.0-31.0) Seconds PTT Ratio Sodium (136-145) mmol/L Potassium (3.5-5.1) mmol/L Chloride (98-107) mmol/L Carbon Dioxide (21-32) mmol/L Anion Gap (3-11) BUN (6-23) mg/dl Creatinine (0.6-1.2) mg/dl Est Cr Clr Drug Dosing Est GFR ( Amer) ml/min Est GFR (Non-Af Amer) ml/min BUN/Creatinine Ratio (10-20) Glucose (70-99(Fasting)) mg/dl Calcium (8.6-10.3) mg/dl Magnesium (1.7-2.4) mg/dl Total Bilirubin (0.2-1.0) mg/dl Direct Bilirubin 4.2 H (0-0.2) mg/dl AST (13-39) U/L ALT (7-52) U/L Alkaline Phosphatase (34-104) U/L Ammonia 61.0 (18-72) umol/L Troponin I High Sens (0-14) pg/ml Total Protein (6.0-8.3) gm/dl Albumin (3.4-5.0) gm/dl Globulin (2.5-4.0) gm/dl Albumin/Globulin Ratio (0.9-2) Procalcitonin (0-0.5) ng/ml TSH 0.987 (0.300-4.500) uIu/ml 06/24/23 Range/Units 14:40 WBC (4.8-10.8) K/ul RBC (4.20-5.40) M/uL Hgb (12.0-16.0) g/dl Hct (37.0-47.0) % MCV (80.0-100.0) fL MCH (25.0-34.0) pg MCHC (32.0-36.0) g/dL RDW Std Deviation (36.4-46.3) fL RDW Coeff of Kenyon (11.5-14.5) % Plt Count (130-400) K/uL MPV (9.4-12.4) fL Immature Gran % (Auto) % Neut % (Auto) % Lymph % (Auto) % [place] % (Auto) % Eos % (Auto) % Baso % (Auto) % Neut # (Auto) (1.40-6.50) K/uL Lymph # (Auto) (1.20-3.40) K/uL [place] # (Auto) (0.11-0.59) K/uL Eos # (Auto) (0.00-0.50) K/uL Baso # (Auto) (0.00-0.20) K/uL Immature Gran # (Auto) (0.01-0.20) K/uL Absolute Nucleated RBC (0.00-0.12) K/uL Nucleated RBC % (auto) % PT (9.0-12.0) Seconds INR (0.9-1.1) APTT (21.0-31.0) Seconds PTT Ratio Sodium (136-145) mmol/L Potassium (3.5-5.1) mmol/L Chloride (98-107) mmol/L Carbon Dioxide (21-32) mmol/L Anion Gap (3-11) BUN (6-23) mg/dl Creatinine (0.6-1.2) mg/dl Est Cr Clr Drug Dosing Est GFR ( Amer) ml/min Est GFR (Non-Af Amer) ml/min BUN/Creatinine Ratio (10-20) Glucose (70-99(Fasting)) mg/dl Calcium (8.6-10.3) mg/dl Magnesium (1.7-2.4) mg/dl Total Bilirubin (0.2-1.0) mg/dl Direct Bilirubin (0-0.2) mg/dl AST (13-39) U/L ALT (7-52) U/L Alkaline Phosphatase (34-104) U/L Ammonia (18-72) umol/L Troponin I High Sens (0-14) pg/ml Total Protein (6.0-8.3) gm/dl Albumin (3.4-5.0) gm/dl Globulin (2.5-4.0) gm/dl Albumin/Globulin Ratio (0.9-2) Procalcitonin 2.77 H (0-0.5) ng/ml TSH (0.300-4.500) uIu/ml Administered Medications Discontinued Medications Dexamethasone Sodium Phosphate (DexamethasonePf 10 Mg/Ml Vial) 10 mg IV NOW ONE Stop: 06/24/23 18:19 Last Admin: 06/24/23 18:28 Dose: 10 mg Documented By: ARGENTINA Sodium Chloride (Nss 1000ml) 1,000 mls @ 999 mls/hr IV .Q1H1M ONE Stop: 06/24/23 17:49 Last Infusion: 06/24/23 20:12 Dose: 0 mls/hr Documented By: Admin: 06/24/23 17:31 Dose: 999 mls/hr Documented By: ARGENTINA Promethazine HCl (Phenergan) 12.5 mg in 50.5 mls @ 202 mls/hr IV NOW STA Stop: 06/24/23 18:33 Last Infusion: 06/24/23 20:11 Dose: 0 mls/hr Documented By: Admin: 06/24/23 18:33 Dose: 202 mls/hr Documented By: ARGENTINA Ioversol (Optiray 320 100ml) 93 ml IV ONCE ONE Stop: 06/24/23 17:15 Last Admin: 06/24/23 17:23 Dose: 93 ml Documented By: HEATH Morphine Sulfate (Morphine Sulfate 4 Mg/Ml 1 Ml Carp\Vial) 4 mg IV NOW STA Stop: 06/24/23 16:52 Last Admin: 06/24/23 17:33 Dose: 4 mg Documented By: ARGENTINA Ondansetron HCl (Ondansetron Inj 2 Mg/Ml 2 Ml Vial) 4 mg IV NOW STA Stop: 06/24/23 16:50 Last Admin: 06/24/23 17:32 Dose: 4 mg Documented By: ARGENTINA Ondansetron HCl (Ondansetron Inj 2 Mg/Ml 2 Ml Vial) 4 mg IV NOW STA Stop: 06/24/23 16:52 Last Admin: 06/24/23 17:33 Dose: Not Given Documented By: ARGENTINA Imaging Data Attestation: I personally reviewed and interpreted this imaging study as follows: My Impression: 1 view chest x-ray was obtained in the emergency department. My interpretation is metastatic disease noted, final report below. CT of the brain was obtained in the emergency department. My interpretation is right-sided cerebral lesions with edema noted. Final report below. Radiologist's Impression: Chest X-Ray 06/24/23 14:22 XR chest 1V not portable CLINICAL HISTORY: Weakness. Colon cancer. COMPARISON STUDY: Chest CT April 14, 2023. Chest radiograph July 27, 2022. FINDINGS: Left subclavian [id number] is in place. Lungs are mildly diminished. This is unchanged. Cardiomediastinal silhouette is stable. Innumerable pulmonary nodules have significantly progressed since chest CT of April 14, 2023. No consolidation is identified. IMPRESSION: Significant progression of extensive pulmonary metastases since chest CT April 14, 2023. ACT 112: Negative or not required by law. Electronically signed by: Randall Da Silva M.D. 06/24/2023 3:[address] 06/24/23 16:49 CT OF THE HEAD WITHOUT CONTRAST CLINICAL HISTORY: Altered mental status. COMPARISON STUDY: MRI of the brain October 28, 2019. TECHNIQUE: Helical axial images of the head were obtained without IV contrast. Automated exposure control was utilized for the study. A dose lowering technique was utilized adhering to the principles of ALARA. FINDINGS: No acute intracranial hemorrhage is present. Note is made of a 1.5 cm round intra-axial lesion lateral to the right basal ganglia. This is peripherally hyperdense and may contain a punctate calcification. Extensive associated vasogenic edema is noted. This results in effacement of the right lateral ventricle and 4 mm of leftward midline shift. There is a possible additional 1.8 cm lesion adjacent to the atrium of the right lateral ventricle. Alternatively, this could reflect choroid plexus calcification. Basal cisterns are patent. IMPRESSION: 1. 1.5 cm intra-axial lesion lateral to the right basal ganglia with extensive associated vasogenic edema which results in effacement of the right lateral ventricle and 4 mm of leftward midline shift. Given history of malignancy, this is highly suggestive of a metastasis. 2. Possible additional 1.8 cm lesion adjacent to the atrium of the right lateral ventricle. Alternatively, this could reflect choroid plexus calcification. These findings could be further assessed with an MRI of the brain with and without contrast. ACT 112: Negative or not required by law. Electronically signed by: Randall Da Silva M.D. 06/24/2023 6:13 PM Abdomen/Pelvis CT 06/24/23 16:51 CT OF THE ABDOMEN AND PELVIS WITH CONTRAST CLINICAL HISTORY: Abdominal pain. Colon cancer. COMPARISON STUDY: CT of the abdomen and pelvis June 22, 2023. PET/CT February 15, 2023. TECHNIQUE: Following IV administration of 93 mL of Optiray, axial images of the abdomen and pelvis were obtained from the lung bases to the proximal femurs. Images were reviewed in the axial, sagittal, and coronal planes. IV contrast was administered without complication. Automated exposure control was utilized for the study. A dose lowering technique was utilized adhering to the principles of ALARA. CT DOSE: 1806.65 mGy.cm FINDINGS: Innumerable pulmonary metastases are unchanged since CT of June 22, 2023. These have significantly progressed since CT of April 14, 2023. Extensive hepatic metastases have also progressed since CT of April 14, 2023. A small amount of perihepatic ascites is similar to prior CT. A small amount of pelvic ascites has slightly increased. There is no biliary or pancreatic ductal dilatation. There is no hydronephrosis. No evidence for a bowel obstruction. Major vasculature is grossly patent. A 1.6 cm lesion within the posterior right acetabulum may reflect a metastasis. There is no pathologic fracture. IMPRESSION: 1. Extensive hepatic and pulmonary metastases, unchanged since CT of June 22, 2023. Significant progression since CT of April 14, 2023. 2. No bowel obstruction. 3. Small amount of abdominal and pelvic ascites, slightly increased since prior CT. ACT 112: Negative or not required by law. Electronically signed by: Randall Da Silva M.D. 06/24/2023 6:22 PM Discharge Plan Visit Data Chief Complaint: Confusion Stated Complaint: REF BY , VOMITING, DEHYDRATED, FATIGUE ED Provider: Rashaun Wei Discharge Problem: Malignant neoplasm of colon metastatic to liver, AMS (altered mental status), Colon cancer metastasized to brain, Cerebral edema Patient Disposition: Admitted As Inpatient Discharge Instructions Interventions: ED Discharge Assessment Last Done: 06/24/23 21:27
[2023-06-24] MEDS ORDERED: OPTIRAY 320 100ml IV ONE (17:14)
--- NOTE | 2023-06-24 17:37 | Electrocardiogram Report ---
Test Reason : Blood Pressure : / mmHG Vent. Rate : 099 BPM Atrial Rate : 099 BPM P-R Int : 130 ms QRS Dur : 076 ms QT Int : 348 ms P-R-T Axes : 051 -06 042 degrees QTc Int : 446 ms Normal sinus rhythm Poor R wave progression, consider anterior [place] vs. lead placement vs. LVH Abnormal ECG When compared with ECG of 21-JUL-2022 11:03, Nonspecific T wave abnormality now evident in Lateral leads Confirmed by Yuval Sullivan ([id number]) on 06/24/2023 5:37:16 PM Referred By: Confirmed By:Fabio Sullivan
--- NOTE | 2023-06-24 18:15 | CT Scan Report ---
CT OF THE HEAD WITHOUT CONTRAST CLINICAL HISTORY: Altered mental status. COMPARISON STUDY: MRI of the brain October 28, 2019. TECHNIQUE: Helical axial images of the head were obtained without IV contrast. Automated exposure con trol was utilized for the study. A dose lowering technique was utilized adhering to the principles o f ALARA. FINDINGS: No acute intracranial hemorrhage is present. Note is made of a 1.5 cm round intra-axial les ion lateral to the right basal ganglia. This is peripherally hyperdense and may contain a punctate ca lcification. Extensive associated vasogenic edema is noted. This results in effacement of the right l ateral ventricle and 4 mm of leftward midline shift. There is a possible additional 1.8 cm lesion adj acent to the atrium of the right lateral ventricle. Alternatively, this could reflect choroid plexus calcification. Basal cisterns are patent. IMPRESSION: 1. 1.5 cm intra-axial lesion lateral to the right basal ganglia with extensive associated vasogenic e kee which results in effacement of the right lateral ventricle and 4 mm of leftward midline shift. G iven history of malignancy, this is highly suggestive of a metastasis. 2. Possible additional 1.8 cm lesion adjacent to the atrium of the right lateral ventricle. Alternati vely, this could reflect choroid plexus calcification. These findings could be further assessed with an MRI of the brain with and without contrast. ACT 112: Negative or not required by law. Electronically signed by: Randall Da Silva M.D. 06/24/2023 6:13 PM
[2023-06-24] MEDS ORDERED: dexAMETHasone**PF** 10 MG/ML VIAL IV ONE (18:18)
[2023-06-24] MEDS ORDERED: PROMETHAZINE 12.5 MG/50.5 ML BAG IV STA (18:19)
--- NOTE | 2023-06-24 18:24 | CT Scan Report ---
CT OF THE ABDOMEN AND PELVIS WITH CONTRAST CLINICAL HISTORY: Abdominal pain. Colon cancer. COMPARISON STUDY: CT of the abdomen and pelvis June 22, 2023. PET/CT February 15, 2023. TECHNIQUE: Following IV administration of 93 mL of Optiray, axial images of the abdomen and pelvis we re obtained from the lung bases to the proximal femurs. Images were reviewed in the axial, sagittal, and coronal planes. IV contrast was administered without complication. Automated exposure control wa s utilized for the study. A dose lowering technique was utilized adhering to the principles of ALARA . CT DOSE: 1806.65 mGy.cm FINDINGS: Innumerable pulmonary metastases are unchanged since CT of June 22, 2023. These have sign ificantly progressed since CT of April 14, 2023. Extensive hepatic metastases have also progressed sin ce CT of April 14, 2023. A small amount of perihepatic ascites is similar to prior CT. A small amount of pelvic ascites has slightly increased. There is no biliary or pancreatic ductal dilatation. There is no hydronephrosis. No evidence for a bowel obstruction. Major vasculature is grossly patent. A 1.6 cm lesion within the posterior right acetabulum may reflect a metastasis. There is no pathologic fra cture. IMPRESSION: 1. Extensive hepatic and pulmonary metastases, unchanged since CT of June 22, 2023. Significant pro gression since CT of April 14, 2023. 2. No bowel obstruction. 3. Small amount of abdominal and pelvic ascites, slightly increased since prior CT. ACT 112: Negative or not required by law. Electronically signed by: Randall Da Silva M.D. 06/24/2023 6:22 PM
--- NOTE | 2023-06-24 20:33 | History & Physical Report ---
Date of Service June 24, 2023 Assessment & Plan (1) AMS (altered mental status): Plan: -Admit to the PCU on tele and pulse oximetry -Currently hemodynamically stable and stable on 3L NC -Patient has been having progressive cognitive decline and weakness over the p ast week -Workup today shows multiple new brain metastases with extensive edema, effacement of the right lateral ventricle and 4 mm of leftward midline shift -CT of the abd/pelvis and chest xray also show extensive progression of her malignancy and metastases -Patient also with progressing leukocytosis, unclear if she has a possible infection at this time, but she is high risk and currently hypoxic -S/P 10 mg iV dexamethasone in the ED, will continue with 4 mg IV q6h moving forward -Will start 48 hours of empiric Zosyn for possible pneumonia with her hypoxia -Blood cultures were obtain on 06/22 and have been NGTD -q4h neuro checks, fall precautions, seizure precautions -Hold chemical DVT PPX with brain mets, will continue with BL SCD's for now -Clear liquid diet if she passes dysphagia screen -AM CBC, CMP, mag (2) Hypoxia: Plan: -Was hypoxic at 86% on RA in the ED -Likely due to extensive metastases to the lungs, no focal consolidation but cannot rule out pneumonia at this time -Will add on procal to previous labs and start empiric Zosyn for now -Prn O2 to keep SpO2 at or above 94% -Incentive spirometry and flutter therapy (3) Metastasis to brain: Plan: -Continue IV dexamethasone -Seizure precautions, q4h neuro checks -Oncology, rad onc, and pallative med consults placed (4) Metastatic cancer: Plan: -Will consult oncology and radiation oncology to assist with further evaluation and plan moving forward (5) Leukocytosis: Plan: -Will start empiric zosyn for now -Follow blood cultures obtained on 06/22 (6) Bipolar 2 disorder: Plan: -Will hold oral meds tonight so a formal speech eval can be performed as her reports she could not swallow pills today due to cognitive decline -Speech therapy consult placed (7) Dyslipidemia: Plan: -Hold statin for now Plan The patient was seen with and discussed with Dr. Martinez at the time of the admission History of Present Illness Chief Complaint: AMS Primary Care Provider: Gloria Molina MD Shanna is a 52 year old female with a PMH significant for bipolar 2 disorder, anxiety, and metastatic cecal adenocarcinoma to the liver and lungswho presented to the [facility] ED via home on 06/24 with worsening confusion/AMS. In the ED the patient was noted to be hypoxic at 96% on RA but otherwise stable. Labs were significant a leukocytosis of 16 with neutrophil predominance of 12.85, platelet count of 413, INR of 3.2, total bili of 7.4, direct bili of 4.2, AST of 139, ALT of 88, alk phos of 1585. Chest xray shows "Significant progression of extensive pulmonary metastases since chest CT April 14, 2023.". CT of the head shows "1. 1.5 cm intra-axial lesion lateral to the right basal ganglia with extensive associated vasogenic edema which results in effacement of the right lateral ventricle and 4 mm of leftward midline shift. Given history of malignancy, this is highly suggestive of a metastasis. 2. Possible additional 1.8 cm lesion adjacent to the atrium of the right lateral ventricle. Alternatively, this could reflect choroid plexus calcification. These findings could be further assessed with an MRI of the brain with and without contrast.". CT of the abd/pelvis w/con was read as "1. Extensive hepatic and pulmonary metastases, unchanged since CT of June 22, 2023. Significant progression since CT of April 14, 2023. 2. No bowel obstruction. 3. Small amount of abdominal and pelvic ascites, slightly increased since prior CT.". The ED staff spoke to Oncology who recommended speaking with Neurosurgery. The ED staff spoke with [facility] who explained that they would not operate on these brain lesions. They recommended systemic steroids and consulting radiation oncology for possible palliative radiation. Prior to admission the patient was given 10 mg IV dexamethasone, 4 mg IV morphine, 8 mg total IV zofran, and 12.5 mg IV Promethazine. At the time of the exam the patient was sitting in bed in no acute distress with her sitting bedside. History was obtain from her due to the patient's current mental status. He states that the patient was started on a Clinical trial therapy in the middle of April due to the patient failing initial treatment due to a KRAS mutation. She has been taking oral chemotherapy, however, due to her increased nausea and cognitive decline has been unable to take it consistently. They presented to the [facility] ED on 06/22 due to AMS, which was thought to be due to an elevated ammonia level and were discharged home. Her states that since discharge home the patient's functional and cognitive decline has progressed. She was unable to take her oral medications today and her oral intake has been poor. We explained the radiographic findings to the patient's and explained that her metastases have progressed, including her newly diagnosed brain metastases. He expressed understanding of the new findings and the likely poor prognosis. At this time he is in agreement with the plan to admit the patient here for IV steroids and discussions with Oncology, radiation oncology, and palliative medicine. The patient's explained that they are interested in home hospice if this would be recommended. We discussed code status with the . The patient has a living will and is a DNR/DNI; her is her POA. Please refer to Dr. Martinez's attestation for any changes to the treatment plan Allergies Allergy/AdvReac Type Severity Reaction Status Date / Time Sulfa (Sulfonamide Allergy Severe BREATHING Verified 06/14/23 11:50 Antibiotics) DIFFICULTIES adhesive Allergy Unknown SKIN RASH Verified 06/14/23 11:50 Home Medications Medication Instructions Recorded Confirmed Type fluticasone propionate 50 1 sprays intranasal BID PRN 07/07/22 06/24/23 History mcg/actuation nasal Congestion spray,suspension lamotrigine 150 mg tablet 150 mg PO QAM 07/07/22 06/24/23 History docusate sodium 100 mg capsule 100 mg PO DAILY 09/08/22 06/24/23 History (Stool Softener) naloxone 4 mg/actuation nasal 4 mg intranasal Q2M PRN opioid 11/03/22 06/24/23 Rx spray (Narcan) overdose #2 ea fentanyl 50 mcg/hr transdermal 1 patch transdermal Q72H #10 ea 06/02/23 06/24/23 Rx patch acetaminophen 650 mg 500 mg PO Q6H PRN pain or temp>38 06/14/23 06/24/23 History tablet,extended release degrees buspirone 15 mg tablet 15 mg PO BID 06/14/23 06/24/23 History fexofenadine 180 mg tablet 180 mg PO DAILY 06/14/23 06/24/23 History (Kate Allergy) lamotrigine 25 mg tablet 25 mg PO DAILY 06/14/23 06/24/23 History ondansetron 4 mg disintegrating 8 mg PO Q8H PRN nausea and vomiting 06/14/23 06/24/23 History tablet pantoprazole 40 mg tablet,delayed 40 mg PO DAILY 06/14/23 06/24/23 History release pregabalin 150 mg capsule 150 mg PO TID 06/14/23 06/24/23 History prochlorperazine maleate 10 mg 10 mg PO Q6H PRN Nausea And 06/14/23 06/24/23 History tablet Vomiting sennosides 8.6 mg tablet (senna) 8.6 mg PO DAILY 06/14/23 06/24/23 History oxycodone 15 mg tablet 15 mg PO Q4H PRN pain #120 tabs 06/23/23 06/24/23 Rx lactulose 10 gram/15 mL (15 mL) 10 g PO BID 06/24/23 06/24/23 History oral solution vitamin B complex 1 tab PO DAILY 06/24/23 06/24/23 History Past Med/Surg History Medical History Anemia reason for upcoming EGD Bipolar 2 disorder Cancer related pain Cervical radiculopathy Colon cancer metastasized to liver Depression Dysmenorrhea Dysplastic nevus Ectopic hx GERD (gastroesophageal reflux disease) History of COVID-19 March 22, 2022 > home test and at [place] test site in parking gargage. > tired, cough, fever > all resolved Hypomagnesemia Hyponatremia IBS (irritable bowel syndrome) Metastatic adenocarcinoma Subcapsular hematoma of liver Thrombocytosis Surgical History H/O laparoscopy Ovarian pregnacy H/O oral surgery tooth extraction- wisdom History of colonoscopy History of dilatation and curettage S/P abdominoplasty S/P fine needle aspiration pt unaware S/P LASIK surgery S/P skin biopsy Nevus- Benign Family History Grandmother (Maternal) Alzheimer disease Stroke Mother Hypothyroidism Obesity Diabetes S/P removal of parathyroid gland Grandmother (Paternal) Diabetes Family/Other Breast cancer Sister Diabetes Pre-diabetes Uncle Stroke Myocardial infarction Dementia Aunt Breast cancer Denies family history of Ovarian cancer Colorectal cancer Social History Smoking Status: Former smoker Tobacco Type: Cigarettes Age Started Using Tobacco: 14; Age Quit Using Tobacco: 44; packs per day: 1; Cigarettes Per Day: 1 pack; Second Hand Exposure: No; Do You Dip or Chew Tobacco: No; Tobacco Cessation Education Requested by Patient: No Hx Alcohol Use: No Hx Substance Use: No Preferred Language: Dominican Communication Ability: Impaired Visual Impairment: No Limitations Hearing Ability: Normal Internal Communications Specialist Required: No Beliefs That Will Affect Care: None marital status: Current Living Situation: Spouse Current Living Situation Comment: home current occupational status: employed 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 How many Children do You have: 1 Other Information That Helps Us Care for You: No Feels Safe at Home: Yes Safety Concerns: Feels Safe At This Time Childhood Exposure to Second-Hand Smoke: Yes Diet: regular Diet Comment: regular Dental Care, Regularly: Yes Seatbelt Use: always Sunscreen Use: Yes Assistive Devices: Oxygen - Continuous Physical Exam Physical Exam: Physical Exam: General: In no acute distress, cachectic, chronically ill appearing HEENT: Normocephalic, atraumatic, + scleral icterus, pupils around round, symmetrical, and reactive to light, dry mucus membranes, trachea midline, no thyromegaly Chest/Pulm: No respiratory distress, symmetrical chest expansion, scattered rales and rhonchi throughout Cardiac: RRR, no murmurs noted Abdomen: Mild distention, no signs of bruising, normoactive bowel sounds, soft, non-tender to palpation throughout Musculoskeletal: Symmetrical and without signs of acute trauma, patient is currently not cognisant enough for extremity strength testing Extremities: Radial, dorsalis pedis, and posterior tibial pulses are intact and symmetrical, no edema noted in the BL LE's Skin: Jaundice skin, no signs of rashes, lesions, or scars Neuro: Alert, will not respond to orientation questions, will stare off with minimal interaction, will follow some commands but unable to test all cranial nerves, no tremors noted Psych: No acute distress, calm and not agitated Results & Data Results & Data Vital Signs (Past 12 Hours) Vital Signs Temp Pulse Resp BP Pulse Ox O2 Del Method 06/24/23 20:00 91 H 16 91 06/24/23 20:00 104/63 06/24/23 19:30 89 19 91 06/24/23 19:30 104/60 06/24/23 19:00 90 17 90 06/24/23 19:00 103/64 06/24/23 18:30 89 19 87 L 06/24/23 18:30 103/64 06/24/23 20:14 Nasal Cannula 06/24/23 18:00 90 16 92 06/24/23 18:00 101/64 06/24/23 17:31 90 16 06/24/23 17:31 101/62 06/24/23 17:00 92 H 16 06/24/23 17:00 106/69 06/24/23 16:30 90 16 06/24/23 16:30 108/74 06/24/23 16:00 92 H 14 06/24/23 16:00 103/73 06/24/23 15:53 93 H 15 06/24/23 16:11 93 H 06/24/23 14:17 36.4 C L 91 H 20 108/75 92 Room Air Laboratory Results Abnormal lab results 06/24/23 06/24/23 06/24/23 Range/Units 14:40 14:40 14:40 WBC 16.59 H (4.8-10.8) K/ul RBC 3.48 L (4.20-5.40) M/uL Hgb 9.1 L (12.0-16.0) g/dl Hct 29.1 L (37.0-47.0) % MCHC 31.3 L (32.0-36.0) g/dL RDW Std Deviation 54.7 H (36.4-46.3) fL RDW Coeff of Kenyon 18.5 H (11.5-14.5) % Plt Count 413 H (130-400) K/uL Neut # (Auto) 12.85 H (1.40-6.50) K/uL Phillips # (Auto) 1.83 H (0.11-0.59) K/uL Immature Gran # (Auto) 0.24 H (0.01-0.20) K/uL PT 32.1 H (9.0-12.0) Seconds INR 3.2 H (0.9-1.1) APTT 36.8 H (21.0-31.0) Seconds BUN/Creatinine Ratio 22.2 H (10-20) Glucose 101 H (70-99(Fasting)) mg/dl Calcium 8.3 L (8.6-10.3) mg/dl Total Bilirubin 7.4 H (0.2-1.0) mg/dl Direct Bilirubin (0-0.2) mg/dl AST 139 H (13-39) U/L ALT 88 H (7-52) U/L Alkaline Phosphatase 1585 H (34-104) U/L Troponin I High Sens 22.7 H (0-14) pg/ml Albumin 2.7 L (3.4-5.0) gm/dl Albumin/Globulin Ratio 0.7 L (0.9-2) 06/24/23 Range/Units 14:40 WBC (4.8-10.8) K/ul RBC (4.20-5.40) M/uL Hgb (12.0-16.0) g/dl Hct (37.0-47.0) % MCHC (32.0-36.0) g/dL RDW Std Deviation (36.4-46.3) fL RDW Coeff of Kenyon (11.5-14.5) % Plt Count (130-400) K/uL Neut # (Auto) (1.40-6.50) K/uL Phillips # (Auto) (0.11-0.59) K/uL Immature Gran # (Auto) (0.01-0.20) K/uL PT (9.0-12.0) Seconds INR (0.9-1.1) APTT (21.0-31.0) Seconds BUN/Creatinine Ratio (10-20) Glucose (70-99(Fasting)) mg/dl Calcium (8.6-10.3) mg/dl Total Bilirubin (0.2-1.0) mg/dl Direct Bilirubin 4.2 H (0-0.2) mg/dl AST (13-39) U/L ALT (7-52) U/L Alkaline Phosphatase (34-104) U/L Troponin I High Sens (0-14) pg/ml Albumin (3.4-5.0) gm/dl Albumin/Globulin Ratio (0.9-2) Diagnostic Findings Chest X-Ray 06/24/23 14:22 XR chest 1V not portable CLINICAL HISTORY: Weakness. Colon cancer. COMPARISON STUDY: Chest CT April 14, 2023. Chest radiograph July 27, 2022. FINDINGS: Left subclavian Rcmeab-v-Utyr is in place. Lungs are mildly diminished. This is unchanged. Cardiomediastinal silhouette is stable. Innumerable pulmonary nodules have significantly progressed since chest CT of April 14, 2023. No consolidation is identified. IMPRESSION: Significant progression of extensive pulmonary metastases since chest CT April 14, 2023. ACT 112: Negative or not required by law. Electronically signed by: Randall Da Silva M.D. 06/24/2023 3:[address] 06/24/23 16:49 CT OF THE HEAD WITHOUT CONTRAST CLINICAL HISTORY: Altered mental status. COMPARISON STUDY: MRI of the brain October 28, 2019. TECHNIQUE: Helical axial images of the head were obtained without IV contrast. Automated exposure control was utilized for the study. A dose lowering technique was utilized adhering to the principles of ALARA. FINDINGS: No acute intracranial hemorrhage is present. Note is made of a 1.5 cm round intra-axial lesion lateral to the right basal ganglia. This is peripherally hyperdense and may contain a punctate calcification. Extensive associated vasogenic edema is noted. This results in effacement of the right la teral ventricle and 4 mm of leftward midline shift. There is a possible additional 1.8 cm lesion adjacent to the atrium of the right lateral ventricle. Alternatively, this could reflect choroid plexus calcification. Basal cisterns are patent. IMPRESSION: 1. 1.5 cm intra-axial lesion lateral to the right basal ganglia with extensive associated vasogenic edema which results in effacement of the right lateral ventricle and 4 mm of leftward midline shift. Given history of malignancy, this is highly suggestive of a metastasis. 2. Possible additional 1.8 cm lesion adjacent to the atrium of the right lateral ventricle. Alternatively, this could reflect choroid plexus calcification. These findings could be further assessed with an MRI of the brain with and without contrast. ACT 112: Negative or not required by law. Electronically signed by: Randall Da Silva M.D. 06/24/2023 6:13 PM Abdomen/Pelvis CT 06/24/23 16:51 CT OF THE ABDOMEN AND PELVIS WITH CONTRAST CLINICAL HISTORY: Abdominal pain. Colon cancer. COMPARISON STUDY: CT of the abdomen and pelvis June 22, 2023. PET/CT February 15, 2023. TECHNIQUE: Following IV administration of 93 mL of Optiray, axial images of the abdomen and pelvis were obtained from the lung bases to the proximal femurs. Images were reviewed in the axial, sagittal, and coronal planes. IV contrast was administered without complication. Automated exposure control was utilized for the study. A dose lowering technique was utilized adhering to the principles of ALARA. CT DOSE: 1806.65 mGy.cm FINDINGS: Innumerable pulmonary metastases are unchanged since CT of June 22, 2023. These have significantly progressed since CT of April 14, 2023. Extensive hepatic metastases have also progressed since CT of April 14, 2023. A small amount of perihepatic ascites is similar to prior CT. A small amount of pelvic ascites has slightly increased. There is no biliary or pancreatic ductal dilatation. There is no hydronephrosis. No evidence for a bowel obstruction. Major vasculature is grossly patent. A 1.6 cm lesion within the posterior right acetabulum may reflect a metastasis. There is no pathologic fracture. IMPRESSION: 1. Extensive hepatic and pulmonary metastases, unchanged since CT of June 22, 2023. Significant progression since CT of April 14, 2023. 2. No bowel obstruction. 3. Small amount of abdominal and pelvic ascites, slightly increased since prior CT. ACT 112: Negative or not required by law. Electronically signed by: Randall Da Silva M.D. 06/24/2023 6:22 PM ECG Additional Comments: Normal sinus rhythm Poor R wave progression, consider anterior [place] vs. lead placement vs. LVH Abnormal ECG When compared with ECG of 21-JUL-2022 11:03, Nonspecific T wave abnormality now evident in Lateral leads Confirmed by Yuval Sullivan ([id number]) on 06/24/2023 5:37:16 PM Code Status & VTE Plan Code Status DNR/DNI VTE Prophylaxis Plan VTE Prophylaxis will be ordered: Yes Supervising Physician Co-Signing Physician Notes Patient seen and examined, chart reviewed, case discussed with VERONICA Leavitt and I agree with the assessment and plan as documented above. In brief, Shanna Gonzalez is an unfortunate 52yo female with adenocarcinoma of the colon with metastatic lesions to lung, liver and bone. She was treated with FOLFOX with bevacizumab and most recently has been enrolled in a trial at [facility] for KRAS mutation positive colon cancer. She has been taking her trial medication for 4- 5 weeks (has been unable to keep down food and meds for the last 2 days, however). Worsening confusion, less verbal and responsive Imaging with progression of metastatic disease as well suggestion of new brain metastases with vasogenic edema. Case was discussed between ER staff and [place] [facility] [place] no surgical intervention on newly discovered brain lesions. Possible radiation therapy Exam as above Assessment/Plan -Will continue Dexamethasone for suspected brain mets with vasogenic edema -Check MRI brain -Empiric Zosyn -Consult Oncology and Radiation Oncology -Palliative care consult as well - patient is DNR/DNI and has see palliative care before in the past -Pain control as needed -Remainder of plan as above PG Care Time/CCT Total # of Minutes Spent Total Time Spent with Patient: Total time spent is greater than 50% in coordination of care (as documented) at patient's floor/unit and/or counseling patient: Coding [place] [address] INT INP/OBS CARE 3/75MIN Patient Type Established Medical Decision Making High Complexity Diagnoses AMS (altered mental status) R41.82 Hypoxia R09.02 Metastasis to brain C79.31 Metastatic cancer C79.9 Leukocytosis D72.829 Bipolar 2 disorder F31.81 Dyslipidemia E78.5
[2023-06-24] MEDS ORDERED: ONDANSETRON INJ 2 MG/ML 2 ML VIAL IV PRN (20:52)
[2023-06-24] MEDS ORDERED: PIPERACILLIN/TAZOBACTAM 4.5 GM in DEXTROSE 5% 100 ML IV STA (22:47)
[2023-06-24] MEDS: dexAMETHasone 4 MG in SYRINGE 0 ML IV SCH (23:26)
[2023-06-25] MEDS ORDERED: DEXAMETHASONE SOD INJ 4 MG/ML VIAL IV SCH
[2023-06-25] MEDS: CHECK fentaNYL PATCH PLACEMENT SCH ×4 (00:33→23:26)
[2023-06-25 00:54] LABS: Appearance Urine Cloudy (Clear); Bacteria Urine Automated Negative (Negative); Blood Urine Negative (Negative); Color Urine Dark Yellow; Epithelial Cell Urine Auto >30 /lpf (0-5); Glucose Urine UA Negative (Negative); Ketones Urine Trace (Negative); Leukocyte Esterase Urine 1+ (Negative); Nitrite Urine Positive (Negative); Protein Urine 1+ (Negative); Specific Gravity Urine > 1.045 (1.000-1.030); Urobilinogen Urine Positive (Negative); pH Urine 5.5 (4.5-7.5)
[2023-06-25 00:55] LABS: Bilirubin Urine 3+ (Negative)
[2023-06-25] MEDS: dexAMETHasone 4 MG in SYRINGE 0 ML IV SCH ×4 (04:49→23:26)
[2023-06-25] MEDS: PIPERACILLIN/TAZOBACTAM 4.5 GM in DEXTROSE 5% 100 ML IV SCH ×3 (04:50→19:25)
[2023-06-25 05:27] LABS: Basophils # (auto) 0.02 K/uL (0.00-0.20); Basophils % (auto) 0.2 %; Hematocrit (blood only) 25.5 % (37.0-47.0); Hemoglobin 7.9 g/dl (12.0-16.0); Immature Granulocytes # (auto) 0.18 K/uL (0.01-0.20); Immature Granulocytes % (auto) 1.8 %; Lymphocytes # (auto) 0.78 K/uL (1.20-3.40); Lymphocytes % (auto) 7.8 %; Mean Corpuscular Hemoglobin 25.9 pg (25.0-34.0); Mean Corpuscular Volume 83.6 fL (80.0-100.0); Mean Platelet Volume 9.9 fL (9.4-12.4); Monocytes # (auto) 0.35 K/uL (0.11-0.59); Monocytes % (auto) 3.5 %; Neutrophils # (auto) 8.66 K/uL (1.40-6.50); Neutrophils % (auto) 86.7 %; Nucleated RBC # (auto) 0.03 K/uL (0.00-0.12); Nucleated RBC % (auto) 0.3 %; Platelet Count 313 K/uL (130-400); RDW Coefficient of Variation 18.7 % (11.5-14.5); RDW Standard Deviation 55.2 fL (36.4-46.3); Red Blood Count 3.05 M/uL (4.20-5.40); White Blood Count 9.99 K/ul (4.8-10.8)
[2023-06-25 05:42] LABS: Albumin Globulin Ratio 0.6 (0.9-2); Albumin Level 2.3 gm/dl (3.4-5.0); BUN Creatinine Ratio 27.1 (10-20); Bilirubin,Total 6.3 mg/dl (0.2-1.0); Calcium 7.7 mg/dl (8.6-10.3); Creatinine Clr Calc Pharmacy 110.9 ml/min; Est GFR (African American) 123.9 ml/min; Est GFR (Non-African American) 106.9 ml/min; Globulin 3.7 gm/dl (2.5-4.0); Magnesium 2.2 mg/dl (1.7-2.4); Potassium 4.3 mmol/L (3.5-5.1)
[2023-06-25 06:03] LABS: INR 3.5 (0.9-1.1); Polychromasia 2+; Prothrombin Time 35.6 Seconds (9.0-12.0)
--- NOTE | 2023-06-25 07:37 | Oncology Consultation ---
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 CT CAP also shows significant disease progression. Based on this, she appears to have progressed on clinical trial. -Recommend brain MRI and radiation oncology evaluation. Continue with high-dose steroids to help with vasogenic edema -Although could consider treatment with systemic therapy such as Lonsurf plus Avastin or retrying FOLFOX since she did not have clear progression of disease while on FOLFOX or considering another clinical trial her overall prognosis extremely poor. Given her altered mental status, I will plan to discuss with patient's regarding possibly transitioning to comfort care/hospice versus continuing with treatment. Case was also discussed with Dr. Bunn at [facility] who agreed with above plan History of Present Illness Reason for Consultation: Colon cancer with brain metastasis Attending Physician: Chang Mar MD History of Present Illness Ms. Gonzalez is a pleasant 52-year-old female with colon cancer with disease progression after 2 lines of therapy received locally at [facility] and was more recently currently enrolled in phase 1 clinical trial at [facility] in [place] where she has been receiving hydroxychloroquine in combination with Ulixertinib under the care of Dr Reese Bunn. Presented to the ER at [facility] with altered mental status. CT head revealed 1.5 cm intra-axial lesion lateral to the right basal ganglia with extensive associated vasogenic edema resulting in effacement of the right lateral ventricle and 4 mm of leftward midline shift highly suggestive of metastasis, possible 1.8 cm lesion adjacent to the atrium of the right lateral ventricle. CT abdomen and pelvis revealed extensive hepatic and pulmonary metastasis progressed since March,. Labs show hyperbilirubinemia of 6.3, Elevated alkaline phosphatase of 1345 and INR of 3.5. She was started on Zosyn for suspected infection. Urinalysis suggestive of possible UTI. She was started on high-dose dexamethasone for vasogenic edema which she remains on at this time.During my evaluation of heart this morning, she continues to have altered mental status and was not able to answer my questions appropriately Allergies Allergy/AdvReac Type Severity Reaction Status Date / Time Sulfa (Sulfonamide Allergy Severe BREATHING Verified 06/14/23 11:50 Antibiotics) DIFFICULTIES adhesive Allergy Unknown SKIN RASH Verified 06/14/23 11:50 Home Medications Medication Instructions Recorded Confirmed Type fluticasone propionate 50 1 sprays intranasal BID PRN 07/07/22 06/24/23 History mcg/actuation nasal Congestion spray,suspension lamotrigine 150 mg tablet 150 mg PO QAM 07/07/22 06/24/23 History docusate sodium 100 mg capsule 100 mg PO DAILY 09/08/22 06/24/23 History (Stool Softener) naloxone 4 mg/actuation nasal 4 mg intranasal Q2M PRN opioid 11/03/22 06/24/23 Rx spray (Narcan) overdose #2 ea fentanyl 50 mcg/hr transdermal 1 patch transdermal Q72H #10 ea 06/02/23 06/24/23 Rx patch acetaminophen 650 mg 500 mg PO Q6H PRN pain or temp>38 06/14/23 06/24/23 History tablet,extended release degrees buspirone 15 mg tablet 15 mg PO BID 06/14/23 06/24/23 History fexofenadine 180 mg tablet 180 mg PO DAILY 06/14/23 06/24/23 History (Kate Allergy) lamotrigine 25 mg tablet 25 mg PO DAILY 06/14/23 06/24/23 History ondansetron 4 mg disintegrating 8 mg PO Q8H PRN nausea and vomiting 06/14/23 06/24/23 History tablet pantoprazole 40 mg tablet,delayed 40 mg PO DAILY 06/14/23 06/24/23 History release pregabalin 150 mg capsule 150 mg PO TID 06/14/23 06/24/23 History prochlorperazine maleate 10 mg 10 mg PO Q6H PRN Nausea And 06/14/23 06/24/23 History tablet Vomiting sennosides 8.6 mg tablet (senna) 8.6 mg PO DAILY 06/14/23 06/24/23 History oxycodone 15 mg tablet 15 mg PO Q4H PRN pain #120 tabs 06/23/23 06/24/23 Rx lactulose 10 gram/15 mL (15 mL) 10 g PO BID 06/24/23 06/24/23 History oral solution vitamin B complex 1 tab PO DAILY 06/24/23 06/24/23 History Patient History Medical History Anemia reason for upcoming EGD Bipolar 2 disorder Cancer related pain Cervical radiculopathy Colon cancer metastasized to liver Depression Dysmenorrhea Dysplastic nevus Ectopic hx GERD (gastroesophageal reflux disease) History of COVID-March 22, 2022 > home test and at [place] test site in parking gargage. > tired, cough, fever > all resolved Hypomagnesemia Hyponatremia IBS (irritable bowel syndrome) Metastatic adenocarcinoma Subcapsular hematoma of liver Thrombocytosis Surgical History H/O laparoscopy Ovarian pregnacy H/O oral surgery tooth extraction- wisdom History of colonoscopy History of dilatation and curettage S/P abdominoplasty S/P fine needle aspiration pt unaware S/P LASIK surgery S/P skin biopsy Nevus- Benign Family History Grandmother (Maternal) Alzheimer disease Stroke Mother Hypothyroidism Obesity Diabetes S/P removal of parathyroid gland Grandmother (Paternal) Diabetes Family/Other Breast cancer Sister Diabetes Pre-diabetes Uncle Stroke Myocardial infarction Dementia Aunt Breast cancer Denies family history of Ovarian cancer Colorectal cancer Social History Smoking Status: Former smoker Tobacco Type: Cigarettes Age Started Using Tobacco: 14; Age Quit Using Tobacco: 44; packs per day: 1; Cigarettes Per Day: 1 pack; Second Hand Exposure: No; Do You Dip or Chew Tobacco: No; Tobacco Cessation Education Requested by Patient: No Hx Alcohol Use: No Hx Substance Use: No Preferred Language: Latvian Communication Ability: Impaired Visual Impairment: No Limitations Hearing Ability: Normal Billing Adjudicator Required: No Beliefs That Will Affect Care: None marital status: Current Living Situation: Spouse Current Living Situation Comment: home current occupational status: employed 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 How many Children do You have: 1 Other Information That Helps Us Care for You: No Feels Safe at Home: Yes Safety Concerns: Feels Safe At This Time Childhood Exposure to Second-Hand Smoke: Yes Diet: regular Diet Comment: regular Dental Care, Regularly: Yes Seatbelt Use: always Sunscreen Use: Yes Assistive Devices: Walker Results & Data Vital Signs (Past 12 Hours) Vital Signs Temp Pulse Pulse Resp BP BP Pulse Ox 06/25/23 04:01 36.4 C L 70 16 97/62 L 94 06/24/23 21:51 86 06/24/23 21:45 06/24/23 21:45 37 C 89 18 107/72 93 06/24/23 21:00 88 19 93 06/24/23 21:00 101/70 06/24/23 20:30 87 15 93 06/24/23 20:30 108/62 06/24/23 20:00 91 H 16 91 06/24/23 20:00 104/63 06/24/23 20:14 O2 Del Method O2 Flow Rate 06/25/23 04:01 Room Air 06/24/23 21:51 06/24/23 21:45 Nasal Cannula 3 06/24/23 21:45 Nasal Cannula 3 06/24/23 21:00 06/24/23 21:00 06/24/23 20:30 06/24/23 20:30 06/24/23 20:00 06/24/23 20:00 06/24/23 20:14 Nasal Cannula (3) AMS (altered mental status) Altered mental status type: unspecified Qualified Code(s): R41.82 - Altered mental status, unspecified
[2023-06-25] MEDS ORDERED: fentaNYL 50 MCG/HR TDSY TD SCH (09:00)
[2023-06-25] MEDS: MoRPHine SULFATE 2 MG/ML CARP IV PRN (13:42)
[2023-06-25] MEDS ORDERED: GADOBUTROL 7.5ML VIAL IV ONE (14:45)
--- NOTE | 2023-06-25 15:40 | Magnetic Resonance Report ---
Brain MRI WITH AND WITHOUT CONTRAST HISTORY: eval brain mets for radiation TECHNIQUE: Multiplanar multisequence MRI of the brain was performed both before and after the intrave nous administration of contrast. COMPARISON STUDY: Head CT 06/24/2023. FINDINGS: No areas restricted diffusion to suggest acute infarction. The midline structures are intac t. There is a retention cyst within the right maxillary sinus. The mastoid air cells are clear. The o rbits are unremarkable. The major vascular flow-voids at the skull base are well-maintained. There is a 1.6 cm enhancing lesion within the right basal ganglia and a 2.4 cm enhancing lesion adjacent to a trium of the right lateral ventricle. There is associated vasogenic edema surrounding these lesions. There is partial effacement of the right lateral ventricle, unchanged. There is up to 4 mm of left mi dline shift, unchanged. No intracranial hemorrhage identified at this time. No masses within the post erior fossa. IMPRESSION: Confirmation of the intracranial lesions within the right basal ganglia and adjacent to atrium of the right lateral ventricle consistent with metastatic disease. There is surrounding vasogenic edema at these locations with associated 4 mm of left midline shift, unchanged. ACT 112: Negative or not required by law. Electronically signed by: Chris Fowler M.D. 06/25/2023 3:38 PM
--- NOTE | 2023-06-25 16:56 | Hospitalist Progress Note ---
Date of Service June 25, 2023 Assessment & Plan (1) Metabolic encephalopathy: Plan: secondary to cerebral edema from multiple brain mets Continue IV Decadron every 6 Per , there has been an improvement Patient and would like to proceed with radiation treatments Ordered MRI of the brain with contrast Hold chemical DVT prophylaxis Since she is now awake and alert, will advance to a regular diet (2) AMS (altered mental status): Plan: see problem #1 (3) Hypoxia: Plan: -Was hypoxic at 86% on RA in the ED -Likely due to extensive metastases to the lungs, no focal consolidation but cannot rule out pneumonia at this time on empiric Zosyn for now -Prn O2 to keep SpO2 at or above 94% -Incentive spirometry and flutter therapy (4) Metastasis to brain: Plan: -Continue IV dexamethasone -Seizure precautions, q4h neuro checks -Oncology, rad onc, and pallative med consults placed (5) Metastatic cancer: Plan: oncologist on board Poor prognosis Consult palliative care as the family wishes to proceed towards a comfort care approach (6) Leukocytosis: Plan: -Will start empiric zosyn for now -Follow blood cultures obtained on 06/22 (7) Bipolar 2 disorder: Plan: -Will hold oral meds tonight so a formal speech eval can be performed as her reports she could not swallow pills today due to cognitive decline -Speech therapy consult placed (8) Dyslipidemia: Plan: -Hold statin for now (9) Malignant neoplasm of colon metastatic to liver: Plan: Consult palliative care (10) Cerebral edema: Plan: see problem #1 Admission and Anticipated Discharge Date Admission Date: June 24, 2023 Subjective patient is able to hold a conversation better today. Per , her mental status is improved. She is awake and alert Review of Systems Review of Systems: All systems reviewed & are unremarkable except as noted in Subjective Physical Exam Physical Exam: general: Awake, conversant. very icteric pleasantly confused. Heart: S1, S2/regular rate and rhythm, no murmur rubs or gallops Lungs: Clear to auscultation bilaterally. Normal effort Abdomen: Soft/nontender/nondistended. No hepatosplenomegaly Extremities: No clubbing/cyanosis. No edema Behavior: Appropriate, cooperative Results & Data Results & Data Vital Signs (Past 12 Hours) Vital Signs Temp Pulse Resp BP Pulse Ox O2 Del Method 06/25/23 15:44 36.4 C L 77 18 99/64 L 92 Room Air 06/25/23 11:15 36.3 C L 80 18 98/67 L 93 Room Air 06/25/23 07:49 36.4 C L 74 18 95/61 L 91 Room Air Laboratory Results Abnormal lab results 06/24/23 06/24/23 06/25/23 Range/Units 14:40 14:40 05:00 RBC 3.05 L (4.20-5.40) M/uL Hgb 7.9 L (12.0-16.0) g/dl Hct 25.5 L (37.0-47.0) % MCHC 31.0 L (32.0-36.0) g/dL RDW Std Deviation 55.2 H (36.4-46.3) fL RDW Coeff of Kenyon 18.7 H (11.5-14.5) % Neut # (Auto) 8.66 H (1.40-6.50) K/uL Lymph # (Auto) 0.78 L (1.20-3.40) K/uL PT (9.0-12.0) Seconds INR (0.9-1.1) Creatinine (0.6-1.2) mg/dl BUN/Creatinine Ratio (10-20) Glucose (70-99(Fasting)) mg/dl Calcium (8.6-10.3) mg/dl Total Bilirubin (0.2-1.0) mg/dl Direct Bilirubin 4.2 H (0-0.2) mg/dl AST (13-39) U/L ALT (7-52) U/L Alkaline Phosphatase (34-104) U/L Albumin (3.4-5.0) gm/dl Albumin/Globulin Ratio (0.9-2) Procalcitonin 2.77 H (0-0.5) ng/ml Urine Appearance (Clear) Ur Specific [place] (1.000-1.030) Urine Protein (Negative) Urine Ketones (Negative) Urine Nitrite (Negative) Urine Bilirubin (Negative) Urine Urobilinogen (Negative) Ur Leukocyte Esterase (Negative) Urine WBC (Auto) (0-5) /hpf Urine RBC (Auto) (0-4) /hpf U Epithel Cells (Auto) (0-5) /lpf 06/25/23 06/25/23 06/25/23 Range/Units 05:00 05:00 Unknown RBC (4.20-5.40) M/uL Hgb (12.0-16.0) g/dl Hct (37.0-47.0) % MCHC (32.0-36.0) g/dL RDW Std Deviation (36.4-46.3) fL RDW Coeff of Kenyon (11.5-14.5) % Neut # (Auto) (1.40-6.50) K/uL Lymph # (Auto) (1.20-3.40) K/uL PT 35.6 H (9.0-12.0) Seconds INR 3.5 H (0.9-1.1) Creatinine 0.59 L (0.6-1.2) mg/dl BUN/Creatinine Ratio 27.1 H (10-20) Glucose 131 H (70-99(Fasting)) mg/dl Calcium 7.7 L (8.6-10.3) mg/dl Total Bilirubin 6.3 H (0.2-1.0) mg/dl Direct Bilirubin (0-0.2) mg/dl AST 103 H (13-39) U/L ALT 75 H (7-52) U/L Alkaline Phosphatase 1345 H (34-104) U/L Albumin 2.3 L (3.4-5.0) gm/dl Albumin/Globulin Ratio 0.6 L (0.9-2) Procalcitonin (0-0.5) ng/ml Urine Appearance Cloudy A (Clear) Ur Specific [place] > 1.045 H (1.000-1.030) Urine Protein 1+ H (Negative) Urine Ketones Trace H (Negative) Urine Nitrite Positive A (Negative) Urine Bilirubin 3+ H (Negative) Urine Urobilinogen Positive H (Negative) Ur Leukocyte Esterase 1+ H (Negative) Urine WBC (Auto) 10-30 H (0-5) /hpf Urine RBC (Auto) 5-10 H (0-4) /hpf U Epithel Cells (Auto) >30 H (0-5) /lpf Diagnostic Findings Head CT 06/24/23 16:49 CT OF THE HEAD WITHOUT CONTRAST CLINICAL HISTORY: Altered mental status. COMPARISON STUDY: MRI of the brain October 28, 2019. TECHNIQUE: Helical axial images of the head were obtained without IV contrast. Automated exposure control was utilized for the study. A dose lowering technique was utilized adhering to the principles of ALARA. FINDINGS: No acute intracranial hemorrhage is present. Note is made of a 1.5 cm round intra-axial lesion lateral to the right basal ganglia. This is peripherally hyperdense and may contain a punctate calcification. Extensive associated vasogenic edema is noted. This results in effacement of the right lateral ventricle and 4 mm of leftward midline shift. There is a possible additional 1.8 cm lesion adjacent to the atrium of the right lateral ventricle. Alternatively, this could reflect choroid plexus calcification. Basal cisterns are patent. IMPRESSION: 1. 1.5 cm intra-axial lesion lateral to the right basal ganglia with extensive associated vasogenic edema which results in effacement of the right lateral v entricle and 4 mm of leftward midline shift. Given history of malignancy, this is highly suggestive of a metastasis. 2. Possible additional 1.8 cm lesion adjacent to the atrium of the right lateral ventricle. Alternatively, this could reflect choroid plexus calcification. These findings could be further assessed with an MRI of the brain with and without contrast. ACT 112: Negative or not required by law. Electronically signed by: Randall Da Silva M.D. 06/24/2023 6:13 PM Abdomen/Pelvis CT 06/24/23 16:51 CT OF THE ABDOMEN AND PELVIS WITH CONTRAST CLINICAL HISTORY: Abdominal pain. Colon cancer. COMPARISON STUDY: CT of the abdomen and pelvis June 22, 2023. PET/CT February 15, 2023. TECHNIQUE: Following IV administration of 93 mL of Optiray, axial images of the abdomen and pelvis were obtained from the lung bases to the proximal femurs. Images were reviewed in the axial, sagittal, and coronal planes. IV contrast was administered without complication. Automated exposure control was utilized for the study. A dose lowering technique was utilized adhering to the principles of ALARA. CT DOSE: 1806.65 mGy.cm FINDINGS: Innumerable pulmonary metastases are unchanged since CT of June 22, 2023. These have significantly progressed since CT of April 14, 2023. Extensive hepatic metastases have also progressed since CT of April 14, 2023. A small amount of perihepatic ascites is similar to prior CT. A small amount of pelvic ascites has slightly increased. There is no biliary or pancreatic ductal dilatation. There is no hydronephrosis. No evidence for a bowel obstruction. Major vasculature is grossly patent. A 1.6 cm lesion within the posterior right acetabulum may reflect a metastasis. There is no pathologic fracture. IMPRESSION: 1. Extensive hepatic and pulmonary metastases, unchanged since CT of June 22, 2023. Significant progression since CT of April 14, 2023. 2. No bowel obstruction. 3. Small amount of abdominal and pelvic ascites, slightly increased since prior CT. ACT 112: Negative or not required by law. Electronically signed by: Randall Da Silva M.D. 06/24/2023 6:22 PM Brain MRI 06/25/23 12:09 Brain MRI WITH AND WITHOUT CONTRAST HISTORY: eval brain mets for radiation TECHNIQUE: Multiplanar multisequence MRI of the brain was performed both before and after the intravenous administration of contrast. COMPARISON STUDY: Head CT 06/24/2023. FINDINGS: No areas restricted diffusion to suggest acute infarction. The midline structures are intact. There is a retention cyst within the right maxillary sinus. The mastoid air cells are clear. The orbits are unremarkable. The major vascular flow-voids at the skull base are well-maintained. There is a 1.6 cm enhancing lesion within the right basal ganglia and a 2.4 cm enhancing lesion adjacent to atrium of the right lateral ventricle. There is associated vasogenic edema surrounding these lesions. There is partial effacement of the right lateral ventricle, unchanged. There is up to 4 mm of left midline shift, unchanged. No intracranial hemorrhage identified at this time. No masses within the posterior fossa. IMPRESSION: Confirmation of the intracranial lesions within the right basal ganglia and adjacent to atrium of the right lateral ventricle consistent with metastatic disease. There is surrounding vasogenic edema at these locations with associated 4 mm of left midline shift, unchanged. ACT 112: Negative or not required by law. Electronically signed by: Chris Fowler M.D. 06/25/2023 3:38 PM PG Care Time/CCT Total # of Minutes Spent Total Time Spent with Patient: Total time spent is greater than 50% in coordination of care (as documented) at patient's floor/unit and/or counseling patient: Coding Level of Care Code 35314 SUB INP/OBS CARE 2/35MIN Diagnoses Metabolic encephalopathy G93.41 AMS (altered mental status) R41.82 Hypoxia R09.02 Metastasis to brain C79.31 Metastatic cancer C79.9 Leukocytosis D72.829 Bipolar 2 disorder F31.81 Dyslipidemia E78.5 Malignant neoplasm of colon metastatic to liver C18.9; C78.7 Cerebral edema G93.6
[2023-06-25] MEDS: LACTULOSE SYRUP 20 GM/30 ML UDC PO SCH (21:52)
[2023-06-26] MEDS: dexAMETHasone 4 MG in SYRINGE 0 ML IV SCH ×3 (04:16→18:03)
[2023-06-26] MEDS: PIPERACILLIN/TAZOBACTAM 4.5 GM in DEXTROSE 5% 100 ML IV SCH ×3 (04:16→20:46)
[2023-06-26 06:11] LABS: Basophils # (auto) 0.02 K/uL (0.00-0.20); Basophils % (auto) 0.1 %; Hematocrit (blood only) 25.6 % (37.0-47.0); Hemoglobin 8.1 g/dl (12.0-16.0); Immature Granulocytes # (auto) 0.42 K/uL (0.01-0.20); Immature Granulocytes % (auto) 2.4 %; Lymphocytes # (auto) 0.98 K/uL (1.20-3.40); Lymphocytes % (auto) 5.6 %; Mean Corpuscular Hemoglobin 25.7 pg (25.0-34.0); Mean Corpuscular Hgb Conc 31.6 g/dL (32.0-36.0); Mean Corpuscular Volume 81.3 fL (80.0-100.0); Monocytes # (auto) 1.14 K/uL (0.11-0.59); Monocytes % (auto) 6.5 %; Neutrophils # (auto) 15.07 K/uL (1.40-6.50); Neutrophils % (auto) 85.4 %; Nucleated RBC # (auto) 0.03 K/uL (0.00-0.12); Nucleated RBC % (auto) 0.2 %; Platelet Count 327 K/uL (130-400); RDW Standard Deviation 54.1 fL (36.4-46.3); Red Blood Count 3.15 M/uL (4.20-5.40); White Blood Count 17.63 K/ul (4.8-10.8)
[2023-06-26 06:17] LABS: INR 2.1 (0.9-1.1); Prothrombin Time 21.5 Seconds (9.0-12.0)
[2023-06-26 06:31] LABS: BUN Creatinine Ratio 24.6 (10-20); Calcium 8.2 mg/dl (8.6-10.3); Creatinine Clr Calc Pharmacy 117.7 ml/min; Est GFR (African American) 122.5 ml/min; Est GFR (Non-African American) 105.7 ml/min; Potassium 4.2 mmol/L (3.5-5.1)
[2023-06-26 06:39] LABS: Albumin Globulin Ratio 0.7 (0.9-2); Albumin Level 2.5 gm/dl (3.4-5.0); Bilirubin,Total 5.5 mg/dl (0.2-1.0); Globulin 3.5 gm/dl (2.5-4.0); Magnesium 2.1 mg/dl (1.7-2.4)
[2023-06-26] MEDS: LACTULOSE SYRUP 20 GM/30 ML UDC PO SCH ×2 (08:06→20:41)
[2023-06-26] MEDS: CHECK fentaNYL PATCH PLACEMENT SCH ×2 (08:06→15:50)
--- NOTE | 2023-06-26 08:43 | Radiation OncologyConsultation ---
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 Has been admitted for altered mental status. She is now found to have brain metastasis. She had been on a clinical trial [facility]. MRI of the brain showed vasogenic edema. She is on steroid therapy. Images have shown 2 lesions. Right basal ganglia and adjacent to atrium of the right lateral ventricle. She has a 4 mm left midline shift. The lesions are amiable for stereotactic treatment 3-5 fractions. She will be having a palliative consultation and further discussion in regards to treatment versus comfort for care. We will continue to follow her in the electronic medical record. She will be seen by Dr. Power Winchester. See his additional note. Plan ATTENDING ADDENDUM: Assessment: Ms. Gonzalez is a 52-year-old female with a history of metastatic colon cancer. The patient was previously seen in consultation for consideration of palliative radiation therapy to the sternum and liver; the patient did ultimately declined treatment in order to enroll in a clinical trial at [facility] in [place]. The patient does also follow under the care of Dr. Smith at [facility]. More recently, the patient was admitted to the hospital and was found to have 2 metastatic lesions in the brain. The patient has been started on dexamethasone. The patient is scheduled to meet with palliative care later today. We have been asked to evaluate the patient regarding the role of palliative radiation therapy. Treatment Options: 1. Fractionated stereotactic radiosurgery. 3 fractions. 2. Whole brain radiation therapy. 5 fractions. 3. Observation with best supportive care. Recommendation: Fractionated stereotactic radiosurgery in 3 fractions could be a reasonable option for this patient. Plan: 1. Family meeting with palliative care medicine. 2. If patient is interested in radiation therapy, we would attempt to bring the patient down tomorrow for CT simulation for treatment planning for radiation therapy. Treatment and care can be done in the outpatient setting. 3. Continue patient on dexamethasone 4 mg every 6 hours. 4. Appreciate medical oncology input. 5. Appreciate palliative care input. 6. All other care as per primary medical team. 7. Patient and family encouraged to call us with any further questions or concerns. Rationale/Explanation of Treatment: In general, we did discuss treatment recom mendations for the management of metastatic disease to the brain. I did explain to the patient that most often biopsies are not performed given the patient's previous history of cancer unless the patient plans to undergo surgical resection. I discussed treatment options including surgical resection and radiation therapy. The patient defer surgical intervention and would prefer to undergo radiation therapy. I then discussed the advantages and disadvantages of both whole brain radiation therapy and stereotactic radiosurgery. I did discuss the benefits of whole brain radiation therapy with respect to overall intracranial control and the most significant disadvantages including long-term neurocognitive side effects; we then focused or conversation and stereotactic radiosurgery and explained the benefits which included minimizing radiation therapy to the normal brain and potentially reducing long-term side effects from radiation therapy as well as the disadvantages including the inability to potentially prevent further lesions from developing in the brain. I did explain that after the completion of stereotactic radiosurgery we would follow the patient with an MRI of the brain every 2-3 months which would enable us to potentially diagnose new lesions early while they are still asymptomatic and potentially treatable with stereotactic radiosurgery. I explained the indications, alternatives, benefits, risks and side effects of external beam radiation therapy to the brain. I explain the most common side effects including but not limited to skin erythema, skin break down, hair loss, radiation necrosis, fatigue, short-term memory loss, decreased neurocognitive performance, cerebral edema, hearing loss, damage to cochlea structures, seizures, loss of sensory and or motor function. I explained the treatment planning process and what to expect before during and after treatment. The patient and her had multiple questions which were answered to their full satisfaction. History of Present Illness Requesting Physician: Brain metastasis Attending Physician: Chang Mar MD History of Present Illness 03/2022. Medication in the [place]. When she returned home developed abdominal pain and recurrent diarrhea. 07/01/2022. Emergency room evaluation for abdominal pain. Finding of anemia and large hepatic lesions, lower lung pulmonary nodules and right lower mesenteric lymph adenopathy concerning for malignancy. 07/05/2022. Gastroenterology consultation. (Dr. Oquendo) recommendation for colonoscopy and EGD. Liver biopsy. 07/12/2022. FNA of liver. Metastatic adenocarcinoma. Liver core biopsy. Metastatic adenocarcinoma. 07/15/2022. Admission for subcapsular hematoma of the liver. 07/15/2022. Colonoscopy showed a malignant tumor in the cecum. Biopsy of the cecum. Moderately differentiated adenocarcinoma. 07/15/2022. Upper GI endoscopy. Normal esophagus, stomach and duodenum. 07/21/2022. Emergency room evaluation for intractable abdominal pain. Admission for evaluation and pain control. 07/26/2022. Medical oncology consultation. (Dr. Smith) 08/04/2022. Initiation of FOLFOX with bevacizumab every 2 weeks. 08/24/2022. PET/CT. Hypermetabolic 2.7 cm cecal mass. Extensive hepatic and pulmonary metastatic disease. Metastatic mesenteric lymph and adenopathy of the abdominal right lower quadrant. Intermediate increase tracer uptake within the left sternum manubrium and right ischial tuberosity without correlate on CT. 09/29/2022. Pain management follow-up. (Dr. Garnett) 10/11/2022. Chest CT. Minimal change in multiple pulmonary metastatic lesions. Osteolytic lesion in the manubrium of the sternum is unchanged. Multifocal hepatic metastatic disease. 10/11/2022. CT of abdomen and pelvis. Extensive hepatic metastatic disease and metastatic romain disease. Small subcapsular hematoma of the left hepatic lobe. Multifocal thickening within the cecum corresponds to known cecal mass. 11/01/2022. Medical oncology follow-up. Patient has a complaint of intermittent pain around the sternum area known metastatic disease. Referral to radiation oncology for palliative radiation therapy. 11/03/2022. Pain management follow-up. Ongoing treatment with fentanyl patch at 50 mcg/h. Oxycodone 10 mg or 15 mg every 4-6 hours as needed depending on pain level. Has Narcan at home. With increase of pain medication today she is a pain level of 0 on the sternum. She has a pain level of 2 of the liver. She is hoping that treatment will decrease pain so that she does not require pain medication and she can increase activity and be able to drive. 11/15/2022. Radiation oncology consultation (Dr. Winchester). Evaluation for possible palliative radiation therapy. Patient wished to proceed with clinical trial. 12/13/2022. Completion of 9 cycles of FOLFOX/bevacizumab. Improvement in hepatic metastasis and ileocolic lymphadenopathy. Improvement in CEA. Switch to FOLFIRI. 12/28/2022. Initiation of FOLFIRI with bevacizumab. 04/12/2023. Completion of 8 cycles of FOLFIRI and bevacizumab. 04/14/2023. Increased pulmonary metastasis and hepatic metastasis. Enrolled in phase 1 clinical trial at [facility]. Receiving hydrochloric when in combination with Ulixertinib (Dr. Kian Bunn). 06/21/2023. Treatment records. 06/22/2023. Emergency room evaluation for nausea and vomiting. Left-sided abdominal pain. Improved and was discharged from the ER. 06/22/2023. CT of the abdomen pelvis. IMPRESSION: 1. Significant interval progression of widespread pulmonary and hepatic metastasis disease. 2. Stable enlargement of a right external iliac lymph node. 3. Small volume of pelvic ascites, increased from prior. 06/24/2023. Presentation to the emergency room due to altered mental status. 06/24/2023. Head CT. IMPRESSION: 1. 1.5 cm intra-axial lesion lateral to the right basal ganglia with extensive associated vasogenic edema which results in effacement of the right lateral ventricle and 4 mm of leftward midline shift. Given history of malignancy, this is highly suggestive of a metastasis. 2. Possible additional 1.8 cm lesion adjacent to the atrium of the right lateral ventricle. Alternatively, this could reflect choroid plexus calcification. These findings could be further assessed with an MRI of the brain with and without contrast. 06/24/2023. CT of the abdomen and pelvis. IMPRESSION: 1. Extensive hepatic and pulmonary metastases, unchanged since CT of June 22, 2023. Significant progression since CT of April 14, 2023. 2. No bowel obstruction. 3. Small amount of abdominal and pelvic ascites, slightly increased since prior CT. 06/25/2023. MRI of the brain. IMPRESSION: Confirmation of the intracranial lesions within the right basal ganglia and adjacent to atrium of the right lateral ventricle consistent with metastatic disease. There is surrounding vasogenic edema at these locations with associated 4 mm of left midline shift, unchanged. 06/26/2023. Radiation oncology consultation. Evaluation for palliative radi ation therapy for the brain lesions. Patient is awake and alert today. She does have confusion in regards to history. She does not recall when her clinical trial started. She does not recall when she was last seen at records. She has been seen by medical oncology. There is plans for palliative care evaluation. Allergies Allergy/AdvReac Type Severity Reaction Status Date / Time Sulfa (Sulfonamide Allergy Severe BREATHING Verified 06/14/23 11:50 Antibiotics) DIFFICULTIES adhesive Allergy Unknown SKIN RASH Verified 06/14/23 11:50 Home Medications Medication Instructions Recorded Confirmed Type fluticasone propionate 50 1 sprays intranasal BID PRN 07/07/22 06/24/23 History mcg/actuation nasal Congestion spray,suspension lamotrigine 150 mg tablet 150 mg PO QAM 07/07/22 06/24/23 History docusate sodium 100 mg capsule 100 mg PO DAILY 09/08/22 06/24/23 History (Stool Softener) naloxone 4 mg/actuation nasal 4 mg intranasal Q2M PRN opioid 11/03/22 06/24/23 Rx spray (Narcan) overdose #2 ea fentanyl 50 mcg/hr transdermal 1 patch transdermal Q72H #10 ea 06/02/23 06/24/23 Rx patch acetaminophen 650 mg 500 mg PO Q6H PRN pain or temp>38 06/14/23 06/24/23 History tablet,extended release degrees buspirone 15 mg tablet 15 mg PO BID 06/14/23 06/24/23 History fexofenadine 180 mg tablet 180 mg PO DAILY 06/14/23 06/24/23 History (Kate Allergy) lamotrigine 25 mg tablet 25 mg PO DAILY 06/14/23 06/24/23 History ondansetron 4 mg disintegrating 8 mg PO Q8H PRN nausea and vomiting 06/14/23 06/24/23 History tablet pantoprazole 40 mg tablet,delayed 40 mg PO DAILY 06/14/23 06/24/23 History release pregabalin 150 mg capsule 150 mg PO TID 06/14/23 06/24/23 History prochlorperazine maleate 10 mg 10 mg PO Q6H PRN Nausea And 06/14/23 06/24/23 History tablet Vomiting sennosides 8.6 mg tablet (senna) 8.6 mg PO DAILY 06/14/23 06/24/23 History oxycodone 15 mg tablet 15 mg PO Q4H PRN pain #120 tabs 06/23/23 06/24/23 Rx lactulose 10 gram/15 mL (15 mL) 10 g PO BID 06/24/23 06/24/23 History oral solution vitamin B complex 1 tab PO DAILY 06/24/23 06/24/23 History Patient History Medical History Anemia reason for upcoming EGD Bipolar 2 disorder Cancer related pain Cervical radiculopathy Colon cancer metastasized to liver Depression Dysmenorrhea Dysplastic nevus Ectopic hx GERD (gastroesophageal reflux disease) History of COVID-19 March 22, 2022 > home test and at [place] test site in parking gargage. > tired, cough, fever > all resolved Hypomagnesemia Hyponatremia IBS (irritable bowel syndrome) Metastatic adenocarcinoma Subcapsular hematoma of liver Thrombocytosis Surgical History H/O laparoscopy Ovarian pregnacy H/O oral surgery tooth extraction- wisdom History of colonoscopy History of dilatation and curettage S/P abdominoplasty S/P fine needle aspiration pt unaware S/P LASIK surgery S/P skin biopsy Nevus- Benign Family History Grandmother (Maternal) Alzheimer disease Stroke Mother Hypothyroidism Obesity Diabetes S/P removal of parathyroid gland Grandmother (Paternal) Diabetes Family/Other Breast cancer Sister Diabetes Pre-diabetes Uncle Stroke Myocardial infarction Dementia Aunt Breast cancer Denies family history of Ovarian cancer Colorectal cancer Social History Smoking Status: Former smoker Tobacco Type: Cigarettes Age Started Using Tobacco: 14; Age Quit Using Tobacco: 44; packs per day: 1; Cigarettes Per Day: 1 pack; Second Hand Exposure: No; Do You Dip or Chew Tobacco: No; Tobacco Cessation Education Requested by Patient: No Hx Alcohol Use: No Hx Substance Use: No Preferred Language: Greenlandic Communication Ability: Impaired Visual Impairment: No Limitations Hearing Ability: Normal Supervisor Film Processing Required: No Beliefs That Will Affect Care: None marital status: Current Living Situation: Spouse Current Living Situation Comment: home current occupational status: employed 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 Brain metastases. TREATMENT: No radiation therapy treatments. Review of Systems Review of Systems: 13 point review of system completed. Negative other than what is in the history. Patient does have difficulty with recalling information. Information also obtained from the chart. Physical Exam Constitutional: WD/WN, vitals as above Eyes: + scleral abnormality (Icterus) and EOM intact bilaterally ENMT: Ears: no hearing impairment Neck: trachea midline, no thyromegaly Respiratory: normal respiratory effort, lungs clear to auscultation Cardiovascular: RRR, no murmur, no edema Gastrointestinal (Abdomen): normal bowel sounds, soft, nontender, no hepatosplenomegaly Percussion/Palpation: no guarding No distention or fluid wave. Skin: no rashes, warm and dry Neurologic: awake and + confused (Unsure of dates.) Speech / Cognition: normal speech Normal strength and coordination. Psychiatric: A+Ox3, euthymic affect Results (Rad Onc) Imaging Studies: were reviewed and pertinent findings noted in HPI Time Spent Midlevel I spent [15] minutes in preparation for this follow up evaluation including reviewing all the clinical records, reviewing laboratory studies, pathology reports and imaging results. I spent [25] minutes with direct face to face interaction with the patient and/or family including performing a physical exam and answering all questions. I spent [10] minutes documenting this patient's visit. Attending I spent 10 minutes in preparation for this consultation including reviewing all the clinical records, reviewing laboratory studies, pathology reports and imaging results. I spent 25 minutes with direct face to face interaction with the patient and/or family including performing a physical exam and answering all questions. I spent 10 minutes documenting this patient's visit. PG Care Time/CCT Total # of Minutes Spent Total Time Spent with Patient: Total time spent is greater than 50% in coordination of care (as documented) at patient's floor/unit and/or counseling patient: Coding Level of Care Code 11806 IN/OBS CONSULT LVL 4,60M Diagnoses Colon cancer metastasized to brain C18.9; C79.31
[2023-06-26] MEDS ORDERED: LACTULOSE SYRUP 30 GM/45 ML UDP PO SCH (09:00)
[2023-06-26] MEDS: MoRPHine SULFATE 2 MG/ML CARP IV PRN ×2 (12:16→20:40)
--- NOTE | 2023-06-26 12:24 | Palliative Care Consultation ---
Date of Consultation June 26, 2023 Assessment & Plan (1) Palliative care encounter: I met with Mrs. Gonzalez on a previous hospitalization in November of this year. At that time, she was aware of the severity of her disease but wanted to pursue any available treatment options. She has a son who is in college in [place] and lives in [place] with her . 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 After octavio discussion with Dr. Smith yesterday, she and her understand that her cancer has continued to progress despite treatment and that her prognosis is unfortunately very poor. She likely has days to weeks to live at this point. She tells me that knowing that, being at home and enjoying time with her family are her highest priorities. As a part of that, it is very important to her to preserve her mental status as much as possible. We discussed improvement with steroids, which can be continued and potential benefit from radiation therapy though I'm not sure how much benefit she would have in the short term. She understands that but the option of an additional treatment, even if it is palliative, is important to her and she would like to proceed with radiation treatment. When treatment is completed, she and her would like to transition to full comfort care with hospice at home. She is familiar with hospice having had her mother in law on hospice care two years ago. We discussed option to have home care support at home and transition to hospice when treatments are complete. I also spoke with Dr. Winchester about the option for her to remain in the hospital for the duration of the treatment and discharge home on hospice. It is likely that she would not be able to start treatment until next week. I discussed this further with Shanna and her and reached out to Dr. [place] at [facility]. Given the situation with short term treatment and poor prognosis, [facility] would accept her for hospice care and allow her to pursue radiation treatment. She would prefer to be at home with her family and needs additional support from hospice at this time. Discussed with Dr. Mar, Dr. Winchester, RN and case management. Plan for discharge home with hospice. History of Present Illness Reason for Consultation: goals of care Requesting Physician: Dr. Mar Attending Physician: Chang Mar MD History of Present Illness 52 yo lady diagnosed almost exactly a year ago with metastatic adenocarcinoma of the cecum. She had known metastatic disease to liver and lungs at that time. She completed cycles of FOLFOX and bevacizumab as well as FOLFIRI and bevacizumab but unfortunately had disease progression. She has been traveling to [facility] for treatment in clinical trial. She presented with altered mental status and was found to have 1.5cm intraaxial lesion lateral to right basal ganglia with vasogenic edema and 4mm midline shift. There is also a possible additional brain lesion. She has had some improvement in her mental status with high dose dexamethasone and met with Dr. Winchester earlier today to discuss possible stereotactic brain radiation. She is awake and alert at the time of my visit but does seem to have some mild confusion. She denies pain or dyspnea at this time. Allergies Allergy/AdvReac Type Severity Reaction Status Date / Time Sulfa (Sulfonamide Allergy Severe BREATHING Verified 06/14/23 11:50 Antibiotics) DIFFICULTIES adhesive Allergy Unknown SKIN RASH Verified 06/14/23 11:50 Home Medications Medication Instructions Recorded Confirmed Type fluticasone propionate 50 1 sprays intranasal BID PRN 07/07/22 06/24/23 History mcg/actuation nasal Congestion spray,suspension lamotrigine 150 mg tablet 150 mg PO QAM 07/07/22 06/24/23 History docusate sodium 100 mg capsule 100 mg PO DAILY 09/08/22 06/24/23 History (Stool Softener) naloxone 4 mg/actuation nasal 4 mg intranasal Q2M PRN opioid 11/03/22 06/24/23 Rx spray (Narcan) overdose #2 ea fentanyl 50 mcg/hr transdermal 1 patch transdermal Q72H #10 ea 06/02/23 06/24/23 Rx patch acetaminophen 650 mg 500 mg PO Q6H PRN pain or temp>38 06/14/23 06/24/23 History tablet,extended release degrees buspirone 15 mg tablet 15 mg PO BID 06/14/23 06/24/23 History fexofenadine 180 mg tablet 180 mg PO DAILY 06/14/23 06/24/23 History (Kate Allergy) lamotrigine 25 mg tablet 25 mg PO DAILY 06/14/23 06/24/23 History ondansetron 4 mg disintegrating 8 mg PO Q8H PRN nausea and vomiting 06/14/23 06/24/23 History tablet pantoprazole 40 mg tablet,delayed 40 mg PO DAILY 06/14/23 06/24/23 History release pregabalin 150 mg capsule 150 mg PO TID 06/14/23 06/24/23 History prochlorperazine maleate 10 mg 10 mg PO Q6H PRN Nausea And 06/14/23 06/24/23 History tablet Vomiting sennosides 8.6 mg tablet (senna) 8.6 mg PO DAILY 06/14/23 06/24/23 History oxycodone 15 mg tablet 15 mg PO Q4H PRN pain #120 tabs 06/23/23 06/24/23 Rx lactulose 10 gram/15 mL (15 mL) 10 g PO BID 06/24/23 06/24/23 History oral solution vitamin B complex 1 tab PO DAILY 06/24/23 06/24/23 History Patient History Medical History Anemia reason for upcoming EGD Bipolar 2 disorder Cancer related pain Cervical radiculopathy Colon cancer metastasized to liver Depression Dysmenorrhea Dysplastic nevus Ectopic hx GERD (gastroesophageal reflux disease) History of COVID-March 22, 2022 > home test and at [place] test site in parking gargage. > tired, cough, fever > all resolved Hypomagnesemia Hyponatremia IBS (irritable bowel syndrome) Metastatic adenocarcinoma Subcapsular hematoma of liver Thrombocytosis Surgical History H/O laparoscopy Ovarian pregnacy H/O oral surgery tooth extraction- wisdom History of colonoscopy History of dilatation and curettage S/P abdominoplasty S/P fine needle aspiration pt unaware S/P LASIK surgery S/P skin biopsy Nevus- Benign Family History Grandmother (Maternal) Alzheimer disease Stroke Mother Hypothyroidism Obesity Diabetes S/P removal of parathyroid gland Grandmother (Paternal) Diabetes Family/Other Breast cancer Sister Diabetes Pre-diabetes Uncle Stroke Myocardial infarction Dementia Aunt Breast cancer Denies family history of Ovarian cancer Colorectal cancer Social History Smoking Status: Former smoker Tobacco Type: Cigarettes Age Started Using Tobacco: 14; Age Quit Using Tobacco: 44; packs per day: 1; Cigarettes Per Day: 1 pack; Second Hand Exposure: No; Do You Dip or Chew Tobacco: No; Tobacco Cessation Education Requested by Patient: No Hx Alcohol Use: No Hx Substance Use: No Preferred Language: Yakut Communication Ability: Impaired Visual Impairment: No Limitations Hearing Ability: Normal Editor Continuity And Script Required: No Beliefs That Will Affect Care: None marital status: Current Living Situation: Spouse Current Living Situation Comment: home current occupational status: employed 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 How many Children do You have: 1 Other Information That Helps Us Care for You: No Feels Safe at Home: Yes Safety Concerns: Feels Safe At This Time Childhood Exposure to Second-Hand Smoke: Yes Diet: regular Diet Comment: regular Dental Care, Regularly: Yes Seatbelt Use: always Sunscreen Use: Yes Assistive Devices: Walker Review of Systems Review of Systems: ESAS Pain 0/3 Dyspnea 0/3 Nausea 0/3 Drowsiness 0/3 Physical Exam Constitutional: + ill appearing; no acute distress Eyes: sclerae not anicteric Respiratory: normal respiratory effort; no labored breathing Cardiovascular: Rate/Rhythm: regular rate and regular rhythm Neurologic: mild confusion Results & Data Vital Signs (Past 12 Hours) Vital Signs Temp Pulse Pulse Resp BP Pulse Ox O2 Del Method 06/26/23 07:17 97.3 F L 72 18 94/60 L 92 Room Air 06/26/23 03:47 97.7 F 74 16 101/67 92 Room Air 06/25/23 23:33 63 PG Care Time/CCT Total # of Minutes Spent Total Time Spent: 120 Total Time Spent with Patient: Total time spent is greater than 50% in coordination of care (as documented) at patient's floor/unit and/or counseling patient: goals of care, patient and family education and support, hospice, coordination of care Coding Level of Care Code 18196 INT INP/OBS CARE 3/75MIN Diagnoses Palliative care encounter Z51.5
--- NOTE | 2023-06-26 14:58 | Hospitalist Progress Note ---
Date of Service June 26, 2023 Assessment & Plan (1) Metabolic encephalopathy: Plan: secondary to cerebral edema from multiple brain mets Continue IV Decadron every 6 Per , there has been an improvement Patient and would like to proceed with radiation treatments Patient was seen by radiation oncologist today who is recommending fractionated stereotactic radiation x3 Hold chemical DVT prophylaxis (2) AMS (altered mental status): Plan: see problem #1 (3) Hypoxia: Plan: -Was hypoxic at 86% on RA in the ED -Likely due to extensive metastases to the lungs, no focal consolidation but cannot rule out pneumonia at this time on empiric Zosyn for now -Prn O2 to keep SpO2 at or above 94% -Incentive spirometry and flutter therapy (4) Metastasis to brain: Plan: -Continue IV dexamethasone -Seizure precautions, q4h neuro checks -Oncology, rad onc, and pallative med on board Plan is for the patient to receive 3 doses of fractionated stereotactic radiation Palliative care has arranged for [facility] home hosp[facility] to take her in their service and they confirmed that patient can receive 3 radiation treatments while being in home hospice. Patient can be discharged tomorrow to home after the simulation She can then continue Decadron either p.o. or subcutaneously (5) Metastatic cancer: Plan: oncologist on board Poor prognosis plan is for home hospice with [facility] so she can get the 3 radiation treatments as stated above (6) Leukocytosis: Plan: - continue Zosyn - blood culture from 06/22 negative (7) Bipolar 2 disorder: (8) Dyslipidemia: Plan: -Hold statin for now (9) Malignant neoplasm of colon metastatic to liver: Plan: palliative care on board (10) Cerebral edema: Plan: see problem #1 Admission and Anticipated Discharge Date Admission Date: June 24, 2023 Subjective patient is awake and alert. Review of Systems Review of Systems: All systems reviewed & are unremarkable except as noted in Subjective Physical Exam Physical Exam: general: Awake, conversant. very icteric pleasantly confused. Able to hold a conversation. Heart: S1, S2/regular rate and rhythm, no murmur rubs or gallops Lungs: Clear to auscultation bilaterally. Normal effort Abdomen: Soft/nontender/nondistended. No hepatosplenomegaly Extremities: No clubbing/cyanosis. No edema Behavior: Appropriate, cooperative Results & Data Results & Data Vital Signs (Past 12 Hours) Vital Signs Temp Pulse Resp BP Pulse Ox O2 Del Method 06/26/23 08:00 Room Air 06/26/23 12:06 36.5 C 71 18 109/73 95 Room Air 06/26/23 07:17 36.3 C L 72 18 94/60 L 92 Room Air 06/26/23 03:47 36.5 C 74 16 101/67 92 Room Air PG Care Time/CCT Total # of Minutes Spent Total Time Spent with Patient: Total time spent is greater than 50% in coordination of care (as documented) at patient's floor/unit and/or counseling patient: Coding Level of Care Code 22038 SUB INP/OBS CARE 2/35MIN Diagnoses Metabolic encephalopathy G93.41 AMS (altered mental status) R41.82 Hypoxia R09.02 Metastasis to brain C79.31 Metastatic cancer C79.9 Leukocytosis D72.829 Bipolar 2 disorder F31.81 Dyslipidemia E78.5 Malignant neoplasm of colon metastatic to liver C18.9; C78.7 Cerebral edema G93.6
[2023-06-26] MEDS: DICLOFENAC SOD 1% GEL 100 GM TUBE EXT SCH (20:41)
[2023-06-27] MEDS: MoRPHine SULFATE 2 MG/ML CARP IV PRN ×2 (00:13→08:48)
[2023-06-27] MEDS: dexAMETHasone 4 MG in SYRINGE 0 ML IV SCH ×3 (00:13→11:15)
[2023-06-27] MEDS ORDERED: MIRTAZAPINE TAB 15 MG TAB PO ONE (00:39)
[2023-06-27] MEDS: CHECK fentaNYL PATCH PLACEMENT SCH ×2 (01:06→08:25)
[2023-06-27 06:11] LABS: Basophils # (auto) 0.02 K/uL (0.00-0.20); Basophils % (auto) 0.1 %; Hematocrit (blood only) 27.2 % (37.0-47.0); Hemoglobin 8.4 g/dl (12.0-16.0); Immature Granulocytes # (auto) 0.27 K/uL (0.01-0.20); Immature Granulocytes % (auto) 1.6 %; Lymphocytes # (auto) 0.98 K/uL (1.20-3.40); Lymphocytes % (auto) 5.9 %; Mean Corpuscular Hemoglobin 25.9 pg (25.0-34.0); Mean Corpuscular Hgb Conc 30.9 g/dL (32.0-36.0); Mean Platelet Volume 9.6 fL (9.4-12.4); Monocytes # (auto) 1.46 K/uL (0.11-0.59); Monocytes % (auto) 8.8 %; Neutrophils # (auto) 13.84 K/uL (1.40-6.50); Neutrophils % (auto) 83.6 %; Platelet Count 357 K/uL (130-400); RDW Coefficient of Variation 19.2 % (11.5-14.5); RDW Standard Deviation 54.8 fL (36.4-46.3); Red Blood Count 3.24 M/uL (4.20-5.40); White Blood Count 16.57 K/ul (4.8-10.8)
[2023-06-27 06:13] LABS: INR 1.5 (0.9-1.1); Prothrombin Time 16.1 Seconds (9.0-12.0)
[2023-06-27 06:27] LABS: BUN Creatinine Ratio 21.5 (10-20); Calcium 8.5 mg/dl (8.6-10.3); Creatinine Clr Calc Pharmacy 110.5 ml/min; Est GFR (Non-African American) 103.5 ml/min; Potassium 4.6 mmol/L (3.5-5.1)
[2023-06-27 06:31] LABS: Albumin Globulin Ratio 0.7 (0.9-2); Albumin Level 2.4 gm/dl (3.4-5.0); Bilirubin,Total 5.6 mg/dl (0.2-1.0); Globulin 3.5 gm/dl (2.5-4.0); Magnesium 2.3 mg/dl (1.7-2.4); Total Protein 5.9 gm/dl (6.0-8.3)
[2023-06-27] MEDS: HEPARIN 100 UNIT/ML 5ML FLUSH FLUSH PRN ×2 (08:49→11:15)
[2023-06-27] MEDS: LACTULOSE SYRUP 20 GM/30 ML UDC PO SCH (08:49)
[2023-06-27] MEDS: DICLOFENAC SOD 1% GEL 100 GM TUBE EXT SCH (08:49)
[2023-06-27] MEDS ORDERED: PANTOprazole 40 MG TAB PO SCH (10:15)
[2023-06-27] MEDS ORDERED: LACTULOSE SYRUP 20 GM/30 ML UDC PO PRN (11:20)
--- NOTE | 2023-06-27 11:28 | Palliative Care Progress Note ---
Date of Service June 27, 2023 Assessment & Plan (1) Metabolic encephalopathy: Plan: With brain metastases Improved She has decided to pursue short course of steerotactic palliative radiation therapy Continues on dexamethasone Could consider 6-8mg po bid for discharge with gi prophylaxis (2) Abdominal pain: Plan: With extensive hepatic metastases Decadron may provide some relief with inflammation and liver capsule pain Constipation may be contributing factor Continue lactulose as needed for constipation She is on oxycodone prn at home in addition to fentanyl patch 50mcg. She reports taking oxycodone every 4-6 hours as need. She does have medication at home to resume at discharge. (3) Palliative care encounter: Plan: Overall plan for Shanna at this time is focus on comfort and quality of life. Maintaining her mental status is of high importance to her and driving her wish to pursue palliative radiation therapy. Unfortunately, her overall prognosis is poor. She and her would significantly benefit from hospice care at home. With her limited course of therapy, she is eligible for hospice care which is being arranged by case management. Anticipate discharge home on hospice later today when arrangements are complete. Admission and Anticipated Discharge Date Admission Date: June 24, 2023 Subjective Returned from radiation oncology evaluation. Had some generalized lower abdominal pain this morning, relieved by morphine. LBM on chart is 06/26 but she reports LBM 06/25. Denies nausea. Review of Systems Review of Systems: ESAS Pain 3/3 before medication, denies now Dyspnea 0/3 Drowsiness 0/3 Nausea 0/3 Physical Exam Constitutional: + frail appearing Eyes: sclerae not anicteric Respiratory: normal respiratory effort; no labored breathing Cardiovascular: Rate/Rhythm: regular rate and regular rhythm Neurologic: mild confusion Results & Data Vital Signs (Past 12 Hours) Vital Signs Temp Pulse Pulse Resp BP Pulse Ox O2 Del Method 06/27/23 09:00 60 06/27/23 09:00 Room Air 06/27/23 08:17 97.7 F 83 18 117/84 96 Room Air 06/26/23 23:21 61 PG Care Time/CCT Total # of Minutes Spent Total Time Spent with Patient: Total time spent is greater than 50% in coordination of care (as documented) at patient's floor/unit and/or counseling patient: Coding Level of Care Code 78822 SUB INP/OBS CARE 2/35MIN Diagnoses Metabolic encephalopathy G93.41 Abdominal pain R10.9 Palliative care encounter Z51.5
[2023-06-27] MEDS ORDERED: LACTULOSE SYRUP 10 GM/15 ML BTL 960 ML PO PRN (12:15)
--- NOTE | 2023-06-27 15:15 | Discharge Summary ---
Date of Service June 27, 2023 Admission HPI Per Admitting Provider Shanna is a 52 year old female with a PMH significant for bipolar 2 disorder, anxiety, and metastatic cecal adenocarcinoma to the liver and lungswho presented to the [facility] ED via home on 06/24 with worsening confusio n/AMS. In the ED the patient was noted to be hypoxic at 96% on RA but otherwise stable. Labs were significant a leukocytosis of 16 with neutrophil predominance of 12.85, platelet count of 413, INR of 3.2, total bili of 7.4, direct bili of 4.2, AST of 139, ALT of 88, alk phos of 1585. Chest xray shows "Significant progression of extensive pulmonary metastases since chest CT April 14, 2023.". CT of the head shows "1. 1.5 cm intra-axial lesion lateral to the right basal ganglia with extensive associated vasogenic edema which results in effacement of the right lateral ventricle and 4 mm of leftward midline shift. Given history of malignancy, this is highly suggestive of a metastasis. 2. Possible additional 1.8 cm lesion adjacent to the atrium of the right lateral ventricle. Alternatively, this could reflect choroid plexus calcification. These findings could be further assessed with an MRI of the brain with and without contrast.". CT of the abd/pelvis w/con was read as "1. Extensive hepatic and pulmonary metastases, unchanged since CT of June 22, 2023. Significant progression since CT of April 14, 2023. 2. No bowel obstruction. 3. Small amount of abdominal and pelvic ascites, slightly increased since prior CT.". The ED staff spoke to Oncology who recommended speaking with Neurosurgery. The ED staff spoke with [facility] who explained that they would not operate on these brain lesions. They recommended systemic steroids and consulting radiation oncology for possible palliative radiation. Prior to admission the patient was given 10 mg IV dexamethasone, 4 mg IV morphine, 8 mg total IV zofran, and 12.5 mg IV Promethazine. At the time of the exam the patient was sitting in bed in no acute distress with her sitting bedside. History was obtain from her due to the patient's current mental status. He states that the patient was started on a Clinical trial therapy in the middle of April due to the patient failing initial treatment due to a KRAS mutation. She has been taking oral chemotherapy, however, due to her increased nausea and cognitive decline has been unable to take it consistently. They presented to the [facility] ED on 06/22 due to AMS, which was thought to be due to an elevated ammonia level and were discharged home. Her states that since discharge home the patient's functional and cognitive decline has progressed. She was unable to take her oral medications today and her oral intake has been poor. We explained the radiographic findings to the patient's and explained that her metastases have progressed, including her newly diagnosed brain metastases. He expressed understanding of the new findings and the likely poor prognosis. At this time he is in agreement with the plan to admit the patient here for IV steroids and discussions with Oncology, radiation oncology, and palliative medicine. The patient's explained that they are interested in home hospice if this would be recommended. We discussed code status with the . The patient has a living will and is a DNR/DNI; her is her POA. Please refer to Dr. Martinez's attestation for any changes to the treatment plan Discharge Data Allergies Allergy/AdvReac Type Severity Reaction Status Date / Time Sulfa (Sulfonamide Allergy Severe BREATHING Verified 06/14/23 11:50 Antibiotics) DIFFICULTIES adhesive Allergy Unknown SKIN RASH Verified 06/14/23 11:50 Consultations 06/24/23 20:29 ED Decision to Admit Stat 06/24/23 20:57 Consult Oncology Routine Consult Radiation Oncology Routine 06/25/23 16:51 Consult Palliative Care Routine Ordered Studies 06/24/23 16:49 CT head/brain wo con Stat 06/24/23 16:51 CT abd pelvis IV con only Stat 06/25/23 12:09 MRI Brain [MR brain wo/w con] Routine 06/27/23 CT guide rad therapy head Routine Hospital Course (1) Metabolic encephalopathy: secondary to cerebral edema from multiple brain mets Continue IV Decadron every 6 Per , there has been an improvement Patient and would like to proceed with radiation treatments Patient was seen by radiation oncologist today who is recommending fractionated stereotactic radiation x3 Hold chemical DVT prophylaxis (2) AMS (altered mental status): see problem #1 (3) Hypoxia: -Was hypoxic at 86% on RA in the ED -Likely due to extensive metastases to the lungs, no focal consolidation but cannot rule out pneumonia at this time on empiric Zosyn for now -Prn O2 to keep SpO2 at or above 94% -Incentive spirometry and flutter therapy (4) Metastasis to brain: -Continue IV dexamethasone -Seizure precautions, q4h neuro checks -Oncology, rad onc, and pallative med on board Plan is for the patient to receive 3 doses of fractionated stereotactic radiation Palliative care has arranged for [facility] home hospice to take her in their service and they confirmed that patient can receive 3 radiation treatments while being in home hospice. Patient can be discharged tomorrow to home after the simulation She can then continue Decadron either p.o. or subcutaneously (5) Metastatic cancer: oncologist on board Poor prognosis plan is for home hospice with [facility] so she can get the 3 radiation treatments as stated above (6) Leukocytosis: - continue Zosyn - blood culture from 06/22 negative (7) Bipolar 2 disorder: (8) Dyslipidemia: -Hold statin for now (9) Malignant neoplasm of colon metastatic to liver: palliative care on board (10) Cerebral edema: see problem #1 Home Health Attestation I certify that this patient is under my care and that I, or a physicians assistant farm operations manager working with me, had a face to-face encounter that meets the home health [id number] encounter requirements with this patient. The encounter with the patient was in whole, or in part, for the following medical condition, which is the primary reason for home health care (list med ical condition): I certify that, based on my findings, the following services are medically necessary home health services: My clinical findings support the need for the above services because: Further, I certify that my clinical findings support that this patient is homebound (i.e. absences from home require considerable and taxing effort and are for medical reasons or christianity services or infrequently or of short duration when for other reasons) because: Certification for Home Health Services: Based on the above findings, I certify that this patient is confined to the home and needs intermittent custodial care, physical therapy and/or speech the rapy or continues to need occupational therapy. The patient is under my care, and I have initiated the establishment of the plan of care. This patient will be followed by a physician who will periodically review the plan of care. Discharge Plan Discharge Items Patient Disposition: Hospice - Home Reason For Visit: Confusion Discharge Diagnosis: Stage 4 colon cancer Activity: As commented below Activity Comment: activity as desired/as tolerated Non-emergency contact: Primary Care Provider Call non-emergency contact if: you have any medication questions, your symptoms worsen, your pain is not controlled, your pain is worsening, your pain is unusual for you and your pain is concerning for you Follow-up/Referrals: Gloria Molina MD [Primary Care Provider] - [facility],Home Healthcare [Non-Staff] - Diet: Regular Addtl Attending Provider Instructions: Mrs Gonzalez, Florin were hospitalized for confusion. MRI brain showed swelling from 2 areas of metastatic cancer. Steroids (Dexamethasone) were started to reduce the swelling. Radiation oncology saw you in consult and have offered radiation treatments. Dr Resendiz from palliative care as well as Dr Smith from oncology also saw you while here. At this time [facility] will be caring for you upon return home. If you have any questions, concerns, new problems, uncontrolled pain, unco ntrolled nausea or vomiting, difficulty breathing - please call [facility] Hospice any time of day/night. In the majority of circumstances they will be able to address your concerns either by phone or with a home visit. 1. For pain/discomfort - * continue your fentanyl patch as previous * continue oxycodone 15mg every 4 hours as needed * if you need additional pain control please contact Hospice; they will be able to adjust your medications 2. For nausea/vomiting - * ondansetron tablet, 4-8mg every 6-8 hours as needed 3. For anxiety, insomnia, etc - * lorazepam 0.5mg every 6 hours as needed * sometimes lorazepam can also be used for uncontrolled nausea/vomiting 4. For swelling of the brain - * dexamethasone 4mg four times daily with food * the dexamethasone can cause stomach upset thus continue your pantoprazole as previous; if you need additional relief of stomach upset you can increase the pantoprazole to twice daily if desired 5. OK to play with the dose of lactulose depending on your bowel movements. You can cut the dose back if you are having more than 3 stools/day. Again please contact [facility] Home Hospice for any needs or concerns. It was our pleasure caring for you! Please enjoy being home with your family and stay comfortable, - Dr Sotelo Pending Studies at Discharge: No Stand-Alone Forms: [facility] Medications and DC Order Prescriptions: New lorazepam [Ativan] 0.5 mg tablet 0.5 mg PO Q6H PRN (Reason: anxiety or sleep) Qty: 20 0RF dexamethasone 4 mg tablet 4 mg PO QID Qty: 60 2RF Rx Instructions: take with food Continued docusate sodium [Stool Softener] 100 mg capsule 100 mg PO DAILY naloxone [Narcan] 4 mg/actuation spray,non-aerosol 4 mg intranasal Q2M PRN (Reason: opioid overdose) Qty: 2 2RF Rx Instructions: spray 1 dose into ONE nostril; alternate nostrils w each dose until help arrives fentanyl 50 mcg/hr patch 72 hour 1 patch transdermal Q72H Qty: 10 0RF Rx Instructions: 10 patches total. ONGOING THERAPY. lamotrigine 25 mg tablet 25 mg PO DAILY acetaminophen 650 mg tablet extended release 500 mg PO Q6H PRN (Reason: pain or temp>38 degrees) sennosides [senna] 8.6 mg tablet 8.6 mg PO DAILY fexofenadine [Kate Allergy] 180 mg tablet 180 mg PO DAILY buspirone 15 mg tablet 15 mg PO BID pantoprazole 40 mg tablet,delayed release (DR/EC) 40 mg PO DAILY prochlorperazine maleate 10 mg tablet 10 mg PO Q6H PRN (Reason: Nausea And Vomiting) lamotrigine 150 mg tablet 150 mg PO QAM fluticasone propionate 50 mcg/actuation spray,suspension 1 sprays INTNAS BID PRN (Reason: Congestion) lactulose 10 gram/15 mL (15 mL) solution 10 g PO BID oxycodone 15 mg tablet 15 mg PO Q4H PRN (Reason: pain) Qty: 60 0RF Rx Instructions: colon CA; continuing treatment ondansetron 4 mg tablet,disintegrating 8 mg PO Q8H PRN (Reason: nausea and vomiting) Qty: 20 0RF Discontinued pregabalin 150 mg capsule 150 mg PO TID vitamin B complex Tablet 1 tab PO DAILY Discharge Orders: Discharge Order (Routine); Ordered 06/27/23 Ordered By: Jose Manuel Sotelo Admission Data Admit Date/Time: 06/24/23 20:52 Attending Provider: Jose Manuel Sotelo Admit Provider: Surekha Martinez Primary Care Provider: Gloria Molina Other Providers: Surekha Martinez ; Paula Smith ; Jer Winchester ; Mayra Resendiz ; [facility] Coding Diagnoses Metabolic encephalopathy G93.41 AMS (altered mental status) R41.82 Hypoxia R09.02 Metastasis to brain C79.31 Metastatic cancer C79.9 Leukocytosis D72.829 Bipolar 2 disorder F31.81 Dyslipidemia E78.5 Malignant neoplasm of colon metastatic to liver C18.9; C78.7 Cerebral edema G93.6
== END 2023-06-27 16:30 | disposition hospice, home (50) | DRG 54 ==
LOC: ED 14:12 → SUATTDRO 20:52 → 4W 20:52
DX: C78.7 Secondary malignant neoplasm of liver and intrahepatic bile duct; Z79.1 Long term (current) use of non-steroidal anti-inflammatories (NSAID); D72.829 Elevated white blood cell count, unspecified; E78.5 Hyperlipidemia, unspecified; Z87.891 Personal history of nicotine dependence; Z88.2 Allergy status to sulfonamides; F31.81 Bipolar II disorder; Z79.899 Other long term (current) drug therapy; J18.9 Pneumonia, unspecified organism; D64.9 Anemia, unspecified; Z66 Do not resuscitate; Z91.048 Other nonmedicinal substance allergy status; Z79.69 Long term (current) use of other immunomodulators and immunosuppressants; G89.3 Neoplasm related pain (acute) (chronic); G93.41 Metabolic encephalopathy; C79.31 Secondary malignant neoplasm of brain; C18.9 Malignant neoplasm of colon, unspecified; G93.6 Cerebral edema